=== PATIENT | female | born 1945 | race Caucasian/White ===

== ENCOUNTER 2017-11-29 11:07 | Inpatient (IN) | payer OTHER ==
[~2017-11-29] VITALS: Ht 149.9 cm; Wt 97.4 kg
[~2017-11-29 11:07] MED LIST: ADVIN25/60 INH; ALBU1NEB10 INH; ALBUAER2 INH; AMLO-114 PO; ASCO500T16 PO; ASPI1TAB83 PO; BLOOKIT; CALCTAB5 PO; CETI10TA84 PO; DIPH-416 PO; EZET10TA47 PO; FLAX100024 PO; FLNIN NAE; FURO40TA3 PO; INDSR80 PO; INSU31MI; INSUINJ14 SC; INSUINJ4 SC; LANCMIS; LOSA25TA18 PO; MCRK20 PO; MELO15TA4 PO; MULTTAB58 PO; NTRGSL/4 UT; OMEP20CA9 PO; PRED1SUS3 OPB; TIOTCAP INH; TRAM-10 PO; ZOLP10TA PO; [UNRECOGNIZED DRUG - CODE] OPB; [UNRECOGNIZED DRUG - OTHER]; test
[2017-11-29] MEDS ORDERED: METOCLOPRAMIDE HCL INJ 5 MG/ML 2 ML VIAL IV STA (11:24)
[2017-11-29] MEDS ORDERED: ACETAMINOPHEN 500 MG TAB PO STA (11:24)
[2017-11-29] MEDS ORDERED: ALBUT/IPRATROP 3MG/0.5MG NEB 3 ML VIAL INH ONE (11:30)
[2017-11-29] MEDS ORDERED: SODIUM CHLORIDE 0.9% 500ML 500 ML IV STA (11:33)
--- NOTE | 2017-11-29 11:43 | EMERGENCY ROOM VISIT NOTE ---
History Report prepared by David: Aaron Calzada Under the Supervision of: Dr. Joao Em M.D. First contact with patient: 11:19 Chief Complaint: FLU LIKE SX Stated Complaint: SYNCOPE, HIGH SUGAR, COUGH,NAUSEA,VOM History of Present Illness The patient is a 72 year old female who presents to the Emergency Room with complaints of a sudden syncopal episode occurring around 2315 last night while walking to the kitchen. The patient states that she fell and was on the ground and unconscious for 20-40 minutes, and she states that no one was there to see her. Her downstairs neighbor heard the fall, and the family was called and came over after, and the patient was awake and sitting at a table by the time they got there. She states that she is currently having back pain, right arm pain, and leg pain. The patient is additionally complaining of headache, fevers, chills, cough, congestion, nausea, vomiting, and fatigue. She denies any abdominal pain, pain with urination, and gaining any water weight recently. The patient has a history of asthma, diabetes, and a mitral valve prolapse. She has no history of COPD, and she does not smoke. She is not on any blood thinners. Source of History: patient, family Onset: last night around 2315 Position: other (global) Quality: other (syncopal episode) Timing: other (sudden) Associated Symptoms: + fevers, + chills, + cough, + nausea, + vomiting, No abdominal pain Note: Associated symptoms: Right arm pain, leg pain, and congestion. Review of Systems See HPI for pertinent positives and negatives. A total of ten systems were reviewed and were otherwise negative. Past Medical & Surgical Medical Problems: (1) Asthma (2) Celiac disease (3) Cholelithiasis (4) Dyslipidemia (5) Hyperglycemia (6) Hypertension (7) Influenza A Surgical Problems: (1) Status post cataract extraction (2) Status post cholecystectomy (3) Status post hysterectomy Family History Asthma FATHER Diabetes mellitus MOTHER SISTER Heart disease FATHER Hypertension SISTER Renal call Ca MOTHER Social History Smoking Status: Never Smoker Housing Status: lives alone Occupation Status: employed Current/Historical Medications Scheduled Amlodipine (Norvasc), 10 MG PO DAILY Aspirin (Aspirin 81), 1 TAB PO DAILY Calcium Carbonate-Vitamin D (Calcium + D), 1 TAB PO DAILY Cetirizine (Zyrtec), 10 MG PO DAILY Diphenoxylate/Atropine (Lomotil), 1 TAB PO PRN Ezetimibe (Zetia), 10 MG PO DAILY Fluticasone Prop/Salmeterol (Advair Diskus 250/50 60 Dose), 1 PUFF INH BID Furosemide (Lasix), 40 MG PO DAILY Insulin Aspart (Novolog Flexpen), Unknown Dose TID Insulin Detemir (Levemir Flextouch), 8 UNITS SC DAILY Losartan Potassium (Cozaar), 25 MG PO DAILY Meloxicam (Mobic), 15 MG PO DAILY Nitroglycerin (Nitrostat), 0.4 MG UT PRN Omeprazole (Prilosec), 20 MG PO DAILY Potassium Ext Rel (Klor-Con), 20 MEQ PO DAILY Propranolol Hcl (Propranolol Hcl Er), 160 MG PO DAILY Tiotropium [place] (Spiriva Handihaler), 1 INHA PO DAILY Vitamins C & E (Vitamin C), 500 MG PO DAILY Scheduled PRN Albuterol Sulfate (Proventil Hfa), 1 PUFF INH Q4 PRN for SOB/Wheezing Durable Medical Equipment Blood Glucose Monitoring Suppl (Purfresh Ultra 2), KIT Insulin Pen Needle (Exel Insulin Pen [place]), UNITS Lancets (Lancets), BOX Allergies Coded Allergies: Penicillins (Verified Allergy, Severe, SOB, RASH, 11/29/17) Acetaminophen (Verified Allergy, Unknown, UNKNOWN., 11/29/17) Erythromycin (Verified Allergy, Unknown, UNKNOWN., 11/29/17) Gluten (Verified Allergy, Unknown, CELIAC DISEASE, 11/29/17) Gluten Meal (Verified Allergy, Unknown, CELIAC DISEASE, 11/29/17) Lisinopril (Verified Allergy, Unknown, UNKNOWN., 11/29/17) POLLEN (Verified Allergy, Unknown, ?, 11/29/17) Propoxyphene (Verified Allergy, Unknown, UNKNOWN., 11/29/17) Sulfa Drugs (Verified Allergy, Unknown, UNKNOWN., 11/29/17) Physical Exam Vital Signs Date Time Temp Pulse Resp B/P (MAP) Pulse Ox O2 Delivery O2 Flow Rate FiO2 11/29/17 14:18 36.5 67 18 131/66 97 Room Air 11/29/17 12:19 68 20 90 Room Air 11/29/17 12:09 61 11/29/17 11:48 95 Room Air 11/29/17 11:11 36.9 69 18 128/78 97 Room Air Physical Exam GENERAL: Awake, alert, fatigued-appearing, in no distress HENT: Normocephalic, atraumatic. Oropharynx unremarkable. Dry and cracked mucous membranes. EYES: Normal conjunctiva. Sclera non-icteric. NECK: Supple. No nuchal rigidity. FROM. No JVD. RESPIRATORY:Scattered wheezes. CARDIAC: Regular rate, normal rhythm. Extremities warm and well perfused. Pulses equal. ABDOMEN: Soft, non-distended. No tenderness to palpation. No rebound or guarding. No masses. RECTAL: Deferred. MUSCULOSKELETAL: Mild tenderness in the C,T,L spine with no step offs. 2cm contusion/hematoma to the right mid thoracic paraspinal region and upper thoracic paraspinal region. Chest examination reveals no tenderness. There is no CVA tenderness to palpation. No joint edema. LOWER EXTREMITIES: Calves are equal size bilaterally and non-tender. No edema. No discoloration. NEURO: Normal sensorium. No sensory or motor deficits noted. SKIN: No rash or jaundice noted. Medical Decision & Procedures ER Provider Diagnostic Interpretation: Radiology results as stated below per my review and radiologist interpretation: HEAD WITHOUT CONTRAST (CT) CLINICAL HISTORY: 72 years-old Female with MILLIGAN, fall. Acute headache and syncope status post fall TECHNIQUE: Multiple axial CT images of the head were obtained without contrast. A dose lowering technique was utilized adhering to the principles of ALARA. CT DOSE: 3500.82 mGy.cm COMPARISON: CT cervical spine of same day, CT head 09/14/2013. FINDINGS: No acute intracranial hemorrhage, midline shift, intracranial mass, hydrocephalus, territorial ischemia or abnormal extra-axial collection. Moderate trophic changes of the brain again seen with ill-defined areas of low-attenuation within the subcortical and periventricular white matter suggesting chronic microvascular ischemic changes. More focal area of low-attenuation is seen within the distribution of the right peña radiata and anterior aspect of the right external capsule which is unchanged suggesting remote infarction. Vascular calcifications are seen at the level of the skull base, notably within the distribution of the V4 segment right vertebral artery which appears to have progressed from prior study. The calvarium is intact. The paranasal sinuses, mastoid air cells, and middle ear cavities are clear. Sinuses appear mildly hypoplastic. Complete bony fusion involving the posterior arch C1. Soft tissues are unremarkable. IMPRESSION: 1. No acute intracranial abnormality. 2. Atrophy with chronic microvascular ischemic changes. 3. Progressively worsened atherosclerotic plaquing involves the V4 segment right vertebral artery. The above report was generated using voice recognition software. It may contain grammatical, syntax or spelling errors. Electronically signed by: Corey Gleason M.D. 11/29/2017 2:13 PM Dictated Date/Time: 11/29/2017 2:09 PM CHEST ONE VIEW PORTABLE HISTORY: 72 years-old Female CHEST PAIN acute atypical chest pain with nausea and syncope COMPARISON: Chest radiograph 09/10/2013. TECHNIQUE: Portable AP view of the chest FINDINGS: Cardiomediastinal and hilar silhouettes are within normal limits. Atherosclerosis of the aorta. No pneumothorax, pleural effusion, focal airspace consolidation or overt pulmonary edema. Bones of the chest appear grossly intact. There are degenerative changes of the shoulders and spine. IMPRESSION: No acute process. The above report was generated using voice recognition software. It may contain grammatical, syntax or spelling errors. Electronically signed by: Corey Gleason M.D. 11/29/2017 12:14 PM Dictated Date/Time: 11/29/2017 12:[address] OF THE CERVICAL SPINE WITHOUT CONTRAST CLINICAL HISTORY: Pain following fall. COMPARISON STUDY: No previous studies for comparison. TECHNIQUE: Helical axial images of the cervical spine were obtained without IV contrast. Sagittal and coronal reconstructions were viewed. A dose lowering technique was utilized adhering to the principles of ALARA. FINDINGS: There is straightening of the normal cervical lordosis. Craniocervical junction is intact. There is no acute cervical spine fracture. There is no prevertebral edema. Moderate disc space narrowing with osteophytosis is noted at C5-C6 and C6-C7. IMPRESSION: No acute cervical spine fracture or subluxation. Electronically signed by: [place] John M.D. 11/29/2017 2:12 PM Dictated Date/Time: 11/29/2017 2:10 PM (CHEST) THORAX WITHOUT CT DOSE: HISTORY: Trauma. Pain. pain, hematoma fall TECHNIQUE: Multiaxial CT images of the chest were performed without contrast. A dose lowering technique was utilized adhering to the principles of ALARA. COMPARISON: 07/08/2009 FINDINGS: The lungs are clear. The mediastinal vascular structures are within normal limits. No mediastinal or hilar lymphadenopathy. No pleural effusion or pneumothorax. Limited views of the upper abdomen demonstrate a normal liver and spleen. IMPRESSION: No acute process. The above report was generated using voice recognition software. It may contain grammatical, syntax or spelling errors. Electronically signed by: Nitesh Joel M.D. 11/29/2017 2:14 PM Dictated Date/Time: 11/29/2017 2:[address] OF THE ABDOMEN AND PELVIS WITHOUT CONTRAST CLINICAL HISTORY: pain, hematoma fall COMPARISON STUDY: CT of the abdomen and pelvis September 12, 2013. TECHNIQUE: Axial images of the abdomen and pelvis were obtained without IV contrast. Images were reviewed in the axial, sagittal, and coronal planes. A dose lowering technique was utilized adhering to the principles of ALARA. FINDINGS: Chest CT will be reported separately. No hemoperitoneum or pneumoperitoneum is present. Evaluation of the abdomen and pelvis is suboptimal on this unenhanced exam. However, there is no evidence for traumatic injury to the liver, spleen, adrenal glands, kidneys or pancreas. The gallbladder is surgically absent. Caliber of small and large bowel is normal. There is no free fluid. No acute lumbar spine or pelvic fracture is identified. There is no abdominal or pelvic lymphadenopathy. IMPRESSION: No acute traumatic findings within the abdomen or pelvis on unenhanced exam. Electronically signed by: [place] John M.D. 11/29/2017 2:20 PM Dictated Date/Time: 11/29/2017 2:13 PM Laboratory Results 11/29/17 11:50 Red Blood Count 4.85, Mean Corpuscular Volume 86.2, Mean Corpuscular Hemoglobin 29.1, Mean Corpuscular Hemoglobin Concent 33.7, Mean Platelet Volume 10.8, Neutrophils (%) (Auto) 61.4, Lymphocytes (%) (Auto) 24.4, Monocytes (%) (Auto) 13.8, Eosinophils (%) (Auto) 0.0, Basophils (%) (Auto) 0.2, Neutrophils # (Auto ) 3.71, Lymphocytes # (Auto) 1.47, Monocytes # (Auto) 0.83, Eosinophils # (Auto ) 0.00, Basophils # (Auto) 0.01 Test 11/29/17 11:50 11/29/17 13:39 11/29/17 14:20 White Blood Count 6.03 K/uL (4.8-10.8) Red Blood Count 4.85 M/uL (4.2-5.4) Hemoglobin 14.1 g/dL (12.0-16.0) Hematocrit 41.8 % (37-47) Mean Corpuscular Volume 86.2 fL (80-100) Mean Corpuscular Hemoglobin 29.1 pg (25-34) Mean Corpuscular Hemoglobin Concent 33.7 g/dl (32-36) Platelet Count 249 K/uL (130-400) Mean Platelet Volume 10.8 fL (7.4-10.4) Neutrophils (%) (Auto) 61.4 % Lymphocytes (%) (Auto) 24.4 % Monocytes (%) (Auto) 13.8 % Eosinophils (%) (Auto) 0.0 % Basophils (%) (Auto) 0.2 % Neutrophils # (Auto) 3.71 K/uL (1.4-6.5) Lymphocytes # (Auto) 1.47 K/uL (1.2-3.4) Monocytes # (Auto) 0.83 K/uL (0.11-0.59) Eosinophils # (Auto) 0.00 K/uL (0-0.5) Basophils # (Auto) 0.01 K/uL (0-0.2) RDW Standard Deviation 45.9 fL (36.4-46.3) RDW Coefficient of Variation 14.5 % (11.5-14.5) Immature Granulocyte % (Auto) 0.2 % Immature Granulocyte # (Auto) 0.01 K/uL (0.00-0.02) Total Bilirubin 0.5 mg/dl (0.2-1) Alanine Aminotransferase (ALT/SGPT) 51 U/L (12-78) Alkaline Phosphatase 261 U/L (45-117) Troponin I < 0.015 ng/ml (0-0.045) Pro-B-Type Natriuretic Peptide 311 pg/ml (0-900) Total Protein 8.0 gm/dl (6.4-8.2) Albumin 3.7 gm/dl (3.4-5.0) Lipase 77 U/L (73-393) Influenza Type A Antigen POS for Influ A (NEG) Influenza Type B Antigen Neg for Influ B (NEG) Direct Bilirubin 0.1 mg/dl (0-0.2) Aspartate Amino Transf (AST/SGOT) 34 U/L (15-37) Urine Color YELLOW Urine Appearance CLEAR (CLEAR) Urine pH 5.5 (4.5-7.5) Urine Specific [place] 1.018 (1.000-1.030) Urine Protein NEG (NEG) Urine Glucose (UA) 2+ (NEG) Urine Ketones NEG (NEG) Urine Occult Blood NEG (NEG) Urine Nitrite NEG (NEG) Urine Bilirubin NEG (NEG) Urine Urobilinogen NEG (NEG) Urine Leukocyte Esterase TRACE (NEG) Urine WBC (Auto) 5-10 /hpf (0-5) Urine RBC (Auto) 0-4 /hpf (0-4) Urine Hyaline Casts (Auto) 5-10 /lpf (0-5) Urine Epithelial Cells (Auto) 10-20 /lpf (0-5) Urine Bacteria (Auto) NEG (NEG) Laboratory results reviewed by me Medications Administered Medications (Trade) Dose Ordered Sig/Rupa Route Start Time Stop Time Status Last Admin Dose Admin Albuterol/ Ipratropium (Duoneb) 12 ml ONE ONCE INH 11/29/17 11:30 11/29/17 11:33 DC 11/29/17 12:17 12 ML Prednisone (PredniSONE TAB) 60 mg NOW STAT PO 11/29/17 11:24 11/29/17 11:33 DC 11/29/17 11:58 60 MG Acetaminophen (Tylenol Tab) 1,000 mg NOW STAT PO 11/29/17 11:24 11/29/17 11:33 DC 11/29/17 11:59 1,000 MG Metoclopramide HCl (Reglan Inj) 10 mg NOW STAT IV 11/29/17 11:24 11/29/17 11:33 DC 11/29/17 11:57 10 MG Sodium Chloride 500 ml @ 999 mls/hr Q31M STAT IV 11/29/17 11:33 11/29/17 12:03 DC 11/29/17 11:57 999 MLS/HR Sodium Chloride 1,000 ml @ 250 mls/hr Q4H STAT IV 11/29/17 14:27 11/29/17 16:18 DC 11/29/17 14:41 250 MLS/HR Ceftriaxone Sodium (Rocephin Inj) 1 gm NOW STAT IV 11/29/17 15:00 11/29/17 15:02 DC 11/29/17 15:30 1 GM Oseltamivir Phosphate (Tamiflu Cap) 75 mg NOW STAT PO 11/29/17 15:00 11/29/17 15:02 DC 11/29/17 15:30 75 MG Insulin Aspart (novoLOG ASPART) 8 units NOW STAT SC 11/29/17 15:02 11/29/17 15:08 DC 11/29/17 15:35 8 UNITS ECG Indication: syncope Rate (beats per minute): 71 Rhythm: normal sinus Findings: T-wave inversion (precordial leads), no acute ischemic change, other (normal axis) Comparison ECG Date: 09/12/13 Change: no significant change Change: Patient's EKG interpreted by me ED Course 1119: The patient was evaluated in room A11. A complete history and physical exam was performed. 1455: Upon reexamination, the patient was doing well. I discussed the test results and treatment plan with her. The patient will be evaluated for further management. 1504: I discussed the patient with Merlene Garrido - She will evaluate the patient for further treatment. Medical Decision I reviewed the patient's past medical history, medications, and the nursing notes as described above. The patient's presentation and history were concerning for etiologies such as fracture, dislocation, intra-abdominal, pneumothorax, intrathoracic , intracranial, neurologic, as well as other traumatic pathologies, vasovagal event, infection, hypoglycemia, electrolyte abnormalities, cardiac sources, intracerebral event, toxicologic, neurologic, as well as others were entertained. The patient is a 72 y/o woman with a pmhx of IDDM2, HTN presents to the emergency department with cough, congestion, body aches, f/c and syncopal episodes last night per HPI. On arrival the patient is fatigued appearing but in NAD, AFVSS. Labs notable for hyponatremia to 126 although with glc 490s correcting to 132. BUN/Cr > 20 suggestive of prerenal etiology in the setting of influenza A positive. Elevated BHB however without Agap. UA with possible UTI. Given patient's illness leading to syncope will treat with ceftriaxone for now. CT head, Cspine, Chest, Abd/pel negative for acute traumatic findings. Case d/w Hema Jaimes, who will admit the patient for further management. Medication Reconcilliation Current Medication List: was personally reviewed by me Blood Pressure Screening Patient's blood pressure: Normal blood pressure Consults Time Called: 1500 Consulting Physician: Merlene Garrido Returned Call: 1504 I discussed the patient with Merlene Garrido - She will evaluate the patient for further treatment. Impression Primary Impression: Syncope Additional Impressions: Influenza A Hyponatremia Hyperglycemia UTI (urinary tract infection) Acute kidney injury Dehydration Scribe Attestation The scribe's documentation has been prepared under my direction and personally reviewed by me in its entirety. I confirm that the note above accurately reflects all work, treatment, procedures, and medical decision making performed by me. Departure Information Dispostion Being Evaluated By Hospitalist Referrals Alicia Woodruff M.D. (PCP) Patient Instructions [facility] Problem Qualifiers
[2017-11-29] MEDS ORDERED: OPTIRAY 320 IV PRN (11:45)
--- NOTE | 2017-11-29 12:16 | DIAGNOSTIC IMAGING REPORT ---
CHEST ONE VIEW PORTABLE HISTORY: 72 years-old Female CHEST PAIN acute atypical chest pain with nausea and syncope COMPARISON: Chest radiograph 09/10/2013. TECHNIQUE: Portable AP view of the chest FINDINGS: Cardiomediastinal and hilar silhouettes are within normal limits. Atherosclerosis of the aorta. No pneumothorax, pleural effusion, focal airspace consolidation or overt pulmonary edema. Bones of the chest appear grossly intact. There are degenerative changes of the shoulders and spine. IMPRESSION: No acute process. The above report was generated using voice recognition software. It may contain grammatical, syntax or spelling errors. Electronically signed by: Corey Gleason M.D. 11/29/2017 12:14 PM Dictated Date/Time: 11/29/2017 12:13 PM
[2017-11-29 12:19] VITALS: PULSE 68; O2SAT 90
[2017-11-29 12:19] LABS: BASO % 0.2 %; BASO ABS # 0.01 K/uL (0-0.2); HEMATOCRIT 41.8 % (37-47); HEMOGLOBIN 14.1 g/dL (12.0-16.0); IG# 0.01 K/uL (0.00-0.02); LYMPH % 24.4 %; LYMPH ABS # 1.47 K/uL (1.2-3.4); MEAN CELL VOLUME 86.2 fL (80-100); MEAN CORPUSCULAR HEMOGLOBIN 29.1 pg (25-34); MEAN CORPUSCULAR HGB CONC 33.7 g/dl (32-36); MEAN PLATELET VOLUME 10.8 fL (7.4-10.4); MONO % 13.8 %; MONO ABS # 0.83 K/uL (0.11-0.59); NEUT % 61.4 %; NEUT ABS # 3.71 K/uL (1.4-6.5); PLATELET COUNT 249 K/uL (130-400); RED CELL DISTRIBUTION WIDTH CV 14.5 % (11.5-14.5); RED CELL DISTRIBUTION WIDTH SD 45.9 fL (36.4-46.3); WHITE BLOOD COUNT 6.03 K/uL (4.8-10.8)
[2017-11-29] MEDS ORDERED: INSU3INJ3 SC (12:26)
[2017-11-29] MEDS ORDERED: POTA20TA16 PO (12:26)
[2017-11-29] MEDS ORDERED: PROP160C PO (12:26)
[2017-11-29] MEDS ORDERED: EZET10TA63 PO (12:26)
[2017-11-29] MEDS ORDERED: NVLGI/PEN (12:26)
[2017-11-29 12:34] LABS: INFLUENZA B ANTIGEN Neg for Influ B (NEG)
[2017-11-29 13:07] LABS: GLUCOSE 492 mg/dl (70-99)
[2017-11-29 13:11] LABS: ALBUMIN 3.7 gm/dl (3.4-5.0); ALT/SGPT 51 U/L (12-78); CREATININE 2.36 mg/dl (0.60-1.20)
[2017-11-29 13:12] LABS: ALKALINE PHOSPHATASE 261 U/L (45-117); BLOOD UREA NITROGEN 58 mg/dl (7-18); CALCIUM 8.7 mg/dl (8.5-10.1); CARBON DIOXIDE 25 mmol/L (21-32); LIPASE 77 U/L (73-393); SODIUM 126 mmol/L (136-145)
[2017-11-29 14:02] LABS: POTASSIUM 3.6 mmol/L (3.5-5.1)
--- NOTE | 2017-11-29 14:14 | DIAGNOSTIC IMAGING REPORT ---
CT OF THE CERVICAL SPINE WITHOUT CONTRAST CLINICAL HISTORY: Pain following fall. COMPARISON STUDY: No previous studies for comparison. TECHNIQUE: Helical axial images of the cervical spine were obtained without IV contrast. Sagittal and coronal reconstructions were viewed. A dose lowering technique was utilized adhering to the principles of ALARA. FINDINGS: There is straightening of the normal cervical lordosis. Craniocervical junction is intact. There is no acute cervical spine fracture. There is no prevertebral edema. Moderate disc space narrowing with osteophytosis is noted at C5-C6 and C6-C7. IMPRESSION: No acute cervical spine fracture or subluxation. Electronically signed by: [place] John M.D. 11/29/2017 2:12 PM Dictated Date/Time: 11/29/2017 2:10 PM
--- NOTE | 2017-11-29 14:15 | DIAGNOSTIC IMAGING REPORT ---
HEAD WITHOUT CONTRAST (CT) CLINICAL HISTORY: 72 years-old Female with MILLIGAN, fall. Acute headache and syncope status post fall TECHNIQUE: Multiple axial CT images of the head were obtained without contrast. A dose lowering technique was utilized adhering to the principles of ALARA. CT DOSE: 3500.82 mGy.cm COMPARISON: CT cervical spine of same day, CT head 09/14/2013. FINDINGS: No acute intracranial hemorrhage, midline shift, intracranial mass, hydrocephalus, territorial ischemia or abnormal extra-axial collection. Moderate trophic changes of the brain again seen with ill-defined areas of low-attenuation within the subcortical and periventricular white matter suggesting chronic microvascular ischemic changes. More focal area of low-attenuation is seen within the distribution of the right peña radiata and anterior aspect of the right external capsule which is unchanged suggesting remote infarction. Vascular calcifications are seen at the level of the skull base, notably within the distribution of the V4 segment right vertebral artery which appears to have progressed from prior study. The calvarium is intact. The paranasal sinuses, mastoid air cells, and middle ear cavities are clear. Sinuses appear mildly hypoplastic. Complete bony fusion involving the posterior arch C1. Soft tissues are unremarkable. IMPRESSION: 1. No acute intracranial abnormality. 2. Atrophy with chronic microvascular ischemic changes. 3. Progressively worsened atherosclerotic plaquing involves the V4 segment right vertebral artery. The above report was generated using voice recognition software. It may contain grammatical, syntax or spelling errors. Electronically signed by: Corey Gleason M.D. 11/29/2017 2:13 PM Dictated Date/Time: 11/29/2017 2:09 PM
--- NOTE | 2017-11-29 14:15 | DIAGNOSTIC IMAGING REPORT ---
(CHEST) THORAX WITHOUT CT DOSE: HISTORY: Trauma. Pain. pain, hematoma fall TECHNIQUE: Multiaxial CT images of the chest were performed without contrast. A dose lowering technique was utilized adhering to the principles of ALARA. COMPARISON: 07/08/2009 FINDINGS: The lungs are clear. The mediastinal vascular structures are within normal limits. No mediastinal or hilar lymphadenopathy. No pleural effusion or pneumothorax. Limited views of the upper abdomen demonstrate a normal liver and spleen. IMPRESSION: No acute process. The above report was generated using voice recognition software. It may contain grammatical, syntax or spelling errors. Electronically signed by: Nitesh Joel M.D. 11/29/2017 2:14 PM Dictated Date/Time: 11/29/2017 2:10 PM
--- NOTE | 2017-11-29 14:21 | DIAGNOSTIC IMAGING REPORT ---
CT OF THE ABDOMEN AND PELVIS WITHOUT CONTRAST CLINICAL HISTORY: pain, hematoma fall COMPARISON STUDY: CT of the abdomen and pelvis September 12, 2013. TECHNIQUE: Axial images of the abdomen and pelvis were obtained without IV contrast. Images were reviewed in the axial, sagittal, and coronal planes. A dose lowering technique was utilized adhering to the principles of ALARA. FINDINGS: Chest CT will be reported separately. No hemoperitoneum or pneumoperitoneum is present. Evaluation of the abdomen and pelvis is suboptimal on this unenhanced exam. However, there is no evidence for traumatic injury to the liver, spleen, adrenal glands, kidneys or pancreas. The gallbladder is surgically absent. Caliber of small and large bowel is normal. There is no free fluid. No acute lumbar spine or pelvic fracture is identified. There is no abdominal or pelvic lymphadenopathy. IMPRESSION: No acute traumatic findings within the abdomen or pelvis on unenhanced exam. Electronically signed by: [place] John M.D. 11/29/2017 2:20 PM Dictated Date/Time: 11/29/2017 2:13 PM
[2017-11-29] MEDS ORDERED: SODIUM CHLORIDE 0.9% 1000ML 1,000 ML IV STA (14:27)
[2017-11-29] MEDS ORDERED: OSELTAMIVIR PHOSPHATE 75 MG CAP PO STA (15:00)
[2017-11-29] MEDS ORDERED: CEFTRIAXONE SOD INJ 1 GM ADDVIAL IV STA (15:00)
[2017-11-29] MEDS ORDERED: INSULIN ASPART 100 UNITS/ML 3 ML PEN SC STA (15:02)
[2017-11-29] MEDS ORDERED: NovoLIN-R INSULIN PER UNIT CHARGE IV STA (15:15)
[2017-11-29] MEDS ORDERED: INSULIN IV INFUSION PROTOCOL STA ×2 (15:17→15:38)
[2017-11-29] MEDS ORDERED: HHS GOAL RANGE 250-350 mg/dl ONE (15:30)
[2017-11-29] MEDS ORDERED: SEVERE STRESS LEVEL ONE (15:30)
[2017-11-29] MEDS ORDERED: PHARMACY GLYCEMIC MGMT CONSULT PRN (15:36)
[2017-11-29] MEDS ORDERED: INSULIN HUMAN REGULAR PER UNIT 10 UNITS in SYRINGE 9.9 ML IV STA (15:40)
--- NOTE | 2017-11-29 15:55 | Pharmacy Progress Note ---
Glycemic Control Intl Consult Date of Service Nov 29, 2017. Scope Glycemic Pharmacist consulted by Dr Florez on 11/29/17 for glycemic control and to write orders per [facility] inpatient glycemic control protocol Objective Weight (Kilograms): 96.000 Accuchecks BSG (last 24hrs): Test 11/29/17 11:50 Random Glucose 492 mg/dl (70-99) Laboratory Data (last 24hrs) Test 11/29/17 11:50 11/29/17 13:39 Anion Gap 8.0 mmol/L BUN/Creatinine Ratio 24.6 Blood Urea Nitrogen 58 mg/dl Creatinine 2.36 mg/dl Potassium Level mmol/L 3.6 mmol/L Sodium Level 126 mmol/L White Blood Count 6.03 K/uL Red Blood Count 4.85 M/uL Hemoglobin 14.1 g/dL Hematocrit 41.8 % Mean Corpuscular Volume 86.2 fL Mean Corpuscular Hemoglobin 29.1 pg Mean Corpuscular Hemoglobin Concent 33.7 g/dl Platelet Count 249 K/uL Mean Platelet Volume 10.8 fL Neutrophils (%) (Auto) 61.4 % Lymphocytes (%) (Auto) 24.4 % Monocytes (%) (Auto) 13.8 % Eosinophils (%) (Auto) 0.0 % Basophils (%) (Auto) 0.2 % Neutrophils # (Auto) 3.71 K/uL Lymphocytes # (Auto) 1.47 K/uL Monocytes # (Auto) 0.83 K/uL Eosinophils # (Auto) 0.00 K/uL Basophils # (Auto) 0.01 K/uL Recent Pertinent Medications Outpatient Anti-diabetic Regimen: * Levemir 17 units daily plus Novolog 7 with breakfast, 5 with lunch and dinner * A1c = 7.5 % 08/02/17 Risk Factors for Insulin Resistance: * Steroids: prednisone 60 mg PO x 1 * Infection:flu positive on Tamiflu and Rocephin * IVF: Normal saline Assessment & Plan ASSESSMENT: * Ms Doran is a 72 y/o F with a PMH of asthma and mitral valve prolapse who presents with elevated blood sugar and flu positive. With blood sugars in the 400s, an insulin infusion will be started until patient becomes more stable. Outpatient records show the patient is reasonably well controlled on her home regimen. PLAN FOR INPATIENT GLYCEMIC CONTROL: * Starting IV insulin infusion per severe (moderate/severe) stress protocol * Goal Range 100 - 200 mg/dl * In the critical care setting, continuous IV insulin infusion has been shown to be the best method for achieving glycemic targets. * Please note that the plan above was derived based on current level of insulin resistance and hospital stress. These recommendations are appropriate for inpatient admission only. Plan of care upon discharge will need to be reassessed to avoid potential outpatient hypo/hyperglycemia. Thank you.
[2017-11-29] MEDS ORDERED: [UNRECOGNIZED DRUG - REMARK] PRN (16:00)
[2017-11-29] MEDS ORDERED: NITROGLYCERIN 0.4 MG SL PER TAB CHARGE UT PRN (16:00)
[2017-11-29 16:10] VITALS: BP 125/74; PULSE 69; TEMP 36.8; O2SAT 99; BMI 41.6
[2017-11-29] MEDS ORDERED: ADVIN25/60 INH (16:21)
[2017-11-29] MEDS ORDERED: CALC600T9 PO (16:21)
[2017-11-29] MEDS ORDERED: ALBUAER INH (16:21)
[2017-11-29] MEDS ORDERED: ASPI-435 PO (16:21)
[2017-11-29] MEDS ORDERED: SPRIN PO (16:21)
[2017-11-29] MEDS ORDERED: VITACAP26 PO (16:21)
[2017-11-29] MEDS ORDERED: ALBUTEROL HFA 8 GM INHALER INH PRN (16:30)
[2017-11-29] MEDS ORDERED: SODIUM CHLORIDE 0.9% 1000ML 1,000 ML IV ONE (16:30)
--- NOTE | 2017-11-29 16:54 | History and Physical ---
History & Physical Date & Time of Service: Nov 29, 2017 at 16:23 Chief Complaint: Hyperglycemia, Influenza A Primary Care Physician: Alicia Woodruff M.D. History of Present Illness Source: patient, family (sister at bedside), clinic records, hospital records This is a 72yo F with a PMH of insulin dependent DM II, HTN, HLD, asthma, celiac disease and mitral valve prolapse who presents after a syncopal event last evening. Patient has been feeling ill for the past 4 days, endorsing myalgias, subjective fever, chills, nausea with a few episodes of vomiting and nasal congestion. States that she feels more SOB than usual but has not been wheezing. Last evening, patient had an unwitnessed syncopal event that she does not recall. Her sister reports that she received a call around midnight last evening from a neighbor after she heard a loud sound in the patient's apartment. Her sister found the patient slumped over in a kitchen chair, resting her head on the table. States that the patient was groggy and confused. BG was checked and was 432. Denies hitting her head or LOC. Does not remember any lightheadedness, CP, SOB proceeding the syncopal event. Has had syncopal events in the past 2/2 fluctuation of blood sugar. Patient continued to exhibit signs of confusion and lethargy so family brought her to the ED for further evaluation. Endorses myalgias, fatigue, nausea, nasal congestion and non- productive cough. Denies fever, chills, lightheadedness, near-syncope, palpitations, CP, vomiting, abd pain, dysuria, hematuria, diarrhea, constipation or LE swelling. Was found to have a BG of 492 in the ED. Also has an elevated creatinine of 2.36 (baseline ~0.8). Positive for influenza A. Past Medical/Surgical History Medical Problems: (1) Asthma Status: Chronic (2) Celiac disease Status: Chronic (3) Cholelithiasis Status: Resolved (4) Dyslipidemia Status: Chronic (5) Hypertension Status: Chronic Surgical Problems: (1) Status post cataract extraction Status: Chronic (2) Status post cholecystectomy Status: Resolved (3) Status post hysterectomy Status: Resolved Family History Asthma FATHER Diabetes mellitus MOTHER SISTER Heart disease FATHER Hypertension SISTER Renal call Ca MOTHER Social History Smoking Status: Never Smoker Alcohol Use: none Marital Status: single Housing status: lives alone Occupational Status: employed Immunizations History of Influenza Vaccine: Yes Influenza Vaccine Date: Sep 12, 2013 History of Tetanus Vaccine?: utd History of Pneumococcal: Yes History of Hepatitis B Vaccine: No Multi-Drug Resistant Organisms History of MDRO: No Allergies Coded Allergies: Penicillins (Verified Allergy, Severe, SOB, RASH, 11/29/17) Acetaminophen (Verified Allergy, Unknown, UNKNOWN., 11/29/17) Erythromycin (Verified Allergy, Unknown, UNKNOWN., 11/29/17) Gluten (Verified Allergy, Unknown, CELIAC DISEASE, 11/29/17) Gluten Meal (Verified Allergy, Unknown, CELIAC DISEASE, 11/29/17) Lisinopril (Verified Allergy, Unknown, UNKNOWN., 11/29/17) POLLEN (Verified Allergy, Unknown, ?, 11/29/17) Propoxyphene (Verified Allergy, Unknown, UNKNOWN., 11/29/17) Sulfa Drugs (Verified Allergy, Unknown, UNKNOWN., 11/29/17) Home Medications Scheduled Amlodipine (Norvasc), 10 MG PO DAILY Aspirin (Aspirin 81), 1 TAB PO DAILY Calcium Carbonate-Vitamin D (Calcium + D), 1 TAB PO DAILY Cetirizine (Zyrtec), 10 MG PO DAILY Diphenoxylate/Atropine (Lomotil), 1 TAB PO PRN Ezetimibe (Zetia), 10 MG PO DAILY Fluticasone Prop/Salmeterol (Advair Diskus 250/50 60 Dose), 1 PUFF INH BID Furosemide (Lasix), 40 MG PO DAILY Insulin Aspart (Novolog Flexpen), Unknown Dose TID Insulin Detemir (Levemir Flextouch), 8 UNITS SC DAILY Losartan Potassium (Cozaar), 25 MG PO DAILY Meloxicam (Mobic), 15 MG PO DAILY Nitroglycerin (Nitrostat), 0.4 MG UT PRN Omeprazole (Prilosec), 20 MG PO DAILY Potassium Ext Rel (Klor-Con), 20 MEQ PO DAILY Propranolol Hcl (Propranolol Hcl Er), 160 MG PO DAILY Tiotropium [place] (Spiriva Handihaler), 1 INHA PO DAILY Vitamins C & E (Vitamin C), 500 MG PO DAILY Scheduled PRN Albuterol Sulfate (Proventil Hfa), 1 PUFF INH Q4 PRN for SOB/Wheezing Review of Systems Ten systems reviewed and negative except as noted in the HPI. Physical Exam Vital Signs Date Time Temp Pulse Resp B/P (MAP) Pulse Ox O2 Delivery O2 Flow Rate FiO2 11/29/17 15:36 68 18 131/66 96 Room Air 11/29/17 14:18 36.5 67 18 131/66 97 Room Air 11/29/17 12:19 68 20 90 Room Air 11/29/17 12:09 61 11/29/17 11:48 95 Room Air 11/29/17 11:11 36.9 69 18 128/78 97 Room Air General Appearance: no apparent distress, + obese, + pertinent finding (Lying in bed comfortably. Cooperative, coughing intermittently ) Head: normocephalic, atraumatic Eyes: normal inspection, PERRL, sclerae normal ENT: normal ENT inspection, hearing grossly normal, pharynx normal (dry mucous membranes ) Neck: supple, thyroid normal, trachea midline Respiratory/Chest: chest non-tender, lungs clear, normal breath sounds, no respiratory distress, no accessory muscle use Cardiovascular: regular rate, rhythm, no murmur, normal peripheral pulses Abdomen/GI: non tender, soft, no organomegaly Back: normal inspection, no CVA tenderness Extremities/Musculoskelatal: normal inspection, no calf tenderness, no pedal edema Neurologic/Psych: no motor/sensory deficits, alert, normal mood/affect, oriented x 3 (some situational confusion) Skin: normal color, warm/dry Diagnostics Laboratory Results Results Past 24 Hours Test 11/29/17 11:50 11/29/17 13:39 11/29/17 14:20 11/29/17 15:45 Range/Units White Blood Count 6.03 4.8-10.8 K/uL Red Blood Count 4.85 4.2-5.4 M/uL Hemoglobin 14.1 12.0-16.0 g/dL Hematocrit 41.8 37-47 % Mean Corpuscular Volume 86.2 80-100 fL Mean Corpuscular Hemoglobin 29.1 25-34 pg Mean Corpuscular Hemoglobin Concent 33.7 32-36 g/dl Platelet Count 249 130-400 K/uL Mean Platelet Volume 10.8 7.4-10.4 fL Neutrophils (%) (Auto) 61.4 % Lymphocytes (%) (Auto) 24.4 % Monocytes (%) (Auto) 13.8 % Eosinophils (%) (Auto) 0.0 % Basophils (%) (Auto) 0.2 % Neutrophils # (Auto) 3.71 1.4-6.5 K/uL Lymphocytes # (Auto) 1.47 1.2-3.4 K/uL Monocytes # (Auto) 0.83 0.11-0.59 K/uL Eosinophils # (Auto) 0.00 0-0.5 K/uL Basophils # (Auto) 0.01 0-0.2 K/uL RDW Standard Deviation 45.9 36.4-46.3 fL RDW Coefficient of Variation 14.5 11.5-14.5 % Immature Granulocyte % (Auto) 0.2 % Immature Granulocyte # (Auto) 0.01 0.00-0.02 K/uL Sodium Level 126 136-145 mmol/L Potassium Level 3.6 3.5-5.1 mmol/L Chloride Level 93 98-107 mmol/L Carbon Dioxide Level 25 21-32 mmol/L Anion Gap 8.0 3-11 mmol/L Blood Urea Nitrogen 58 7-18 mg/dl Creatinine 2.36 0.60-1.20 mg/dl Est Creatinine Clear Calc Drug Dose 22.2 ml/min Estimated GFR () 23.2 Estimated GFR (Non- 20.1 BUN/Creatinine Ratio 24.6 10-20 Random Glucose 492 70-99 mg/dl Calcium Level 8.7 8.5-10.1 mg/dl Magnesium Level 2.6 1.8-2.4 mg/dl Total Bilirubin 0.5 0.2-1 mg/dl Direct Bilirubin 0.1 0-0.2 mg/dl Aspartate Amino Transf (AST/SGOT) 34 15-37 U/L Alanine Aminotransferase (ALT/SGPT) 51 12-78 U/L Alkaline Phosphatase 261 45-117 U/L Troponin I < 0.015 0-0.045 ng/ml Pro-B-Type Natriuretic Peptide 311 0-900 pg/ml Total Protein 8.0 6.4-8.2 gm/dl Albumin 3.7 3.4-5.0 gm/dl Lipase 77 73-393 U/L Beta-Hydroxybutyric Acid 14.58 0.2-2.81 mg/dL Influenza Type A Antigen POS for Influ A NEG Influenza Type B Antigen Neg for Influ B NEG Urine Color YELLOW Urine Appearance CLEAR CLEAR Urine pH 5.5 4.5-7.5 Urine Specific [place] 1.018 1.000-1.030 Urine Protein NEG NEG Urine Glucose (UA) 2+ NEG Urine Ketones NEG NEG Urine Occult Blood NEG NEG Urine Nitrite NEG NEG Urine Bilirubin NEG NEG Urine Urobilinogen NEG NEG Urine Leukocyte Esterase TRACE NEG Urine WBC (Auto) 5-10 0-5 /hpf Urine RBC (Auto) 0-4 0-4 /hpf Urine Hyaline Casts (Auto) 5-10 0-5 /lpf Urine Epithelial Cells (Auto) 10-20 0-5 /lpf Urine Bacteria (Auto) NEG NEG Test 11/29/17 16:00 Range/Units Diagnostic Radiology CT head: IMPRESSION: 1. No acute intracranial abnormality. 2. Atrophy with chronic microvascular ischemic changes. 3. Progressively worsened atherosclerotic plaquing involves the V4 segment right vertebral artery. CT chest: IMPRESSION: No acute process. Cervical spine CT: IMPRESSION: No acute cervical spine fracture or subluxation. CT abd/pelvis: without contrast IMPRESSION: No acute traumatic findings within the abdomen or pelvis on unenhanced exam. CXR normal EKG Normal sinus rhythm Minimal voltage criteria for LVH, may be normal variant Nonspecific ST and T wave abnormality No change from prior EKG Impression Assessment and Plan This is a 72yo F with a PMH of insulin dependent DM II, HTN, HLD, asthma, celiac disease and mitral valve prolapse who presents after a syncopal event last evening. Hyperglycemia 2/2 DM II: -Elevated BG due to flu, UTI -BG of 492 on admission, bicarb of 25 -Beta hydroxybutyric acid elevated to14.58; no anion gap -10u IV insulin given -Glycemic consult for further management -Aggressive IVF resuscitation -Monitor BG closely -PRP, phos and mag Q4H Unwitnessed syncopal event: -Likely 2/2 hyperglycemia -Associated with lethargy, fatigue -Denies any h/o cardiac-related syncope. No history of arrhythmias -CT head without acute abnormalities -PT/OT for eval, conditioning Metabolic encephalopathy: improving -2/2 hyperglycemia, dehydration, infection -CT head without acute changes to r/o CVA, bleed -Expect improvement with IVF, insulin Pseudohyponatremia: -Na of 126 but once corrected for hyperglycemia, is 135 -IVF resuscitation -Monitor UTI: -Culture pending -Rocephin initiated in ED -Will continue Influenza A: -Droplet precautions -Supportive care with fluids, anti-emetics -Renally dosed Tamiflu ERIC: -Cr elevated to 2.36 (baseline ~0.8) -Likely pre-renal 2/2 dehydration -Also a renal component. Held lasix, losartan, mobic -IVF resuscitation -Nephro consult HTN: -Normotensive now -Held lasix, losartan in setting of ERIC -Cont propranolol, amlodipine -Add additional agents if indicated HLD: -Hold Zetia for now in setting of poor PO intake, vomiting Asthma: -Some SOB in setting of flu -O2 saturation of 96% on room air -Cont home inhalers Celiac disease: -Gluten free diet when able to eat -Lomotil PRN DVT Ppx: Heparin SQ Code status: FULL PCP: Ranjan Dispo: Admitted to telemetry. Discharge planning ordered. Patient seen in collaboration with Dr. Florez. Please see addendum. ATTENDING NOTE : pt seen and examined, care co ordinated with Karma Brown PA-C 72 yo F hx of DM insulin dependent , brought to ER -as she sustained a fall earlier today , was on the floor for some time before family found her pt reports of having fever , generalized body ache , cough since the weekend , noted her Blood sugar was running at 400 did not seek medical attention this morning as she tried to reach for something on a table in dining room , lost her balance , fell and does not recall event her neighbor downstairs heard the sound , tried to call her with no response contacted her sister , when she arrived to her apartment , pt was sitting on chair , with head on table in the ER pt was found to + ve Influenza A , in acute renal failure , HHS with BSG > 490 , elevated beta hydroxybutanoic 14 P/E: gen ; no sign of distress, awake and alert, able to give the detail of events in fair accuracy HEENT ; dry oral mucosa, sclera nonicteric , PERRLA/EOMI HT: regular lungs : CTA abdomen : soft, non tender Ext ; no edema Neuro : no focal deficit A/P : + INFLUENZA A : possible causing dehydration , poor PO intake , ERIC started on Tamiflu dose adjusted for ERIC droplet precaution HSS /HYPERGLYCEMIA IN TYPE 2 DM : possible due to above since feeling sick -pt noted her BSG were running in 400 on Insulin Levemir /and sliding scale at home started on IV insulin gtt IV fluids as per [facility] protocol monitor PRP /mg /phos q 4 hrs per protocol Pharmacy consulted for glycemic management , appreciate input pt is counselled to seek medical attention in any event of illness or elevated blood sugar as soon as possible to prevent severe complications ERIC : due to [facility] /Acute illness with Influenza , poor PO intake pt's home medications includes Mobic , Lasix and ARB all of them are kept on hold given IVF 1 lit bolus in ER , followed by continued IVF @ 175 ml /hr -per [facility] protocol PRP been followed q 4hrs nephrology consulted FULL CODE please refer to documentation of Karma Brown PA-C for further discussion of other issues Marta Florez MD Level of Care Telemetry Resuscitation Status FULL RESUSCITATION VTE Prophylaxis VTE Risk Assessment Done? Y/N: Yes Risk Level: Moderate Given or contraindicated: Unfractionated heparin SQ Additional Copies To Alicia Woodruff M.D.
[2017-11-29] MEDS ORDERED: PENDING D5 1/2NS+20mEq KCL IVF SCH (17:00)
[2017-11-29] MEDS ORDERED: PENDING NSS+20mEq KCL IVF SCH (17:00)
[2017-11-29] MEDS ORDERED: INSULIN ASPART 100 UNITS/ML 3 ML PEN SC SCH (17:30)
[2017-11-29 17:39] LABS: CALCIUM 8.2 mg/dl (8.5-10.1); CREATININE 1.96 mg/dl (0.60-1.20); PHOSPHORUS 2.9 mg/dl (2.5-4.9)
[2017-11-29] MEDS: INSULIN REGULAR 250 UNITS in SODIUM CHLORIDE 0.9% 250ML 250 ML IV SCH ×5 (18:02→22:05)
[2017-11-29] MEDS: SODIUM CHLORIDE 0.9% 1000ML 1,000 ML IV SCH ×2 (18:03→23:09)
[2017-11-29 20:00] VITALS: BP 125/75; PULSE 74; TEMP 37.2; O2SAT 91
[2017-11-29 20:20] LABS: INR 0.9 (0.9-1.1)
[2017-11-29 20:34] LABS: CREATININE 1.89 mg/dl (0.60-1.20); POTASSIUM 4.1 mmol/L (3.5-5.1)
[2017-11-29 20:35] LABS: PHOSPHORUS 2.5 mg/dl (2.5-4.9)
[2017-11-29] MEDS: FLUTICASONE/SALMETEROL 250/50 (ADVAIR) 14 PUFF/1 INHALER INH SCH (22:00)
[2017-11-29] MEDS: HEPARIN SOD 5000 UNIT/0.5 ML CARP SQ SCH (22:06)
[2017-11-29] MEDS ORDERED: NURSING VERBAL MED ORDER STA (23:10)
[2017-11-29] MEDS: INSULIN ASPART 100 UNITS/ML 3 ML PEN SC SCH ×2 (23:23→23:24)
[2017-11-29] MEDS ORDERED: NURSING VERBAL MED ORDER ONE (23:30)
[2017-11-29 23:40] VITALS: BP 123/74; PULSE 71; TEMP 37.2; O2SAT 92
[2017-11-30] MEDS: D5W AND 1/2NSS + 20MEQ KCL 1,000 ML IV SCH ×2 (00:05→07:41)
[2017-11-30 00:44] LABS: CALCIUM 8.4 mg/dl (8.5-10.1); CREATININE 1.63 mg/dl (0.60-1.20); POTASSIUM 3.4 mmol/L (3.5-5.1)
[2017-11-30] MEDS ORDERED: NURSING VERBAL MED ORDER ONE (01:45)
[2017-11-30] MEDS ORDERED: POTASSIUM CHLORIDE 20 MEQ TABCR PO STA (01:49)
[2017-11-30 03:51] VITALS: BP 127/73; PULSE 67; TEMP 37; O2SAT 92
[2017-11-30 04:11] LABS: HEMATOCRIT 36.3 % (37-47); HEMOGLOBIN 12.1 g/dL (12.0-16.0); MEAN CORPUSCULAR HEMOGLOBIN 28.7 pg (25-34); MEAN CORPUSCULAR HGB CONC 33.3 g/dl (32-36); MEAN PLATELET VOLUME 9.9 fL (7.4-10.4); PLATELET COUNT 192 K/uL (130-400); RED CELL DISTRIBUTION WIDTH CV 14.9 % (11.5-14.5); RED CELL DISTRIBUTION WIDTH SD 46.3 fL (36.4-46.3); WHITE BLOOD COUNT 4.92 K/uL (4.8-10.8)
[2017-11-30 04:35] LABS: CALCIUM 8.4 mg/dl (8.5-10.1); CREATININE 1.43 mg/dl (0.60-1.20); POTASSIUM 3.7 mmol/L (3.5-5.1)
[2017-11-30 04:36] LABS: PHOSPHORUS 2.2 mg/dl (2.5-4.9)
[2017-11-30] MEDS: HEPARIN SOD 5000 UNIT/0.5 ML CARP SQ SCH ×3 (05:48→21:02)
[2017-11-30 06:30] LABS: HEMOGLOBIN A1C 8.5 % (4.5-5.6)
[2017-11-30 07:47] VITALS: BP 115/76; PULSE 69; TEMP 37.2; O2SAT 95
[2017-11-30] MEDS: FLUTICASONE/SALMETEROL 250/50 (ADVAIR) 14 PUFF/1 INHALER INH SCH ×2 (08:10→20:52)
[2017-11-30] MEDS: TIOTROPIUM BROMIDE 5 PUFF/90 MCG INH INH SCH (08:11)
[2017-11-30] MEDS: CETIRIZINE HCL 10 MG TAB PO SCH (08:12)
[2017-11-30] MEDS: ASPIRIN 81 MG ECTAB PO SCH (08:12)
[2017-11-30] MEDS: AMLODIPINE BESYLATE 5 MG TAB PO SCH (08:13)
[2017-11-30] MEDS: PROPRANOLOL HCL 80 MG LA CAP PO SCH (08:13)
[2017-11-30] MEDS: PANTOprazole SOD 40 MG TAB PO SCH (08:14)
[2017-11-30] MEDS ORDERED: OSELTAMIVIR PHOSPHATE SUSP 30 MG/5 ML UDP PO SCH (09:00)
[2017-11-30] MEDS ORDERED: INSULIN DETEMIR FLEXPEN/FLEX TOUCH 100 UNITS/ML 3ML SC SCH (09:00)
[2017-11-30 09:21] LABS: CALCIUM 9.2 mg/dl (8.5-10.1); CREATININE 1.27 mg/dl (0.60-1.20); POTASSIUM 4.4 mmol/L (3.5-5.1)
[2017-11-30] MEDS: NSS + 20MEQ KCL 1000ML 1,000 ML IV SCH ×2 (09:23→22:04)
[2017-11-30 09:28] LABS: PHOSPHORUS 1.4 mg/dl (2.5-4.9)
--- NOTE | 2017-11-30 09:57 | NEPHROLOGY CONSULTATION ---
DATE OF CONSULTATION: 11/30/2017 ATTENDING OF RECORD: Brice Salazar MD. REASON FOR CONSULTATION: ERIC. HISTORY OF PRESENT ILLNESS: This 72-year-old female with history of hypertension and diabetes who started to feel sick this past Monday with fevers, chills, nausea, vomiting, diffuse muscle aches, productive cough, was not improving and came into the hospital. Blood sugars were elevated and patient had worsening creatinine of 2.36. The patient was given IV fluids and started on Tamiflu and is currently on normal saline with 20 of K at 75 mL an hour as well as an insulin drip. The patient started to feel better, eating better. Breathing has improved as well. Creatinine during this admission has gone from 2.36 down to 1.27. PAST MEDICAL HISTORY: Hypertension, diabetes, celiac disease, mitral valve prolapse. PAST SURGICAL HISTORY: Cholecystectomy, hysterectomy, multiple cataract surgeries. FAMILY HISTORY: Significant for mother with renal cell carcinoma. SOCIAL HISTORY: No smoking, no alcohol, no drugs. Lives alone. CURRENT MEDICATIONS: Does take Meloxicam 15 mg daily as an outpatient as well as losartan 25 mg daily, and potassium 20 mEq daily. Currently on ceftriaxone 1 gram IV daily, Norvasc 10 mg a day, Zyrtec 10 mg a day, Protonix 40 mg a day, propranolol 160 mg daily, Tamiflu 30 mg daily, aspirin 81 mg daily, Spiriva 1 inhaler daily, normal saline with 20 of K at 75 mL an hour, insulin 15 units subq in the morning, heparin 5000 units subQ q. 8, Advair inhaler twice a day. REVIEW OF SYSTEMS: Positive fevers, chills, cough, nausea, vomiting, decreased appetite and myalgias. All of which are improving since she has been here. All other review of systems otherwise negative. PHYSICAL EXAMINATION: VITAL SIGNS: Temperature 37.2, pulse 69, respiratory rate 18, blood pressure 115/76, satting 95% on room air. GENERAL: Awake, alert, oriented x3. EYES: No scleral icterus. ENT: Moist mucous membranes. NECK: Supple. PULMONARY: Clear to auscultation. CARDIAC: Regular rate and rhythm. ABDOMEN: Bowel sounds positive, soft, nontender. EXTREMITIES: No clubbing, cyanosis or edema. NEUROLOGICALLY: Nonfocal. DERMATOLOGIC: No rash or ulcers noted. LABORATORY STUDIES: Sodium level is 139, potassium 4.4, chloride is 108, bicarb is 27, BUN is 29, creatinine is 1.27, glucose 138, calcium 9.2, mag is 2.4. White count is 4.9, H&H 12 and 36, platelet count is 192. UA is bland. INR is 0.9. Fluids positive. Chest CT shows no acute process. Abdominal pelvis CT shows no acute chronic findings within the abdomen or pelvis. ASSESSMENT AND PLAN: Acute kidney injury, nonoliguric in the setting of flu as well as underlying diabetes and hypertension who was profoundly volume depleted and given appropriate IV fluid resuscitation. The patient's creatinine continues to improve not yet back to baseline, but should continue to improve, likely tomorrow. If eating and drinking is better, could consider stopping IV fluids tomorrow with the volume appropriately restored. No role for emergent dialysis. The patient appears to be clinically improving with the current regimen. No changes. Greatly appreciate the consultation. SERGEY
--- NOTE | 2017-11-30 10:21 | Pharmacy Progress Note ---
Pharmacy Glycemic Short Note 2 Date of Service Nov 30, 2017. OUTPATIENT ANTIDIABETIC REGIMEN: * Levemir 17 units SQ daily * Novolog SQ TID * 7 units w/ breakfast * 5 units w/ lunch * 5 units w/ dinner * HbA1c: 8.5% (11/30/17) ASSESSMENT: * Ms Nicholson is a 72yo diabetic female admitted yesterday with severe hyperglycemia. * Patient was initiated on an IV insulin infusion and was given fluids. * BSGs have largely resolved this morning, so will transition to SQ insulin at this time. * Patient received one dose of Prednisone 60mg yesterday and was receiving IVF with dextrose overnight. IVF have now been changed to NS. PLAN FOR INPATIENT GLYCEMIC CONTROL: * Basal insulin * Levemir 15 units SQ x1 this am * may d/c insulin gtt 6 hr after administration of Levemir or when instructed to HOLD per insulin infusion adjustment calculator (whichever happens sooner) * Will provide supplemental Levemir dose this afternoon/evening if needed and re-eval daily dose in the am * Bolus insulin * NovoLog per scale ACHS or Q6hrs while NPO * Goal Range: Low 110 mg/dL - High 150 mg/dL * Correction Factor: 30 mg/dL/unit * Nutritional / Prandial insulin per carb ratio of 1 unit per 10 grams CHO consumed PLAN FOR DISCHARGE: * Patient's current A1c (8.5%) indicates reasonable glycemic control as an outpatient, in a 72yo female w/ multiple comorbidities. Would prefer an A1c ~ 7.5%, but patient seems to experience some hypoglycemic/syncopal episodes at home, so would caution against making any aggressive changes to home regimen. * Would recommend f/u with PCP to titrate insulin doses until A1c target is reached.
[2017-11-30 11:33] VITALS: BP 120/71; PULSE 76; TEMP 37.1; O2SAT 95
[2017-11-30] MEDS ORDERED: SODIUM PHOSPHATE INJ 15 MMOL in SODIUM CHLORIDE 0.9% 250ML 250 ML IV ONE (11:45)
[2017-11-30 12:37] LABS: CALCIUM 9.3 mg/dl (8.5-10.1); CREATININE 1.28 mg/dl (0.60-1.20); POTASSIUM 3.8 mmol/L (3.5-5.1)
[2017-11-30] MEDS: INSULIN ASPART 100 UNITS/ML 3 ML PEN SC SCH ×3 (13:14→21:02)
[2017-11-30] MEDS ORDERED: CEFTRIAXONE SOD INJ 1 GM in DEXTROSE 5% ADD-VANTAGE 50ML 50 ML IV SCH (15:30)
[2017-11-30 15:38] VITALS: BP 143/79; PULSE 68; TEMP 36.9; O2SAT 92
[2017-11-30 16:00] VITALS: O2SAT 92
[2017-11-30 16:01] VITALS: BMI 41.5
[2017-11-30] MEDS ORDERED: INSULIN DETEMIR FLEXPEN/FLEX TOUCH 100 UNITS/ML 3ML SC ONE (18:00)
[2017-11-30] MEDS: OSELTAMIVIR PHOSPHATE SUSP 30 MG/5 ML UDP PO SCH (21:08)
[2017-12-01] VITALS (12 sets, daily range): BP systolic 128–175; BP diastolic 77–96; PULSE 67–87; TEMP 36.6–37; O2SAT 93–95
[2017-12-01] MEDS ORDERED: INSULIN ASPART 100 UNITS/ML 3 ML PEN SC ONE (02:00)
[2017-12-01] MEDS: HEPARIN SOD 5000 UNIT/0.5 ML CARP SQ SCH ×3 (05:36→21:51)
[2017-12-01 06:42] LABS: CALCIUM 8.4 mg/dl (8.5-10.1); CREATININE 0.97 mg/dl (0.60-1.20); POTASSIUM 3.7 mmol/L (3.5-5.1)
[2017-12-01] MEDS: TIOTROPIUM BROMIDE 5 PUFF/90 MCG INH INH SCH (08:04)
[2017-12-01] MEDS: FLUTICASONE/SALMETEROL 250/50 (ADVAIR) 14 PUFF/1 INHALER INH SCH ×2 (08:04→21:35)
[2017-12-01] MEDS: PROPRANOLOL HCL 80 MG LA CAP PO SCH (08:05)
[2017-12-01] MEDS: AMLODIPINE BESYLATE 5 MG TAB PO SCH (08:05)
[2017-12-01] MEDS: ASPIRIN 81 MG ECTAB PO SCH (08:05)
--- NOTE | 2017-12-01 08:05 | Progress Note ---
Medicine Progress Note Date & Time of Visit: Dec 01, 2017 at 08:05. Subjective delayed entry date of service as noted above seen resting in bedside chair alert, oriented x 3 states she feels somewhat improved less dyspnea, still has cough denies chest pain, dizziness, palpitations no other symptoms Objective Last 8 Hrs Date Time Temp Pulse Resp B/P (MAP) Pulse Ox O2 Delivery O2 Flow Rate FiO2 12/01/17 07:36 36.6 67 20 145/83 (103) 95 Room Air 12/01/17 04:15 37.0 68 20 130/77 (94) 93 Room Air 12/01/17 04:00 95 Room Air 12/01/17 00:16 36.7 74 20 155/92 (113) 95 Room Air Physical Exam: General- oriented x 3, not in distress, speaks in sentences with no effort Head- atraumatic Eyes- PERRL, EOMI, anicteric ENT- oropharynx clear Neck- supple, no JVD, no adenopathy, no thyromegaly Lungs- clear breath sounds bilaterally Heart- regular rhythm; no murmur, no gallop, normal rate Abdomen- normal bowel sounds, soft, nontender Extremities- no pretibial edema, no calf tenderness; peripheral pulses intact Neuro- alert, oriented x 3; PERRL, EOMI; no facial palsy; no dysarthria; motor 5 /5 bilaterally; sensation 100% no other gross focal deficits Skin- warm & dry Laboratory Results: Last 24 Hours Test 11/30/17 08:16 11/30/17 09:10 11/30/17 10:02 11/30/17 11:05 Sodium Level 139 mmol/L Potassium Level 4.4 mmol/L Chloride Level 108 mmol/L Carbon Dioxide Level 27 mmol/L Anion Gap 5.0 mmol/L Blood Urea Nitrogen 29 mg/dl Creatinine 1.27 mg/dl Est Creatinine Clear Calc Drug Dose 40.5 ml/min Estimated GFR () 49.2 Estimated GFR (Non- 42.4 BUN/Creatinine Ratio 22.8 Random Glucose 138 mg/dl Calcium Level 9.2 mg/dl Phosphorus Level 1.4 mg/dl Magnesium Level 2.4 mg/dl Bedside Glucose 215 mg/dl 205 mg/dl 162 mg/dl Test 11/30/17 12:06 11/30/17 12:10 11/30/17 13:06 11/30/17 14:03 Sodium Level 140 mmol/L Potassium Level 3.8 mmol/L Chloride Level 108 mmol/L Carbon Dioxide Level 26 mmol/L Anion Gap 6.0 mmol/L Blood Urea Nitrogen 26 mg/dl Creatinine 1.28 mg/dl Est Creatinine Clear Calc Drug Dose 40.2 ml/min Estimated GFR () 48.7 Estimated GFR (Non- 42.0 BUN/Creatinine Ratio 20.0 Random Glucose 140 mg/dl Calcium Level 9.3 mg/dl Magnesium Level 2.4 mg/dl Bedside Glucose 128 mg/dl 148 mg/dl 122 mg/dl Test 11/30/17 14:50 11/30/17 14:59 11/30/17 15:49 11/30/17 16:25 Bedside Glucose 78 mg/dl 82 mg/dl 139 mg/dl Phosphorus Level 2.2 mg/dl Test 11/30/17 20:12 12/01/17 01:58 12/01/17 05:34 Bedside Glucose 191 mg/dl 252 mg/dl Sodium Level 141 mmol/L Potassium Level 3.7 mmol/L Chloride Level 109 mmol/L Carbon Dioxide Level 27 mmol/L Anion Gap 6.0 mmol/L Blood Urea Nitrogen 17 mg/dl Creatinine 0.97 mg/dl Est Creatinine Clear Calc Drug Dose 54.5 ml/min Estimated GFR () 68.1 Estimated GFR (Non- 58.8 BUN/Creatinine Ratio 17.7 Random Glucose 245 mg/dl Calcium Level 8.4 mg/dl Phosphorus Level 2.0 mg/dl Magnesium Level 2.1 mg/dl Assessment & Plan This is a 72yo F with a PMH of insulin dependent DM II, HTN, HLD, asthma, celiac disease and mitral valve prolapse who presents after a syncopal event last evening. SYNCOPE SECONDARY TO: DEHYDRATION, ACUTE RENAL FAILURE crea improving given IV fluids Nephro consulted INFLUENZA A INFECTION on Tamiflu HYPERGLYCEMIA off Insulin drip on Lantus and ISS Pharmacy consulted Metabolic encephalopathy, resolved -2/2 hyperglycemia, dehydration, infection -CT head without acute changes to r/o CVA, bleed UTI: -Culture pending -Rocephin initiated in ED - ff up HTN: -Normotensive now -Held lasix, losartan in setting of ERIC -Cont propranolol, amlodipine HLD: -Hold Zetia for now in setting of poor PO intake, vomiting Asthma: -O2 saturation of 96% on room air -Cont home inhalers - stable Celiac disease: -Gluten free diet DVT Ppx: Heparin SQ Code status: FULL PCP: Ranjan Dispo:pending Current Inpatient Medications: Current Inpatient Medications Medications (Trade) Dose Ordered Sig/Rupa Route Start Time Stop Time Status Last Admin Dose Admin Ioversol (Optiray 320) 125 ml UD PRN IV 11/29/17 11:45 12/03/17 11:44 Miscellaneous Information (Consult Glycemic Management Pharmacy) 1 ea UD PRN N/A 11/29/17 15:36 12/29/17 15:35 Ceftriaxone Sodium 1 gm/ Dextrose 50 ml @ 100 mls/hr Q24H IV 11/30/17 15:30 12/05/17 15:29 11/30/17 15:45 100 MLS/HR Miscellaneous Information (Pharmacy Consult) 1 ea UD PRN N/A 11/29/17 16:00 12/29/17 15:59 Amlodipine Besylate (Norvasc Tab) 10 mg DAILY PO 11/30/17 09:00 12/30/17 08:59 11/30/17 08:13 10 MG Cetirizine HCl (zyrTEC TAB) 10 mg DAILY PO 11/30/17 09:00 12/30/17 08:59 11/30/17 08:12 10 MG Nitroglycerin (Nitrostat Tab) 0.4 mg PRN PRN UT 11/29/17 16:00 12/29/17 15:59 Pantoprazole Sodium (Protonix Tab) 40 mg QAM PO 11/30/17 09:00 12/30/17 08:59 11/30/17 08:14 40 MG Propranolol HCl (Inderal LA Cap) 160 mg DAILY PO 11/30/17 09:00 12/30/17 08:59 11/30/17 08:13 160 MG Albuterol (Ventolin Hfa Inhaler) 1 puffs Q4 PRN INH 11/29/17 16:30 12/29/17 16:29 11/30/17 05:43 1 PUFFS Aspirin (Ecotrin Tab) 81 mg DAILY PO 11/30/17 09:00 12/30/17 08:59 11/30/17 08:12 81 MG Salmeterol Xinafoate/ Fluticasone (Advair Diskus 250/50 Inh) 1 puff BID INH 11/29/17 21:00 12/29/17 20:59 11/30/17 20:52 1 PUFF Tiotropium [place] (Spiriva Handihaler Inhaler) 1 puff DAILY INH 11/30/17 09:00 12/30/17 08:59 11/30/17 08:11 1 PUFF Heparin Sodium (Porcine) (Heparin Sq 5000 Unit/0.5ml) 5,000 unit Q8 SQ 11/29/17 22:00 12/29/17 21:59 12/01/17 05:36 5,000 UNIT Insulin Aspart (novoLOG ASPART) SLIDING SCALE ACHS SC 11/30/17 11:00 12/30/17 10:59 11/30/17 21:02 4 UNITS Oseltamivir Phosphate (Tamiflu Susp) 30 mg BID PO 11/30/17 21:00 12/04/17 20:59 11/30/17 21:08 30 MG Insulin Detemir (Levemir Flexpen/ FlexTouch) 20 units QAM SC 12/01/17 09:00 12/31/17 08:59
[2017-12-01] MEDS: CETIRIZINE HCL 10 MG TAB PO SCH (08:06)
[2017-12-01] MEDS: PANTOprazole SOD 40 MG TAB PO SCH (08:06)
[2017-12-01] MEDS: INSULIN ASPART 100 UNITS/ML 3 ML PEN SC SCH ×4 (08:09→21:49)
[2017-12-01] MEDS: OSELTAMIVIR PHOSPHATE SUSP 30 MG/5 ML UDP PO SCH ×2 (08:27→21:35)
[2017-12-01] MEDS ORDERED: INSULIN DETEMIR FLEXPEN/FLEX TOUCH 100 UNITS/ML 3ML SC SCH ×2 (09:00→21:00)
--- NOTE | 2017-12-01 10:10 | Pharmacy Progress Note ---
Pharmacy Glycemic Short Note 2 Date of Service Dec 01, 2017. OUTPATIENT ANTIDIABETIC REGIMEN: * Levemir 17 units SQ daily per [facility] (pt reports taking 8 units) * Novolog SQ TID * 7 units w/ breakfast * 5 units w/ lunch * 5 units w/ dinner * HbA1c: 8.5% (11/30/17) ASSESSMENT: * Ms Nicholson is a 72yo diabetic female admitted 11/29/17 with severe hyperglycemia. * Patient was transferred off IV insulin infusion to SQ basal/bolus regimen on * She received 25 units of SQ insulin + IV infusion at avg rate of ~3 units/hr ( from 00-1400) over the past 24 hours * BSGs post IV infusion: 18, 82, 139, 191, 252, 245 * Evening dose of Levemir was held after BSG of 78 mg/dL @ 1450. Fasting BSG elevated today. * Will increase basal insulin this morning to make up for missed dose and slightly tighten CR. Basal needs remain uncertain - will add Lantus scale at HS. PLAN FOR INPATIENT GLYCEMIC CONTROL: * Basal insulin * Levemir 20 units SQ this am * Levemir 0-10 units SQ HS (0 if < 140, 5 if 140-180, 10 if > 180) * Bolus insulin- tighten * NovoLog per scale ACHS or Q6hrs while NPO * Goal Range: Low 110 mg/dL - High 150 mg/dL * Correction Factor: 30 mg/dL/unit * Nutritional / Prandial insulin per carb ratio of 9 unit per 10 grams CHO consumed PLAN FOR DISCHARGE: * Patient's current A1c (8.5%) indicates reasonable glycemic control as an outpatient, in a 72yo female w/ multiple comorbidities. Would prefer an A1c ~ 7.5%, but patient seems to experience some hypoglycemic/syncopal episodes at home, so would caution against making any aggressive changes to home regimen. * Would recommend f/u with PCP to titrate insulin doses until A1c target is reached.
[2017-12-01] MEDS ORDERED: LOSARTAN POTASSIUM 25 MG TAB PO ONE (16:06)
--- NOTE | 2017-12-01 16:36 | Progress Note ---
Medicine Progress Note Date & Time of Visit: Dec 01, 2017 at 16:36. Subjective patient seen with sister visiting oriented x 3, in good spirits states she continues to feel improved still has cough, no dyspnea, chest pain no nausea, dizziness no abdominal pain, urinary symptoms ambulates in the room with no problems Objective Last 8 Hrs Date Time Temp Pulse Resp B/P (MAP) Pulse Ox O2 Delivery O2 Flow Rate FiO2 12/01/17 15:26 37.0 82 18 175/96 (122) 93 Room Air 12/01/17 12:00 93 Room Air 12/01/17 11:16 36.7 76 16 150/83 (105) 93 Room Air Physical Exam: General- oriented x 3, not in distress, speaks in sentences with no effort Eyes-anicteric ENT- oropharynx clear Neck- supple, no JVD Lungs- clear breath sounds bilaterally, no rales/wheezes Heart- regular rhythm; no murmur, no gallop, normal rate Abdomen- normal bowel sounds, soft, nontender Extremities- no pretibial edema, no calf tenderness Neuro- alert, oriented x 3; no gross focal deficits Skin- warm & dry Laboratory Results: Last 24 Hours Test 11/30/17 20:12 12/01/17 01:58 12/01/17 05:34 12/01/17 06:53 Bedside Glucose 191 mg/dl 252 mg/dl 253 mg/dl Sodium Level 141 mmol/L Potassium Level 3.7 mmol/L Chloride Level 109 mmol/L Carbon Dioxide Level 27 mmol/L Anion Gap 6.0 mmol/L Blood Urea Nitrogen 17 mg/dl Creatinine 0.97 mg/dl Est Creatinine Clear Calc Drug Dose 54.5 ml/min Estimated GFR () 68.1 Estimated GFR (Non- 58.8 BUN/Creatinine Ratio 17.7 Random Glucose 245 mg/dl Calcium Level 8.4 mg/dl Phosphorus Level 2.0 mg/dl Magnesium Level 2.1 mg/dl Test 12/01/17 10:55 Bedside Glucose 115 mg/dl Assessment & Plan This is a 72yo F with a PMH of insulin dependent DM II, HTN, HLD, asthma, celiac disease and mitral valve prolapse who presents after a syncopal event last evening. SYNCOPE SECONDARY TO: DEHYDRATION, ACUTE RENAL FAILURE crea back to normal given IV fluids Nephro consulted INFLUENZA A INFECTION on Tamiflu Day 3 HYPERGLYCEMIA off Insulin drip on Lantus and ISS Pharmacy consulted Metabolic encephalopathy, resolved -2/2 hyperglycemia, dehydration, infection -CT head without acute changes to r/o CVA, bleed UTI: -Culture pending -Rocephin initiated in ED - no urinary symptoms d/c Ceftriaxone HTN: - resume Losartan -Cont propranolol, amlodipine - hold Lasix HLD: -Hold Zetia for now in setting of poor PO intake, vomiting Asthma: -O2 saturation of 96% on room air -Cont home inhalers - stable Celiac disease: -Gluten free diet DVT Ppx: Heparin SQ Code status: FULL PCP: Ranjan Dispo:pending Current Inpatient Medications: Current Inpatient Medications: Current Inpatient Medications Medications (Trade) Dose Ordered Sig/Rupa Route Start Time Stop Time Status Last Admin Dose Admin Ioversol (Optiray 320) 125 ml UD PRN IV 11/29/17 11:45 12/03/17 11:44 Miscellaneous Information (Consult Glycemic Management Pharmacy) 1 ea UD PRN N/A 11/29/17 15:36 12/29/17 15:35 Miscellaneous Information (Pharmacy Consult) 1 ea UD PRN N/A 11/29/17 16:00 12/04/17 20:59 Amlodipine Besylate (Norvasc Tab) 10 mg DAILY PO 11/30/17 09:00 12/30/17 08:59 12/01/17 08:05 10 MG Cetirizine HCl (zyrTEC TAB) 10 mg DAILY PO 11/30/17 09:00 12/30/17 08:59 12/01/17 08:06 10 MG Nitroglycerin (Nitrostat Tab) 0.4 mg PRN PRN UT 11/29/17 16:00 12/29/17 15:59 Pantoprazole Sodium (Protonix Tab) 40 mg QAM PO 11/30/17 09:00 12/30/17 08:59 12/01/17 08:06 40 MG Propranolol HCl (Inderal LA Cap) 160 mg DAILY PO 11/30/17 09:00 12/30/17 08:59 12/01/17 08:05 160 MG Albuterol (Ventolin Hfa Inhaler) 1 puffs Q4 PRN INH 11/29/17 16:30 12/29/17 16:29 11/30/17 05:43 1 PUFFS Aspirin (Ecotrin Tab) 81 mg DAILY PO 11/30/17 09:00 12/30/17 08:59 12/01/17 08:05 81 MG Salmeterol Xinafoate/ Fluticasone (Advair Diskus 250/50 Inh) 1 puff BID INH 11/29/17 21:00 12/29/17 20:59 12/01/17 08:04 1 PUFF Tiotropium [place] (Spiriva Handihaler Inhaler) 1 puff DAILY INH 11/30/17 09:00 12/30/17 08:59 12/01/17 08:04 1 PUFF Heparin Sodium (Porcine) (Heparin Sq 5000 Unit/0.5ml) 5,000 unit Q8 SQ 11/29/17 22:00 12/29/17 21:59 12/01/17 14:01 5,000 UNIT Insulin Aspart (novoLOG ASPART) SLIDING SCALE ACHS SC 11/30/17 11:00 12/30/17 10:59 12/01/17 08:09 13 UNITS Oseltamivir Phosphate (Tamiflu Susp) 30 mg BID PO 11/30/17 21:00 12/04/17 20:59 12/01/17 08:27 30 MG Insulin Detemir (Levemir Flexpen/ FlexTouch) 20 units QAM SC 12/01/17 09:00 12/31/17 08:59 12/01/17 08:08 20 UNITS Insulin Detemir (Levemir Flexpen/ FlexTouch) SEE PROTOCOL TEXT HS SC 12/01/17 21:00 12/01/17 23:59 Potassium/ Phosphorus/Sodium (Phospha 250 Neutral 155-852-130 Mg) 2 tab QID PO 12/01/17 17:00 12/31/17 16:59 Losartan Potassium (coZAAR TAB) 25 mg QAM PO 12/02/17 09:00 01/01/18 08:59
[2017-12-01] MEDS: POT PHOSPHATE MONOBASIC W/ SOD TAB PO SCH ×2 (16:56→21:36)
[2017-12-01] MEDS: GUAIFENESIN 200 MG TAB PO PRN (21:36)
[2017-12-02] VITALS (7 sets, daily range): BP systolic 119–187; BP diastolic 70–98; PULSE 70–80; TEMP 36.5–37.3; O2SAT 90–95
[2017-12-02] MEDS: HEPARIN SOD 5000 UNIT/0.5 ML CARP SQ SCH ×3 (06:15→21:00)
[2017-12-02 07:15] LABS: HEMATOCRIT 35.4 % (37-47); HEMOGLOBIN 11.6 g/dL (12.0-16.0); MEAN CELL VOLUME 87.8 fL (80-100); MEAN CORPUSCULAR HEMOGLOBIN 28.8 pg (25-34); MEAN CORPUSCULAR HGB CONC 32.8 g/dl (32-36); MEAN PLATELET VOLUME 10.6 fL (7.4-10.4); PLATELET COUNT 138 K/uL (130-400); RED CELL DISTRIBUTION WIDTH SD 48.1 fL (36.4-46.3)
[2017-12-02 08:01] LABS: CALCIUM 8.5 mg/dl (8.5-10.1); CREATININE 0.83 mg/dl (0.60-1.20); POTASSIUM 3.8 mmol/L (3.5-5.1)
[2017-12-02 08:02] LABS: PHOSPHORUS 3.1 mg/dl (2.5-4.9)
[2017-12-02] MEDS ORDERED: INSULIN HUMAN REGULAR PER UNIT 9 UNITS in SYRINGE 8.91 ML IV ONE (08:30)
[2017-12-02] MEDS ORDERED: INSULIN DETEMIR FLEXPEN/FLEX TOUCH 100 UNITS/ML 3ML SC SCH ×2 (09:00→21:00)
[2017-12-02] MEDS ORDERED: LOSARTAN POTASSIUM 25 MG TAB PO SCH (09:00)
[2017-12-02] MEDS: TIOTROPIUM BROMIDE 5 PUFF/90 MCG INH INH SCH (09:01)
[2017-12-02] MEDS: FLUTICASONE/SALMETEROL 250/50 (ADVAIR) 14 PUFF/1 INHALER INH SCH ×2 (09:01→20:47)
[2017-12-02] MEDS: PROPRANOLOL HCL 80 MG LA CAP PO SCH (09:02)
[2017-12-02] MEDS: GUAIFENESIN 200 MG TAB PO PRN ×2 (09:02→20:53)
[2017-12-02] MEDS: ASPIRIN 81 MG ECTAB PO SCH (09:02)
[2017-12-02] MEDS: AMLODIPINE BESYLATE 5 MG TAB PO SCH (09:02)
[2017-12-02] MEDS: OSELTAMIVIR PHOSPHATE SUSP 30 MG/5 ML UDP PO SCH ×2 (09:02→20:47)
[2017-12-02] MEDS: POT PHOSPHATE MONOBASIC W/ SOD TAB PO SCH ×4 (09:04→20:47)
[2017-12-02] MEDS: CETIRIZINE HCL 10 MG TAB PO SCH (09:04)
[2017-12-02] MEDS: PANTOprazole SOD 40 MG TAB PO SCH (09:04)
[2017-12-02] MEDS: INSULIN ASPART 100 UNITS/ML 3 ML PEN SC SCH ×4 (09:19→21:00)
--- NOTE | 2017-12-02 14:58 | Pharmacy Progress Note ---
Pharmacy Glycemic Short Note 2 Date of Service Dec 02, 2017. OUTPATIENT ANTIDIABETIC REGIMEN: * Levemir 17 units SQ daily per [facility] (pt reports taking 8 units) * Novolog SQ TID * 7 units w/ breakfast * 5 units w/ lunch * 5 units w/ dinner * HbA1c: 8.5% (11/30/17) ASSESSMENT: * Ms Nicholson is a 72yo diabetic female admitted 11/29/17 with severe hyperglycemia. * Patient was transferred off IV insulin infusion to SQ basal/bolus regimen on * She received 52 units of SQ insulin over the past 24 hours * BSGs: 253, 115, 188, 219, 336 * Surprisingly elevated fasting BSG of 336 mg/dL this am - unknown cause. Basal insulin increased 50% yesterday, therefore I am hesitant to increase further. A one time IV insulin regular bolus was ordered to correct severe hyperglycemia. Will tighten CF/CR and add overnight checks. PLAN FOR INPATIENT GLYCEMIC CONTROL: * IV regular insulin 9 units x 1 this am * Basal insulin * Levemir 25 units SQ this am * Levemir 0-10 units SQ HS (0 if < 140, 5 if 140-180, 10 if > 180) * Bolus insulin- tighten * NovoLog per scale ACHS or Q6hrs while NPO * Goal Range: Low 110 mg/dL - High 150 mg/dL * Correction Factor: 20 mg/dL/unit * Nutritional / Prandial insulin per carb ratio of 7 unit per 10 grams CHO consumed PLAN FOR DISCHARGE: * Patient's current A1c (8.5%) indicates reasonable glycemic control as an outpatient, in a 72yo female w/ multiple comorbidities. Would prefer an A1c ~ 7.5%, but patient seems to experience some hypoglycemic/syncopal episodes at home, so would caution against making any aggressive changes to home regimen. * Would recommend f/u with PCP to titrate insulin doses until A1c target is reached.
--- NOTE | 2017-12-02 19:24 | Progress Note ---
Medicine Progress Note Date & Time of Visit: Dec 02, 2017 at 19:17. Subjective seen sitting up in bed feels improved less cough no abdominal pain, urinary symptoms no headache, dizziness, chest pain, dyspnea no other symptoms Objective Last 8 Hrs Date Time Temp Pulse Resp B/P (MAP) Pulse Ox O2 Delivery O2 Flow Rate FiO2 12/02/17 16:00 95 Room Air 12/02/17 15:13 36.6 74 18 165/96 (119) 95 Room Air Physical Exam: General- oriented x 3, not in distress Eyes-anicteric Neck- no JVD Lungs- clear breath sounds bilaterally, no rales/wheezes Heart- normal rate, regular rhythm; no murmur Abdomen- normal bowel sounds, soft, nontender Extremities- no pretibial edema, no calf tenderness Neuro- alert, oriented x 3; no gross focal deficits Skin- warm & dry Laboratory Results: Last 24 Hours Test 12/01/17 19:56 12/02/17 06:46 12/02/17 07:49 12/02/17 11:11 Bedside Glucose 219 mg/dl 336 mg/dl 225 mg/dl White Blood Count 4.00 K/uL Red Blood Count 4.03 M/uL Hemoglobin 11.6 g/dL Hematocrit 35.4 % Mean Corpuscular Volume 87.8 fL Mean Corpuscular Hemoglobin 28.8 pg Mean Corpuscular Hemoglobin Concent 32.8 g/dl RDW Standard Deviation 48.1 fL RDW Coefficient of Variation 15.0 % Platelet Count 138 K/uL Mean Platelet Volume 10.6 fL Sodium Level 138 mmol/L Potassium Level 3.8 mmol/L Chloride Level 101 mmol/L Carbon Dioxide Level 30 mmol/L Anion Gap 7.0 mmol/L Blood Urea Nitrogen 15 mg/dl Creatinine 0.83 mg/dl Est Creatinine Clear Calc Drug Dose 63.7 ml/min Estimated GFR () 82.2 Estimated GFR (Non- 70.9 BUN/Creatinine Ratio 18.2 Random Glucose 356 mg/dl Calcium Level 8.5 mg/dl Phosphorus Level 3.1 mg/dl Magnesium Level 2.0 mg/dl Beta-Hydroxybutyric Acid 18.86 mg/dL Test 12/02/17 16:18 Bedside Glucose 95 mg/dl Assessment & Plan This is a 72yo F with a PMH of insulin dependent DM II, HTN, HLD, asthma, celiac disease and mitral valve prolapse who presents after a syncopal event last evening. SYNCOPE SECONDARY TO: DEHYDRATION, ACUTE RENAL FAILURE crea back to normal given IV fluids Nephro consulted INFLUENZA A INFECTION on Tamiflu Day 4/ HYPERGLYCEMIA off Insulin drip on Lantus and ISS BSGs elevated Pharmacy consulted, discussed, will tighten ISS Metabolic Encephalopathy, Resolved - secondary to hyperglycemia, dehydration, infection - CT head without acute changes to r/o CVA, bleed UTI - no urinary symptoms d/c Ceftriaxone HTN - BP elevated, asymptomatic - increase Losartan -Cont propranolol, amlodipine - hold Lasix HLD: -Hold Zetia for now in setting of poor PO intake, vomiting Asthma: -O2 saturation of 96% on room air -Cont home inhalers - stable Celiac disease: -Gluten free diet DVT Ppx: Heparin SQ Code status: FULL PCP: Ranjan Dispo:pending Current Inpatient Medications: Current Inpatient Medications Medications (Trade) Dose Ordered Sig/Rupa Route Start Time Stop Time Status Last Admin Dose Admin Ioversol (Optiray 320) 125 ml UD PRN IV 11/29/17 11:45 12/03/17 11:44 Miscellaneous Information (Consult Glycemic Management Pharmacy) 1 ea UD PRN N/A 11/29/17 15:36 12/29/17 15:35 Miscellaneous Information (Pharmacy Consult) 1 ea UD PRN N/A 11/29/17 16:00 12/04/17 20:59 Amlodipine Besylate (Norvasc Tab) 10 mg DAILY PO 11/30/17 09:00 12/30/17 08:59 12/02/17 09:02 10 MG Cetirizine HCl (zyrTEC TAB) 10 mg DAILY PO 11/30/17 09:00 12/30/17 08:59 12/02/17 09:04 10 MG Nitroglycerin (Nitrostat Tab) 0.4 mg PRN PRN UT 11/29/17 16:00 12/29/17 15:59 Pantoprazole Sodium (Protonix Tab) 40 mg QAM PO 11/30/17 09:00 12/30/17 08:59 12/02/17 09:04 40 MG Propranolol HCl (Inderal LA Cap) 160 mg DAILY PO 11/30/17 09:00 12/30/17 08:59 12/02/17 09:02 160 MG Albuterol (Ventolin Hfa Inhaler) 1 puffs Q4 PRN INH 11/29/17 16:30 12/29/17 16:29 11/30/17 05:43 1 PUFFS Aspirin (Ecotrin Tab) 81 mg DAILY PO 11/30/17 09:00 12/30/17 08:59 12/02/17 09:02 81 MG Salmeterol Xinafoate/ Fluticasone (Advair Diskus 250/50 Inh) 1 puff BID INH 11/29/17 21:00 12/29/17 20:59 12/02/17 09:01 1 PUFF Tiotropium [place] (Spiriva Handihaler Inhaler) 1 puff DAILY INH 11/30/17 09:00 12/30/17 08:59 12/02/17 09:01 1 PUFF Heparin Sodium (Porcine) (Heparin Sq 5000 Unit/0.5ml) 5,000 unit Q8 SQ 11/29/17 22:00 12/29/17 21:59 12/02/17 14:08 5,000 UNIT Insulin Aspart (novoLOG ASPART) SLIDING SCALE ACHS SC 11/30/17 11:00 12/30/17 10:59 12/02/17 17:19 5 UNITS Oseltamivir Phosphate (Tamiflu Susp) 30 mg BID PO 11/30/17 21:00 12/04/17 20:59 12/02/17 09:02 30 MG Potassium/ Phosphorus/Sodium (Phospha 250 Neutral 155-852-130 Mg) 2 tab QID PO 12/01/17 17:00 12/31/17 16:59 12/02/17 17:18 2 TAB Losartan Potassium (coZAAR TAB) 25 mg QAM PO 12/02/17 09:00 01/01/18 08:59 12/02/17 09:03 25 MG Guaifenesin (Organidin Nr Tab) 200 mg Q6H PRN PO 12/01/17 16:45 12/31/17 16:44 12/02/17 09:02 200 MG Insulin Aspart (novoLOG ASPART) SLIDING SCALE 0000,0400 SC 12/03/17 00:00 12/03/17 04:01 Insulin Detemir (Levemir Flexpen/ FlexTouch) SEE PROTOCOL TEXT HS SC 12/02/17 21:00 1/27/18 23:00
[2017-12-02] MEDS: CLONIDINE HCL 0.1 MG TAB PO PRN (20:53)
[2017-12-03] MEDS: INSULIN ASPART 100 UNITS/ML 3 ML PEN SC SCH ×6 (04:00→21:00)
[2017-12-03] MEDS: HEPARIN SOD 5000 UNIT/0.5 ML CARP SQ SCH ×3 (06:22→21:36)
[2017-12-03 07:38] LABS: CREATININE 0.78 mg/dl (0.60-1.20); POTASSIUM 3.2 mmol/L (3.5-5.1)
[2017-12-03 07:47] VITALS: BP 150/84; PULSE 71; TEMP 36.9; O2SAT 92
[2017-12-03 08:14] LABS: ALBUMIN 2.7 gm/dl (3.4-5.0)
[2017-12-03] MEDS ORDERED: POTASSIUM CHLORIDE 10 MEQ TABCR PO ONE (08:30)
[2017-12-03] MEDS: ASPIRIN 81 MG ECTAB PO SCH (08:51)
[2017-12-03] MEDS: POT PHOSPHATE MONOBASIC W/ SOD TAB PO SCH ×4 (08:51→21:09)
[2017-12-03] MEDS: PANTOprazole SOD 40 MG TAB PO SCH (08:51)
[2017-12-03] MEDS: CETIRIZINE HCL 10 MG TAB PO SCH (08:51)
[2017-12-03] MEDS: PROPRANOLOL HCL 80 MG LA CAP PO SCH (08:52)
[2017-12-03] MEDS: LOSARTAN POTASSIUM 50 MG TAB PO SCH (08:52)
[2017-12-03] MEDS: FLUTICASONE/SALMETEROL 250/50 (ADVAIR) 14 PUFF/1 INHALER INH SCH ×2 (08:52→21:08)
[2017-12-03] MEDS: TIOTROPIUM BROMIDE 5 PUFF/90 MCG INH INH SCH (08:53)
[2017-12-03] MEDS: AMLODIPINE BESYLATE 5 MG TAB PO SCH (08:55)
[2017-12-03] MEDS: OSELTAMIVIR PHOSPHATE SUSP 30 MG/5 ML UDP PO SCH ×2 (08:59→21:09)
[2017-12-03] MEDS: INSULIN DETEMIR FLEXPEN/FLEX TOUCH 100 UNITS/ML 3ML SC SCH (09:04)
--- NOTE | 2017-12-03 14:13 | Pharmacy Progress Note ---
Pharmacy Glycemic Short Note 2 Date of Service Dec 03, 2017. OUTPATIENT ANTIDIABETIC REGIMEN: * Levemir 17 units SQ daily per [facility] (pt reports taking 8 units) * Novolog SQ TID * 7 units w/ breakfast * 5 units w/ lunch * 5 units w/ dinner * HbA1c: 8.5% (11/30/17) ASSESSMENT: * Ms Nicholson is a 72yo diabetic female admitted 11/29/17 with severe hyperglycemia. * Patient was transferred off IV insulin infusion to SQ basal/bolus regimen on * She received 54 units of SQ insulin over the past 24 hours * BSGs: 336, 225, 95, 116, 143 * Fasting BSG greatly improved (336 -> 168) today. Patient received 25 units of basal insulin yesterday. Basal insulin was increased 50% on 12/01, therefore I was hesitant to increase further yesterday. Will trial 30 units daily at this time. * No changes to bolus insulin today. * Current dose based on estimated needs of about 60 units/day. PLAN FOR INPATIENT GLYCEMIC CONTROL: * Basal insulin * Levemir 30 units SQ QAM * Bolus insulin * NovoLog per scale ACHS or Q6hrs while NPO * Goal Range: Low 110 mg/dL - High 150 mg/dL * Correction Factor: 20 mg/dL/unit * Nutritional / Prandial insulin per carb ratio of 7 unit per 10 grams CHO consumed PLAN FOR DISCHARGE: * Patient's current A1c (8.5%) indicates reasonable glycemic control as an outpatient, in a 72yo female w/ multiple comorbidities. Would prefer an A1c ~ 7.5%, but patient seems to experience some hypoglycemic/syncopal episodes at home, so would caution against making any aggressive changes to home regimen. * Would recommend f/u with PCP to titrate insulin doses until A1c target is reached.
[2017-12-03 15:26] VITALS: BP 173/90; PULSE 78; TEMP 36.5; O2SAT 90
[2017-12-03] MEDS: CLONIDINE HCL 0.1 MG TAB PO PRN (16:16)
[2017-12-03 17:38] VITALS: BP 117/78
[2017-12-03 20:06] VITALS: O2SAT 90
[2017-12-03] MEDS: OSELTAMIVIR PHOSPHATE 75 MG CAP PO SCH (21:09)
[2017-12-04 00:09] VITALS: BP 138/80; PULSE 71; TEMP 36.4; O2SAT 90
[2017-12-04] MEDS: HEPARIN SOD 5000 UNIT/0.5 ML CARP SQ SCH ×3 (06:05→21:29)
[2017-12-04 08:00] VITALS: BP 171/90; PULSE 79; TEMP 36.8; O2SAT 94
[2017-12-04] MEDS: CETIRIZINE HCL 10 MG TAB PO SCH (08:18)
[2017-12-04] MEDS: LOSARTAN POTASSIUM 50 MG TAB PO SCH ×2 (08:18→21:19)
[2017-12-04] MEDS: PROPRANOLOL HCL 80 MG LA CAP PO SCH (08:18)
[2017-12-04] MEDS: POT PHOSPHATE MONOBASIC W/ SOD TAB PO SCH ×4 (08:19→21:19)
[2017-12-04] MEDS: OSELTAMIVIR PHOSPHATE 75 MG CAP PO SCH (08:19)
[2017-12-04] MEDS: ASPIRIN 81 MG ECTAB PO SCH (08:19)
[2017-12-04] MEDS: FLUTICASONE/SALMETEROL 250/50 (ADVAIR) 14 PUFF/1 INHALER INH SCH ×2 (08:19→21:20)
[2017-12-04] MEDS: TIOTROPIUM BROMIDE 5 PUFF/90 MCG INH INH SCH (08:19)
[2017-12-04] MEDS: PANTOprazole SOD 40 MG TAB PO SCH (08:19)
[2017-12-04] MEDS: INSULIN ASPART 100 UNITS/ML 3 ML PEN SC SCH ×4 (08:26→21:29)
[2017-12-04] MEDS: INSULIN DETEMIR FLEXPEN/FLEX TOUCH 100 UNITS/ML 3ML SC SCH (08:27)
[2017-12-04] MEDS: OSELTAMIVIR PHOSPHATE SUSP 30 MG/5 ML UDP PO SCH (08:29)
[2017-12-04 08:41] LABS: CALCIUM 8.2 mg/dl (8.5-10.1); CREATININE 0.8 mg/dl (0.60-1.20); POTASSIUM 3.8 mmol/L (3.5-5.1)
[2017-12-04] MEDS: AMLODIPINE BESYLATE 5 MG TAB PO SCH (09:11)
--- NOTE | 2017-12-04 09:32 | Progress Note ---
Medicine Progress Note Date & Time of Visit: Dec 04, 2017 at 09:29. Subjective delayed entry date of service noted above patient seen resting in bed, sitting up brother in law Abernathy at bedside states she feels improved compared to yesterday less cough, no dyspnea denies dizziness no other symptoms Objective Last 8 Hrs Date Time Temp Pulse Resp B/P (MAP) Pulse Ox O2 Delivery O2 Flow Rate FiO2 12/04/17 08:00 36.8 79 20 171/90 (117) 94 Room Air Physical Exam: General- oriented x 3, not in distress Eyes-anicteric Neck- no JVD Lungs- clear Breath sounds bilaterally Heart- normal rate, regular rhythm; no murmurs Abdomen- normal bowel sounds, soft, nontender Extremities- no pretibial edema, no calf tenderness Neuro- alert, oriented x 3; no gross focal deficits Skin- warm & dry Laboratory Results: Last 24 Hours Test 12/03/17 11:14 12/03/17 16:29 12/03/17 16:48 12/03/17 20:21 Bedside Glucose 217 mg/dl 61 mg/dl 91 mg/dl 88 mg/dl Test 12/04/17 07:35 12/04/17 07:51 Sodium Level 141 mmol/L Potassium Level 3.8 mmol/L Chloride Level 102 mmol/L Carbon Dioxide Level 30 mmol/L Anion Gap 9.0 mmol/L Blood Urea Nitrogen 13 mg/dl Creatinine 0.80 mg/dl Est Creatinine Clear Calc Drug Dose 66.1 ml/min Estimated GFR () 86.0 Estimated GFR (Non- 74.2 BUN/Creatinine Ratio 16.3 Random Glucose 202 mg/dl Calcium Level 8.2 mg/dl Bedside Glucose 178 mg/dl Assessment & Plan This is a 72yo F with a PMH of insulin dependent DM II, HTN, HLD, asthma, celiac disease and mitral valve prolapse who presents after a syncopal event last evening. SYNCOPE SECONDARY TO: DEHYDRATION, ACUTE RENAL FAILURE crea back to normal given IV fluids Nephro consulted INFLUENZA A INFECTION on Tamiflu Day 03/10 HYPERGLYCEMIA off Insulin drip on Lantus and ISS BSGs elevated Pharmacy consulted, discussed, Lantus increased Metabolic Encephalopathy, Resolved - secondary to hyperglycemia, dehydration, infection - CT head without acute changes to r/o CVA, bleed UTI - no urinary symptoms d/c Ceftriaxone HTN - BP elevated, asymptomatic - increased Losartan -Cont propranolol, amlodipine - hold Lasix - improving HLD: -Hold Zetia for now in setting of poor PO intake, vomiting Asthma: -O2 saturation of 96% on room air -Cont home inhalers - stable Celiac disease: -Gluten free diet DVT Ppx: Heparin SQ Code status: FULL PCP: Ranjan Dispo:pending had a meeting with patient and brother in law family concerned re: patient's hoarding, her place is now filled with belongings will consult with Superintendent Refuse Disposal Current Inpatient Medications: Current Inpatient Medications Medications (Trade) Dose Ordered Sig/Rupa Route Start Time Stop Time Status Last Admin Dose Admin Miscellaneous Information (Consult Glycemic Management Pharmacy) 1 ea UD PRN N/A 11/29/17 15:36 12/29/17 15:35 Miscellaneous Information (Pharmacy Consult) 1 ea UD PRN N/A 11/29/17 16:00 12/04/17 20:59 Amlodipine Besylate (Norvasc Tab) 10 mg DAILY PO 11/30/17 09:00 12/30/17 08:59 12/04/17 09:11 10 MG Cetirizine HCl (zyrTEC TAB) 10 mg DAILY PO 11/30/17 09:00 12/30/17 08:59 12/04/17 08:18 10 MG Nitroglycerin (Nitrostat Tab) 0.4 mg PRN PRN UT 11/29/17 16:00 12/29/17 15:59 Pantoprazole Sodium (Protonix Tab) 40 mg QAM PO 11/30/17 09:00 12/30/17 08:59 12/04/17 08:19 40 MG Propranolol HCl (Inderal LA Cap) 160 mg DAILY PO 11/30/17 09:00 12/30/17 08:59 12/04/17 08:18 160 MG Albuterol (Ventolin Hfa Inhaler) 1 puffs Q4 PRN INH 11/29/17 16:30 12/29/17 16:29 11/30/17 05:43 1 PUFFS Aspirin (Ecotrin Tab) 81 mg DAILY PO 11/30/17 09:00 12/30/17 08:59 12/04/17 08:19 81 MG Salmeterol Xinafoate/ Fluticasone (Advair Diskus 250/50 Inh) 1 puff BID INH 11/29/17 21:00 12/29/17 20:59 12/04/17 08:19 1 PUFF Tiotropium [place] (Spiriva Handihaler Inhaler) 1 puff DAILY INH 11/30/17 09:00 12/30/17 08:59 12/04/17 08:19 1 PUFF Heparin Sodium (Porcine) (Heparin Sq 5000 Unit/0.5ml) 5,000 unit Q8 SQ 11/29/17 22:00 12/29/17 21:59 12/04/17 06:05 5,000 UNIT Insulin Aspart (novoLOG ASPART) SLIDING SCALE ACHS SC 11/30/17 11:00 12/30/17 10:59 12/04/17 08:26 8 UNITS Oseltamivir Phosphate (Tamiflu Susp) 30 mg BID PO 11/30/17 21:00 12/04/17 20:59 12/04/17 08:29 30 MG Potassium/ Phosphorus/Sodium (Phospha 250 Neutral 155-852-130 Mg) 2 tab QID PO 12/01/17 17:00 12/31/17 16:59 12/04/17 08:19 2 TAB Guaifenesin (Organidin Nr Tab) 200 mg Q6H PRN PO 12/01/17 16:45 12/31/17 16:44 12/02/17 20:53 200 MG Losartan Potassium (coZAAR TAB) 50 mg QAM PO 12/03/17 09:00 01/01/18 08:59 12/04/17 08:18 50 MG Clonidine HCl (Catapres Tab) 0.1 mg Q6H PRN PO 12/02/17 20:15 01/01/18 20:14 12/03/17 16:16 0.1 MG Insulin Detemir (Levemir Flexpen/ FlexTouch) 30 units QAM SC 12/03/17 09:00 01/02/18 08:59 12/04/17 08:27 30 UNITS Oseltamivir Phosphate (Tamiflu Cap) 75 mg BID PO 12/03/17 21:00 12/04/17 20:59 12/04/17 08:19 75 MG
[2017-12-04 12:00] VITALS: Ht 149.9 cm; Wt 97.4 kg
[2017-12-04 12:29] VITALS: BP 145/87
[2017-12-04 16:03] VITALS: BP_SYST 174; BP_SYST 179; BP_DIAS 86; BP_DIAS 91; PULSE 82; TEMP 36.6; O2SAT 97
[2017-12-04 16:30] VITALS: O2SAT 97
[2017-12-04 17:52] VITALS: BP 161/89; PULSE 84
[2017-12-04] MEDS: CLONIDINE HCL 0.1 MG TAB PO PRN (17:54)
--- NOTE | 2017-12-04 20:47 | Progress Note ---
Medicine Progress Note Date & Time of Visit: Dec 04, 2017 at 20:45. Subjective patient seen sitting up in bed comfortable cough improving no chest pain, dyspnea no other symptoms Objective Last 8 Hrs Date Time Temp Pulse Resp B/P (MAP) Pulse Ox O2 Delivery O2 Flow Rate FiO2 12/04/17 17:52 84 161/89 (113) 12/04/17 16:30 97 Room Air 12/04/17 16:03 36.6 82 22 179/86 (117) 97 Room Air 174/91 (118) Physical Exam: General- oriented x 3, not in distress Eyes-anicteric Neck- no JVD Lungs- clear Breath sounds bilaterally, no rales, no wheezes Heart- normal rate, regular rhythm; no murmurs Abdomen- normal bowel sounds, soft, nontender Extremities- no pretibial edema, no calf tenderness Neuro- alert, oriented x 3; no gross focal deficits Skin- warm & dry Laboratory Results: Last 24 Hours Test 12/04/17 07:35 12/04/17 07:51 12/04/17 11:14 12/04/17 16:36 Sodium Level 141 mmol/L Potassium Level 3.8 mmol/L Chloride Level 102 mmol/L Carbon Dioxide Level 30 mmol/L Anion Gap 9.0 mmol/L Blood Urea Nitrogen 13 mg/dl Creatinine 0.80 mg/dl Est Creatinine Clear Calc Drug Dose 66.1 ml/min Estimated GFR () 86.0 Estimated GFR (Non- 74.2 BUN/Creatinine Ratio 16.3 Random Glucose 202 mg/dl Calcium Level 8.2 mg/dl Bedside Glucose 178 mg/dl 165 mg/dl 109 mg/dl Test 12/04/17 20:12 Bedside Glucose 161 mg/dl Assessment & Plan This is a 72yo F with a PMH of insulin dependent DM II, HTN, HLD, asthma, celiac disease and mitral valve prolapse who presents after a syncopal event last evening. SYNCOPE SECONDARY TO: DEHYDRATION, ACUTE RENAL FAILURE crea back to normal given IV fluids Nephro consulted INFLUENZA A INFECTION on Tamiflu complete 5 days HYPERGLYCEMIA off Insulin drip on Lantus and ISS Pharmacy consulted, discussed, Lantus increased BSGs improving Metabolic Encephalopathy, Resolved - secondary to hyperglycemia, dehydration, infection - CT head without acute changes to r/o CVA, bleed UTI - no urinary symptoms d/c Ceftriaxone HTN - BP elevated, asymptomatic - increased Losartan further -Cont propranolol, amlodipine - hold Lasix - improving HLD: -Hold Zetia for now in setting of poor PO intake, vomiting Asthma: -O2 saturation of 96% on room air -Cont home inhalers - stable Celiac disease: -Gluten free diet DVT Ppx: Heparin SQ Code status: FULL PCP: Ranjan Melendez anticipate d/c home when medically stable Current Inpatient Medications: Current Inpatient Medications Medications (Trade) Dose Ordered Sig/Rupa Route Start Time Stop Time Status Last Admin Dose Admin Miscellaneous Information (Consult Glycemic Management Pharmacy) 1 ea UD PRN N/A 11/29/17 15:36 12/29/17 15:35 Miscellaneous Information (Pharmacy Consult) 1 ea UD PRN N/A 11/29/17 16:00 12/04/17 20:59 Amlodipine Besylate (Norvasc Tab) 10 mg DAILY PO 11/30/17 09:00 12/30/17 08:59 12/04/17 09:11 10 MG Cetirizine HCl (zyrTEC TAB) 10 mg DAILY PO 11/30/17 09:00 12/30/17 08:59 12/04/17 08:18 10 MG Nitroglycerin (Nitrostat Tab) 0.4 mg PRN PRN UT 11/29/17 16:00 12/29/17 15:59 Pantoprazole Sodium (Protonix Tab) 40 mg QAM PO 11/30/17 09:00 12/30/17 08:59 12/04/17 08:19 40 MG Propranolol HCl (Inderal LA Cap) 160 mg DAILY PO 11/30/17 09:00 12/30/17 08:59 12/04/17 08:18 160 MG Albuterol (Ventolin Hfa Inhaler) 1 puffs Q4 PRN INH 11/29/17 16:30 12/29/17 16:29 11/30/17 05:43 1 PUFFS Aspirin (Ecotrin Tab) 81 mg DAILY PO 11/30/17 09:00 12/30/17 08:59 12/04/17 08:19 81 MG Salmeterol Xinafoate/ Fluticasone (Advair Diskus 250/50 Inh) 1 puff BID INH 11/29/17 21:00 12/29/17 20:59 12/04/17 08:19 1 PUFF Tiotropium [place] (Spiriva Handihaler Inhaler) 1 puff DAILY INH 11/30/17 09:00 12/30/17 08:59 12/04/17 08:19 1 PUFF Heparin Sodium (Porcine) (Heparin Sq 5000 Unit/0.5ml) 5,000 unit Q8 SQ 11/29/17 22:00 12/29/17 21:59 12/04/17 06:05 5,000 UNIT Insulin Aspart (novoLOG ASPART) SLIDING SCALE ACHS SC 11/30/17 11:00 12/30/17 10:59 12/04/17 17:57 5 UNITS Potassium/ Phosphorus/Sodium (Phospha 250 Neutral 155-852-130 Mg) 2 tab QID PO 12/01/17 17:00 12/31/17 16:59 12/04/17 16:53 2 TAB Guaifenesin (Organidin Nr Tab) 200 mg Q6H PRN PO 12/01/17 16:45 12/31/17 16:44 12/02/17 20:53 200 MG Clonidine HCl (Catapres Tab) 0.1 mg Q6H PRN PO 12/02/17 20:15 01/01/18 20:14 12/04/17 17:54 0.1 MG Insulin Detemir (Levemir Flexpen/ FlexTouch) 30 units QAM SC 12/03/17 09:00 01/02/18 08:59 12/04/17 08:27 30 UNITS Oseltamivir Phosphate (Tamiflu Cap) 75 mg BID PO 12/03/17 21:00 12/04/17 20:59 12/04/17 08:19 75 MG Insulin Detemir (Levemir Flexpen/ FlexTouch) 5 units HS SC 12/04/17 21:00 12/04/17 21:01 Losartan Potassium (coZAAR TAB) 50 mg BID PO 12/04/17 21:00 01/01/18 08:59
[2017-12-04] MEDS ORDERED: INSULIN DETEMIR FLEXPEN/FLEX TOUCH 100 UNITS/ML 3ML SC SCH (21:00)
[2017-12-05 00:32] VITALS: BP 132/84; PULSE 75; TEMP 36.3; O2SAT 93
[2017-12-05] MEDS: HEPARIN SOD 5000 UNIT/0.5 ML CARP SQ SCH ×2 (06:36→14:40)
[2017-12-05 07:39] LABS: HEMOGLOBIN 11.9 g/dL (12.0-16.0); MEAN CELL VOLUME 87.7 fL (80-100); MEAN CORPUSCULAR HEMOGLOBIN 28.2 pg (25-34); MEAN CORPUSCULAR HGB CONC 32.2 g/dl (32-36); MEAN PLATELET VOLUME 10.5 fL (7.4-10.4); PLATELET COUNT 176 K/uL (130-400); RED CELL DISTRIBUTION WIDTH CV 15.3 % (11.5-14.5); RED CELL DISTRIBUTION WIDTH SD 49.2 fL (36.4-46.3); WHITE BLOOD COUNT 4.33 K/uL (4.8-10.8)
[2017-12-05 07:55] VITALS: BP 146/78; PULSE 80; TEMP 36.4; O2SAT 92
[2017-12-05 08:13] LABS: CALCIUM 8.6 mg/dl (8.5-10.1); CREATININE 0.76 mg/dl (0.60-1.20); POTASSIUM 3.6 mmol/L (3.5-5.1)
[2017-12-05] MEDS: LOSARTAN POTASSIUM 50 MG TAB PO SCH (08:20)
[2017-12-05] MEDS: PANTOprazole SOD 40 MG TAB PO SCH (08:20)
[2017-12-05] MEDS: FLUTICASONE/SALMETEROL 250/50 (ADVAIR) 14 PUFF/1 INHALER INH SCH (08:20)
[2017-12-05] MEDS: ASPIRIN 81 MG ECTAB PO SCH (08:20)
[2017-12-05] MEDS: TIOTROPIUM BROMIDE 5 PUFF/90 MCG INH INH SCH (08:20)
[2017-12-05] MEDS: CETIRIZINE HCL 10 MG TAB PO SCH (08:20)
[2017-12-05] MEDS: AMLODIPINE BESYLATE 5 MG TAB PO SCH (08:21)
[2017-12-05] MEDS: POT PHOSPHATE MONOBASIC W/ SOD TAB PO SCH ×2 (08:21→12:17)
[2017-12-05] MEDS: PROPRANOLOL HCL 80 MG LA CAP PO SCH (08:21)
[2017-12-05] MEDS: INSULIN ASPART 100 UNITS/ML 3 ML PEN SC SCH ×2 (08:25→12:19)
[2017-12-05] MEDS: INSULIN DETEMIR FLEXPEN/FLEX TOUCH 100 UNITS/ML 3ML SC SCH (08:25)
--- NOTE | 2017-12-05 13:28 | Pharmacy Progress Note ---
Glycemic: Assessment & Plan Date of Service Dec 05, 2017. Assessment & Plan The patient is currently receiving ~50 units of insulin per day. BSGs ranging 109 - 178 mg/dl over the past 24hrs. * Basal insulin: Levemir 30 units every 24 hours given in the morning * Correctional Insulin: Novolog Correction per scale ACHS Goal Range: Low 110 mg/dL - High 140 mg/dL Correction Factor: 25 mg/dL/unit * Prandial insulin: Per carb ratio of 1 unit per 8 grams CHO consumed BSGs continue to improve, no changes needed to inpatient regimen at this time. Pharmacy will continue to monitor patient daily and write orders per [facility] inpatient glycemic control protocol. Thanks. * Please note that the plan above was derived based on current level of insulin resistance and hospital stress. These recommendations are appropriate for inpatient admission only. Plan of care upon discharge will need to be reassessed to avoid potential outpatient hypo/hyperglycemia.
[2017-12-05] MEDS ORDERED: DIPHENOXYLATE/ATROPINE 2.5/0.025MG TAB PO PRN (14:15)
[2017-12-05 14:18] VITALS: BP 175/109
[2017-12-05] MEDS: CLONIDINE HCL 0.1 MG TAB PO PRN (14:19)
[2017-12-05] MEDS ORDERED: FUROSEMIDE 40 MG TAB PO ONE (14:30)
--- NOTE | 2017-12-05 15:07 | Progress Note ---
Medicine Progress Note Date & Time of Visit: Dec 05, 2017 at 14:46. Subjective states she feels better today less cough no dyspnea ambulating with no problems BSGs controlled states she is ready and would like to be discharged today Objective Last 8 Hrs Date Time Temp Pulse Resp B/P (MAP) Pulse Ox O2 Delivery O2 Flow Rate FiO2 12/05/17 14:18 175/109 (131) 12/05/17 08:30 Room Air 12/05/17 07:55 36.4 80 18 146/78 (100) 92 Room Air Physical Exam: General- oriented x 3, not in distress Lungs- clear breath sounds bilaterally Heart- normal rate, regular rhythm; no murmurs Abdomen- normal bowel sounds, soft, nontender Extremities- no pretibial edema, no calf tenderness Neuro- alert, oriented x 3; no gross focal deficits Skin- warm & dry Laboratory Results: Last 24 Hours Test 12/04/17 16:36 12/04/17 20:12 12/05/17 07:20 12/05/17 07:21 Bedside Glucose 109 mg/dl 161 mg/dl 120 mg/dl White Blood Count 4.33 K/uL Red Blood Count 4.22 M/uL Hemoglobin 11.9 g/dL Hematocrit 37.0 % Mean Corpuscular Volume 87.7 fL Mean Corpuscular Hemoglobin 28.2 pg Mean Corpuscular Hemoglobin Concent 32.2 g/dl RDW Standard Deviation 49.2 fL RDW Coefficient of Variation 15.3 % Platelet Count 176 K/uL Mean Platelet Volume 10.5 fL Sodium Level 142 mmol/L Potassium Level 3.6 mmol/L Chloride Level 104 mmol/L Carbon Dioxide Level 29 mmol/L Anion Gap 8.0 mmol/L Blood Urea Nitrogen 13 mg/dl Creatinine 0.76 mg/dl Est Creatinine Clear Calc Drug Dose 69.6 ml/min Estimated GFR () 91.5 Estimated GFR (Non- 78.9 BUN/Creatinine Ratio 16.9 Random Glucose 137 mg/dl Calcium Level 8.6 mg/dl Test 12/05/17 11:20 Bedside Glucose 150 mg/dl Assessment & Plan This is a 72yo F with a PMH of insulin dependent DM II, HTN, HLD, asthma, celiac disease and mitral valve prolapse who presents after a syncopal event last evening. SYNCOPE SECONDARY TO: DEHYDRATION, ACUTE RENAL FAILURE crea back to normal given IV fluids Nephro consulted INFLUENZA A INFECTION on Tamiflu complete 5 days HYPERGLYCEMIA off Insulin drip on Lantus and ISS Pharmacy consulted, discussed, Lantus increased A1c 8.5 patient reports hypoglycemia as outpatient mostly around 4pm but also happens in the middle of the night called [facility] Pharmacist in [facility] Janeen, she will call the patient for advice on her Insulin and will arrange close follow up continue ff up with [facility] Pharmacy for Insulin Mgt Metabolic Encephalopathy, Resolved - secondary to hyperglycemia, dehydration, infection - CT head without acute changes to r/o CVA, bleed UTI - no urinary symptoms d/c Ceftriaxone HTN - BP elevated, asymptomatic - increased Losartan to 25mg BID resume Lasix -Cont propranolol, amlodipine - monitor as outpatient HLD: - on Zetia Asthma: -O2 saturation of 96% on room air -Cont home inhalers - stable Celiac disease: -Gluten free diet DVT Ppx: Heparin SQ Code status: FULL PCP: Ranjan Melendez d/c home ff up with Dr. Woodruff on 12/07/17 discussed with [facility] Pharmacist Janeen, she will call the patient re: Insulin adjustments Current Inpatient Medications: Current Inpatient Medications Medications (Trade) Dose Ordered Sig/Rupa Route Start Time Stop Time Status Last Admin Dose Admin Miscellaneous Information (Consult Glycemic Management Pharmacy) 1 ea UD PRN N/A 11/29/17 15:36 12/29/17 15:35 Amlodipine Besylate (Norvasc Tab) 10 mg DAILY PO 11/30/17 09:00 12/30/17 08:59 12/05/17 08:21 10 MG Cetirizine HCl (zyrTEC TAB) 10 mg DAILY PO 11/30/17 09:00 12/30/17 08:59 12/05/17 08:20 10 MG Nitroglycerin (Nitrostat Tab) 0.4 mg PRN PRN UT 11/29/17 16:00 12/29/17 15:59 Pantoprazole Sodium (Protonix Tab) 40 mg QAM PO 11/30/17 09:00 12/30/17 08:59 12/05/17 08:20 40 MG Propranolol HCl (Inderal LA Cap) 160 mg DAILY PO 11/30/17 09:00 12/30/17 08:59 12/05/17 08:21 160 MG Albuterol (Ventolin Hfa Inhaler) 1 puffs Q4 PRN INH 11/29/17 16:30 12/29/17 16:29 11/30/17 05:43 1 PUFFS Aspirin (Ecotrin Tab) 81 mg DAILY PO 11/30/17 09:00 12/30/17 08:59 12/05/17 08:20 81 MG Salmeterol Xinafoate/ Fluticasone (Advair Diskus 250/50 Inh) 1 puff BID INH 11/29/17 21:00 12/29/17 20:59 12/05/17 08:20 1 PUFF Tiotropium [place] (Spiriva Handihaler Inhaler) 1 puff DAILY INH 11/30/17 09:00 12/30/17 08:59 12/05/17 08:20 1 PUFF Heparin Sodium (Porcine) (Heparin Sq 5000 Unit/0.5ml) 5,000 unit Q8 SQ 11/29/17 22:00 12/29/17 21:59 12/05/17 06:36 5,000 UNIT Insulin Aspart (novoLOG ASPART) SLIDING SCALE ACHS SC 11/30/17 11:00 12/30/17 10:59 12/05/17 12:19 5 UNITS Potassium/ Phosphorus/Sodium (Phospha 250 Neutral 155-852-130 Mg) 2 tab QID PO 12/01/17 17:00 12/31/17 16:59 12/05/17 12:17 2 TAB Guaifenesin (Organidin Nr Tab) 200 mg Q6H PRN PO 12/01/17 16:45 12/31/17 16:44 12/02/17 20:53 200 MG Clonidine HCl (Catapres Tab) 0.1 mg Q6H PRN PO 12/02/17 20:15 01/01/18 20:14 12/05/17 14:19 0.1 MG Insulin Detemir (Levemir Flexpen/ FlexTouch) 30 units QAM SC 12/03/17 09:00 01/02/18 08:59 12/05/17 08:25 30 UNITS Losartan Potassium (coZAAR TAB) 50 mg BID PO 12/04/17 21:00 01/01/18 08:59 12/05/17 08:20 50 MG Furosemide (Lasix Tab) 40 mg DAILY PO 12/06/17 09:00 01/05/18 08:59 Diphenoxylate HCl/ Atropine (Lomotil Tab) 1 tab QID PRN PO 12/05/17 14:15 01/04/18 14:14 12/05/17 14:39 1 TAB
[2017-12-05 15:13] VITALS: BP 167/81; PULSE 78; TEMP 36.6; O2SAT 96
[2017-12-05] MEDS ORDERED: LOSA25TA18 PO (15:23)
[2017-12-05] MEDS ORDERED: GUAI1TAB68 PO (15:23)
--- NOTE | 2017-12-05 15:28 | Discharge Instructions ---
Discharge Instructions Date of Service Dec 05, 2017. Admission Reason for Admission: Hyperglycemia, Influenza A Discharge Discharge Diagnosis / Problem: INFLUENZA A, SYNCOPE Discharge Goals Goal(s): Diagnostic testing, Therapeutic intervention Activity Recommendations Activity Limitations: as noted below (NO HEAVY EXERTION UNTIL RE-EVALUATED BY PRIMARY CARE PHYSICIAN) Lifting Limitations: until after follow-up appointment Exercise/Sports Limitations: until after follow-up appointment . Instructions / Follow-Up Instructions / Follow-Up PLEASE REFER TO YOUR NEW MEDICATION LIST AND FOLLOW INSTRUCTIONS CAREFULLY. CALL PRIMARY CARE PHYSICIAN OR RETURN TO ER IMMEDIATELY IF WITH RECURRENCE OF SYMPTOMS, WEAKNESS, DIZZINESS, INCREASING COUGH OR SHORTNESS OF BREATH. FOLLOW UP WITH DR. KEHINDE ROGERS ON Monday12/07/17 AT 11:05 AM. FOLLOW UP WITH [facility] PHARMACIST FOR INSULIN MANAGEMENT SCHEDULED. (THE CLINIC WILL CALL YOU FOR THE APPOINTMENT). Current Hospital Diet Patient's current hospital diet: AHA Diet (Heart Healthy), Diabetes Type 2 Diet , Gluten Free Diet Discharge Diet Recommended Diet: AHA Diet (Heart Healthy), Diabetes Type 2 Diet, Gluten Free Diet Procedures Procedures Performed: CT SCAN OF THE HEAD, CERVICAL SPINE, CHEST, ABDOMEN Pending Studies Studies pending at discharge: no Laboratory Results Hemoglobin A1c Test 11/30/17 04:02 Range/Units Estimated Average Glucose 197 mg/dl Hemoglobin A1c 8.5 H 4.5-5.6 % Medical Emergencies . Who to Call and When: Medical Emergencies: If at any time you feel your situation is an emergency, please call 911 immediately. . Non-Emergent Contact Non-Emergency issues call your: Primary Care Provider Call Non-Emergent contact if: you have a fever, you have any medication questions . . "Provider Documentation" section prepared by Brice Salazar. . VTE Core Measure Inpt VTE Proph given/why not?: Unfractionated heparin SQ
--- NOTE | 2017-12-05 15:37 | Discharge Summary ---
Discharge Summary Date of Service Dec 05, 2017. Discharge Summary Admission Date: Nov 29, 2017 at 15:15 Discharge Date: Dec 05, 2017 Discharge Disposition: Home Principal Diagnosis: SYNCOPE SECONDARY TO: DEHYDRATION, ACUTE RENAL FAILURE, INFLUENZA A INFECTION, HYPERGLYCEMIA Secondary Diagnoses/Problems: PLEASE REFER TO HOSPITAL COURSE BELOW. Procedures: HEAD WITHOUT CONTRAST (CT) CLINICAL HISTORY: 72 years-old Female with MILLIGAN, fall. Acute headache and syncope status post fall TECHNIQUE: Multiple axial CT images of the head were obtained without contrast. A dose lowering technique was utilized adhering to the principles of ALARA. CT DOSE: 3500.82 mGy.cm COMPARISON: CT cervical spine of same day, CT head 09/14/2013. FINDINGS: No acute intracranial hemorrhage, midline shift, intracranial mass, hydrocephalus, territorial ischemia or abnormal extra-axial collection. Moderate trophic changes of the brain again seen with ill-defined areas of low-attenuation within the subcortical and periventricular white matter suggesting chronic microvascular ischemic changes. More focal area of low-attenuation is seen within the distribution of the right peña radiata and anterior aspect of the right external capsule which is unchanged suggesting remote infarction. Vascular calcifications are seen at the level of the skull base, notably within the distribution of the V4 segment right vertebral artery which appears to have progressed from prior study. The calvarium is intact. The paranasal sinuses, mastoid air cells, and middle ear cavities are clear. Sinuses appear mildly hypoplastic. Complete bony fusion involving the posterior arch C1. Soft tissues are unremarkable. IMPRESSION: 1. No acute intracranial abnormality. 2. Atrophy with chronic microvascular ischemic changes. 3. Progressively worsened atherosclerotic plaquing involves the V4 segment right vertebral artery. CT OF THE CERVICAL SPINE WITHOUT CONTRAST IMPRESSION: No acute cervical spine fracture or subluxation. (CHEST) THORAX WITHOUT IMPRESSION: No acute process. CT OF THE ABDOMEN AND PELVIS WITHOUT CONTRAST IMPRESSION: No acute traumatic findings within the abdomen or pelvis on unenhanced exam. Medication Reconciliation New Medications: Guaifenesin (Organ-I Nr) 200 Mg Tab 200 MG PO Q6H PRN for cough for 7 Days, #10 TAB 1 Refill Changed Medications: Losartan Potassium (Cozaar) 25 Mg Tab 25 MG PO BID for 30 Days, #60 TAB 1 Refill (Changed from: DAILY; Refills: ) Continued Medications: Albuterol Sulfate (Proventil Hfa) 108 Mcg/Act Aer 1 PUFF INH Q4 PRN for SOB/Wheezing Amlodipine (Norvasc) 10 Mg Tab 10 MG PO DAILY, TAB Aspirin (Aspirin 81) 81 Mg Tab 1 TAB PO DAILY Calcium Carbonate-Vitamin D (Calcium + D) 1 Tab Tab 1 TAB PO DAILY Cetirizine (Zyrtec) 10 Mg Tab 10 MG PO DAILY, TAB Diphenoxylate/Atropine (Lomotil) Tab 1 TAB PO PRN Ezetimibe (Zetia) 10 Mg Tab 10 MG PO DAILY, TAB Fluticasone Prop/Salmeterol (Advair Diskus 250/50 60 Dose) 1 Ea Aerp 1 PUFF INH BID, INHALER Furosemide (Lasix) 40 Mg Tab 40 MG PO DAILY, TAB Insulin Aspart (Novolog Flexpen) 100 Units/Ml Inj Unknown Dose TID Sliding Scale - Three times daily Insulin Detemir (Levemir Flextouch) 100 Unit/Ml Inj 8 UNITS SC DAILY Meloxicam (Mobic) 15 Mg Tab 15 MG PO DAILY, #30 TAB Please take this on an as needed basis for pain Nitroglycerin (Nitrostat) 0.4 Mg Tab 0.4 MG UT PRN Omeprazole (Prilosec) 20 Mg Cap 20 MG PO DAILY, CAP Potassium Ext Rel (Klor-Con) 20 Meq Tabcr 20 MEQ PO DAILY, TAB Propranolol Hcl (Propranolol Hcl Er) 160 Mg Cap 160 MG PO DAILY Take 1 tab daily for pressure/headache Tiotropium [place] (Spiriva Handihaler) 5 Puff/90 Mcg Aerp 1 INHA PO DAILY Vitamins C & E (Vitamin C) 1 Cap Cap 500 MG PO DAILY Admission Information HPI (per Admitting provider): This is a 72yo F with a PMH of insulin dependent DM II, HTN, HLD, asthma, celiac disease and mitral valve prolapse who presents after a syncopal event last evening. Patient has been feeling ill for the past 4 days, endorsing myalgias, subjective fever, chills, nausea with a few episodes of vomiting and nasal congestion. States that she feels more SOB than usual but has not been wheezing. Last evening, patient had an unwitnessed syncopal event that she does not recall. Her sister reports that she received a call around midnight last evening from a neighbor after she heard a loud sound in the patient's apartment. Her sister found the patient slumped over in a kitchen chair, resting her head on the table. States that the patient was groggy and confused. BG was checked and was 432. Denies hitting her head or LOC. Does not remember any lightheadedness, CP, SOB proceeding the syncopal event. Has had syncopal events in the past 2/2 fluctuation of blood sugar. Patient continued to exhibit signs of confusion and lethargy so family brought her to the ED for further evaluation. Endorses myalgias, fatigue, nausea, nasal congestion and non- productive cough. Denies fever, chills, lightheadedness, near-syncope, palpitations, CP, vomiting, abd pain, dysuria, hematuria, diarrhea, constipation or LE swelling. Was found to have a BG of 492 in the ED. Also has an elevated creatinine of 2.36 (baseline ~0.8). Positive for influenza A. Physical Exam (per Admitting): General Appearance: no apparent distress, + obese, + pertinent finding ( Lying in bed comfortably. Cooperative, coughing intermittently ) Head: normocephalic, atraumatic Eyes: normal inspection, PERRL, sclerae normal ENT: normal ENT inspection, hearing grossly normal, pharynx normal (dry mucous membranes ) Neck: supple, thyroid normal, trachea midline Respiratory/Chest: chest non-tender, lungs clear, normal breath sounds, no respiratory distress, no accessory muscle use Cardiovascular: regular rate, rhythm, no murmur, normal peripheral pulses Abdomen/GI: non tender, soft, no organomegaly Back: normal inspection, no CVA tenderness Extremities/Musculoskelatal: normal inspection, no calf tenderness, no pedal edema Neurologic/Psych: no motor/sensory deficits, alert, normal mood/affect, oriented x 3 (some situational confusion) Skin: normal color, warm/dry Hospital Course This is a 72yo F with a PMH of insulin dependent DM II, HTN, HLD, asthma, celiac disease and mitral valve prolapse who presents after a syncopal event last evening. SYNCOPE SECONDARY TO: DEHYDRATION, ACUTE RENAL FAILURE crea 2.3 on admission given IV nss crea back to normal Nephro consulted INFLUENZA A INFECTION Tamiflu completed for 5 days HYPERGLYCEMIA DM 2 A1c 8.5 BSG 500s on admission had to be placed on Insulin drip transitioned to Lantus and ISS Pharmacy consulted for Insulin Mgt patient reports hypoglycemia as outpatient mostly around 4pm but also happens in the middle of the night called [facility] Pharmacist in [facility] Janeen, she will call the patient for advice on her Insulin and will arrange close follow up continue ff up with [facility] for Insulin Mgt Metabolic Encephalopathy, Resolved - secondary to hyperglycemia, dehydration, infection - CT head without acute changes - resolved UTI - no urinary symptoms d/c Ceftriaxone HTN - BP elevated, asymptomatic - increased Losartan to 25mg BID resume Lasix -Cont propranolol, amlodipine - monitor as outpatient HLD: - on Zetia Asthma: -O2 saturation of 96% on room air -Cont home inhalers - stable Celiac disease: -Gluten free diet Home Environment - sister and brother in law expressed concern regarding patient's hoarding behavior and home environment - had meeting with patient and family members- advised that manager rn case will talk to patient regarding this - manager rn case has discussed possible options for patient- including contacting the Office of Aging for assistance regarding this issue Dispo d/c home ff up with Dr. Woodruff on 12/07/17 discussed with [facility] Pharmacist Janeen, she will call the patient re: Insulin adjustments Total time spent on discharge = 50 minutes This includes examination of the patient, discharge planning, medication reconciliation, and communication with other providers. Discharge Instructions Discharge Instructions Date of Service Dec 05, 2017. Admission Reason for Admission: Hyperglycemia, Influenza A Discharge Discharge Diagnosis / Problem: INFLUENZA A, SYNCOPE Discharge Goals Goal(s): Diagnostic testing, Therapeutic intervention Activity Recommendations Activity Limitations: as noted below (NO HEAVY EXERTION UNTIL RE-EVALUATED BY PRIMARY CARE PHYSICIAN) Lifting Limitations: until after follow-up appointment Exercise/Sports Limitations: until after follow-up appointment . Instructions / Follow-Up Instructions / Follow-Up PLEASE REFER TO YOUR NEW MEDICATION LIST AND FOLLOW INSTRUCTIONS CAREFULLY. CALL PRIMARY CARE PHYSICIAN OR RETURN TO ER IMMEDIATELY IF WITH RECURRENCE OF SYMPTOMS, WEAKNESS, DIZZINESS, INCREASING COUGH OR SHORTNESS OF BREATH. FOLLOW UP WITH DR. KEHINDE WOODRUFF ON Monday12/07/17 AT 11:05 AM. FOLLOW UP WITH [facility] PHARMACIST FOR INSULIN MANAGEMENT SCHEDULED. (THE CLINIC WILL CALL YOU FOR THE APPOINTMENT). Current Hospital Diet Patient's current hospital diet: AHA Diet (Heart Healthy), Diabetes Type 2 Diet , Gluten Free Diet Discharge Diet Recommended Diet: AHA Diet (Heart Healthy), Diabetes Type 2 Diet, Gluten Free Diet Procedures Procedures Performed: CT SCAN OF THE HEAD, CERVICAL SPINE, CHEST, ABDOMEN Pending Studies Studies pending at discharge: no Laboratory Results Hemoglobin A1c Test 11/30/17 04:02 Range/Units Estimated Average Glucose 197 mg/dl Hemoglobin A1c 8.5 H 4.5-5.6 % Medical Emergencies . Who to Call and When: Medical Emergencies: If at any time you feel your situation is an emergency, please call 911 immediately. . Non-Emergent Contact Non-Emergency issues call your: Primary Care Provider Call Non-Emergent contact if: you have a fever, you have any medication questions . . "Provider Documentation" section prepared by Brice Salazar. . VTE Core Measure Inpt VTE Proph given/why not?: Unfractionated heparin SQ
[2017-12-05 16:04] VITALS: BP 167/81; PULSE 78; TEMP 36.6; O2SAT 96
[2017-12-06] MEDS ORDERED: FUROSEMIDE 40 MG TAB PO SCH (09:00)
== END 2017-12-05 16:27 | disposition home or self-care (01) | DRG 682 ==
LOC: C.EDB 11:08 → UNDOADMIN 15:15 → C.2T 15:15 → ENRESERV 15:46 → C.MS2W 12-01 18:07 → C.2T 12-01 18:07
PROVIDERS: ADMIT Hospitalist; ATTEND Internal Medicine
DX: N17.9 Acute kidney failure, unspecified (principal); G93.41 Metabolic encephalopathy; E87.1 Hypo-osmolality and hyponatremia; N39.0 Urinary tract infection, site not specified; J10.1 Influenza due to other identified influenza virus with other respiratory manifestations; E11.65 Type 2 diabetes mellitus with hyperglycemia; E86.0 Dehydration; R55 Syncope and collapse; I11.9 Hypertensive heart disease without heart failure; I34.1 Nonrheumatic mitral (valve) prolapse; J45.909 Unspecified asthma, uncomplicated; K90.0 Celiac disease; E78.5 Hyperlipidemia, unspecified; Z51.81 Encounter for therapeutic drug level monitoring; Z79.899 Other long term (current) drug therapy; Z79.4 Long term (current) use of insulin; Z79.82 Long term (current) use of aspirin; Z91.81 History of falling; Z83.3 Family history of diabetes mellitus; Z82.49 Family history of ischemic heart disease and other diseases of the circulatory system; Z80.51 Family history of malignant neoplasm of kidney; Z82.5 Family history of asthma and other chronic lower respiratory diseases

== ENCOUNTER 2024-12-09 16:30 | Inpatient (IN) ==
[2024-12-09 17:20] LABS: Basophils # (auto) 0.04 K/uL (0.00-0.20); Basophils % (auto) 0.4 %; Eosinophils # (auto) 0.18 K/uL (0.00-0.50); Eosinophils % (auto) 1.9 %; Hematocrit (blood only) 41.2 % (37.0-47.0); Hemoglobin 13.2 g/dl (12.0-16.0); Immature Granulocytes # (auto) 0.03 K/uL (0.01-0.20); Immature Granulocytes % (auto) 0.3 %; Lymphocytes # (auto) 2.53 K/uL (1.20-3.40); Lymphocytes % (auto) 27.3 %; Mean Corpuscular Hemoglobin 29.2 pg (25.0-34.0); Mean Corpuscular Volume 91.2 fL (80.0-100.0); Mean Platelet Volume 11.2 fL (9.4-12.4); Monocytes # (auto) 1.03 K/uL (0.11-0.59); Monocytes % (auto) 11.1 %; Neutrophils # (auto) 5.47 K/uL (1.40-6.50); Platelet Count 258 K/uL (130-400); RDW Coefficient of Variation 14.3 % (11.5-14.5); RDW Standard Deviation 47.7 fL (36.4-46.3); Red Blood Count 4.52 M/uL (4.20-5.40); White Blood Count 9.28 K/ul (4.8-10.8)
--- NOTE | 2024-12-09 17:21 | XRay Report ---
INDICATION: Cough. TECHNIQUE: Frontal radiograph of the chest. COMPARISON: None. FINDINGS: Cardiomegaly. Elevation of right hemidiaphragm. Mild vascular congestion. Subsegmental atelectasis in the lung bases. No infiltrate, pleural effusion or pneumothorax. No acute osseous abnormality evident. IMPRESSION: Mild pulmonary vascular congestion. Electronically signed by Rafy Lee 12-09-2024 5:21 PM
[2024-12-09 17:33] LABS: Partial Thromboplastin Time 27 Seconds (21-31); Prothrombin Time 10.6 Seconds (9.0-12.0)
[2024-12-09 17:40] LABS: Bilirubin,Total 0.8 mg/dl (0.2-1.0); Calcium 9.3 mg/dl (8.6-10.3); Potassium 4.6 mmol/L (3.5-5.1)
[2024-12-09 17:46] LABS: Albumin Globulin Ratio 1.3 (0.9-2); Creatinine Clr Calc Pharmacy 54.8 ml/min; Globulin 3.2 gm/dl (2.5-4.0); Total Protein 7.2 gm/dl (6.0-8.3)
[2024-12-09 17:50] LABS: Troponin I High Sensitivity 5.9 pg/ml (0-14)
[2024-12-09 18:05] LABS: Adenovirus PCR Not Detected (NotDetected); Bordetella parapertussis PCR Not Detected (NotDetected); Bordetella pertussis PCR Not Detected (NotDetected); Chlamydia pneumoniae PCR Not Detected (NotDetected); Coronavirus 229E PCR Not Detected (NotDetected); Coronavirus CoV-2 (COVID19)PCR Not Detected (NotDetected); Coronavirus HKU1 PCR Not Detected (NotDetected); Coronavirus NL63 PCR Not Detected (NotDetected); Coronavirus OC43PCR Not Detected (NotDetected); Human Metapneumovirus PCR Not Detected (NotDetected); Influenza A PCR Not Detected (NotDetected); Influenza B PCR Not Detected (NotDetected); Mycoplasma pneumoniae PCR Not Detected (NotDetected); Parainfluenza Virus 1 PCR Not Detected (NotDetected); Parainfluenza Virus 2 PCR Not Detected (NotDetected); Parainfluenza Virus 3 PCR Not Detected (NotDetected); Parainfluenza Virus 4 PCR Not Detected (NotDetected); Respiratory Syncytial VirusPCR Not Detected (NotDetected); Rhinovirus/Enterovirus PCR Not Detected (NotDetected)
[2024-12-09] MEDS: OPTIRAY 320 100ml IV ONE (20:00)
--- NOTE | 2024-12-09 20:31 | CT Scan Report ---
Exam(s): CT ABDOMEN + PELVIS With Contrast IV Amt: 90ml optiray 320 EXAM: CT Abdomen and Pelvis With Intravenous Contrast CLINICAL HISTORY: Reason for exam: elevated LFT, CP, SOB. TECHNIQUE: Axial computed tomography images of the abdomen and pelvis with intravenous contrast. CTDI is 28.03 mGy and DLP is 1234.92 mGy-cm. Automated exposure control was utilized for the study. A dose lowering technique was utilized adhering to the principles of ALARA. CONTRAST: Patient received 90ml optiray 320 of IV contrast COMPARISON: 11/29/2017 CT abdomen pelvis FINDINGS: Lung bases: Interstitial edema and patchy groundglass opacities at the lung bases. Pleural space: Trace pleural effusions. ABDOMEN: Liver: Unremarkable. Gallbladder and bile ducts: Cholecystectomy. Pancreas: Unremarkable. Spleen: Unremarkable. Adrenals: Unremarkable. Kidneys and ureters: Unremarkable. No obstructing stones. No hydronephrosis. Stomach and bowel: Unremarkable. PELVIS: Appendix: No findings to suggest acute appendicitis. Bladder: Unremarkable. Reproductive: Hysterectomy. ABDOMEN and PELVIS: Intraperitoneal space: Unremarkable. No free air. No significant fluid collection. Bones/joints: No acute fracture. Soft tissues: Unremarkable. Vasculature: Unremarkable. Lymph nodes: Unremarkable. IMPRESSION: 1. No acute abnormality within the abdomen or pelvis. 2. Interstitial edema and patchy groundglass opacities at the lung bases either representing alveolar edema or infection. 3. Trace pleural effusions. Electronically signed by: Ashkan Rasheed MD 12/09/24 20:30 PM
--- NOTE | 2024-12-09 21:12 | Emergency Department Note ---
Impression & Plan Influenza A, Atrial fibrillation with controlled ventricular rate ED Provider Note CHIEF COMPLAINT: Abdominal pain, chest pressure HISTORY OF PRESENT ILLNESS: This patient is a 79-year-old female with past medical history of hypertension, influenza A, diabetes mellitus, celiac disease, dyslipidemia, acute kidney injury presents emergency department with complaints of upper abdominal discomfort and chest pressure. The patient states her symptoms are worse with exertion. She complains of some low-grade fevers but also states that her temperature normally runs low, therefore she believes she has had a fever for her. She has not had any vomiting or diarrhea. History is provided by the patient and her daughter at the bedside. REVIEW OF SYSTEMS: A review of systems was performed with positives and pertinent negatives listed in the history of present illness. 10 systems were reviewed and are otherwise negative. ALLERGIES: see below MEDICATIONS: see below PMH: see below SOCIAL HISTORY: see below DDx: Congestive heart failure, cardiac arrhythmia, influenza, electrolyte abnormality, dehydration, UTI, pancreatitis among others. PHYSICAL EXAM: Vital signs reviewed. General: Generally well-appearing 79-year-old female, in no significant distress. HEENT: No scleral icterus, PERRLA, neck supple. Atraumatic. Cardiovascular: Irregular rate and rhythm, no extra sounds. Pulmonary: Clear to auscultation bilaterally, normal work of breathing. Abdomen: Soft, nontender, nondistended, positive bowel sounds. Musculoskeletal: Atraumatic, no peripheral edema. Neurologic: Patient awake alert and oriented x 3, speech is clear Skin: Warm, dry, no rash EMERGENCY DEPARTMENT COURSE/MDM: This patient was evaluated and appeared to be in no significant distress. IV access was obtained and laboratory work was drawn. Patient was placed on the compliance monitor and noted to be in a rate controlled atrial fibrillation. Chest x-ray was performed and reveals interstitial edema. Patient's EKG reveals a rate controlled atrial fibrillation. Laboratory work reveals [address] consecutive [address]. [address] of the abdomen pelvis was performed and is negative for acute abnormality with the exception of some likely alveolar edema. Patient's case was discussed with Dr. Johnson of the hospitalist service was agreed to evaluate patient for admission and further management. MONITORING: An order for cardiac monitoring was placed and the patient is noted to be in a rate controlled atrial fibrillation at 82 beats per minute. RADIOLOGY: Chest x-ray to my interpretation reveals mild pulmonary vascular congestion. CT of the abdomen and pelvis: IMPRESSION: 1. No acute abnormality within the abdomen or pelvis. 2. Interstitial edema and patchy groundglass opacities at the lung bases either representing alveolar edema or infection. 3. Trace pleural effusions. EKG: To my interpretation reveals an atrial fibrillation at 77 bpm. LVH, QTc of 389. No PVC, no PAC. DISPOSITION: Admission Past Med/Surg History Problem List (Updated 12/14/24 @ 15:50 by Sena Dubose MD) Acute passive congestion of liver Hypertension, uncontrolled Diabetes mellitus type 2, insulin dependent Acute heart failure with preserved ejection fraction Atrial fibrillation with controlled ventricular rate (Acute) Chest pain Dehydration, severe (Acute) Diabetes mellitus, new onset (Acute) Asthma (Chronic) Acute kidney injury (Acute) Dyslipidemia (Chronic) Celiac disease (Chronic) Chest pain (Acute) Hypertension (Chronic) Status post cataract extraction (Chronic) Hyperglycemia Influenza A (Acute) Social History Smoking Status: Never smoker Hx Alcohol Use: No Hx Substance Use: No Preferred Language: Sami Communication Ability: Effective Scrap Picker Required: No Beliefs That Will Affect Care: None Current Living Situation: Alone Feels Safe at Home: Yes Assistive Devices: Cane and CPAP Allergies Allergies Allergy/AdvReac Type Severity Reaction Status Date / Time Penicillins Allergy Severe SOB, RASH Verified 11/29/17 12:28 acetaminophen Allergy Unknown UNKNOWN. Verified 11/29/17 12:28 erythromycin base Allergy Unknown UNKNOWN. Verified 11/29/17 12:28 gluten Allergy Unknown CELIAC Verified 11/29/17 12:28 DISEASE lisinopril Allergy Unknown UNKNOWN. Verified 11/29/17 12:28 pollen extracts Allergy Unknown ? Verified 11/29/17 12:28 propoxyphene Allergy Unknown UNKNOWN. Verified 11/29/17 12:28 Sulfa (Sulfonamide Allergy Unknown UNKNOWN. Verified 11/29/17 12:28 Antibiotics) Home Meds Home Medications Medication Instructions Recorded Confirmed diphenoxylate-atropine 2.5 1 tab PO BID ##0 06/26/09 12/09/24 mg-0.025 mg tablet (Lomotil) amlodipine 10 mg tablet 10 mg PO DAILY #0 tabs 09/10/13 12/09/24 ezetimibe 10 mg tablet 10 mg PO QAM #0 tabs 09/10/13 12/09/24 omeprazole 40 mg capsule,delayed 40 mg PO QAM #0 caps 09/10/13 12/09/24 release aspirin 81 mg tablet,delayed 81 mg PO DAILY ##0 11/29/17 12/09/24 release calcium 600 mg (as 1 tab PO DAILY ##0 11/29/17 12/09/24 carbonate)-vitamin D3 10 mcg (400 unit) tablet (Calcium 600 + D(3)) fluticasone 250 mcg-salmeterol 50 1 inh inhalation Q12H #0 Inhalers 11/29/17 12/09/24 mcg/dose blistr powdr for inhalation (Advair Diskus) insulin aspart U-100 100 unit/mL 1 sliding scale dose SUBCUT 11/29/17 12/09/24 (3 mL) subcutaneous pen (Novolog USEASDIRECTD ##0 FlexPen U-100 Insulin aspart) tiotropium bromide 18 mcg capsule 1 cap inhalation DAILY ##0 11/29/17 12/09/24 with inhalation device (Spiriva with HandiHaler) acetaminophen 500 mg capsule 500 mg PO Q4H PRN Pain 12/09/24 12/09/24 albuterol sulfate 90 mcg/actuation 2 puff inhalation Q4H PRN WHEEZE 12/09/24 12/09/24 aerosol inhaler artificial 1 drp OPB . NEEDED 12/09/24 12/09/24 tears(iggfrtd-vtiuvequ-gyucdqr) 0.1 %-0.3 %-0.2 % eye drops (GenTeal Tears Moderate) ascorbic acid (vitamin C) 500 mg 500 mg PO DAILY 12/09/24 12/09/24 capsule,extended release azelastine 137 mcg (0.1 %) nasal 2 spray intranasal BID 12/09/24 12/09/24 spray fluticasone propionate 50 1 spray intranasal DAILY 12/09/24 12/09/24 mcg/actuation nasal spray,suspension ipratropium bromide 17 2 puff inhalation QID 12/09/24 12/09/24 mcg/actuation HFA aerosol inhaler (Atrovent HFA) scfcldcy-negu-nioe 8 mg-folic 400 1 tab PO DAILY 12/09/24 12/09/24 mcg-K 50 mcg-lutein 300 mcg tablet (Multivitamin Women 50 Plus) nitroglycerin 0.4 mg sublingual 0.4 mg sublingual Q5M PRN Chest 12/09/24 12/09/24 tablet Pain polyvinyl alcohol-povidone (PF) 1 drp OPB . NEEDED 12/09/24 12/09/24 1.4 %-0.6 % eye drops in a dropperette (Refresh Classic (PF)) vit C 250 mg-vit E 90 mg-zinc 40 1 tab PO AMHS 12/09/24 12/09/24 mg-copper 1 rm-ejfeds-zixdta capsule (PreserVision AREDS-2) Previous Rx's Medication Instructions Recorded INSULIN PEN NEEDLE (EXEL INSULIN unit ##120 09/18/13 PEN NEEDLES) apixaban 5 mg tablet (Eliquis) 5 mg PO BID #60 tabs 12/10/24 benzonatate 100 mg capsule 100 mg PO TID 30 days #90 caps 12/13/24 furosemide 20 mg tablet 20 mg PO QAM 30 days #30 tabs 12/13/24 insulin glargine 100 unit/mL (3 10 unit (0.1 mL) subcut DAILY #0 mL 12/13/24 mL) subcutaneous pen (Lantus Solostar U-100 Insulin) loratadine 10 mg tablet 10 mg PO QAM 30 days #30 tabs 12/13/24 losartan 25 mg tablet 50 mg (2 x 25 mg) PO BID 30 days 12/13/24 #120 tabs metoprolol succinate 50 mg 50 mg PO BID 30 days #60 tabs 12/13/24 tablet,extended release 24 hr potassium chloride 20 mEq 10 meq (1/2 x 20 mEq) PO DAILY 30 12/13/24 tablet,extended days #15 tabs release(part/cryst) (Klor-Con M) prednisone 20 mg tablet 40 mg (2 x 20 mg) PO DAILY 3 days 12/13/24 #6 tabs spironolactone 25 mg tablet 12.5 mg (1/2 x 25 mg) PO DAILY 30 12/13/24 days #15 tabs Results & Data (ED) Vital Signs Vital Signs - 24 hr 12/09/24 16:42 12/09/24 16:42 12/09/24 18:36 Temperature 36.8 C Temperature Source Temporal Artery Scan Pulse Rate 79 Pulse Rate [Apical] Pulse Rhythm [Apical] Respiratory Rate 20 Respiratory Effort / Characteristics Short of Breath Non-Labored Respiratory Depth Normal Blood Pressure 167/102 H Blood Pressure [Left Arm] Blood Pressure Mean 123 Blood Pressure Mean [Left Arm] Pulse Oximetry 93 95 Oxygen Delivery Method Room Air Room Air Room Air Oxygen Flow Rate Sepsis Recent Fever Within 48 Hours No Sepsis New/Unexplained Change in Mental Status No Sepsis Action Taken by Nursing No Action Required 12/09/24 18:36 12/09/24 18:36 12/09/24 18:40 Temperature Temperature Source Pulse Rate 82 Pulse Rate [Apical] 79 Pulse Rhythm [Apical] Respiratory Rate 15 Respiratory Effort / Characteristics Non-Labored Spontaneous Respiratory Depth Normal Blood Pressure Blood Pressure [Left Arm] 139/101 H Blood Pressure Mean Blood Pressure Mean [Left Arm] 113 Pulse Oximetry 96 95 Oxygen Delivery Method Room Air Room Air Oxygen Flow Rate Sepsis Recent Fever Within 48 Hours Sepsis New/Unexplained Change in Mental Status Sepsis Action Taken by Nursing 12/09/24 20:00 Temperature Temperature Source Pulse Rate Pulse Rate [Apical] 80 Pulse Rhythm [Apical] Irregular Respiratory Rate 18 Respiratory Effort / Characteristics Respiratory Depth Blood Pressure Blood Pressure [Left Arm] 128/104 H Blood Pressure Mean Blood Pressure Mean [Left Arm] 112 Pulse Oximetry 96 Oxygen Delivery Method Nasal Cannula Oxygen Flow Rate 2 Sepsis Recent Fever Within 48 Hours Sepsis New/Unexplained Change in Mental Status Sepsis Action Taken by Snf Medications Current Medication List: was personally reviewed by me Laboratory Data Attestation: I reviewed the patient's lab results. 12/12/24 04:10 12/13/24 08:29 Lab Results 12/09/24 12/09/24 Range/Units 17:00 19:49 WBC 9.28 (4.8-10.8) K/ul RBC 4.52 (4.20-5.40) M/uL Hgb 13.2 (12.0-16.0) g/dl Hct 41.2 (37.0-47.0) % MCV 91.2 (80.0-100.0) fL MCH 29.2 (25.0-34.0) pg MCHC 32.0 (32.0-36.0) g/dL RDW Std Deviation 47.7 H (36.4-46.3) fL RDW Coeff of Marty 14.3 (11.5-14.5) % Plt Count 258 (130-400) K/uL MPV 11.2 (9.4-12.4) fL Immature Gran % (Auto) 0.3 % Neut % (Auto) 59.0 % Lymph % (Auto) 27.3 % [place] % (Auto) 11.1 % Eos % (Auto) 1.9 % Baso % (Auto) 0.4 % Neut # (Auto) 5.47 (1.40-6.50) K/uL Lymph # (Auto) 2.53 (1.20-3.40) K/uL [place] # (Auto) 1.03 H (0.11-0.59) K/uL Eos # (Auto) 0.18 (0.00-0.50) K/uL Baso # (Auto) 0.04 (0.00-0.20) K/uL Immature Gran # (Auto) 0.03 (0.01-0.20) K/uL PT 10.6 (9.0-12.0) Seconds INR 1.0 (0.9-1.1) APTT 27 (21-31) Seconds PTT Ratio 1.0 Sodium 140 (136-145) mmol/L Potassium 4.6 (3.5-5.1) mmol/L Chloride 102 (98-107) mmol/L Carbon Dioxide 29 (21-32) mmol/L Anion Gap 9 (3-11) BUN 12 (6-23) mg/dl Creatinine 0.80 (0.6-1.2) mg/dl Est Cr Clr Drug Dosing 54.8 ml/min eGFR 75.37 BUN/Creatinine Ratio 15.0 (10-20) Glucose 175 H (70-99(Fasting)) mg/dl Calcium 9.3 (8.6-10.3) mg/dl Total Bilirubin 0.8 (0.2-1.0) mg/dl AST 62 H (13-39) U/L ALT 60 H (7-52) U/L Alkaline Phosphatase 291 H (34-104) U/L Troponin I High Sens 5.9 5.1 (0-14) pg/ml Total Protein 7.2 (6.0-8.3) gm/dl Albumin 4.0 (3.4-5.0) gm/dl Globulin 3.2 (2.5-4.0) gm/dl Albumin/Globulin Ratio 1.3 (0.9-2) Adenovirus (PCR) Not Detected (NotDetected) B. pertussis DNA (PCR) Not Detected (NotDetected) B.parapertussis DNA PCR Not Detected (NotDetected) C. pneumoniae DNA (PCR) Not Detected (NotDetected) Coronavirus OC43 (PCR) Not Detected (NotDetected) Coronavirus HKU1 (PCR) Not Detected (NotDetected) Coronavirus 229E (PCR) Not Detected (NotDetected) SARS-CoV-2 (PCR) Not Detected (NotDetected) Coronavirus NL63 (PCR) Not Detected (NotDetected) Human Metapneumovir PCR Not Detected (NotDetected) Influenza Type A (PCR) Not Detected (NotDetected) Influenza Type B (PCR) Not Detected (NotDetected) M. pneumoniae (PCR) Not Detected (NotDetected) Parainfluenza 1 (PCR) Not Detected (NotDetected) Parainfluenza 2 (PCR) Not Detected (NotDetected) Parainfluenza 3 (PCR) Not Detected (NotDetected) Parainfluenza 4 (PCR) Not Detected (NotDetected) RSV (PCR) Not Detected (NotDetected) Entero/Rhino (PCR) Not Detected (NotDetected) Administered Medications Discontinued Medications Acetaminophen (Acetaminophen 325 Mg Tab) 650 mg PO Q4H PRN PRN Reason: Pain or Fever Stop: 01/08/25 23:02 Last Admin: 12/12/24 20:19 Dose: 650 mg Documented By: [id number] Admin: 12/12/24 17:21 Dose: 650 mg Documented By: Admin: 12/12/24 12:55 Dose: 650 mg Documented By: Admin: 12/11/24 09:30 Dose: 650 mg Documented By: CORA Amlodipine Besylate (Amlodipine Besylate 5 Mg Tab) 10 mg PO DAILY ALISHA Stop: 01/09/25 08:59 Last Admin: 12/13/24 08:35 Dose: 10 mg Documented By: Admin: 12/12/24 08:26 Dose: 10 mg Documented By: Admin: 12/11/24 08:14 Dose: 10 mg Documented By: Admin: 12/10/24 09:05 Dose: 10 mg Documented By: ЕКАТЕРИНА Apixaban (Apixaban 5 Mg Tablet) 5 mg PO BID ALISHA Stop: 01/09/25 09:14 Last Admin: 12/13/24 08:34 Dose: 5 mg Documented By: Admin: 12/12/24 20:19 Dose: 5 mg Documented By: [id number] Admin: 12/12/24 08:26 Dose: 5 mg Documented By: Admin: 12/11/24 21:50 Dose: 5 mg Documented By: Admin: 12/11/24 08:15 Dose: 5 mg Documented By: Admin: 12/10/24 20:55 Dose: 5 mg Documented By: Admin: 12/10/24 09:30 Dose: 5 mg Documented By: ЕКАТЕРИНА Ascorbic Acid (Ascorbic Acid 500 Mg Tab) 500 mg PO DAILY ALISHA Stop: 01/09/25 08:59 Last Admin: 12/13/24 08:35 Dose: 500 mg Documented By: Admin: 12/12/24 08:26 Dose: 500 mg Documented By: Admin: 12/11/24 08:14 Dose: 500 mg Documented By: Admin: 12/10/24 09:04 Dose: 500 mg Documented By: ЕКАТЕРИНА Aspirin (Aspirin 81 Mg Ectab) 81 mg PO DAILY ALISHA Stop: 01/09/25 08:59 Last Admin: 12/13/24 08:35 Dose: 81 mg Documented By: Admin: 12/12/24 08:26 Dose: 81 mg Documented By: Admin: 12/11/24 08:14 Dose: 81 mg Documented By: Admin: 12/10/24 09:05 Dose: 81 mg Documented By: ЕКАТЕРИНА Azelastine HCl (Azelastine Hcl 0.1% Nasal 200 Sprays/27,400 Mcg Btl) 2 sprays NA BID ALISHA Stop: 01/09/25 08:59 Last Admin: 12/13/24 08:34 Dose: 2 sprays Documented By: Admin: 12/12/24 20:18 Dose: 2 sprays Documented By: [id number] Admin: 12/12/24 08:30 Dose: 2 sprays Documented By: Admin: 12/11/24 21:52 Dose: 2 sprays Documented By: Admin: 12/11/24 08:15 Dose: 2 sprays Documented By: Admin: 12/10/24 20:55 Dose: 2 sprays Documented By: Admin: 12/10/24 09:06 Dose: 2 sprays Documented By: ЕКАТЕРИНА Benzonatate (Benzonatate 100 Mg Capsule) 100 mg PO TID [facility] Stop: 01/11/25 16:44 Last Admin: 12/13/24 08:39 Dose: 100 mg Documented By: Admin: 12/12/24 20:19 Dose: 100 mg Documented By: [id number] Admin: 12/12/24 17:21 Dose: 100 mg Documented By: ANGELITO Calcium/Vitamin D (Calcium 600mg + Vit D 400 Iu Tab) 1 tab PO DAILY ALISHA Stop: 01/09/25 08:59 Last Admin: 12/13/24 08:37 Dose: 1 tab Documented By: Admin: 12/12/24 08:27 Dose: 1 tab Documented By: Admin: 12/11/24 08:14 Dose: 1 tab Documented By: Admin: 12/10/24 09:05 Dose: 1 tab Documented By: ЕКАТЕРИНА Carvedilol (Carvedilol 3.125 Mg Tab) 3.125 mg PO BIDM ALISHA Stop: 01/09/25 07:59 Last Admin: 12/10/24 09:01 Dose: 3.125 mg Documented By: ЕКАТЕРИНА Dextrose (Dextrose 50% 50 Ml Syringe) 25 - 50 ml IV UD PRN; Protocol PRN Reason: Hypoglycemia Protocol Stop: 01/08/25 23:02 Last Admin: 12/11/24 16:15 Dose: 50 ml Documented By: CORA Ezetimibe (Ezetimibe 10 Mg Tab) 10 mg PO QAM ALISHA Stop: 01/09/25 08:59 Last Admin: 12/13/24 08:35 Dose: 10 mg Documented By: Admin: 12/12/24 08:26 Dose: 10 mg Documented By: Admin: 12/11/24 08:14 Dose: 10 mg Documented By: Admin: 12/10/24 09:05 Dose: 10 mg Documented By: ЕКАТЕРИНА Fluticasone Propionate (Fluticasone Propionate Na Spr 16 Gm Btl) 1 sprays NA DAILY ALISHA Stop: 01/09/25 08:59 Last Admin: 12/13/24 08:35 Dose: 1 sprays Documented By: Admin: 12/12/24 08:31 Dose: 1 sprays Documented By: Admin: 12/11/24 08:16 Dose: 1 sprays Documented By: Admin: 12/10/24 09:09 Dose: 1 sprays Documented By: ЕКАТЕРИНА Fluticasone/Vilanterol (Fluticasone/Vilanterol 100/25mcg 14 Puffs/Inhaler) 1 puffs INH DAILY ALISHA Stop: 01/09/25 08:59 Last Admin: 12/13/24 08:33 Dose: 1 puffs Documented By: Admin: 12/12/24 08:31 Dose: 1 puffs Documented By: Admin: 12/11/24 08:16 Dose: 1 puffs Documented By: Admin: 12/10/24 09:09 Dose: 1 puffs Documented By: ЕКАТЕРИНА Furosemide (Furosemide 40 Mg/4 Ml Vial) 40 mg IV BID ALISHA Stop: 01/09/25 08:59 Last Admin: 12/10/24 20:55 Dose: 40 mg Documented By: Admin: 12/10/24 09:08 Dose: 40 mg Documented By: ЕКАТЕРИНА Furosemide (Furosemide 40 Mg/4 Ml Vial) 60 mg IV ONE ONE Stop: 12/11/24 09:11 Last Admin: 12/11/24 09:25 Dose: 60 mg Documented By: CORA Furosemide (Furosemide 40 Mg/4 Ml Vial) 60 mg IV ONE ONE Stop: 12/12/24 09:06 Last Admin: 12/12/24 10:02 Dose: 60 mg Documented By: ANGELITO Furosemide (Furosemide 20 Mg Tab) 20 mg PO QAM ALISHA Stop: 01/12/25 08:59 Last Admin: 12/13/24 08:32 Dose: 20 mg Documented By: ALLYSON Heparin Sodium (Porcine) (Heparin Sod (Porcine) 1000 Unit/Ml) 2,000 units IV NOW ONE Stop: 12/10/24 06:31 Last Admin: 12/10/24 06:28 Dose: 2,000 units Documented By: NAVNEET Co-signed By: JOSELINE Heparin Sodium/Dextrose (Heparin 21676 Unit/500 Ml) 25,000 units in 500 mls @ 17 mls/hr IV .Q24H ALISHA; Protocol Stop: 01/08/25 23:02 Last Titration: 12/10/24 09:30 Dose: Infused Documented By: ЕКАТЕРИНА Co-signed By: YOLIE Titration: 12/10/24 07:28 Dose: 850 units/hr, 17 mls/hr Documented By: ЕКАТЕРИНА Co-signed By: NAVNEET Titration: 12/10/24 06:28 Dose: 850 units/hr, 17 mls/hr Documented By: NAVNEET Co-signed By: JOSELINE Admin: 12/09/24 23:49 Dose: 750 units/hr, 15 mls/hr Documented By: NAVNEET Co-signed By: JOSELINE Influenza Virus Vacc Triv Types A&B (Influenza Vacc [id number](65y+)/Pf (Iiv3) 0.5ml Syr) 0.5 ml IM .ONCE ONE Stop: 12/10/24 09:01 Last Admin: 12/10/24 21:03 Dose: 0.5 ml Documented By: NAVNEET Insulin Aspart (Insulin Aspart Per Unit Charge) 0 units SC Q6 ALISHA Stop: 01/09/25 00:00 Last Admin: 12/10/24 06:17 Dose: 3 units Documented By: NAVNEET Co-signed By: JOSELINE Admin: 12/10/24 00:01 Dose: 4 units Documented By: NAVNEET Co-signed By: JOSELINE Insulin Aspart (Insulin Aspart Per Unit Charge) 0 units SC ACHS ALISHA Stop: 01/09/25 11:29 Last Admin: 12/13/24 13:16 Dose: 7 units Documented By: ALLYSON Co-signed By: JOSÉ LUIS Admin: 12/13/24 08:32 Dose: 7 units Documented By: ALLYSON Co-signed By: DUONG Admin: 12/12/24 21:01 Dose: 6 units Documented By: [id number] Co-signed By: EVERTON Admin: 12/12/24 17:21 Dose: 13 units Documented By: ANGELITO Co-signed By: KIT Admin: 12/12/24 12:02 Dose: 17 units Documented By: ANGELITO Co-signed By: KIT Admin: 12/12/24 08:24 Dose: 15 units Documented By: ANGELITO Co-signed By: ЕКАТЕРИНА Admin: 12/11/24 21:48 Dose: 10 units Documented By: KEV Co-signed By: ARSH Admin: 12/11/24 16:39 Dose: Not Given Documented By: Admin: 12/11/24 12:35 Dose: 10 units Documented By: CORA Co-signed By: JAIME Admin: 12/11/24 08:11 Dose: 15 units Documented By: CORA Co-signed By: JEAN Admin: 12/10/24 21:00 Dose: 8 units Documented By: NAVNEET Co-signed By: BARBARA Admin: 12/10/24 17:09 Dose: 16 units Documented By: ЕКАТЕРИНА Co-signed By: BLAKE Admin: 12/10/24 12:20 Dose: 6 units Documented By: ЕКАТЕРИНА Co-signed By: BLAKE Insulin Aspart (Insulin Aspart Per Unit Charge) 8 units SC NOW [facility] Stop: 12/11/24 13:05 Last Admin: 12/11/24 13:22 Dose: 8 units Documented By: CORA Co-signed By: KIT Insulin Aspart (Insulin Aspart Per Unit Charge) 0 units SC TODAY@0000,0400 [facility] Stop: 12/12/24 04:01 Last Admin: 12/12/24 03:36 Dose: 4 units Documented By: KEV Co-signed By: JAQUI Admin: 12/12/24 00:07 Dose: 9 units Documented By: KEV Co-signed By: MARIO Insulin Aspart (Insulin Aspart Per Unit Charge) 0 units SC TODAY@0200 ONE Stop: 12/13/24 02:01 Last Admin: 12/13/24 01:32 Dose: 6 units Documented By: [id number] Co-signed By: EVERTON Insulin Glargine (Lantus Per Unit Charge) 10 units SQ DAILY [facility] Stop: 01/09/25 08:59 Last Admin: 12/11/24 08:12 Dose: 10 units Documented By: CORA Co-signed By: JEAN Admin: 12/10/24 09:16 Dose: 10 units Documented By: ЕКАТЕРИНА Co-signed By: YOLIE Insulin Glargine (Lantus Per Unit Charge) 10 units SQ BID [facility] Stop: 01/09/25 08:59 Last Admin: 12/11/24 21:49 Dose: 10 units Documented By: KEV Co-signed By: ARSH Insulin Glargine (Lantus Per Unit Charge) 18 units SC TODAY@0900 ONE Stop: 12/12/24 09:01 Last Admin: 12/12/24 08:24 Dose: 18 units Documented By: ANGELITO Co-signed By: ЕКАТЕРИНА Insulin Glargine (Lantus Per Unit Charge) 0 units SC HS ONE; Protocol Stop: 12/12/24 21:01 Last Admin: 12/12/24 21:01 Dose: 5 units Documented By: [id number] Co-signed By: EVERTON Insulin Glargine (Lantus Per Unit Charge) 20 units SC DAILY [facility] Stop: 01/12/25 08:59 Last Admin: 12/13/24 08:32 Dose: 20 units Documented By: ALLYSON Co-signed By: DUONG Ioversol (Optiray 320 100ml) 90 ml IV ONCE ONE Stop: 12/09/24 20:01 Last Admin: 12/09/24 20:00 Dose: 90 ml Documented By: NENA Levalbuterol HCl (Levalbuterol Hcl 0.63 Mg/3 Ml Neb) 0.63 mg NEB NOW STA; Protocol Stop: 12/11/24 15:21 Last Admin: 12/11/24 15:42 Dose: 0.63 mg Documented By: DENVER Loratadine (Loratadine 10 Mg Tab) 10 mg PO QAM [facility] Stop: 01/09/25 08:59 Last Admin: 12/13/24 08:35 Dose: 10 mg Documented By: Admin: 12/12/24 08:26 Dose: 10 mg Documented By: Admin: 12/11/24 08:13 Dose: 10 mg Documented By: Admin: 12/10/24 09:04 Dose: 10 mg Documented By: ЕКАТЕРИНА Losartan Potassium (Losartan Potassium 25 Mg Tab) 25 mg PO BID [facility] Stop: 01/09/25 08:59 Last Admin: 12/11/24 08:14 Dose: 25 mg Documented By: Admin: 12/10/24 20:55 Dose: 25 mg Documented By: Admin: 12/10/24 09:05 Dose: 25 mg Documented By: ЕКАТЕРИНА Losartan Potassium (Losartan Potassium 50 Mg Tab) 50 mg PO BID [facility] Stop: 01/10/25 20:59 Last Admin: 12/13/24 08:37 Dose: 50 mg Documented By: Admin: 12/12/24 20:19 Dose: 50 mg Documented By: [id number] Admin: 12/12/24 08:29 Dose: 50 mg Documented By: Admin: 12/11/24 21:52 Dose: 50 mg Documented By: KEV Methylprednisolone (Methylprednisolone 125 Mg/2 Ml Vial) 40 mg IV NOW STA Stop: 12/11/24 12:56 Last Admin: 12/11/24 13:21 Dose: 40 mg Documented By: CORA Metoprolol Succinate (Metoprolol Succ 25mg Ext Rel Tab) 25 mg PO BID ALISHA Stop: 01/09/25 20:59 Last Admin: 12/12/24 08:27 Dose: 25 mg Documented By: Admin: 12/11/24 21:50 Dose: 25 mg Documented By: Admin: 12/11/24 09:25 Dose: 25 mg Documented By: Admin: 12/10/24 20:55 Dose: 25 mg Documented By: NAVNEET Metoprolol Succinate (Metoprolol Succ 50mg Ext Rel Tab) 50 mg PO BID ALISHA Stop: 01/11/25 20:59 Last Admin: 12/13/24 08:37 Dose: 50 mg Documented By: Admin: 12/12/24 20:19 Dose: 50 mg Documented By: [id number] Metoprolol Succinate (Metoprolol Succ 25mg Ext Rel Tab) 25 mg PO NOW ONE Stop: 12/12/24 11:05 Last Admin: 12/12/24 12:01 Dose: 25 mg Documented By: ANGELITO Multivitamins/Minerals (Cerovite Adv Formula Tab) 1 tab PO DAILY ALISHA Stop: 01/09/25 08:59 Last Admin: 12/13/24 08:34 Dose: 1 tab Documented By: Admin: 12/12/24 08:26 Dose: 1 tab Documented By: Admin: 12/11/24 08:14 Dose: 1 tab Documented By: Admin: 12/10/24 09:05 Dose: 1 tab Documented By: ЕКАТЕРИНА Pantoprazole Sodium (Pantoprazole 40 Mg Tab) 40 mg PO QAM ALISHA Stop: 01/09/25 08:59 Last Admin: 12/13/24 08:35 Dose: 40 mg Documented By: Admin: 12/12/24 08:27 Dose: 40 mg Documented By: Admin: 12/11/24 08:14 Dose: 40 mg Documented By: Admin: 12/10/24 09:04 Dose: 40 mg Documented By: [email or web address] Potassium Chloride (Potassium Chloride Crtab 20 Meq Tabcr) 20 meq PO DAILY ALISHA Stop: 01/09/25 08:59 Last Admin: 12/13/24 08:39 Dose: 20 meq Documented By: Admin: 12/12/24 08:25 Dose: 20 meq Documented By: Admin: 12/11/24 08:18 Dose: 20 meq Documented By: Admin: 12/10/24 09:16 Dose: 20 meq Documented By: ЕКАТЕРИНА Potassium Chloride (Potassium Chloride Crtab 20 Meq Tabcr) 40 meq PO NOW STA Stop: 12/12/24 09:06 Last Admin: 12/12/24 10:02 Dose: 40 meq Documented By: ANGELITO Prednisone (Prednisone 20 Mg Tab) 40 mg PO DAILY ALISHA Stop: 01/11/25 08:59 Last Admin: 12/13/24 08:37 Dose: 40 mg Documented By: Admin: 12/12/24 08:29 Dose: 40 mg Documented By: ANGELITO Propranolol HCl (Propranolol Hcl La 80 Mg Capcr) 160 mg PO DAILY ALISHA Stop: 01/09/25 08:59 Last Admin: 12/10/24 09:26 Dose: Not Given Documented By: [email or web address] Spironolactone (Spironolactone 12.5 Mg Tab) 12.5 mg PO DAILY ALISHA Stop: 01/09/25 10:44 Last Admin: 12/13/24 08:38 Dose: 12.5 mg Documented By: Admin: 12/12/24 08:29 Dose: 12.5 mg Documented By: Admin: 12/11/24 08:17 Dose: 12.5 mg Documented By: Admin: 12/10/24 11:40 Dose: 12.5 mg Documented By: ЕКАТЕРИНА Umeclidinium Wilsey (Umeclidinium Wilsey 62.5mcg/Blister 7 Puffs/Inhaler) 1 puffs INH DAILY ALISHA Stop: 01/09/25 08:59 Last Admin: 12/13/24 08:33 Dose: 1 puffs Documented By: Admin: 12/12/24 08:31 Dose: 1 puffs Documented By: Admin: 12/11/24 08:16 Dose: 1 puffs Documented By: Admin: 12/10/24 09:08 Dose: 1 puffs Documented By: ЕКАТЕРИНА Imaging Data Radiologist's Impression: Chest X-Ray 12/09/24 16:46 INDICATION: Cough. TECHNIQUE: Frontal radiograph of the chest. COMPARISON: None. FINDINGS: Cardiomegaly. Elevation of right hemidiaphragm. Mild vascular congestion. Subsegmental atelectasis in the lung bases. No infiltrate, pleural effusion or pneumothorax. No acute osseous abnormality evident. IMPRESSION: Mild pulmonary vascular congestion. Electronically signed by Rafy Lee 12-09-2024 5:21 PM Abdomen/Pelvis CT 12/09/24 19:41 Exam(s): CT ABDOMEN + PELVIS With Contrast IV Amt: 90ml optiray 320 EXAM: CT Abdomen and Pelvis With Intravenous Contrast CLINICAL HISTORY: Reason for exam: elevated LFT, CP, SOB. TECHNIQUE: Axial computed tomography images of the abdomen and pelvis with intravenous contrast. CTDI is 28.03 mGy and DLP is 1234.92 mGy-cm. Automated exposure control was utilized for the study. A dose lowering technique was utilized adhering to the principles of ALARA. CONTRAST: Patient received 90ml optiray 320 of IV contrast COMPARISON: 11/29/2017 CT abdomen pelvis FINDINGS: Lung bases: Interstitial edema and patchy groundglass opacities at the lung bases. Pleural space: Trace pleural effusions. ABDOMEN: Liver: Unremarkable. Gallbladder and bile ducts: Cholecystectomy. Pancreas: Unremarkable. Spleen: Unremarkable. Adrenals: Unremarkable. Kidneys and ureters: Unremarkable. No obstructing stones. No hydronephrosis. Stomach and bowel: Unremarkable. PELVIS: Appendix: No findings to suggest acute appendicitis. Bladder: Unremarkable. Reproductive: Hysterectomy. ABDOMEN and PELVIS: Intraperitoneal space: Unremarkable. No free air. No significant fluid collection. Bones/joints: No acute fracture. Soft tissues: Unremarkable. Vasculature: Unremarkable. Lymph nodes: Unremarkable. IMPRESSION: 1. No acute abnormality within the abdomen or pelvis. 2. Interstitial edema and patchy groundglass opacities at the lung bases either representing alveolar edema or infection. 3. Trace pleural effusions. Electronically signed by: Ashkan Rasheed MD 12/09/24 20:30 PM Discharge Plan Visit Data Chief Complaint: Cardiac Assessment Stated Complaint: CHEST PAIN, BACK PAIN, COUGH, SOB ED Provider: Sena Dubose Discharge Problem: Influenza A, Atrial fibrillation with controlled ventricular rate Patient Disposition: Admitted As Inpatient Discharge Instructions Interventions: ED Discharge Assessment Last Done: 12/09/24 22:55
--- NOTE | 2024-12-09 22:22 | History & Physical Report ---
Date of Service December 09, 2024 Assessment & Plan (1) Chest pain: Plan: 79-year-old female with past medical history significant for type 2 diabetes, hyperlipidemia, asthma, allergic rhinitis, mitral valve prolapse, hypertension, celiac disease, GERD, obesity, osteoporosis, pain in right shoulder, essential tremor, migraine, unspecified open-angle glaucoma who lives alone comes because of chest pain and shortness of breath. Patient states she has asthma and since last 2 days feeling short of breath and was not improving. And today she felt like elephant sitting on her chest. Last couple of days she has to sleep on the chair. She gets on and off leg swelling and she thinks her legs are not that swollen today. Walking short distance making her short of breath. Has some headaches. Vision is not great. Hard of hearing. Has on and off runny nose. Appetite is okay. No difficulty swallowing. Denies any chest pain. No nausea. No abdominal pain. Normal bowel and bladder movements. Chest pain and shortness of breath 2 sets of troponin negative Will follow serial enzymes and echo Close monitoring daily New onset A-fib Rates under control Starting on IV heparin low-dose Follow serial enzymes and echo Telemetry Cardiac consult in a.m. for further recommendation Shortness of breath Has asthma No obvious wheezing Continue home inhalers Nebs as needed Will check BNP Continue home Lasix Will follow echo Type 2 diabetes Cut back on Lantus to 5 units daily as patient is n.p.o. Sliding scale Will monitor Hypertension On amlodipine, losartan, propranolol and Lasix Will monitor Hyperlipidemia On Zetia Essential tremor On propranolol GERD On omeprazole Celiac disease Gluten-free diet DVT prophylaxis Lovenox Disposition Telemetry Full code. History of Present Illness Chief Complaint: Shortness of breath and chest pain Primary Care Provider: Alicia Woodruff MD 79-year-old female with past medical history significant for type 2 diabetes, hyperlipidemia, asthma, allergic rhinitis, mitral valve prolapse, hypertension, celiac disease, GERD, obesity, osteoporosis, pain in right shoulder, essential tremor, migraine, unspecified open-angle glaucoma who lives alone comes because of chest pain and shortness of breath. Patient states she has asthma and since last 2 days feeling short of breath and was not improving. And today she felt like elephant sitting on her chest. Last couple of days she has to sleep on the chair. She gets on and off leg swelling and she thinks her legs are not that swollen today. Walking short distance making her short of breath. Has some headaches. Vision is not great. Hard of hearing. Has on and off runny nose. Appetite is okay. No difficulty swallowing. Denies any chest pain. No nausea. No abdominal pain. Normal bowel and bladder movements. Past medical history. As mentioned above Past surgical history. Left breast biopsy. Bilateral complex cataract surgery. Colonoscopy with biopsy. EGD. EGD with biopsy. EGD with endoscopic ultrasound. ERCP with stent placement. ERCP with stent removal. Laparoscopic cholecystectomy. Tonsillectomy. Sigmoidoscopy with biopsy. Total abdominal hysterectomy with removal of tubes. Video capsule endoscopy. Social history. No smoking. No alcohol use. No drug use. Family history. Father had asthma. AMD. Heart disorder. Mother had renal cell cancer. Hypertension. Sister had hypertension. Sister had asthma. Allergies Allergy/AdvReac Type Severity Reaction Status Date / Time Penicillins Allergy Severe SOB, RASH Verified 11/29/17 12:28 acetaminophen Allergy Unknown UNKNOWN. Verified 11/29/17 12:28 erythromycin base Allergy Unknown UNKNOWN. Verified 11/29/17 12:28 gluten Allergy Unknown CELIAC Verified 11/29/17 12:28 DISEASE lisinopril Allergy Unknown UNKNOWN. Verified 11/29/17 12:28 pollen extracts Allergy Unknown ? Verified 11/29/17 12:28 propoxyphene Allergy Unknown UNKNOWN. Verified 11/29/17 12:28 Sulfa (Sulfonamide Allergy Unknown UNKNOWN. Verified 11/29/17 12:28 Antibiotics) Home Medications Medication Instructions Recorded Confirmed Type diphenoxylate-atropine 2.5 1 tab PO BID ##0 06/26/09 12/09/24 History mg-0.025 mg tablet (Lomotil) amlodipine 10 mg tablet 10 mg PO DAILY #0 tabs 09/10/13 12/09/24 History ezetimibe 10 mg tablet 10 mg PO QAM #0 tabs 09/10/13 12/09/24 History furosemide 40 mg tablet 40 mg PO DAILY #0 tabs 09/10/13 12/09/24 History omeprazole 40 mg capsule,delayed 40 mg PO QAM #0 caps 09/10/13 12/09/24 History release INSULIN PEN NEEDLE (EXEL INSULIN unit ##120 09/18/13 Rx PEN NEEDLES) aspirin 81 mg tablet,delayed 81 mg PO DAILY ##0 11/29/17 12/09/24 History release calcium 600 mg (as 1 tab PO DAILY ##0 11/29/17 12/09/24 History carbonate)-vitamin D3 10 mcg (400 unit) tablet (Calcium 600 + D(3)) fluticasone 250 mcg-salmeterol 50 1 inh inhalation Q12H #0 Inhalers 11/29/17 12/09/24 History mcg/dose blistr powdr for inhalation (Advair Diskus) insulin aspart U-100 100 unit/mL 1 sliding scale dose SUBCUT 11/29/17 12/09/24 History (3 mL) subcutaneous pen (Novolog USEASDIRECTD ##0 FlexPen U-100 Insulin aspart) potassium chloride 20 mEq 20 meq PO DAILY #0 tabs 11/29/17 12/09/24 History tablet,extended release(part/cryst) (Klor-Con M) propranolol 160 mg capsule,24 160 mg PO DAILY ##0 11/29/17 12/09/24 History hr,extended release tiotropium bromide 18 mcg capsule 1 cap inhalation DAILY ##0 11/29/17 12/09/24 History with inhalation device (Spiriva with HandiHaler) acetaminophen 500 mg capsule 500 mg PO Q4H PRN Pain 12/09/24 12/09/24 History albuterol sulfate 90 mcg/actuation 2 puff inhalation Q4H PRN WHEEZE 12/09/24 12/09/24 History aerosol inhaler artificial 1 drp OPB . NEEDED 12/09/24 12/09/24 History tears(hcxzuee-uljsoaem-ukmazkv) 0.1 %-0.3 %-0.2 % eye drops (GenTeal Tears Moderate) ascorbic acid (vitamin C) 500 mg 500 mg PO DAILY 12/09/24 12/09/24 History capsule,extended release azelastine 137 mcg (0.1 %) nasal 2 spray intranasal BID 12/09/24 12/09/24 History spray fluticasone propionate 50 1 spray intranasal DAILY 12/09/24 12/09/24 History mcg/actuation nasal spray,suspension insulin glargine 100 unit/mL (3 10 unit subcut DAILY 12/09/24 12/09/24 History mL) subcutaneous pen (Lantus Solostar U-100 Insulin) ipratropium bromide 17 2 puff inhalation QID 12/09/24 12/09/24 History mcg/actuation HFA aerosol inhaler (Atrovent HFA) loratadine 10 mg tablet 10 mg PO QAM 12/09/24 12/09/24 History losartan 25 mg tablet 25 mg PO BID 12/09/24 12/09/24 History xyzuvgbj-oirm-qnrt 8 mg-folic 400 1 tab PO DAILY 12/09/24 12/09/24 History mcg-K 50 mcg-lutein 300 mcg tablet (Multivitamin Women 50 Plus) nitroglycerin 0.4 mg sublingual 0.4 mg sublingual Q5M PRN Chest 12/09/24 12/09/24 History tablet Pain polyvinyl alcohol-povidone (PF) 1 drp OPB . NEEDED 12/09/24 12/09/24 History 1.4 %-0.6 % eye drops in a dropperette (Refresh Classic (PF)) vit C 250 mg-vit E 90 mg-zinc 40 1 tab PO AMHS 12/09/24 12/09/24 History mg-copper 1 yd-ognrlk-qcrmbt capsule (PreserVision AREDS-2) apixaban 5 mg tablet (Eliquis) 5 mg PO BID #60 tabs 12/10/24 Rx Past Med/Surg History Problem List Chest pain Dehydration, severe (Acute) Diabetes mellitus, new onset (Acute) Asthma (Chronic) Acute kidney injury (Acute) Dyslipidemia (Chronic) Celiac disease (Chronic) Chest pain (Acute) Hypertension (Chronic) Status post cataract extraction (Chronic) Hyperglycemia Influenza A Social History Smoking Status: Never smoker Hx Alcohol Use: No Hx Substance Use: No Preferred Language: Hungarian Communication Ability: Effective Urology Teacher Required: No Beliefs That Will Affect Care: None Current Living Situation: Alone Feels Safe at Home: Yes Safety Concerns: Feels Safe At This Time Assistive Devices: Cane, Denture - Upper, Glasses and Hearing Aid - Bilateral Review of Systems Review of Systems: All systems reviewed & are unremarkable except as noted in HPI & below Physical Exam Physical Exam: General- Not in distress Head- atraumatic Eyes- PERRL. ENT- oropharynx clear Neck- supple, no JVD. Lungs- clear to auscultation no wheezing or crackles Heart- irregular rhythm; no murmur, no gallop. Abdomen- normal bowel sounds, soft, nontender, no distension Extremities- lower extremity edema present, no erythema seen Neuro- alert, oriented PERRL, no facial palsy; no dysarthria; moves extremities Results & Data Results & Data Vital Signs (Past 12 Hours) Vital Signs Temp Pulse Pulse Resp BP BP Pulse Ox 12/09/24 20:00 80 18 128/104 H 96 12/09/24 18:40 82 12/09/24 18:36 95 12/09/24 18:36 79 15 139/101 H 96 12/09/24 18:36 95 12/09/24 16:42 36.8 C 79 20 167/102 H 93 12/09/24 16:42 O2 Del Method O2 Flow Rate 12/09/24 20:00 Nasal Cannula 2 12/09/24 18:40 12/09/24 18:36 Room Air 12/09/24 18:36 Room Air 12/09/24 18:36 Room Air 12/09/24 16:42 Room Air 12/09/24 16:42 Room Air Diagnostic Findings Laboratory Results WBC 9.28 K/ul (4.8-10.8) 12/09/24 17:00 RBC 4.52 M/uL (4.20-5.40) 12/09/24 17:00 Hgb 13.2 g/dl (12.0-16.0) 12/09/24 17:00 Hct 41.2 % (37.0-47.0) 12/09/24 17:00 MCV 91.2 fL (80.0-100.0) 12/09/24 17:00 MCH 29.2 pg (25.0-34.0) 12/09/24 17:00 MCHC 32.0 g/dL (32.0-36.0) 12/09/24 17:00 RDW Std Deviation 47.7 fL (36.4-46.3) H 12/09/24 17:00 RDW Coeff of Marty 14.3 % (11.5-14.5) 12/09/24 17:00 Plt Count 258 K/uL (130-400) 12/09/24 17:00 MPV 11.2 fL (9.4-12.4) 12/09/24 17:00 Immature Gran % (Auto) 0.3 % 12/09/24 17:00 Neut % (Auto) 59.0 % 12/09/24 17:00 Lymph % (Auto) 27.3 % 12/09/24 17:00 [place] % (Auto) 11.1 % 12/09/24 17:00 Eos % (Auto) 1.9 % 12/09/24 17:00 Baso % (Auto) 0.4 % 12/09/24 17:00 Neut # (Auto) 5.47 K/uL (1.40-6.50) 12/09/24 17:00 Lymph # (Auto) 2.53 K/uL (1.20-3.40) 12/09/24 17:00 [place] # (Auto) 1.03 K/uL (0.11-0.59) H 12/09/24 17:00 Eos # (Auto) 0.18 K/uL (0.00-0.50) 12/09/24 17:00 Baso # (Auto) 0.04 K/uL (0.00-0.20) 12/09/24 17:00 Immature Gran # (Auto) 0.03 K/uL (0.01-0.20) 12/09/24 17:00 PT 10.6 Seconds (9.0-12.0) 12/09/24 17:00 INR 1.0 (0.9-1.1) 12/09/24 17:00 APTT 27 Seconds (21-31) 12/09/24 17:00 PTT Ratio 1.0 12/09/24 17:00 Sodium 140 mmol/L (136-145) 12/09/24 17:00 Potassium 4.6 mmol/L (3.5-5.1) 12/09/24 17:00 Chloride 102 mmol/L (98-107) 12/09/24 17:00 Carbon Dioxide 29 mmol/L (21-32) 12/09/24 17:00 Anion Gap 9 (3-11) 12/09/24 17:00 BUN 12 mg/dl (6-23) 12/09/24 17:00 Creatinine 0.80 mg/dl (0.6-1.2) 12/09/24 17:00 Est Cr Clr Drug Dosing 54.8 ml/min 12/09/24 17:00 eGFR 75.37 12/09/24 17:00 BUN/Creatinine Ratio 15.0 (10-20) 12/09/24 17:00 Glucose 175 mg/dl (70-99(Fasting)) H 12/09/24 17:00 Calcium 9.3 mg/dl (8.6-10.3) 12/09/24 17:00 Total Bilirubin 0.8 mg/dl (0.2-1.0) 12/09/24 17:00 AST 62 U/L (13-39) H 12/09/24 17:00 ALT 60 U/L (7-52) H 12/09/24 17:00 Alkaline Phosphatase 291 U/L (34-104) H 12/09/24 17:00 Troponin I High Sens 5.1 pg/ml (0-14) 12/09/24 19:49 Total Protein 7.2 gm/dl (6.0-8.3) 12/09/24 17:00 Albumin 4.0 gm/dl (3.4-5.0) 12/09/24 17:00 Globulin 3.2 gm/dl (2.5-4.0) 12/09/24 17:00 Albumin/Globulin Ratio 1.3 (0.9-2) 12/09/24 17:00 Adenovirus (PCR) Not Detected (NotDetected) 12/09/24 17:00 B. pertussis DNA (PCR) Not Detected (NotDetected) 12/09/24 17:00 B.parapertussis DNA PCR Not Detected (NotDetected) 12/09/24 17:00 C. pneumoniae DNA (PCR) Not Detected (NotDetected) 12/09/24 17:00 Coronavirus OC43 (PCR) Not Detected (NotDetected) 12/09/24 17:00 Coronavirus HKU1 (PCR) Not Detected (NotDetected) 12/09/24 17:00 Coronavirus 229E (PCR) Not Detected (NotDetected) 12/09/24 17:00 SARS-CoV-2 (PCR) Not Detected (NotDetected) 12/09/24 17:00 Coronavirus NL63 (PCR) Not Detected (NotDetected) 12/09/24 17:00 Human Metapneumovir PCR Not Detected (NotDetected) 12/09/24 17:00 Influenza Type A (PCR) Not Detected (NotDetected) 12/09/24 17:00 Influenza Type B (PCR) Not Detected (NotDetected) 12/09/24 17:00 M. pneumoniae (PCR) Not Detected (NotDetected) 12/09/24 17:00 Parainfluenza 1 (PCR) Not Detected (NotDetected) 12/09/24 17:00 Parainfluenza 2 (PCR) Not Detected (NotDetected) 12/09/24 17:00 Parainfluenza 3 (PCR) Not Detected (NotDetected) 12/09/24 17:00 Parainfluenza 4 (PCR) Not Detected (NotDetected) 12/09/24 17:00 RSV (PCR) Not Detected (NotDetected) 12/09/24 17:00 Entero/Rhino (PCR) Not Detected (NotDetected) 12/09/24 17:00 Impressions Chest X-Ray 12/09/24 16:46 INDICATION: Cough. TECHNIQUE: Frontal radiograph of the chest. COMPARISON: None. FINDINGS: Cardiomegaly. Elevation of right hemidiaphragm. Mild vascular congestion. Subsegmental atelectasis in the lung bases. No infiltrate, pleural effusion or pneumothorax. No acute osseous abnormality evident. IMPRESSION: Mild pulmonary vascular congestion. Electronically signed by Rafy Lee 12-09-2024 5:21 PM Abdomen/Pelvis CT 12/09/24 19:41 Exam(s): CT ABDOMEN + PELVIS With Contrast IV Amt: 90ml optiray 320 EXAM: CT Abdomen and Pelvis With Intravenous Contrast CLINICAL HISTORY: Reason for exam: elevated LFT, CP, SOB. TECHNIQUE: Axial computed tomography images of the abdomen and pelvis with intravenous contrast. CTDI is 28.03 mGy and DLP is 1234.92 mGy-cm. Automated exposure control was utilized for the study. A dose lowering technique was utilized adhering to the principles of ALARA. CONTRAST: Patient received 90ml optiray 320 of IV contrast COMPARISON: 11/29/2017 CT abdomen pelvis FINDINGS: Lung bases: Interstitial edema and patchy groundglass opacities at the lung bases. Pleural space: Trace pleural effusions. ABDOMEN: Liver: Unremarkable. Gallbladder and bile ducts: Cholecystectomy. Pancreas: Unremarkable. Spleen: Unremarkable. Adrenals: Unremarkable. Kidneys and ureters: Unremarkable. No obstructing stones. No hydronephrosis. Stomach and bowel: Unremarkable. PELVIS: Appendix: No findings to suggest acute appendicitis. Bladder: Unremarkable. Reproductive: Hysterectomy. ABDOMEN and PELVIS: Intraperitoneal space: Unremarkable. No free air. No significant fluid collection. Bones/joints: No acute fracture. Soft tissues: Unremarkable. Vasculature: Unremarkable. Lymph nodes: Unremarkable. IMPRESSION: 1. No acute abnormality within the abdomen or pelvis. 2. Interstitial edema and patchy groundglass opacities at the lung bases either representing alveolar edema or infection. 3. Trace pleural effusions. Electronically signed by: Ashkan Rasheed MD 12/09/24 20:30 PM ECG Additional Comments: ECG. Atrial fibrillation at rate of 77. ST and T abnormality inferior lateral leads. QTc 389 Code Status & VTE Plan VTE Prophylaxis Plan VTE Prophylaxis will be ordered: Yes
[2024-12-09] MEDS ORDERED: Heparin IV Adult Wt-Based Low-Dose *NO* INITIAL Bolus Protocol IV STA (23:03)
[2024-12-09] MEDS ORDERED: NITROGLYCERIN SL 0.4 MG/TAB TAB SL PRN (23:03)
[2024-12-09] MEDS ORDERED: GLUCOSE 10 TAB/TUBE PO PRN (23:03)
[2024-12-09] MEDS ORDERED: LEVALBUTEROL HCL 0.63 MG/3 ML NEB NEB PRN (23:03)
[2024-12-09] MEDS ORDERED: POLYETHYLENE (MIRALAX) 17 GM PACK PO PRN (23:03)
[2024-12-09] MEDS ORDERED: CARBOHYDRATES FOR HYPOGLYCEMIA PO PRN (23:03)
[2024-12-09] MEDS ORDERED: GLUCOSE 40% GEL 15 GM TUBE PO PRN (23:03)
[2024-12-09] MEDS ORDERED: GLUCAGON FOR INJ 1 MG VIAL SQ PRN (23:03)
[2024-12-09] MEDS ORDERED: ALBUTEROL HFA 8 GM INHALER INH PRN (23:03)
[2024-12-09] MEDS ORDERED: ARTIFICIAL TEARS OP PRN (23:28)
[2024-12-09] MEDS: HEPARIN 25000 UNIT/500 ML 25,000 UNITS/500 ML BAG IV SCH (23:49)
[2024-12-10] MEDS: INSULIN ASPART PER UNIT CHARGE SC SCH ×2 (00:01→12:20)
--- OUTSIDE RECORDS SUMMARY | 2024-12-10 00:48 | External Medical Summary | Summary of Care ---
Author Name Unknown Organization [facility] Address [address] [place] [address] Phone [phone] Care Team Providers Care Operations Controller Name Role Phone Alicia Woodruff MD Primary Care Provider + Reason for Visit * Reason Comments eRx-Medication Refill Encounter Details Date Type Department Care Team (Late st Contact Info) Description 11/18/2024 Refill General Internal Medicine [facility] [address] [facility] [place] [address] Alicia Woodruff MD [address] [place] [address] Allergies Active Allergy Reactions Criticality Noted Date Comments Nicola Inhibitors 07/22/2009 cough Azithromycin 07/22/2009 Clarithromycin 07/22/2009 Propoxyphene N-Acetaminophen Nausea/vomiting 07/22/2009 Erythromycin Other (Please comment) 10/12/2010 colitis Nitrofurantoin Monohydrate Macrocrystals 08/05/2010 rash Penicillins 02/23/2004 RASH, SOB Statins 10/16/2018 High liver functions, myalgias Sulfa Antibiotics 02/23/2004 RASH, SOB documented as of this encounter (statuses as of 11/19/2024) Medications ASPIRIN EC 81 MG PO TBECIndications: HTN, goal below 140/90 Take one pill daily 30 3 10/19/20 09 Active VITAMIN C 500 MG PO CAPS one pill each day Active NEBULIZER COMPRESSOR MISCIndications: Asthma, moderate persistent Use as directed 1 Each 1 09/19/20 12 Active ONETOUCH ULTRASOFT LANCETS MISCIndications: DM type 2 nursing care encounter (HCC) one touch delica lancets/testin g four times daily/250.00 1 Box 5 09/24/20 13 Active CALCIUM-VITAMIN D 600-400 MG-UNIT PO TABS 1 tablet daily Active albuterol sulfate (PROVENTIL) (2.5 MG/3ML) 0.083% nebulizer solutionIndicati ons:Viral URI with cough Inhale 1 Vial via nebulizer every 4 hours as needed for Wheezing. 1 Box Dosing Unit 0 02/02/20 16 Active Zoster Vac Recomb Adjuvanted 50 MCG/0.5ML Intramuscular Suspension Reconstituted (Shingrix)Indica tions:Need for vaccination for zoster Inject 0.5 mL into a large muscle now and repeat dose in 60 to 180 days 1 Each 1 09/08/20 20 Active Additional Information Patient not taking.Reported on 11/05/2024 Multivitamin Women 50+ Oral Tablet Take by mouth . Active Acetaminophen 500 MG Oral CapsuleIndicatio ns:pain Take 1 Capsule by mouth every 4 hours as needed. Active PreserVision AREDS 2 Oral Capsule Take 1 Capsule by mouth in the morning and 1 Capsule in the evening. Active GenTeal Tears 0.1-0.2-0.3 % Ophthalmic Solution Instill into eye as needed. Active Ezetimibe 10 MG Oral Tablet (Zetia)Indicatio ns:Hyperlipidemi a with target LDL less than 100 TAKE 1 TABLET BY MOUTH IN THE MORNING. FOR CHOLESTEROL. 90 Tablet 2 03/20/20 24 Active Loratadine 10 MG Oral Tablet (Claritin) Take 1 Tablet by mouth in the morning. 90 Tablet 3 05/31/20 24 Active OneTouch Ultra In Vitro Strip (Glucose Blood) TEST BLOOD SUGAR 6 TIMES DAILY. 600 Strip 3 05/31/20 24 Active NovoLOG FlexPen 100 UNIT/ML Subcutaneous Solution Pen-injector (insulin aspart) INJECT 5 UNITS WITH BREAKFAST , 3 UNITS LUNCH, 3 UNITS WITH DINNER , PLUS CF 1:80 over 150. MAX 20 UNITS A DAY 15 mL 4 06/07/20 24 Active Fluticasone-Salm eterol 250-50 MCG/ACT Inhalation Aerosol Powder Breath Activated (Advair Diskus)Indicatio ns:Asthma, moderate persistent INHALE 1 PUFF EVERY 12 HOURS. RINSE MOUTH AFTER EACH USE. 180 Each 1 06/26/20 24 Active Omeprazole 40 MG Oral Capsule Delayed Release (PriLOSEC) TAKE 1 CAPSULE BY MOUTH EVERY DAY IN THE MORNING 90 Capsule 1 07/01/20 24 Active Fluticasone Propionate 50 MCG/ACT Nasal Suspension (Flonase)Indicat ions:Acute sinusitis USE 1 SPRAY IN EACH NOSTRIL ONCE A DAY 48 mL 3 07/04/20 24 Active Azelastine HCl 0.1 % Nasal Solution (Astelin) Administer 2 Sprays into nostril in the morning and 2 Sprays before bedtime. 90 mL 3 07/09/20 24 Active Klor-Con M20 20 MEQ Oral Tablet Extended Release (Potassium Chloride ER)Indications:H TN, goal below 140/90 TAKE 1 TABLET BY MOUTH EVERY DAY 90 Tablet 1 07/11/20 24 Active Propranolol HCl ER 160 MG Oral Capsule Extended Release 24 HourIndications: Migraine TAKE 1 CAPSULE DAILY -INDERAL- FOR BLOOD PRESSURE/ HEADACHE. 90 Capsule 1 08/29/20 24 Active amLODIPine Besylate 10 MG Oral Tablet (Norvasc)Indicat ions:HTN, goal below 140/90 TAKE 1 TABLET BY MOUTH EVERY DAY -BLOOD PRESSURE 90 Tablet 1 08/29/20 24 Active Diphenoxylate-At ropine 2.5-0.025 MG Oral Tablet (Lomotil)Indicat ions:Celiac disease TAKE ONE TABLET BY MOUTH EVERY MORNING AND AT BEDTIME 60 Tablet 1 10/02/20 24 Active BD Pen Needle Mini U/F 31G X 5 MM (Insulin Pen Needle) USE FOUR TIMES A DAY 400 Each 3 09/30/20 24 Active Insulin Glargine Solostar 100 UNIT/ML Subcutaneous Solution Pen-injector (Lantus SoloStar)Indicat ions:Type 2 diabetes mellitus with hemoglobin A1c goal of less than 7.0% ([facility]) INJECT 8 UNITS UNDER SKIN ONCE DAILY. 15 mL 1 10/15/20 24 Active Dexcom G7 Sensor Use as directed every 10 days. Supplied by Home Care Delivered Active Losartan Potassium 25 MG Oral Tablet (Cozaar)Indicati ons:HTN, goal below 140/90 TAKE ONE TABLET BY MOUTH TWICE A DAY FOR BLOOD PRESSURE 180 Tablet 10/22/20 24 Active Furosemide 40 MG Oral Tablet (Lasix)Indicatio ns:HTN, goal below 140/90 TAKE ONE TABLET BY MOUTH EVERY DAY FOR FLUID 90 Tablet 10/22/20 24 Active Albuterol Sulfate HFA 108 (90 Base) MCG/ACT Inhalation Aerosol SolutionIndicati ons:Wheezing INHALE 2 PUFFS BY MOUTH EVERY 4 HOURS NEEDED FOR WHEEZING 54 g 10/22/20 24 Active Nitroglycerin 0.4 MG Sublingual Tablet Sublingual (Nitrostat)Indic ations:HTN, goal to be determined Place 1 Tablet under the tongue every 5 minutes as needed for Pain, Chest. 25 Tablet 1 11/05/20 24 Active Atrovent HFA 17 MCG/ACT Inhalation Aerosol Solution (ipratropium) INHALE 2 PUFFS BY MOUTH IN THE MORNING AT AT NOON IN THE EVENING AND BEFORE BEDTIME 38.7 g 3 11/19/19 25 Active Atrovent HFA 17 MCG/ACT Inhalation Aerosol Solution (ipratropium) INHALE 2 PUFFS BY MOUTH IN THE MORNING AT AT NOON IN THE EVENING AND BEFORE BEDTIME 38.7 g 1 07/02/20 24 2024 Discontinued Hospital, Clinic, or Other Facility Administered Medication Ordered Dose Route Frequency Start Date End Date Status ROPivacaine (Naropin) inj 1.5 mgIndications:Exudative age-related macular degeneration of right eye with active choroidal neovascularization (HCC) 1.5 mg IJ PRN 04/16/2024 04/16/2025 Active Faricimab-svoa (Vabysmo) prefilled syringe inj 6 mgIndications:Exudative age-related macular degeneration of right eye with active choroidal neovascularization (HCC) 6 mg IZ PRN 10/16/2024 10/16/2025 Active documented as of this encounter (statuses as of 11/19/2024) Active Problems Problem Noted Date Diagnosed Date Class 2 severe obesity due t o excess calories with serious comorbidity and body mass index (BMI) of 37.0 to 37.9 in adult 11/05/2024 Type 2 diabetes mellitus 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, with long-term current use of insulin 12/12/2023 Pain in joint of right shoulder 12/12/2023 Migraine without aura and wi thout status migrainosus, not intractable 08/18/2020 Thyroid nodule 08/18/2020 Functional voice disorder 08/18/2020 Gastroesophageal reflux disease without esophagi tis 08/18/2020 Age-related osteoporosis wit hout current pathological fracture 08/18/2020 Unspecified open-angle glaucoma, stage unspecifi ed 08/18/2020 Essential tremor 11/10/2015 Type 2 diabetes mellitus wit h hemoglobin A1c goal of less than 7.0% 09/27/2013 Overview (03/01/2016): ICD-10 update of inactive term Asthma, moderate persistent 10/12/2010 Celiac disease 09/02/2009 Mitral valve prolapse 02/14/2005 Allergic rhinitis 02/14/2005 Hyperlipidemia with target LDL less than 100 Overview (03/07/2016): ICD-10 update of inactive term HTN, goal below 140/90 documented as of this encounter (statuses as of 11/19/2024) Resolved Problems Problem Noted Date Diagnosed Date Resolved Date Morbid obesity with BMI of 40.0-44.9, adult 10/10/2019 08/01/2024 Overview (08/01/2024): historical Body mass index (BMI) of 40. 0 to 44.9 in adult 08/07/2017 10/17/2019 Overview: Per Obesity protocol #1 Nocturnal hypoxemia 11/14/2012 02/06/20 13 Overview (11/14/2012): 11/14/12 -- will consider oxygen therapy during sleep DME: C UVEITIS 10/08/2009 02/09/2017 ADVANCE DIRECTIVE INFORMATION 01/30/2006 02/09/2017 Overview (01/30/2006): No, Advance Directive brochure given to patient. Contact dermatitis and other eczema due to other specified agent 05/16/2005 02/09/2017 Other adverse food reactions , not elsewhere classified 05/16/2005 02/09/2017 Overview (05/16/2005): Oral allergy syndome - shrimp Asthma with severity to be determined 02/14/2005 10/12/2010 Overview (02/15/2016): ICD-10 update of inactive term HTN, goal to be determined 02/14/2005 0 11/19/2013 Migraine 02/14/2005 08/01/2024 Overview (08/01/2024): Duplicated on pl Other specified disease of pancreas 02/09/2017 Overview (07/22/2009): gall stone Chronic renal insufficiency 10/08/2012 Acute renal insufficiency Obstructive sleep apnea 12/2012 Overview (11/14/2012): 11/04/09 PSG -- AHI 13.3, desat 54%, <90% 125 mins Convulsions 02/05/2013 Overview (07/22/2009): remote Hx of Dyslipidemia, goal to be determined 02/05/2013 ACEI/ARB contraindicated 04/2017 Osteoporosis 08/01/2024 Overview (08/01/2024): Duplicated on pl HTN, goal below 140/80 12/06 documented as of this encounter (statuses as of 11/19/2024) Immunizations Name Administration Dates Next Due COVID-19 mRNA, LNP-s, No Pre serve, 2-Dose Series (Moderna) 01/04/2021,11/30/2020 COVID-19, mRNA, LNP-s, PF, B ooster, 100mcg/0.5mg (Moderna) 03/21/2022 Pneumococcal Conjugate Vacc, 13 Valent (Prevnar) 07/02/2015 Pneumococcal Polysaccharide PPV23 (Pneumovax) 09/24/2013,10/19/2009 Seasonal Influenza Vac., MDV , IM, 0.5 mL (Fluzone) 08/22/2014,09/12/2013,12/05/2012,10/18,08/24/2010,08/03/2009 Seasonal Influenza, PF, 6 M & above, IM , (FluLaval or Fluzone) 08/24/2020,08/07/2018 Seasonal Influenza, Quadriva lent Hd (Fluzone Hd) 09/22/2023,08/20/2021 Seasonal Influenza, Quadriva lent, No Preserve, IM 10/27/2015 Seasonal Influenza, Trivalen t, Adjuvanted, 65+ YRS, PF, (Fluad) 10/10/2019 TD, Preservative Free 09/08/2020 TDAP, Age 7 and older, IM (Adacel) 10/19/2009 Varicella Zoster Vaccine (Adult) 03/27/2012 documented as of this encounter Social History Tobacco Use Types Packs/Day Years Used Date Smoking Tobacco: Never Smokeless Tobacco: Never Comments:no passive smoke ex posures Alcohol Use Standard Drinks/Week Comments No 0 (1 standard drink = 0.6 oz pur e alcohol) PHQ-2 Answer Date Recorded PHQ-2 Score 0 06/25/2019 Hunger Vital Sign Answer Date Recorded Worried About Running Out of Food in the Last Ye ar Never true 06/25/2019 Ran Out of Food in the Last Year Never true 06/25/2019 Comments No Sex and Gender Information Value Date Recorded Sex Assigned at Female 06/25/2019 2:15 PM EDT Legal Sex Female 4:51 AM EST Gender Identity Female 06/25/2019 2:15 PM EDT Sexual Orientation Straight 06/25/2019 2: 15 PM EDT 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 Not on file Not on file documented as of this encounter Miscellaneous Notes * Telephone Encounter - Abhay Lopez [facility] - 11/19/2024 9:56 AM EST Signed Prescriptions: Disp Refills Atrovent HFA 17 MCG/ACT Inhalation Aerosol*38.7 g 3 Sig: INHALE2 PUFFS BY MOUTH IN THE MORNING AT AT NOON IN THE EVENING AND BEFORE BEDTIMEAuthorizing Provider: ALICIA WOODRUFF User: ABHAY LOPEZ documented in this encounter Plan of Treatment Upcoming Encounters Date Type Department Care Team (Late st Contact Info) Description 11/28/2024 2:00 PM EST Office Visit Pharmacy, [facility] [address] [phone] Noelle Res[facility] [address] [facility] [place] [address] 12/03/2024 1:45 PM EST [facility] [address] [place] [address] Roscoe Jiménez DO [address] [place] [address] 12/12/2024 8:30 AM EST Imaging Radiology [facility] [address] [facility] [place] [phone] 12/12/2024 9:30 AM EST Cardiac Studies Cardiac Studies, [facility] [address] [facility] [place] [address] 01/06/2025 1:00 PM EST Office Visit Allergy/Immunology [facility] [address] [place] [address] Mariana Webb PA-C [address] [place] [address] 05/13/2025 3:00 PM EDT Office Visit General Internal Medicine [facility] [place] [address] [place] [address] Alicia Woodruff MD [address] [place] [address] Health Maintenance Due Date Last Done Comments Zoster Vaccines (2 of 3) 05/22/2012 03/27/2012 Depression Screening 09/08/2021 09/08/2020 Adult Wellness Visit 06/13/2024 06/13/2023 Diabetic Foot Exam 06/13/2024 06/13/2023, 1 11/08/2019, 06/25/2019, Additional history exists COVID-19 Vaccine ( season) 2024 03/21/2022, 01/04/2021, 11/30/2020 Influenza Vaccine (FLU shot) (#1) 2024 09/22/2023, 08/20/2021, 08/24/2020, Additional history exists *BISPHONATE OR OTHER ACCEPTABLE MEDICATION NEEDED FOR OSTEOPOROSIS (REFER TO SMARTSET #1146) 11/07/2024 *NEPHROLOGY REFERRAL DUE TO RESISTANT HTN 11/07/2024 HbA1c 04/22/2025 10/22/2024, 02/0 04/2024, 07/03/2023, Additional history exists Diabetic Eye Exam 10/16/2025 10/16/2024, , 03/24/2023, Additional history exists Albumin/Creatinine Ratio 10/22/202510/22/ 024, 07/03/2023, 09/08/2020, Additional history exists GFR 10/22/2025 10/22/2024, 02/0 04/2024, 10/23/2023, Additional history exists DTap/Tdap Vaccines (3 - Td or Tdap) 09/08/2030 09/08/2020, 10/19/2009 Pneumococcal Vaccine: 50+ Years Completed 07/02/2015, 09/24/2013, 10/19/2009 HPV (Gardasil) Vaccine Aged Out No lo nger eligible based on patient's age to complete this topic Hepatitis B Vaccine Aged Out No longe r eligible based on patient's age to complete this topic MENINGOCOCCAL (MENACTRA/MENVEO) Aged Out No longer eligible based on patient's age to complete this topic documented as of this encounter Medical Devices Not on filedocumented as of this encounter Care Teams Operations Controller Relationship Specialty Start Date End Date Alicia Woodruff MD [address] [place] [address] PCP - General 09/21/09 documented as of this encounter
--- OUTSIDE RECORDS SUMMARY | 2024-12-10 00:48 | External Medical Summary | Summary of Care ---
Author Name Unknown Organization [facility] Address [address] [facility] [address] Phone [phone] Care Team Providers Care Trademark Paralegal Name Role Phone Alicia Woodruff MD Primary Care Provider + Reason for Visit * Reason Comments eRx-Medication Refill Encounter Details Date Type Department Care Team (Late st Contact Info) Description 12/04/2024 Refill Gastroenterology, [facility] [address] [place] [address] Kirti Mota MD [address] [place] [address] Celiac disease Allergies Active Allergy Reactions Criticality Noted Date Comments Nicola Inhibitors 07/22/2009 cough Azithromycin 07/22/2009 Clarithromycin 07/22/2009 Propoxyphene N-Acetaminophen Nausea/vomiting 07/22/2009 Erythromycin Other (Please comment) 10/12/2010 colitis Nitrofurantoin Monohydrate Macrocrystals 08/05/2010 rash Penicillins 02/23/2004 RASH, SOB Statins 10/16/2018 High liver functions, myalgias Sulfa Antibiotics 02/23/2004 RASH, SOB documented as of this encounter (statuses as of 12/05/2024) Medications ASPIRIN EC 81 MG PO TBECIndications: HTN, goal below 140/90 Take one pill daily 30 3 10/19/20 09 Active VITAMIN C 500 MG PO CAPS one pill each day Active NEBULIZER COMPRESSOR MISCIndications: Asthma, moderate persistent Use as directed 1 Each 1 09/19/20 12 Active ONETOUCH ULTRASOFT LANCETS MISCIndications: DM type 2 nursing care encounter (HCC) one touch delica lancets/testi ng four times daily/250.00 1 Box 5 09/24/20 [...] days 1 Each 1 09/08/20 20 Active Multivitamin Women 50+ Oral Tablet Take by [...] PRESSURE 90 Tablet 1 08/29/20 24 Active BD Pen Needle Mini U/F 31G X 5 MM (Insulin Pen Needle) USE FOUR TIMES A DAY 400 Each 3 09/30/20 24 Active Insulin Glargine Solostar 100 UNIT/ML Subcutaneous Solution Pen-injector (Lantus SoloStar)Indicat ions:Type 2 diabetes mellitus with hemoglobin A1c goal of less than 7.0% ([facility]) INJECT 8 UNITS UNDER SKIN ONCE DAILY. [...] BEDTIME 38.7 g 3 11/19/19 25 Active Diphenoxylate-At ropine 2.5-0.025 MG Oral Tablet (Lomotil)Indicat ions:Celiac disease TAKE ONE TABLET BY MOUTH EVERY MORNING AND AT BEDTIME 60 Tablet 1 12/05/19 25 Active Diphenoxylate-At ropine 2.5-0.025 MG Oral Tablet (Lomotil)Indicat ions:Celiac disease TAKE ONE TABLET BY MOUTH EVERY MORNING AND AT BEDTIME 60 Tablet 1 10/02/20 24 025 Discontinued Hospital, Clinic, or Other Facility Administered [...] as of this encounter (statuses as of 12/05/2024) Active Problems Problem Noted Date Diagnosed Date [...] as of this encounter (statuses as of 12/05/2024) Resolved Problems Problem Noted Date Diagnosed Date [...] as of this encounter (statuses as of 12/05/2024) Immunizations Name Administration Dates Next Due COVID-19 [...] encounter Miscellaneous Notes * Telephone Encounter - Yamila Ba CRNP - 12/05/2024 11:58 AM EST Signed Prescriptions: Disp Refills Diphenoxylate-Atropine 2.5-0.025 MG Oral T*60 Tab*1 Sig: TAKE ONE TABLET BY MOUTH EVERY MORNING AND AT BEDTIME Authorizing Provider: YAMILA BA * Telephone Encounter - TurAddi samuel RPh - 12/05/2024 10:00 AM ESTPending Prescriptions: Disp Refills Diphenoxylate-Atropine 2.5-0.025 MG Oral T*60 Tab*1 Sig: TAKE ONE TABLET BY MOUTH EVERY MORNING AND AT BEDTIME * Telephone Encounter - Addi Pretty RPh - 12/05/2024 9:52 AM EST I have reviewed the patients controlled substance dispensing history in the Prescription Drug Monitoring Program in compliance with the [facility] regulations before prescribing a controlled substance. PDMP checked on 12/05/2024. Pending Prescriptions: Disp Refills Diphenoxylate-Atropine 2.5-0.025 MG Oral *60 Tab*1 Sig: TAKE ONE TABLET BY MOUTH EVERY MORNING AND AT BEDTIME Last Visit: 10/22/2024 (in office), 01/31/2022 (telemedicine) Next Visit: Visit date not found Date medication was last filled: 10/02 Date medication is due for refill: 10/31 [facility]: [id number] [facility] Is this request for a controlled substance? Yes and Urine Drug Screen Not completed Toxicology results: No results found. However, due to the size of the patient record, not all encounters were searched.Please check Results Review for a complete set of results. Please approve if appropriate. Thanks, Corey Pretty, PharmD Clinical Pharmacist [facility] ([facility]) [phone] 12/05/2024 9:53 AM * Telephone Encounter - Demetria Nix - 12/04/2024 5:24 AM ESTPending Prescriptions: Disp Refills Diphenoxylate-Atropine 2.5-0.025 MG Oral T*60 Tab*1 Sig: TAKE ONE TABLET BY MOUTH EVERY MORNING AND AT BEDTIME * Telephone Encounter - Demetria Nix - 12/04/2024 5:22 AM EST Did you pend patient's preferred pharmacy and medication before forwarding?yes Pharmacy: [id number] [facility] Pending Prescriptions: Disp Refills Diphenoxylate-Atropine 2.5-0.025 MG Oral *60 Tab*1 Sig: TAKE ONE TABLET BY MOUTH EVERY MORNING AND AT BEDTIME Last Visit: 10/22/2024 (in office), 01/31/2022 (telemedicine) Next Visit: Visit date not found If no future appointments scheduled, and last appointment is greater than a year ago, please schedule patient for a follow-up appointment Last date the medication was ordered: 10/02/2024 Is this request for a controlled substance?Yes and urine drug screen was not completed Urine Drug Screen:No results found. However, due to the size of the patient record, not all encounters were searched. Please check Results Review for a complete set of results. Patient Phone Numbers Labs: Lab Results Component Value Date/Time CREAT 0.9 10/22/2024 02:15 PM CREAT 0.8 08/24/2020 10:40 AM POTASSIUM 4.1 10/22/2024 02:15 PM POTASSIUM 4.4 08/24/2020 10:40 AM TSH 3.77 12/19/2018 02:18 PM LDL 72 10/22/2024 02:15 PM LDL 92 07/03/2023 09:03 AM LDL 77 08/24/2020 10:40 AM LDL UNINTERPRETABLE RESULT 06/21/2019 09:50 AM ALT 49 (H) 10/22/2024 02:15 PM ALT 37 (H) 09/08/2020 01:19 PM HGBA1C 7.6 (H) 10/22/2024 02:15 PM HGBA1C 7.4 (H) 09/08/2020 01:19 PM documented in this encounter Plan of Treatment Upcoming Encounters Date Type Department Care Team (Late st Contact Info) Description 12/12/2024 8:30 AM EST [facility] [address] [facility] [place] [phone] 12/12/2024 9:30 AM EST [facility] [address] [facility] [place] [address] 12/24/2024 2:00 PM EST [facility] [address] [facility] [phone] [address] [place] [phone] [facility] [address] 01/06/2025 1:00 PM EST Office Visit Allergy/Immunology [facility] [place] [address] [place] [address] Mariana Webb PA-C [address] [place] [address] 05/13/2025 3:00 PM EDT Office Visit General Internal Medicine [facility] [place] [address] [place] [address] Alicia Woodruff MD [address] [place] [address] Health Maintenance Due Date Last Done Comments [...] , 03/24/2023, Additional history exists Albumin/Creatinine Ratio 10/22/2025 024, 07/03/2023, 09/08/2020, Additional history exists GFR [...] Not on filedocumented as of this encounter Visit Diagnoses Diagnosis Celiac disease documented in this encounter Care Teams Trademark Paralegal Relationship Specialty Start Date End Date Alicia Woodruff MD [address] [place] [address] PCP - General 09/21/09 documented as of this encounter
--- OUTSIDE RECORDS SUMMARY | 2024-12-10 00:48 | External Medical Summary | Summary of Care ---
Author Name Unknown Organization [facility] Address [address] [place] [address] Phone [phone] Care Team Providers Care Information Security Officer Name Role Phone Alicia Woodruff MD Primary Care Provider + Encounter Details Date Type Department Care Team (Late st Contact Info) Description 11/26/2024 Population Health External Data Unspecified Department Allergies Active Allergy Reactions Criticality Noted Date Comments Nicola Inhibitors 07/22/2009 cough Azithromycin 07/22/2009 Clarithromycin 07/22/2009 Propoxyphene N-Acetaminophen Nausea/vomiting 07/22/2009 Erythromycin Other (Please comment) 10/12/2010 colitis Nitrofurantoin Monohydrate Macrocrystals 08/05/2010 rash Penicillins 02/23/2004 RASH, SOB Statins 10/16/2018 High liver functions, myalgias Sulfa Antibiotics 02/23/2004 RASH, SOB documented as of this encounter (statuses as of 11/26/2024) Medications ASPIRIN EC 81 MG PO TBECIndications:H TN, goal below 140/90 Take one pill daily 30 3 9 Active VITAMIN C 500 MG PO CAPS one pill each day Active NEBULIZER COMPRESSOR MISCIndications:A sthma, moderate persistent Use as directed 1 Each 1 2 Active ONETOUCH ULTRASOFT LANCETS MISCIndications: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 1 Box Dosing Unit 0 6 Active Zoster Vac Recomb Adjuvanted 50 MCG/0.5ML Intramuscular Suspension Reconstituted (Shingrix)Indicat ions:Need for vaccination for zoster Inject 0.5 mL into a large muscle now and repeat dose in 60 to 180 days 1 Each 1 0 Active Additional Information Patient not taking.Reported on 11/05/2024 Multivitamin Women 50+ Oral Tablet Take by mouth . Acti ve Acetaminophen 500 MG Oral CapsuleIndication s:pain Take 1 Capsule by mouth every 4 hours as needed. Active PreserVision AREDS 2 Oral Capsule Take 1 Capsule by mouth in the morning and 1 Capsule in the evening. Active GenTeal Tears 0.1-0.2-0.3 % Ophthalmic Solution Instill into eye as needed. Active Ezetimibe 10 MG Oral Tablet (Zetia)Indication s:Hyperlipidemia with target LDL less than 100 TAKE 1 TABLET BY MOUTH IN THE MORNING. FOR CHOLESTEROL. 90 Tablet 2 4 Active Loratadine 10 MG Oral Tablet (Claritin) Take 1 Tablet by mouth in the morning. 90 Tablet 3 4 Active OneTouch Ultra In Vitro Strip (Glucose Blood) TEST BLOOD SUGAR 6 TIMES DAILY. 600 Strip 3 4 Active NovoLOG FlexPen 100 UNIT/ML Subcutaneous Solution Pen-injector (insulin aspart) INJECT 5 UNITS WITH BREAKFAST , 3 UNITS LUNCH, 3 UNITS WITH DINNER , PLUS CF 1:80 over 150. MAX 20 UNITS A DAY 15 mL 4 4 Active Fluticasone-Salme terol 250-50 MCG/ACT Inhalation Aerosol Powder Breath Activated (Advair Diskus)Indication s:Asthma, moderate persistent INHALE 1 PUFF EVERY 12 HOURS. RINSE MOUTH AFTER EACH USE. 180 Each 1 4 Active Omeprazole 40 MG Oral Capsule Delayed Release (PriLOSEC) TAKE 1 CAPSULE BY MOUTH EVERY DAY IN THE MORNING 90 Capsule 1 4 Active Fluticasone Propionate 50 MCG/ACT Nasal Suspension (Flonase)Indicati ons:Acute sinusitis USE 1 SPRAY IN EACH NOSTRIL ONCE A DAY 48 mL 3 4 Active Azelastine HCl 0.1 % Nasal Solution (Astelin) Administer 2 Sprays into nostril in the morning and 2 Sprays before bedtime. 90 mL 3 4 Active Klor-Con M20 20 MEQ Oral Tablet Extended Release (Potassium Chloride ER)Indications:HT N, goal below 140/90 TAKE 1 TABLET BY MOUTH EVERY DAY 90 Tablet 1 4 Active Propranolol HCl ER 160 MG Oral Capsule Extended Release 24 HourIndications:M igraine TAKE 1 CAPSULE DAILY -INDERAL- FOR BLOOD PRESSURE/ HEADACHE. 90 Capsule 1 4 Active amLODIPine Besylate 10 MG Oral Tablet (Norvasc)Indicati ons:HTN, goal below 140/90 TAKE 1 TABLET BY MOUTH EVERY DAY -BLOOD PRESSURE 90 Tablet 1 4 Active Diphenoxylate-Atr opine 2.5-0.025 MG Oral Tablet (Lomotil)Indicati ons:Celiac disease TAKE ONE TABLET BY MOUTH EVERY MORNING AND AT BEDTIME 60 Tablet 1 4 Active BD Pen Needle Mini U/F 31G X 5 MM (Insulin Pen Needle) USE FOUR TIMES A DAY 400 Each 3 4 Active Insulin Glargine Solostar 100 UNIT/ML Subcutaneous Solution Pen-injector (Lantus SoloStar)Indicati ons:Type 2 diabetes mellitus with hemoglobin A1c goal of less than 7.0% ([facility]) INJECT 8 UNITS UNDER SKIN ONCE DAILY. 15 mL 1 4 Active Dexcom G7 Sensor Use as directed every 10 days. Supplied by Home Care Delivered Active Losartan Potassium 25 MG Oral Tablet (Cozaar)Indicatio ns:HTN, goal below 140/90 TAKE ONE TABLET BY MOUTH TWICE A DAY FOR BLOOD PRESSURE 180 Tablet 4 Active Furosemide 40 MG Oral Tablet (Lasix)Indication s:HTN, goal below 140/90 TAKE ONE TABLET BY MOUTH EVERY DAY FOR FLUID 90 Tablet 4 Active Albuterol Sulfate HFA 108 (90 Base) MCG/ACT Inhalation Aerosol SolutionIndicatio ns:Wheezing INHALE 2 PUFFS BY MOUTH EVERY 4 HOURS NEEDED FOR WHEEZING 54 g 4 Active Nitroglycerin 0.4 MG Sublingual Tablet Sublingual (Nitrostat)Indica tions:HTN, goal to be determined Place 1 Tablet under the tongue every 5 minutes as needed for Pain, Chest. 25 Tablet 1 4 Active Atrovent HFA 17 MCG/ACT Inhalation Aerosol Solution (ipratropium) INHALE 2 PUFFS BY MOUTH IN THE MORNING AT AT NOON IN THE EVENING AND BEFORE BEDTIME 38.7 g 3 5 Active Hospital, Clinic, or Other Facility Administered Medication [...] as of this encounter (statuses as of 11/26/2024) Active Problems Problem Noted Date Diagnosed Date [...] as of this encounter (statuses as of 11/26/2024) Resolved Problems Problem Noted Date Diagnosed Date Resolved Date Morbid obesity with BMI of 40.0-44.9, adult 10/10/2019 08/01/2024 Overview (08/01/2024): historical Body mass index (BMI) of 40. 0 to 44.9 in adult 08/07/2017 10/17/2019 Overview: Per Obesity protocol #1 Nocturnal hypoxemia 11/14/2012 02/06/20 13 Overview (11/14/2012): 11/14/12 -- will consider oxygen therapy during sleep DME: [facility] 10/08/2009 02/09/2017 ADVANCE DIRECTIVE INFORMATION 01/30/2006 [...] as of this encounter (statuses as of 11/26/2024) Immunizations Name Administration Dates Next Due COVID-19 [...] on file documented as of this encounter Plan of Treatment Upcoming Encounters Date Type Department Care Team (Late st Contact Info) Description 12/03/2024 1:45 PM EST Office Visit Ophthalmology, [facility] 132 [facility] [place] [address] Roscoe Jiménez DO [address] [place] [address] 12/12/2024 8:30 AM EST Imaging Radiology [facility] 132 [facility] [place] [phone] 12/12/2024 9:30 AM EST Cardiac Studies Cardiac Studies, [facility] 132 [facility] [place] [address] 12/24/2024 2:00 PM EST Office Visit Pharmacy, [facility] [address] [phone] [facility] 9 [facility] [place] [address] 01/06/2025 1:00 PM EST Office Visit Allergy/Immunology [facility] [place] [address] [place] [address] Mariana Webb PA-C 200 [facility] [place], [place] [address] 05/13/2025 3:00 PM EDT Office Visit General Internal Medicine [facility] [place] 200 [facility] [place] [address] Alicia Woodruff MD 200 [facility] [place] [address] Health Maintenance Due Date Last Done Comments [...] filedocumented as of this encounter Care Teams Information Security Officer Relationship Specialty Start Date End Date Alicia Woodruff MD 200 [facility] [place] [address] PCP - General 09/21/09 documented as of this encounter
--- OUTSIDE RECORDS SUMMARY | 2024-12-10 00:49 | External Medical Summary | Summary of Care ---
Author Name Unknown Organization [facility] Address [address] [facility] [address] Phone [phone] Care Team Providers Care Primary Care Coordinator Name Role Phone Alicia Woodruff MD Primary Care Provider + Encounter Details Date Type Department Care Team (Late st Contact Info) Description 11/04/2024 Orders Only Gastroenterology, [facility] [address] [place] [address] Yamila Mills CRNP [address] [place] [address] Elevated LFTs* Allergies Active Allergy Reactions Criticality Noted Date Comments Nicola Inhibitors 07/22/2009 cough Azithromycin 07/22/2009 Clarithromycin 07/22/2009 Propoxyphene N-Acetaminophen Nausea/vomiting 07/22/2009 Erythromycin Other (Please comment) 10/12/2010 colitis Nitrofurantoin Monohydrate Macrocrystals 08/05/2010 rash Penicillins 02/23/2004 RASH, SOB Statins 10/16/2018 High liver functions, myalgias Sulfa Antibiotics 02/23/2004 RASH, SOB documented as of this encounter (statuses as of 11/04/2024) Medications ASPIRIN EC 81 MG PO TBECIndications:H TN, goal below 140/90 Take one pill daily 30 3 200 9 Active VITAMIN C 500 MG PO CAPS one pill each day Active NEBULIZER COMPRESSOR MISCIndications:A sthma, moderate persistent Use as directed 1 Each 1 2 Active ONETOUCH ULTRASOFT LANCETS MISCIndications:D M type 2 nursing care encounter (HCC) one touch delica lancets/testin g four times daily/250.00 1 Box 5 3 Active CALCIUM-VITAMIN D 600-400 MG-UNIT PO TABS 1 tablet daily Activ e albuterol sulfate (PROVENTIL) (2.5 MG/3ML) 0.083% nebulizer solutionIndicatio ns:Viral URI with cough Inhale 1 Vial via nebulizer every 4 hours as needed for Wheezing. 1 Box Dosing Unit 0 6 Active nitroglycerin (NITROSTAT) 0.4 MG SUBLIndications:H TN, goal to be determined 1 TABLET UNDER TONGUE NEEDED CHEST PAIN --MAY REPEAT 3 TIMES - IF NO RELIEF CALL 911 25 Tab 1 8 Active Zoster Vac Recomb Adjuvanted 50 MCG/0.5ML Intramuscular Suspension Reconstituted (Shingrix)Indicat ions:Need for vaccination for zoster Inject 0.5 mL into a large muscle now and repeat dose in 60 to 180 days 1 Each 1 0 Active Multivitamin Women 50+ Oral Tablet Take by mouth . Active Acetaminophen 500 MG Oral CapsuleIndication s:pain Take [...] THE MORNING 90 Capsule 1 4 Active Atrovent HFA 17 MCG/ACT Inhalation Aerosol Solution (ipratropium) INHALE 2 PUFFS BY MOUTH IN THE MORNING AT AT NOON IN THE EVENING AND BEFORE BEDTIME 38.7 g 1 4 Active Fluticasone Propionate 50 MCG/ACT [...] hemoglobin A1c goal of less than 7.0% (HCC) INJECT 8 UNITS UNDER SKIN ONCE DAILY. [...] NEEDED FOR WHEEZING 54 g 4 Active Hospital, Clinic, or Other Facility Administered [...] as of this encounter (statuses as of 11/04/2024) Active Problems Problem Noted Date Diagnosed Date Type 2 diabetes mellitus wit h both [...] as of this encounter (statuses as of 11/04/2024) Resolved Problems Problem Noted Date Diagnosed Date [...] as of this encounter (statuses as of 11/04/2024) Immunizations Name Administration Dates Next Due COVID-19 [...] Care Team (Late st Contact Info) Description 11/05/2024 1:00 PM EST Office Visit General Internal Medicine [facility] [address] [place] [address] Alicia Woodruff MD [address] [place] [address] 11/28/2024 2:00 PM EST Office Visit [facility] [phone] [place], [facility] [address] [place], [place] [address] [address] 12/03/2024 1:45 PM EST Office Visit Ophthalmology, [facility] 132 [facility] [place] [address] Roscoe Jiméenz DO 132 [facility] [place] [address] 01/06/2025 1:00 PM EST Office Visit Allergy/Immunology [facility] [address] [place] [address] Mariana Webb PA-C [address] [place] [address] Scheduled Orders Name Type Priority Associated Diagnoses Orde r Schedule MITOCHONDRIAL ANTIBODY Lab Routine Elevated LFTs Expected: 11/04/2024, Expires: 11/04/2025 US ABDOMEN LIMITED Medical Imaging Routine Elevated LFTs Ordered: 11/04/2024 Health Maintenance Due Date Last Done Comments Zoster Vaccines (2 of 3) 05/22/2012 03/27/2012 Depression Screening 09/08/2021 09/08/2020 Adult Wellness Visit 06/13/2024 06/13/2023 Diabetic Foot Exam 06/13/2024 06/13/2023, 1 11/08/2019, 06/25/2019, Additional history exists COVID-19 Vaccine ( season) 2024 03/21/2022, 01/04/2021, 11/30/2020 Influenza Vaccine (FLU shot) (#1) 2024 09/22/2023, 08/20/2021, 08/24/2020, Additional history exists HbA1c 04/22/2025 10/22/2024, 02/0 04/2024, 07/03/2023, Additional history exists Diabetic Eye Exam 10/16/2025 10/16/2024, , 03/24/2023, Additional history exists Albumin/Creatinine Ratio 10/22/202510/22/2 024, 07/03/2023, 09/08/2020, Additional history exists GFR [...] as of this encounter Visit Diagnoses Diagnosis Elevated LFTs- Primary Other abnormal blood chemistry documented in this encounter Care Teams Primary Care Coordinator Relationship Specialty Start Date End Date Alicia Woodruff MD 200 [place] [address] PCP - General 09/21/09 documented as of this encounter
--- OUTSIDE RECORDS SUMMARY | 2024-12-10 00:49 | External Medical Summary | Summary of Care ---
Author Name Unknown Organization [facility] Address [address] [place] [address] Phone [phone] Care Team Providers Care Ssn/Ssbn Assistant Navigator Name Role Phone Alicia Woodruff MD Primary Care Provider + Reason for Visit * Reason Comments Outpatient Testing Encounter Details Date Type Department Care Team (Late st Contact Info) Description 11/05/2024 2:10 PM EST Laboratory [facility] [place] [address] [place] [phone] [place] [address] [place] [address] Elevated LFTs Allergies Active Allergy Reactions Criticality Noted Date Comments Nicola Inhibitors 07/22/2009 cough Azithromycin 07/22/2009 Clarithromycin 07/22/2009 Propoxyphene N-Acetaminophen Nausea/vomiting 07/22/2009 Erythromycin Other (Please comment) 10/12/2010 colitis Nitrofurantoin Monohydrate Macrocrystals 08/05/2010 rash Penicillins 02/23/2004 RASH, SOB Statins 10/16/2018 High liver functions, myalgias Sulfa Antibiotics 02/23/2004 RASH, SOB documented as of this encounter (statuses as of 11/05/2024) Medications ASPIRIN EC 81 MG PO TBECIndications:H [...] A1c goal of less than 7.0% ([facility]) INJECT 8 UNITS UNDER SKIN ONCE [...] Pain, Chest. 25 Tablet 1 4 Active Hospital, Clinic, or Other Facility [...] as of this encounter (statuses as of 11/05/2024) Active Problems Problem Noted Date Diagnosed Date [...] as of this encounter (statuses as of 11/05/2024) Resolved Problems Problem Noted Date Diagnosed Date [...] as of this encounter (statuses as of 11/05/2024) Immunizations Name Administration Dates Next Due COVID-19 [...] 11/28/2024 2:00 PM EST Office [address], [address] [phone] Noelle [facility] [address] [place], [place] [address] [address] 12/03/2024 1:45 PM EST Office Visit Ophthalmology, [facility] 132 [facility] [place] [address] Roscoe Jiménez DO 132 [facility] [place] [address] 12/03/2024 3:00 PM EST Cardiac Studies Cardiac Studies, [facility] 132 [facility] [place] [address] 01/06/2025 1:00 PM EST Office Visit Allergy/Immunology [facility] 200 [facility] [place] [address] Mariana Webb PA-C 200 [facility] [place] [address] 05/13/2025 3:00 PM EDT Office Visit General Internal Medicine [facility] 200 [facility] [place] [address] Alicia Woodruff MD 200 [facility] [place] [address] Pending Results Name Type Priority Associated Diagnoses Date /Time MITOCHONDRIAL ANTIBODY Lab Routine Elevated LFTs 11/05/2024 2:06 PM EST Health Maintenance Due Date Last Done Comments [...] of this encounter Visit Diagnoses Diagnosis Elevated LFTs Other abnormal blood chemistry documented in this encounter Care Teams Ssn/Ssbn Assistant Navigator Relationship Specialty Start Date End Date Alicia Woodruff MD [address] [place] [address] PCP - General 09/21/09 documented as of this encounter
--- OUTSIDE RECORDS SUMMARY | 2024-12-10 00:49 | External Medical Summary | Summary of Care ---
Author Name Unknown Organization [facility] Address [address] [facility] [address] Phone [phone] Care Team Providers Care Supervisor Pipeline Maintenance Name Role Phone Alicia Woodruff MD Primary Care Provider + Reason for Visit * Reason Onset Date Comments Appointment 11/05/2024 US Encounter Details Date Type Department Care Team (Late st Contact Info) Description 11/05/2024 Telephone Gastroenterology, [facility] [address] [place] [address] Yamila Mills CRNP [address] [place] [address] Appointment ([place]) Allergies Active Allergy Reactions Criticality Noted Date Comments Nicola Inhibitors 07/22/2009 cough Azithromycin 07/22/2009 Clarithromycin 07/22/2009 Propoxyphene N-Acetaminophen Nausea/vomiting 07/22/2009 Erythromycin Other (Please comment) 10/12/2010 colitis Nitrofurantoin Monohydrate Macrocrystals 08/05/2010 rash Penicillins 02/23/2004 RASH, SOB Statins 10/16/2018 High liver functions, myalgias Sulfa Antibiotics 02/23/2004 RASH, SOB documented as of this encounter (statuses as of 11/11/2024) Medications ASPIRIN EC 81 MG PO TBECIndications:H [...] hemoglobin A1c goal of less than 7.0% ([facility]) INJECT 8 UNITS UNDER SKIN ONCE DAILY. [...] as of this encounter (statuses as of 11/11/2024) Active Problems Problem Noted Date Diagnosed Date [...] as of this encounter (statuses as of 11/11/2024) Resolved Problems Problem Noted Date Diagnosed Date [...] as of this encounter (statuses as of 11/11/2024) Immunizations Name Administration Dates Next Due COVID-19 [...] encounter Miscellaneous Notes * Telephone Encounter - Miryam Arnett OSA - 11/11/2024 9:00 AM EST Scheduled SELINA Blum 11/11/2024 9:00 AM * Telephone Encounter - Elisa Segal OSA - 11/05/2024 1:38 PM EST ----- Message from Yamila Mills sent at 11/04/2024 11:58 AM EST ----- Pt informed of results. For elevated LFTs, will obtain US abd and AMA GI schedulers - pls assist with US appt ADITI Laughlin Called pt to setup US. Lmm for patient to call office back. documented in this encounter Plan of Treatment Upcoming Encounters Date Type Department Care Team (Late st Contact Info) Description 11/28/2024 2:00 PM EST Office Visit [facility], [place] [facility] [address] [facility] [place] [phone] Noelle [facility] [address] [facility] [place] [address] 12/03/2024 1:45 PM EST [facility] 132 [facility] [place] [address] Roscoe Jiménez DO 132 [facility] [place] [address] 12/12/2024 8:30 AM EST Imaging Radiology [facility] 132 [facility] [place] [address] 12/12/2024 9:30 AM EST Cardiac Studies Cardiac Studies, [facility] 132 [facility] [place] [address] 01/06/2025 1:00 PM EST Office Visit Allergy/Immunology [facility] [place] [address] [place] [address] [place] [address] Mariana Webb PA-C [address] [place] [address] 05/13/2025 3:00 PM EDT Office Visit General Internal Medicine [facility] [place] [address] [place] [address] [address] [address] Alicia Woodruff MD [address] [place] [address] Health Maintenance Due Date Last Done Comments [...] 09/08/2020, Additional history exists GFR 10/22/2025 10/22/2024, 020 04/2024, 10/23/2023, Additional history exists DTap/Tdap Vaccines [...] filedocumented as of this encounter Care Teams Supervisor Pipeline Maintenance Relationship Specialty Start Date End Date Alicia Woodruff MD [address] [place] [address] PCP - General 09/21/09 documented as of this encounter
--- OUTSIDE RECORDS SUMMARY | 2024-12-10 00:49 | External Medical Summary | Summary of Care ---
Author Name Unknown Organization [facility] Address [address] [place] [address] Phone [phone] Care Team Providers Care Liquor Bridge Operator Name Role Phone Alicia Woodruff MD Primary Care Provider + Reason for Referral * Precert (Diagnostic Medical) (Within 10 days (routine)) - Authorized Specialty Diagnoses / Procedures Referred By Contac t Referred To Contact Cardiac Studies Diagnoses HTN, goal to be determined Procedures ECHO, COMPLETE (2D), TRANS-THORACIC Alicia Woodruff MD [address] [place], [place] [address] Phone: tel: fax: Referral ID Status Reason Start Date Expiration Date V isits Requested Visits Authorized [id number] Authorized Precert 11/05/2024 999 999 Reason for Visit * Reason Comments Return Visit 3 mo return, pt woul d like to discuss sx of sneezing/cough/post nasal drip- started approx 10days ago. Pt also stated she will occasionally have a fluttering/racing feeling in her heart, will occur intermittently started approx 2 months ago, Encounter Details Date Type Department Care Team (Latest Contact Info) Description 11/05/2024 1:00 PM EST Office Visit General Internal Medicine [facility] [address] [place] [address] [place] [address] Alicia Woodruff MD [address] [facility] [place] [address] Type 2 diabetes mellitus with hemoglobin A1c goal of less than 7.0% ([facility])*; HYPERTENSION, ESSENTIAL NOS (G); Class 2 severe obesity due to excess calories with serious comorbidity and body mass index (BMI) of 37.0 to 37.9 in adult ([facility]); Hyperlipidemia with target LDL less than 100; Type 2 diabetes mellitus with both eyes affected by mild nonproliferative retinopathy without macular edema, with long-term current use of insulin ([facility]); Moderate persistent asthma without complication; Gastroesophageal reflux disease without esophagitis; Age-related osteoporosis without current pathological fracture; Mitral valve prolapse; Thyroid nodule; Elevated LFTs; SOB (shortness of breath) Allergies Active Allergy Reactions Criticality Noted Date [...] 1 09/19/20 12 Active ONETOUCH ULTRASOFT LANCETS MISCIndications:D M type 2 nursing care encounter ([facility]) one touch delica lancets/testing four times daily/250.00 1 Box 5 09/24/20 [...] DAY 15 mL 4 06/07/20 24 Active Fluticasone-Salme terol 250-50 MCG/ACT Inhalation Aerosol Powder Breath Activated (Advair Diskus)Indication s:Asthma, moderate persistent INHALE 1 PUFF EVERY 12 HOURS. RINSE MOUTH AFTER EACH USE. 180 Each 1 06/26/20 24 Active Omeprazole 40 MG Oral Capsule Delayed Release (PriLOSEC) TAKE 1 CAPSULE BY MOUTH EVERY DAY IN THE MORNING 90 Capsule 1 07/01/20 24 Active Atrovent HFA 17 MCG/ACT Inhalation Aerosol Solution (ipratropium) INHALE 2 PUFFS BY MOUTH IN THE MORNING AT AT NOON IN THE EVENING AND BEFORE BEDTIME 38.7 g 1 07/02/20 24 Active Fluticasone Propionate 50 MCG/ACT Nasal [...] PRESSURE 90 Tablet 1 08/29/20 24 Active Diphenoxylate-Atr opine 2.5-0.025 MG Oral Tablet [...] hemoglobin A1c goal of less than 7.0% ([facility]) INJECT 8 UNITS UNDER SKIN ONCE DAILY. 15 mL 1 10/15/20 24 Active Dexcom G7 Sensor Use as directed every 10 days. Supplied by Home Care Delivered Active Losartan Potassium 25 MG Oral Tablet (Cozaar)Indicatio ns:HTN, goal below 140/90 TAKE ONE TABLET BY MOUTH TWICE A DAY FOR BLOOD PRESSURE 180 Tablet 10/22/20 24 Active Furosemide 40 MG Oral Tablet (Lasix)Indication [...] Chest. 25 Tablet 1 11/05/20 24 Active nitroglycerin (NITROSTAT) 0.4 MG SUBLIndications:H TN, goal to be determined 1 TABLET UNDER TONGUE NEEDED CHEST PAIN --MAY REPEAT 3 TIMES - IF NO RELIEF CALL 911 25 Tab 1 08/02/20 18 024 Discontin ued(Refil l) Hospital, Clinic, or Other Facility Administered Medication [...] will consider oxygen therapy during sleep DME: [facility] UVEITIS 10/08/2009 02/09/2017 ADVANCE DIRECTIVE INFORMATION 01/30/2006 [...] on file documented as of this encounter Last Filed Vital Signs Vital Sign Reading Time Taken Comments Blood Pressure 148/72 11/05/2024 1:02 PM EST Pulse 62 11/05/2024 1:02 PM EST Temperature 37.1 C (98.8 F) 11/05/2024 1:02 PM ES T Respiratory Rate - - Oxygen Saturation 98% 11/05/2024 1:02 PM EST Inhaled Oxygen Concentration - - Weight 83 kg (183 lb) 11/05/2024 1:02 PM EST Height - - Body Mass Index 36.96 07/09/2024 10:03 AM EDT documented in this encounter Progress Notes * Alicia Woodruff MD - 11/05/2024 1:16 PM EST HPI: Halima Nicholson is a 79 year old female who presents with: Chief Complaint Patient presents with Return Visit 3 mo return, pt would like to discuss sx of sneezing/cough/post nasal drip- started approx 10days ago. Pt also stated she will occasionally have a fluttering/racing feeling in her heart, will occur intermittently started approx 2 months ago, Patient is here for the recheck. Chart reviewed with the patient including current meds, last labs and HM. No acute event since we saw patient last time including no recent fall or injuries. Hemoglobin AIC Results: Lab Results Component Value Date/Time HEMOGLOBIN A1C - [facility] 7.6 (H) 10/22/2024 02:15 PM HEMOGLOBIN A1C - [facility] 7.4 (H) 12/12/2023 12:25 PM HEMOGLOBIN A1C - [facility] 7.6 (H) 07/03/2023 09:03 AM HEMOGLOBIN A1C - [facility] 7.4 (H) 09/08/2020 01:19 PM HEMOGLOBIN A1C - [facility] 8.0 (H) 06/21/2019 09:50 AM HEMOGLOBIN A1C - [facility] 7.9 (H) 11/30/2018 01:36 PM Recent labs reviewed and has high LFT and slight worsening Hba1c. Follows with gi and is scheduled for US Abd. Denies any chestpain/sob/swealling in the legs. Denies any cough/wheezing/chestpain. Occasional palpitation and mild sob with excertion. No urinary s/s. Patient Active Problem List Diagnosis Mitral valve prolapse Allergic rhinitis Asthma, moderate persistent Type 2 diabetes mellitus with hemoglobin A1c goal of less than 7.0% ([facility]) Hyperlipidemia with target LDL less than 100 HTN, goal below 140/90 Celiac disease Essential tremor Migraine without aura and without status migrainosus, not intractable Thyroid nodule Functional voice disorder Gastroesophageal reflux disease without esophagitis Age-related osteoporosis without current pathological fracture Unspecified open-angle glaucoma, stage unspecified Type 2 diabetes mellitus with both eyes affected by mild nonproliferative retinopathy without macular edema, with long-term current use of insulin ([facility]) Pain in joint of right shoulder Class 2 severe obesity due to excess calories with serious comorbidity and body mass index (BMI) of37.0 to 37.9 in adult ([facility]) Current Outpatient Medications Medication Sig Dispense Refill ASPIRIN EC 81 MG PO TBEC Take one pill daily 30 3 VITAMIN C 500 MG PO CAPS one pill each day NEBULIZER COMPRESSOR MIS Use as directed 1 Each 1 ONETOUCH ULTRASOFT LANCETS [facility] one touch delica lancets/testing four times daily/250.00 1 Box 5 CALCIUM-VITAMIN D 600-400 MG-UNIT PO TABS 1 tablet daily albuterol sulfate (PROVENTIL) (2.5 MG/3ML) 0.083% nebulizer solution Inhale 1 Vial via nebulizer every 4 hours as needed for Wheezing. 1 Box Dosing Unit 0 Multivitamin Women 50+ Oral Tablet Take by mouth . Acetaminophen 500 MG Oral Capsule Take 1 Capsule by mouth every 4 hours as needed. PreserVision AREDS 2 Oral Capsule Take 1 Capsule by mouth in the morning and 1 Capsule in the evening. GenTeal Tears 0.1-0.2-0.3 % Ophthalmic Solution Instill into eye as needed. Ezetimibe 10 MG Oral Tablet (Zetia) TAKE 1 TABLET BY MOUTH IN THE MORNING. FOR CHOLESTEROL. 90 Tablet 2 Loratadine 10 MG Oral Tablet (Claritin) Take 1 Tablet by mouth in the morning. 90 Tablet 3 OneTouch Ultra In Vitro Strip (Glucose Blood) TEST BLOOD SUGAR 6 TIMES DAILY. 600 Strip 3 NovoLOG FlexPen 100 UNIT/ML Subcutaneous Solution Pen-injector (insulin aspart) INJECT 5 UNITS WITHBREAKFAST , 3 UNITS LUNCH, 3 UNITS WITH DINNER , PLUS CF 1:80 over 150. MAX 20 UNITS A DAY 15 mL 4 Fluticasone-Salmeterol 250-50 MCG/ACT Inhalation Aerosol Powder Breath Activated (Advair Diskus) INHALE 1 PUFF EVERY 12 HOURS. RINSE MOUTH AFTER EACH USE. 180 Each 1 Omeprazole 40 MG Oral Capsule Delayed Release (PriLOSEC) TAKE 1 CAPSULE BY MOUTH EVERY DAY IN THE MORNING 90 Capsule 1 Atrovent HFA 17 MCG/ACT Inhalation Aerosol Solution (ipratropium) INHALE 2 PUFFS BY MOUTH IN THE MORNING AT AT NOON IN THE EVENING AND BEFORE BEDTIME 38.7 g 1 Fluticasone Propionate 50 MCG/ACT Nasal Suspension (Flonase) USE 1 SPRAY IN EACH NOSTRIL ONCE A DAY48 mL 3 Azelastine HCl 0.1 % Nasal Solution (Astelin) Administer 2 Sprays into nostril in the morning and 2Sprays before bedtime. 90 mL 3 Klor-Con M20 20 MEQ Oral Tablet Extended Release (Potassium Chloride ER) TAKE 1 TABLET BY MOUTH EVERY DAY 90 Tablet 1 Propranolol HCl ER 160 MG Oral Capsule Extended Release 24 Hour TAKE 1 CAPSULE DAILY -INDERAL- FOR BLOOD PRESSURE/ HEADACHE. 90 Capsule 1 amLODIPine Besylate 10 MG Oral Tablet (Norvasc) TAKE 1 TABLET BY MOUTH EVERY DAY -BLOOD PRESSURE 90Tablet 1 Diphenoxylate-Atropine 2.5-0.025 MG Oral Tablet (Lomotil) TAKE ONE TABLET BY MOUTH EVERY MORNING AND AT BEDTIME 60 Tablet 1 BD Pen Needle Mini U/F 31G X 5 MM (Insulin Pen Needle) USE FOUR TIMES A DAY 400 Each 3 Insulin Glargine Solostar 100 UNIT/ML Subcutaneous Solution Pen-injector (Lantus SoloStar) INJECT 8UNITS UNDER SKIN ONCE DAILY. 15 mL 1 Dexcom G7 Sensor Use as directed every 10 days. Supplied by Home Care Delivered Losartan Potassium 25 MG Oral Tablet (Cozaar) TAKE ONE TABLET BY MOUTH TWICE A DAY FOR BLOOD PRESSURE 180 Tablet 0 Furosemide 40 MG Oral Tablet (Lasix) TAKE ONE TABLET BY MOUTH EVERY DAY FOR FLUID 90 Tablet 0 Albuterol Sulfate HFA 108 (90 Base) MCG/ACT Inhalation Aerosol Solution INHALE 2 PUFFS BY MOUTH EVERY 4 HOURS NEEDED FOR WHEEZING 54 g 0 Nitroglycerin 0.4 MG Sublingual Tablet Sublingual (Nitrostat) Place 1 Tablet under the tongue every5 minutes as needed for Pain, Chest. 25 Tablet 1 Zoster Vac Recomb Adjuvanted 50 MCG/0.5ML Intramuscular Suspension Reconstituted (Shingrix) Inject 0.5 mL into a large muscle now and repeat dose in 60 to 180 days (Patient not taking: Reported on 11/05/2024) 1 Each 1 Current Facility-Administered Medications Medication Dose Route Frequency Provider Last Rate Last Admin ROPivacaine (Naropin) inj 1.5 mg 1.5 mg Injection PRN 1.5 mg at 10/16/24 1425 Faricimab-svoa (Vabysmo) prefilled syringe inj 6 mg 6 mg Intravitreal PRN 6 mg at 10/16/24 1425 The patient's medication list was reviewed and updated as needed. Review of patient's allergies indicates: Allergen Reactions Nicola Inhibitors cough Azithromycin Clarithromycin Darvocet [Propoxyphene N-Acetaminophen] Nausea/vomiting Erythromycin Other (Please comment) colitis Macrobid [Nitrofurantoin Monohydrate Macrocrystals] rash Penicillins RASH, SOB Statins High liver functions, myalgias Sulfa Antibiotics RASH, SOB Past Medical History: Diagnosis Date ACEI/ARB contraindicated Asthma, moderate persistent 10/12/2010 Celiac disease 09/02/2009 Chronic rhinitis Convulsions (HCC) remote Hx of Dermatitis Diabetes (HCC) HTN, goal below 140/90 Hyperlipidemia LDL goal < 100 INFORMATION increased eye pressure bilaterally Migraine Mitral valve prolapse Osteoporosis Other specified disease of pancreas gall stone Sleep apnea UVEITIS 10/08/2009 Social History Socioeconomic History Marital status: Single Number of children: 0 Occupational History 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: [employer] 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: [employer] Tobacco Use Smoking status: Never Smokeless tobacco: Never Tobacco comments: no passive smoke exposures Vaping Use Vaping status: Never Used Substance and Sexual Activity Alcohol use: No Drug use: No Other Topics Concern Blood Transfusions No Special Diet Yes Comment: low Na and low fat/ lactose free milk Seat Belt Yes Social History Narrative [employer] [place] INFORMATION ENIVIRONMENTAL HISTORY: House: Apartment - floor level 2nd Type of Heating System: Electric Air Conditioning: Yes Kitchen Basement: None Home have cockroaches: No Irritants in the home: None Patient's bedroom: FLOOR: second TYPE OF JOELLEN: Carpeting Beds: AMOUNT : 1 TYPE OF BEDS: Mattress and Box spring Pillows: AMOUNT: 2 TYPE OF PILLOWS: Synthetic (hypoallergenic, polyester) Bedroom contains: Minimal items Pets: none Lives on a farm: 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 Entered By: Anthony Corley MD 10/12/2010 Social Needs Food Insecurity: No Food Insecurity (06/25/2019) Hunger Vital Sign Worried About Running Out of Food in the Last Year: Never true Ran Out of Food in the Last Year: Never true Family History Problem Relation Name Age of Onset Hypertension Mother Cancer Mother renal cell cancer Eye Problems Mother Glaucoma Asthma Father Heart Disorder Father Eye Problems Father AMD/Blind Asthma Sister Hypertension Sister Asthma Grandmother (Maternal) Eye Problems Aunt (Unspecified) Retinal Detachment Eye Problems Uncle (Unspecified) AMD Breast Cancer Aunt (Maternal) All system negative except as per hpi. OBJECTIVE: BP 148/72 | Pulse 62 | Temp 98.8 F (37.1 C) (Tympanic) | Wt 183 lb (83 kg) | SpO2 98% | BMI 36.96 kg/m | BSA 1.86 m PHYSICAL EXAM: HEENT: PERRLA, EOMI, anicteric sclera, b/l tympanic membrane is pearly white, no erythema, no pharyngeal erythema, no lymphadenopathy, neck supple CVS: RRR, no murmurs, rubs or gallops, s1 s 2normal. RESP: clear to auscultation, no wheezing or crackles ABD: soft, NT/ND EXT: no edema, cyanosis, peripheral pulses palpable bilaterally No large joint swelling, no redness, range of motion normal. Skin normal. Gait normal. Mood stable No focal weakness ASSESSMENT AND PLAN: Type 2 diabetes mellitus with hemoglobin A1c goal of less than 7.0% ([facility]) (Primary) HYPERTENSION, ESSENTIAL NOS (G) - Nitroglycerin 0.4 MG Sublingual Tablet Sublingual (Nitrostat); Place 1 Tablet under the tongue every 5 minutes as needed for Pain, Chest. Class 2 severe obesity due to excess calories with serious comorbidity and body mass index (BMI) of37.0 to 37.9 in adult ([facility]) Hyperlipidemia with target LDL less than 100 Type 2 diabetes mellitus with both eyes affected by mild nonproliferative retinopathy without macular edema, with long-term current use of insulin ([facility]) Moderate persistent asthma without complication Gastroesophageal reflux disease without esophagitis Age-related osteoporosis without current pathological fracture Mitral valve prolapse Thyroid nodule Alicia Woodruff MD documented in this encounter Nursing Notes * Pasha Avendano CMA - 11/05/2024 1:00 PM EST The patient has been properly identified by confirmation of name and date of . Chief Complaint Patient presents with Return Visit 3 mo return, pt would like to discuss sx of sneezing/cough/post nasal drip- started approx 10days ago. Pt also stated she will occasionally have a fluttering/racing feeling in her heart, will occur intermittently started approx 2 months ago, documented in this encounter Plan of Treatment Upcoming Encounters Date Type Department Care Team (Late st Contact Info) Description 11/28/2024 2:00 PM EST Office Visit [facility], [place] [address] [facility] [phone] [facility] [address] [facility] [place] [address] 12/03/2024 1:45 PM EST Office Visit Ophthalmology, [facility] [address] [facility] [place] [address] [place]coe Jim[address]nez, [address] [facility] [place] [address] 12/03/2024 3:00 PM EST Cardiac Studies Cardiac Studies, [facility] [address] [place] [address] 01/06/2025 1:00 PM EST Office Visit Allergy/Immunology [facility] [address] [facility] [place] [address] Mariana Webb PA-C [address] [facility] [place] [address] 05/13/2025 3:00 PM EDT Office Visit General Internal Medicine [facility] [address] [facility] [place] [address] Alicia Woodruff MD 200 [place] [address] Scheduled Orders Name Type Priority Associated Diagnoses Orde r Schedule ECHO, COMPLETE (2D), TRANS-THORACIC Echocardiology Routine HYPERTENSION, ESSENTIAL NOS (G) Expected: 11/05/2024, Expires: 12/06/2026 EKG EKG Routine HYPERTENSION, ESSENTIAL NOS (G) Expected: 11/05/2024 (Approximate), Expires: 12/06/2025 Health Maintenance Due Date Last Done Comments [...] as of this encounter Visit Diagnoses Diagnosis Type 2 diabetes mellitus with hemoglobin A1c goal of less than 7.0% (HCC)- Primary HYPERTENSION, ESSENTIAL NOS (G) Unspecified essential hypertension Class 2 severe obesity due to excess calories with serious comorbidity and body mass index (BMI) of 37.0 to 37.9 in adult (HCC) Hyperlipidemia with target LDL less than 100 Other and unspecified hyperlipidemia Type 2 diabetes mellitus with both eyes affected by mild nonproliferative retinopathy without macular edema, with long-term current use of insulin (HCC) Moderate persistent asthma without complication Unspecified asthma Gastroesophageal reflux disease without esophagitis Esophageal reflux Age-related osteoporosis without current pathological fracture Senile osteoporosis Mitral valve prolapse Mitral valve disorders Thyroid nodule Nontoxic uninodular goiter Elevated LFTs Other abnormal blood chemistry SOB (shortness of breath) Shortness of breath documented in this encounter Care Teams Liquor Bridge Operator Relationship Specialty Start Date End Date Alicia Woodruff MD [address] [facility] [place], [place] [address] PCP - General 09/21/09 documented as of this encounter"
--- OUTSIDE RECORDS SUMMARY | 2024-12-10 00:49 | External Medical Summary ---
Author Name Unknown Address Unknown Organization [id number]:[facility]ORY [facility] [place] - [address] [place] [address] Laboratory Report Ordering Provider Test Date Status JESENIA BARRETO 11/05/2024 14:06:00 Final Observation Date Value Abnormality Reference (Units ) Status Mitochondria M2 Ab [Presence] in Serum 11/05/2024 14:06:00 Negative Negative Final Mitochondria M2 Ab [Units/volume] in Serum by Immunoassay 11/05/2024 14:06:00 1.4 <4 (U/mL) Final Performing Location [facility] [place] - [address] [place] [address]
--- OUTSIDE RECORDS SUMMARY | 2024-12-10 00:49 | External Medical Summary | Summary of Care ---
Author Name Unknown Organization [facility] Address [address] [facility] [address] Phone [phone] Care Team Providers Care Program Director Scouting Name Role Phone Alicia Woodruff MD Primary Care Provider + Reason for Visit * Reason Onset Date Comments Appointment 11/05/2024 US Encounter Details Date Type Department Care Team (Late st Contact Info) Description 11/05/2024 Telephone Gastroenterology, [facility] [address] [place] [address] [place] CRNP [address] [place] [address] Appointment ([place]) Allergies Active Allergy Reactions Criticality [...] hemoglobin A1c goal of less than 7.0% ([facility]) INJECT 8 UNITS UNDER SKIN ONCE DAILY. [...] encounter Miscellaneous Notes * Telephone Encounter - Elisa Segal OSA [...] Description 11/28/2024 2:00 PM EST [address] [place] [phone] [facility] [address] [facility] [place] [address] 12/03/2024 1:45 PM EST Office Visit Ophthalmology, [facility] [address] [place] [address] Roscoe Jiménez DO [address] [place] [address] 01/06/2025 1:00 PM EST Office Visit [facility] [address] [facility] [place], [place] [address] Mariana Webb PA-C [address] [facility] [place] [address] Health Maintenance Due Date Last Done Comments [...] 09/08/2020, Additional history exists GFR 10/22/2025 10/22/2024, 04/2024, 10/23/2023, Additional history exists DTap/Tdap Vaccines [...] filedocumented as of this encounter Care Teams Program Director Scouting Relationship Specialty Start Date End Date Alicia Woodruff MD 200 [facility] [place] [place] [address] PCP - General 09/21/09 documented as of this encounter
--- OUTSIDE RECORDS SUMMARY | 2024-12-10 00:50 | External Medical Summary ---
Author Name Unknown Address Unknown Organization : Laboratory Report Ordering Provider Test Date Status JESENIA BARRETO 10/22/2024 14:15:15 Final Observation Date Value Abnormality Reference (Units ) Status Zinc, level 10/22/2024 14:15:15 120 60-130 ( mcg/dL) Final This test was developed and its analytical performance
characteristics have been determined by [employer]
[place]. It has
not been cleared or approved by the U.S. Food and Drug
Administration. This assay has been validated pursuant
to the CLIA regulations and is used for clinical
purposes.

Test Performed at:
[facility] [place]
[address] [facility] [place] [address]
Mono Naik M.D., Ph.D.,Director of Laboratories Performing Location
--- OUTSIDE RECORDS SUMMARY | 2024-12-10 00:50 | External Medical Summary ---
Author Name Unknown Address Unknown Organization K01:[facility]ATORY [facility] - [address] [place] [address] Laboratory Report Ordering Provider Test Date Status JESENIA BARRETO 10/22/2024 14:15:15 Final Observation Date Value Abnormality Reference (Units ) Status Vitamin B12 10/22/2024 14:15:15 226 [id number] (pg/mL) Final Performing Location LAB[facility]ATORY [facility] - [address] [place] [address]
--- OUTSIDE RECORDS SUMMARY | 2024-12-10 00:50 | External Medical Summary ---
Author Name Unknown Address Unknown Organization : Laboratory Report Ordering Provider Test Date Status JESENIA BARRETO 10/22/2024 14:15:15 Final Observation Date Value Abnormality Reference (Units ) Status Pyridoxal phosphate [Mass/volume] in Serum or Plasma 10/22/2024 14:15:15 31.4 Above high normal 2.1-21.7 (ng/mL) Final Vitamin supplementation with in 24 hours prior to
blood draw may affect the accuracy of the results.
This test was developed and its analytical performance
characteristics have been determined by [employer]
[place], [place]. It has
not been cleared or approved by the U.S. Food and Drug
Administration. This assay has been validated pursuant
to the CLIA regulations and is used for clinical
purposes.

Test Performed at:
[facility] [place]
[address] [facility]
[place] [address]
Mono Naik M.D., Ph.D.,Director of Laboratories Performing Location
--- OUTSIDE RECORDS SUMMARY | 2024-12-10 00:50 | External Medical Summary | Summary of Care ---
Author Name Unknown Organization [facility] Address [address] [facility] [address] Phone [phone] Care Team Providers Care Traffic Lieutenant Name Role Phone Alicia Woodruff MD Primary Care Provider + Reason for Visit * Reason Comments Outpatient Testing Encounter Details Date Type Department Care Team (Late st Contact Info) Description 10/22/2024 2:20 PM EST Laboratory Laboratory, [facility] [address] [place] [address] [facility] [address] [place] [address] [employer] Other*[id number]; Type 2 diabetes mellitus with hemoglobin A1c goal of less than 7.0% ([facility]); Hyperlipidemia with target LDL less than 100; HTN, goal below 140/90; Celiac disease Allergies Active Allergy Reactions Criticality Noted Date Comments Nicola Inhibitors 07/22/2009 cough Azithromycin 07/22/2009 Clarithromycin 07/22/2009 Propoxyphene N-Acetaminophen Nausea/vomiting 07/22/2009 Erythromycin Other (Please comment) 10/12/2010 colitis Nitrofurantoin Monohydrate Macrocrystals 08/05/2010 rash Penicillins 02/23/2004 RASH, SOB Statins 10/16/2018 High liver functions, myalgias Sulfa Antibiotics 02/23/2004 RASH, SOB documented as of this encounter (statuses as of 10/22/2024) Medications ASPIRIN EC 81 MG PO TBECIndications:H [...] as of this encounter (statuses as of 10/22/2024) Active Problems Problem Noted Date Diagnosed Date [...] as of this encounter (statuses as of 10/22/2024) Resolved Problems Problem Noted Date Diagnosed Date Resolved Date Morbid obesity with BMI of 40.0-44.9, adult 10/10/2019 08/01/2024 Overview (08/01/2024): historical Body mass index (BMI) of 40. 0 to 44.9 in adult 08/07/2017 10/17/2019 Overview: Per Obesity protocol #1 Nocturnal hypoxemia 11/14/2012 02/06/20 13 Overview (11/14/2012): 11/14/12 -- will consider oxygen therapy during sleep DME: [facility]EITIS 10/08/2009 02/09/2017 ADVANCE DIRECTIVE INFORMATION 01/30/2006 [...] as of this encounter (statuses as of 10/22/2024) Immunizations Name Administration Dates Next Due COVID-19 [...] PM EST Office Visit General Internal Medicine [facility] [address] [place] [address] Alicia Woodruff MD [address] [place], [place] [address] 11/28/2024 2:00 PM EST [facility] [place] [facility] [address] [facility] [place] [phone] [facility] [address] [facility] [place] [address] 12/03/2024 1:45 PM EST Office Visit Ophthalmology, [facility] [address] [facility] [place] [address] Roscoe Jiménez, DO [address] [place] [address] 01/06/2025 1:00 PM EST Office Visit Allergy/Immunology [facility] [address] [place] [address] Mariana Webb PA-C [address] [place] [address] Pending Results Name Type Priority Associated Diagnoses Date /Time MYCODE SUBSEQUENT ADULT Lab Routine [employer] Other*[id number] 10/22/2024 2:15 PM EST HEMOGLOBIN A1C Lab Routine Type 2 diabetes mellitus with hemoglobin A1c goal of less than 7.0% ([facility]) 10/22/2024 2:15 PM EST ALBUMIN / CREATININE RATIO, URINE Lab Routine Type 2 diabetes mellitus with hemoglobin A1c goal of less than 7.0% ([facility]) 10/22/2024 2:15 PM EST LDL CHOLESTEROL (DIRECT MEASURE) Lab Routine Hyperlipidemia with target LDL less than 100 10/22/2024 2:15 PM EST COMPREHENSIVE METABOLIC PANEL Lab Routine HTN, goal below 140/90 10/22/2024 2:15 PM EST 25-HYDROXY VITAMIN D Lab Routine Celiac disease 10/22/2024 2:15 PM EST CAROTENE Lab Routine Celiac disease 10/22/2024 2:15 PM EST CBC WITH WBC DIFFERENTIAL Lab Routine Celiac disease 10/22/2024 2:15 PM EST COPPER, SERUM OR PLASMA Lab Routine Celiac disease 10/22/2024 2:15 PM EST FERRITIN Lab Routine Celiac disease 10/22/2024 2:15 PM EST FOLIC ACID Lab Routine Celiac disease 10/22/2024 2:15 PM EST IRON SCREEN, INCLUDING TIBC Lab Routine Celiac disease 10/22/2024 2:15 PM EST MAGNESIUM Lab Routine Celiac disease 10/22/2024 2:15 PM EST PT INR Lab Routine Celiac disease 10/22/2024 2:15 PM EST TISSUE TRANSGLUTAMINASE IGA ANTIBODY Lab Routine Celiac disease 10/22/2024 2:15 PM EST VITAMIN A (RETINOL) Lab Routine Celiac disease 10/22/2024 2:15 PM EST VITAMIN B1 (THIAMINE), BLOOD, LC/MS/MS Lab Routine Celiac disease 10/22/2024 2:15 PM EST VITAMIN B12 Lab Routine Celiac disease 10/22/2024 2:15 PM EST VITAMIN B6, PLASMA Lab Routine Celiac disease 10/22/2024 2:15 PM EST VITAMIN E (TOCOPHEROL) Lab Routine Celiac disease 10/22/2024 2:15 PM EST ZINC Lab Routine Celiac disease 10/22/2024 2:15 PM EST MYCODE SST1 Lab Routine [employer] Other*[id number] 10/22/2024 2:15 PM EST MYCODE SST2 Lab Routine [employer] Other*[id number] 10/22/2024 2:15 PM EST CBC Lab Routine Celiac disease 10/22/2024 2:15 PM EST DIFFERENTIAL, AUTOMATED Lab Routine Celiac disease 10/22/2024 2:15 PM EST Health Maintenance Due Date Last Done Comments Zoster Vaccines (2 of 3) 05/22/2012 03/27/2012 Depression Screening 09/08/2021 09/08/2020 HbA1c 06/11/2024 12/12/2023, 06/07, 06/24/2022, Additional history exists Adult Wellness Visit 06/13/2024 06/13/2023 Diabetic Foot Exam 06/13/2024 06/13/2023, 1 11/08/2019, 06/25/2019, Additional history exists Albumin/Creatinine Ratio 07/03/2024 023, 09/08/2020, 11/30/2018, Additional history exists COVID-19 Vaccine ( season) 2024 03/21/2022, 01/04/2021, 11/30/2020 Influenza Vaccine (FLU shot) (#1) 2024 09/22/2023, 08/20/2021, 08/24/2020, Additional history exists GFR 12/12/2024 12/12/2023, 10/06, 03/16/2023, Additional history exists Diabetic Eye Exam 10/16/2025 10/16/2024, , 03/24/2023, Additional history exists DTap/Tdap Vaccines (3 - Td or Tdap) 09/08/2030 09/08/2020, 10/19/2009 Pneumococcal Vaccine: 65+ Years Completed 07/02/2015, 09/24/2013, 10/19/2009 HPV (Gardasil) [...] as of this encounter Visit Diagnoses Diagnosis [employer] Other*[id number] Type 2 diabetes mellitus with hemoglobin A1c goal of less than 7.0% (HCC) Hyperlipidemia with target LDL less than 100 Other and unspecified hyperlipidemia HTN, goal below 140/90 Unspecified essential hypertension Celiac disease documented in this encounter Care Teams Traffic Lieutenant Relationship Specialty Start Date End Date Alicia Woodruff MD [address] [facility] [place] [address] PCP - General 09/21/09 documented as of this encounter
--- OUTSIDE RECORDS SUMMARY | 2024-12-10 00:50 | External Medical Summary | Summary of Care ---
Author Name Unknown Organization [facility] Address [address] [place] [address] Phone [phone] Care Team Providers Care First Sampler Name Role Phone Alicia Woodruff MD Primary Care Provider + Reason for Visit * Reason Comments eRx-Medication Refill Encounter Details Date Type Department Care Team (Late st Contact Info) Description 10/21/2024 Refill General Internal Medicine [facility] [address] [facility] [place] [address] Alicia Woodruff MD [address] [place] [address] Hyperlipidemia with target LDL less than 100*; HTN, goal below 140/90; Wheezing Allergies Active Allergy Reactions Criticality Noted Date Comments Nicola Inhibitors 07/22/2009 cough Azithromycin 07/22/2009 Clarithromycin 07/22/2009 Propoxyphene N-Acetaminophen Nausea/vomiting 07/22/2009 Erythromycin Other (Please comment) 10/12/2010 colitis Nitrofurantoin Monohydrate Macrocrystals 08/05/2010 rash Penicillins 02/23/2004 RASH, SOB Statins 10/16/2018 High liver functions, myalgias Sulfa Antibiotics 02/23/2004 RASH, SOB documented as of this encounter (statuses as of 10/22/2024) Medications ASPIRIN EC 81 MG PO TBECIndications: [...] Box Dosing Unit 0 02/02/20 16 Active nitroglycerin (NITROSTAT) 0.4 MG SUBLIndications: HTN, goal to be determined 1 TABLET UNDER TONGUE NEEDED CHEST PAIN --MAY REPEAT 3 TIMES - IF NO RELIEF CALL 911 25 Tab 1 08/02/20 18 Active Zoster Vac Recomb Adjuvanted 50 MCG/0.5ML [...] goal of less than 7.0% ([facility]) INJECT 8 UNITS UNDER SKIN [...] FOR WHEEZING 54 g 10/22/20 24 Active Losartan Potassium 25 MG Oral Tablet (Cozaar)Indicati ons:HTN, goal below 140/90 TAKE ONE TABLET BY MOUTH TWICE a DAY FOR BLOOD PRESSURE- GENERIC COZAAR 180 Tablet 3 12/12/19 24 024 Discontinued Albuterol Sulfate HFA 108 (90 Base) MCG/ACT Inhalation Aerosol SolutionIndicati ons:Wheezing INHALE 2 PUFFS BY MOUTH EVERY 4 HOURS NEEDED FOR WHEEZE 54 g 1 06/08/20 24 024 Discontinued Furosemide 40 MG Oral Tablet (Lasix)Indicatio ns:HTN, goal below 140/90 TAKE ONE TABLET BY MOUTH EVERY DAY FOR FLUID 90 Tablet 1 07/02/20 24 024 Discontinued Hospital, Clinic, or Other Facility Administered [...] will consider oxygen therapy during sleep DME: [facility] 10/08/2009 02/09/2017 ADVANCE DIRECTIVE INFORMATION [...] encounter Miscellaneous Notes * Telephone Encounter - Jose Francisco ePres RPh - 10/22/2024 12:34 PM ESTSigned Prescriptions: Disp Refills Losartan Potassium 25 MG Oral Tablet (Coza*180 Ta*0 Sig: TAKE ONE TABLET BY MOUTH TWICE A DAY FOR BLOOD PRESSUREAuthorizing Provider: ALICIA WOODRUFF User: JOSE FRANCISCO PERES Furosemide 40 MG Oral Tablet (Lasix) 90 Tab*0 Sig: TAKE ONE TABLET BY MOUTH EVERYDAY FOR FLUIDAuthorizing Provider: ALICIA WOODRUFF User: JOSE FRANCISCO PERES Albuterol Sulfate HFA 108 (90 Base) MCG/AC*54 g 0 Sig: INHALE 2 PUFFS BY MOUTH EVERY 4 HOURS NEEDED FOR WHEEZINGAuthorizing Provider: ALICIA WOODRUFF User: JOSE FRANCISCO PERES * Telephone Encounter - Jose Francisco Peres RPh - 10/22/2024 12:33 PM EST RX authorized. Zero refills given. Patient will be due for labs. ThanksJose Francisco PharmD Clinical Pharmacist [facility] ([facility]) [phone] 10/22/2024, 12:33 PM documented in this encounter Plan of Treatment Upcoming Encounters Date Type Department Care Team (Late st Contact Info) Description 10/22/2024 2:00 PM EST Office Visit Gastroenterology, [facility] [address] [facility] [place] [address] [place] CRNP [address] [facility] [place] [address] 11/05/2024 1:00 PM EST [facility] [address] [place] [address] Alicia Woodruff MD [address] [place] [address] 11/28/2024 2:00 PM EST Office Visit Pharmacy, [facility] [address] [place] [phone] [facility] [address] [facility] [place] [address] 12/03/2024 1:45 PM EST Office Visit Ophthalmology, [facility] [address] [place] [address] Roscoe Jiménez DO [address] [place] [address] 01/06/2025 1:00 PM EST Office Visit Allergy/Immunology [facility] [address] [facility] [place], [place] [address] Mariana Webb PA-C [address] [facility] [place] [address] Scheduled Orders Name Type Priority Associated Diagnoses Orde r Schedule LDL CHOLESTEROL (DIRECT MEASURE) Lab Routine Hyperlipidemia with target LDL less than 100 Expected: 10/29/2024 (Approximate), Expires: 10/22/2025 COMPREHENSIVE METABOLIC PANEL Lab Routine HTN, goal below 140/90 Expected: 10/29/2024 (Approximate), Expires: 10/22/2025 Health Maintenance Due Date Last Done Comments [...] as of this encounter Visit Diagnoses Diagnosis Hyperlipidemia with target LDL less than 100- Primary Other and unspecified hyperlipidemia HTN, goal below 140/90 Unspecified essential hypertension Wheezing documented in this encounter Care Teams First Sampler Relationship Specialty Start Date End Date Alicia Woodruff MD [address] [place] [address] PCP - General 09/21/09 documented as of this encounter
--- OUTSIDE RECORDS SUMMARY | 2024-12-10 00:50 | External Medical Summary ---
Author Name Unknown Address Unknown Organization [id number]:LABORATORY [facility] - [address] [place] [address] Laboratory Report Ordering Provider Test Date Status JESENIA BARRETO 10/22/2024 14:15:15 Final Deficient: <20 ng/mL
Ins ufficient: 20-29 ng/mL
Recommended/Optimum:30-50 ng/mL

Vitamin D intoxication is rare. If suspicious of Vitamin D toxicity, evaluation of serum Calcium and PTH is recommended. Observation Date Value Abnormality Reference (Units ) Status 25-OH Vitamin D total 10/22/2024 14:15:15 40 >19 (ng/mL) Final Performing Location LABORATORY C - [address] [place] [address]
--- OUTSIDE RECORDS SUMMARY | 2024-12-10 00:50 | External Medical Summary ---
Author Name Unknown Address Unknown Organization [id number]:LABORATORY [place] [address] - [address] [place] [address] Laboratory Report Ordering Provider Test Date Status JOSE FRANCISCO,DURA 10/22/2024 14:15:15 Final Observation Date Value Abnormality Reference (Units ) Status BUN 10/22/2024 14:15:15 15 6-20 (mg/dL) Final Creatinine 10/22/2024 14:15:15 0.9 0.5-1.0 (mg/dL) Final Glomerular filtration rate/1.73 sq M.predicted [Volume Rate/Area] in Serum, Plasma or Blood by Creatinine-based formula (CKD-EPI) 10/22/2024 14:15:15 66 >=60 (mL/min) Final eGFR is calculated based on the CKD-EPI 2020 equation. Sodium 10/22/2024 14:15:15 143 135-146 (m mol/L) Final Potassium 10/22/2024 14:15:15 4.1 3.5-5.1 (m mol/L) Final Cl 10/22/2024 14:15:15 101 98-107 (mm ol/L) Final CO2 10/22/2024 14:15:15 31 22-32 (mmo l/L) Final Anion gap 10/22/2024 14:15:15 11 7-15 (mmol /L) Final Glucose 10/22/2024 14:15:15 141 Above high normal 70 -120 (mg/dL) Final Albumin 10/22/2024 14:15:15 4.1 3.8-5.0 (g /dL) Final AST (Aspartate aminotransferase) 10/22/2024 14:15:15 79 Above high normal 10-35 (U/L) Final Alk Phos 10/22/2024 14:15:15 283 Above high normal 35 -130 (U/L) Final Bilirubin, Total 10/22/2024 14:15:15 0.3 <=1 .2 (mg/dL) Final Calcium 10/22/2024 14:15:15 9.2 8.4-10.2 ( mg/dL) Final Protein 10/22/2024 14:15:15 6.6 6.0-8.3 (g /dL) Final ALT (Alanine aminotransferase) 10/22/2024 14:15:15 49 Above high normal 10-35 (U/L) Final Performing Location [facility] - [address] [place] [address]
--- OUTSIDE RECORDS SUMMARY | 2024-12-10 00:50 | External Medical Summary ---
Author Name Unknown Address Unknown Organization [id number]:LABORATORY [facility] [address] - [address] [place] [address] Laboratory Report Ordering Provider Test Date Status JESENIA BARRETO 10/22/2024 14:15:15 Final Observation Date Value Abnormality Reference (Units ) Status WBC, Total 10/22/2024 14:15:15 7.66 4.00-10.8 0 (K/uL) Final RBC 10/22/2024 14:15:15 4.52 3.85-5.15 (M/uL) Final Hemoglobin 10/22/2024 14:15:15 13.7 12.0-15.3 (g/dL) Final HCT 10/22/2024 14:15:15 42.7 36.0-45.2 (%) Final MCV 10/22/2024 14:15:15 94.5 81.5-97.5 (fL) Final MCH 10/22/2024 14:15:15 30.3 27.0-34.0 (pg) Final MCHC 10/22/2024 14:15:15 32.1 32.0-36.0 (g/dL) Final RDW 10/22/2024 14:15:15 14.4 11.5-15.5 (%) Final Platelets 10/22/2024 14:15:15 242 140-400 (K /uL) Final MPV 10/22/2024 14:15:15 10.8 6.6-11.1 ( fL) Final Performing Location LABORATORY [facility] [address] 0 - [address] [place] [address]
--- OUTSIDE RECORDS SUMMARY | 2024-12-10 00:50 | External Medical Summary ---
Author Name Unknown Address Unknown Organization : Laboratory Report Ordering Provider Test Date Status JESENIA BARRETO 10/22/2024 14:15:15 Final Observation Date Value Abnormality Reference (Units ) Status Thiamine [Moles/volume] in Blood 10/22/2024 14:15:15 173 78-185 (nmol/L) Final Vitamin supplementation with in 24 hours prior to
blood draw may affect the accuracy of the results.
This test was developed and its analytical performance
characteristics have been determined by [employer]
[place], [place]. It has
not been cleared or approved by the U.S. Food and Drug
Administration. This assay has been validated pursuant
to the CLIA regulations and is used for clinical
purposes.

Test Performed at:
[facility]
[address] [facility]
[place] [address]
Mono Naik M.D., Ph.D.,Director of Laboratories Performing Location
--- OUTSIDE RECORDS SUMMARY | 2024-12-10 00:50 | External Medical Summary ---
Author Name Unknown Address Unknown Organization K01:[facility] [address] [facility] [address] Laboratory Report Ordering Provider Test Date Status JESENIA BARRETO 10/22/2024 14:15:15 Final Observation Date Value Abnormality Reference (Units ) Status Tissue transglutaminase IgA Ab [Presence] in Serum by Immunoassay 10/22/2024 14:15:15 Negative Negative Final Tissue transglutaminase IgA Ab [Units/volume] in Serum by Immunoassay 10/22/2024 14:15:15 0.4 <7 (U/mL) Final Performing Location [facility] [address] [facility] [address]
--- OUTSIDE RECORDS SUMMARY | 2024-12-10 00:50 | External Medical Summary ---
Author Name Unknown Address Unknown Organization K01:[facility] [place] [address] [place] [address] Laboratory Report Ordering Provider Test Date Status JOSE FRANCISCO,DURA 10/22/2024 14:15:15 Final Normal: <30 mg/g creatinine< br/>High: 30-300 mg/g creatinine
Very High: >300 mg/g creatinine
Nephrotic: >2200 mg/g creatinine Observation Date Value Abnormality Reference (Units ) Status Albumin, Urine 10/22/2024 14:15:15 5.00 (mg/dL) Final Creatinine, Urine 10/22/2024 14:15:15 124 (mg/dL) Final Albumin/Creatinine [Mass Ratio] in Urine 10/22/2024 14:15:15 40 Above high normal <30 (mg/g Creat) Final Performing Location [facility] [place] [address] [place] [address]
--- OUTSIDE RECORDS SUMMARY | 2024-12-10 00:50 | External Medical Summary ---
Author Name Unknown Address Unknown Organization K01:[facility] [place] [address] [facility] [address] [facility] [address] [facility] [address] Laboratory Report Ordering Provider Test Date Status JESENIA BARRETO 10/22/2024 14:15:15 Final Observation Date Value Abnormality Reference (Units ) Status Ferritin 10/22/2024 14:15:15 64 13-150 (ng /mL) Final Postmenopausal women have hi gher ferritin levels than pre-menopausal women. The above reference interval is based on pre-menopausal women. Performing Location LABORATORY [facility] - [address] [facility] [address]
--- OUTSIDE RECORDS SUMMARY | 2024-12-10 00:50 | External Medical Summary ---
Author Name Unknown Address Unknown Organization K0G:LABORATORY [place] [address] - [address] [place] [address] Laboratory Report Ordering Provider Test Date Status JESENIA BARRETO 10/22/2024 14:15:15 Final Observation Date Value Abnormality Reference (Units ) Status SYNC LEUKOCYTES IN BLOOD BY AUTOMATED COUNT 10/22/2024 14:15:15 7.66 4.00-10.80 (K/uL) Final Segs 10/22/2024 14:15:15 61.8 40.0-75.0 (%) Final Lymphs % 10/22/2024 14:15:15 28.7 18.0-42.0 (%) Final Monos 10/22/2024 14:15:15 6.3 1.0-11.0 (%) Final Eosinophils 10/22/2024 14:15:15 2.9 0.0-6.0 (%) Final Basos 10/22/2024 14:15:15 0.3 0.0-2.0 (%) Final Absolute Segs 10/22/2024 14:15:15 4.74 1.80-7.70 (K/uL) Final Lymphs, absolute 10/22/2024 14:15:15 2.20 1.00-4.80 (K/ul) Final Monos, Abs 10/22/2024 14:15:15 0.48 0.00-1.10 (K/uL) Final Eos, Abs 10/22/2024 14:15:15 0.22 0.00-0.70 (K/uL) Final Basos, Abs 10/22/2024 14:15:15 0.02 0.00-0.20 (K/uL) Final Performing Location [facility] - [address] [place] [address]
--- OUTSIDE RECORDS SUMMARY | 2024-12-10 00:50 | External Medical Summary ---
Author Name Unknown Address Unknown Organization K01:[facility]ATORY [facility] [place] - [address] [facility] [address] Laboratory Report Ordering Provider Test Date Status JOSE FRANCISCO,DURA 10/22/2024 14:15:15 Final Observation Date Value Abnormality Reference (Units ) Status HbA1C 10/22/2024 14:15:15 7.6 Above high normal 4. 0-5.6 (%) Final The use of HbA1c to monitor glycemic status is based on normal hemoglobin and HbA composition. This test should not be used in patients with abnormal hemoglobin that affects the half life of the red blood cell or the in vivo glycation rates. Glucose, estimated average 10/22/2024 14:15:15 171 Above high normal <126 (mg/dL) Jamir garcia Performing Location LABORATORY [facility] [place] - [address] [facility] [address]
--- OUTSIDE RECORDS SUMMARY | 2024-12-10 00:50 | External Medical Summary ---
Author Name Unknown Address Unknown Organization K01:LABORATORY [facility] [place] - [address] [place] [address] Laboratory Report Ordering Provider Test Date Status JOSE FRANCISCO,DURA 10/22/2024 14:15:15 Final Observation Date Value Abnormality Reference (Units ) Status LDL, (direct) 10/22/2024 14:15:15 72 <=129 (mg/dL) Final LDL Cholesterol Reference Ra nges (mg/dL):
<70 Target level for high risk ASCVD patient
<100 Optimal for general population
100-129 Near optimal for general population
130-159 Borderline high
160-189 High
>=190 Very high Performing Location LAB[facility]ORY [facility] - [address] [place] [address]
--- OUTSIDE RECORDS SUMMARY | 2024-12-10 00:50 | External Medical Summary | Summary of Care ---
Author Name Unknown Organization [facility] Address [address] [place] [address] Phone [phone] Care Team Providers Care Postal Support Employee Name Role Phone Alicia Woodruff MD Primary Care Provider + Reason for Visit * Reason Comments GERD Pt reports that she has been symptom free Encounter Details Date Type Department Care Team (Late st Contact Info) Description 10/22/2024 2:00 PM EST Office Visit Gastroenterology, [facility] [address] [place] [address] Yamila Mills CRNP [address] [place] [phone] Celiac disease*; Gastroesophageal reflux disease without esophagitis; Chronic diarrhea Allergies Active Allergy Reactions Criticality Noted Date [...] Sign Reading Time Taken Comments Blood Pressure 176/72 10/22/2024 1:51 PM EST Pulse 67 10/22/2024 1:51 PM EST Temperature 36.5 C (97.7 F) 10/22/2024 1:51 PM ES T Respiratory Rate - - Oxygen Saturation - - Inhaled Oxygen Concentration - - Weight 84.1 kg (185 lb 4.8 oz) 10/22/2024 1:51 P M EST Height - - Body Mass Index 37.43 07/09/2024 10:03 AM EDT documented in this encounter Progress Notes * Yamila Mills CRNP - 10/22/2024 1:50 PM EST DATE OF SERVICE: 10/22/2024 REFERRING PHYSICIAN: Alicia Woodruff MD CC: F/U HPI: Halima Nicholson is a 79 year old female w hx of gallstone pancreatitis, GERD, seronegative sprue currently here for follow up. She has been gluten free except on occasions where there maybe cross contamination without her knowledge. She reports that her loose stools are much improved. Able to get down to Lomotil 2 tablets daily. For the most part stools are firm on sometimes may get constip ated. No rectal bleeding, nausea or vomiting. She is also doing quite well from GERD standpoint. Denies any increased acid reflux or heartburn symptoms although mild dysphagia persists. She is currently taking omeprazole 40 mg daily. Has had EGD with dilation, done in 2019 but reports she does not this procedure at this time. Past Medical History: Diagnosis Date ACEI/ARB contraindicated Asthma, moderate persistent 10/12/2010 Celiac disease 09/02/2009 Chronic rhinitis Convulsions (HCC) remote Hx of Dermatitis Diabetes (HCC) HTN, goal below 140/90 Hyperlipidemia LDL goal < 100 INFORMATION increased eye pressure bilaterally Migraine Mitral valve prolapse Osteoporosis Other specified disease of pancreas gall stone Sleep apnea UVEITIS 10/08/2009 Family History Problem Relation Name Age of Onset Hypertension Mother Cancer Mother renal cell cancer Eye Problems Mother Glaucoma Asthma Father Heart Disorder Father Eye Problems Father AMD/Blind Asthma Sister Hypertension Sister Asthma Grandmother (Maternal) Eye Problems Aunt (Unspecified) Retinal Detachment Eye Problems Uncle (Unspecified) AMD Breast Cancer Aunt (Maternal) Past Surgical History: Procedure Laterality Date BREAST BIOPSY Left 2002 benign CATARACT SURGERY,COMPLEX Bilateral 2009 Dr. Bunch COLONOSCOPY THRU STOMA, W/BIOPSY 06/29/2009 COLONOSCOPY, DIAGNOSTIC (RECTUM) 08/02/2011 await BX COLONOSCOPY, DIAGNOSTIC (RECTUM) 07/31/2012 COLONOSCOPY FLEXIBLE PROXIMAL DIAGNOSTIC performed by Kirti Mota MD at ENDOSCOPY [facility]: normal COLONOSCOPY, DIAGNOSTIC (RECTUM) 07/16/2018 mild inflammation on bx, diverticulosis/COLONOSCOPY FLEXIBLE PROXIMAL DIAGNOSTIC performed by Kirti Mota MD at ENDOSCOPY [facility] EGD, FLEXIBLE, DIAGNOSTIC 07/31/2012 UPPER GI ENDOSCOPY DIAGNOSTIC performed by Kirti Mota MD at ENDOSCOPY [facility]: normal EGD, FLEXIBLE, DIAGNOSTIC 07/16/2018 normal bx, hiatal hernia/ESOPHAGOGASTRODUODENOSCOPY (EGD), FLEXIBLE, TRANSORAL, DIAGNOSTIC performed by Kirti Mota MD at ENDOSCOPY [facility] EGD, FLEXIBLE, DIAGNOSTIC 02/25/2019 tortuous esophagus/mild antral gastritis/mild villous flattening duodenal bulb/biopsies normal/ESOPHAGOGASTRODUODENOSCOPY (EGD), FLEXIBLE, TRANSORAL, DIAGNOSTIC performed by Tulio Freeman ENDOSCOPY [facility] EGD, FLEXIBLE, W/BIOPSY 06/29/2009 EGD, FLEXIBLE, W/BIOPSY 08/02/2011 await BX EGD, FLEXIBLE, W/BIOPSY 09/26/2011 mild schatzki ring, gastric mucosal abnormality characterized by erythema single duodenal polyp bxslook great --celieac disease is improved EGD, W/ENDOSCOPIC US 11/18/2010 4x3 cystic lesion FLUORO ERCP 07/06/2009 with stent placement FLUORO ERCP 07/09/2009 with stent removal INJECTION OF EYE DRUG Right 04/06/2023 # 1 Avastin OD, Dr. Jiménez INJECTION OF EYE DRUG Right 05/22/2023 # 2 Avastin OD, Dr. Jiménez INJECTION OF EYE DRUG Right 07/05/2023 # 3 Avastin OD, Dr. Jiménez INJECTION OF EYE DRUG Right 08/07/2023 # 4 Avastin OD, Dr. Jiménez INJECTION OF EYE DRUG Right 09/15/2023 #1 Eylea OD; Dr jiménez INJECTION OF EYE DRUG Right 10/17/2023 #5 Avastin OD; Dr Jiménez INJECTION OF EYE DRUG Right 11/27/2023 # 2 Eylea OD, Dr. Jiménez INJECTION OF EYE DRUG Right 01/03/2024 #3 Eylea OD; DR Jiménez INJECTION OF EYE DRUG Right 02/19/2024 # 4 Eylea OD, Dr. Jiménez INJECTION OF EYE DRUG Right 04/16/2024 # 1 Vabysmo OD, Dr. Jiménez INJECTION OF EYE DRUG Right 05/29/2024 # [address] Jiménez INJECTION OF EYE DRUG Right 07/23/2024 #[address] Jiménez INJECTION OF EYE DRUG Right 09/18/2024 # 4 Vabysmo OD, Dr. Jiménez INJECTION OF EYE DRUG Right 10/16/2024 # 5 Vabysmo OD, Dr. Jiménez MISCELLANEOUS ORDER ([facility] ONLY) 07/09/2009 Laparoscopic cholecystectomy, cholangiogram.True cut liver biopsy right lobe Dr. Quach [facility] 07/09/09 OPHTHALMOLOGY CONSULT IP 09/2009 Iritis Uveitis OTHER (INFORMATION) ACT [address] Jiménez (04-06-23) OTHER (INFORMATION) Right AVASTIN OD CONSENT SIGNED Dr. Jiménez/Kavita (exp 04-06-24) OTHER (INFORMATION) CONSENT EYLEA OU EXP 09/15/24; DR JIMÉNEZ/KAVITA OTHER (INFORMATION) Bilateral VABYSMO OU CONSENT DR. GOMES EXP. 04/16/25 REMOVAL OF TONSILS, UNDER AGE 12 Tonsillectomy,<12 Y/O REMOVE CATARACT, INSERT LENS PROSTH 09/2010 bilateral done 2 weeks apart REMOVE GALLBLADDER 07/10/2009 lap SIGMOIDOSCOPY/BIOPSY 02/24/2010 TOTAL ABD HYSTERECTOMY W/WO REMOVAL OF TUBE(S) 1981 endometriosis US ENDOSCOPIC 10/07/09 done egd normal/ eus normal VIDEO CAPSULE ENDOSCOPY 12/15/2009 no evidence of inflammation, swelling, or damage to small intestine Social History Tobacco Use Smoking status: Never Smokeless tobacco: Never Tobacco comments: no passive smoke exposures Vaping Use Vaping status: Never Used Substance Use Topics Alcohol use: No Drug use: No Review of patient's allergies indicates: Allergen Reactions Nicola Inhibitors cough Azithromycin Clarithromycin Darvocet [Propoxyphene N-Acetaminophen] Nausea/vomiting Erythromycin Other (Please comment) colitis Macrobid [Nitrofurantoin Monohydrate Macrocrystals] rash Penicillins RASH, SOB Statins High liver functions, myalgias Sulfa Antibiotics RASH, SOB Current Outpatient Medications Medication Sig Dispense Refill ASPIRIN EC 81 MG PO TBEC Take one pill daily 30 3 VITAMIN C 500 MG PO CAPS one pill each day NEBULIZER COMPRESSOR MISC Use as directed 1 Each 1 ONETOUCH ULTRASOFT LANCETS MISC one touch delica lancets/testing four times daily/250.00 1 Box 5 CALCIUM-VITAMIN D 600-400 MG-UNIT PO TABS 1 tablet daily albuterol sulfate (PROVENTIL) (2.5 MG/3ML) 0.083% nebulizer solution Inhale 1 Vial via nebulizer every 4 hours as needed for Wheezing. 1 Box Dosing Unit 0 nitroglycerin (NITROSTAT) 0.4 MG SUBL 1 TABLET UNDER TONGUE NEEDED CHEST PAIN --MAY REPEAT 3 TIMES - IF NO RELIEF CALL 911 25 Tab 1 Zoster Vac Recomb Adjuvanted 50 MCG/0.5ML Intramuscular Suspension Reconstituted (Shingrix) Inject 0.5 mL into a large muscle now and repeat dose in 60 to 180 days 1 Each 1 Multivitamin Women 50+ Oral Tablet Take by [...] MORNING AND AT BEDTIME 60 Tablet 1 Insulin Glargine Solostar 100 UNIT/ML Subcutaneous Solution [...] HOURS NEEDED FOR WHEEZING 54 g 0 BD Pen Needle Mini U/F 31G X 5 MM (Insulin Pen Needle) USE FOUR TIMES A DAY 400 Each 3 Current Facility-Administered Medications Medication Dose Route Frequency Provider Last Rate Last Admin ROPivacaine (Naropin) inj 1.5 mg 1.5 mg Injection PRN 1.5 mg at 10/16/24 1425 Faricimab-svoa (Vabysmo) prefilled syringe inj 6 mg 6 mg Intravitreal PRN 6 mg at 10/16/24 1425 REVIEW OF SYSTEMS: See HPI above; All other findings negative. EXAM: Filed Vitals: 10/22/24 1351 BP: 176/72 Pulse: 67 Temp: 36.5 C (97.7 F) Weight: 84.1 kg (185 lb 4.8 oz) GENERAL: Well developed and well nourished in no acute distress. SKIN: No rashes, ulcers, jaundice or spider angiomata. HEENT: Normocephalic, sclera clear. NECK: Supple, trachea midline, no JVD. LUNGS: Clear to auscultation bilaterally, no respiratory distress or accessory muscles used. HEART: Regular rate & rhythm, no murmurs and no gallops. ABDOMEN: Normal bowel sounds, soft and nontender. EXTREMITIES: No palmar erythema, no ankle edema, no skin discoloration, no clubbing, no cyanosis. NEURO: No lateralizing findings. Sensory/Motor grossly normal. ASSESSMENT AND PLAN: Halima Nicholson is a 79 year old female w history of biliary pancreatitis, GERD, seronegative sprue. Currently clinically doing quite well. We discussed medication adjustments such as reducing her Lomotil in omeprazole doses however she would like to stay on this medication at the same dose for now since her symptoms are quite well managed. We did discuss possible adverse effects, risks versus benefits of long-term medication uses. - Stay on gluten free diet - Omeprazole 40mg daily - GERD diet and lifestyle modifications - Lomotil 1 tab bid prn diarrhea - Labs: 25-hydroxy vitamin d Carotene Cbc with wbc differential Copper, serum or plasma Ferritin Folic acid Iron screen, including tibc Magnesium Pt inr Vitamin a (retinol) Vitamin b1 (thiamine), blood, lc/ms/ms Vitamin b12 Vitamin b6, plasma Vitamin e (tocopherol) Zinc Bilirubin, direct I spent a total of 30 minutes on the date of service in review of patient's record, and previously obtained information in person and appropriate medical visit, discussion and education of plan, withpatient and/or caregiver, placing orders for tests/referral/procedures as medically necessary and documentation of pertinent clinical information in patient's medical records for their visit today. RETURN TO CLINIC: 1 year or sooner [facility] Gastroenterology, [facility] LSV[facility] R: 10/22/2024 documented in this encounter Nursing Notes * Lashaun Guthrie LPN - 10/22/2024 1:51 PM EST Chief Complaint Patient presents with GERD Pt reports that she has been symptom free documented in this encounter Plan of Treatment Upcoming Encounters Date Type Department Care Team (Late st Contact Info) Description 11/05/2024 1:00 PM EST Office Visit General Internal Medicine State [facility] [address] [place] [address] Alicia Woodruff MD [address] [facility] [place] [address] 11/28/2024 2:00 PM EST [facility] [place] [phone] Noelle [facility] [address] [facility] [place] [address] 12/03/2024 1:45 PM EST Office Visit Ophthalmology, [facility] [address] [place] [address] Roscoe Jiménez, [address] [place] [address] 01/06/2025 1:00 PM EST Office Visit Allergy/Immunology [facility] [place] [place] [address] [facility] [place] [address] Mariana Webb PA-C [address] [facility] [place] [address] Pending Results Name Type Priority Associated Diagnoses Date /Time 25-HYDROXY VITAMIN D Lab Routine Celiac disease [...] Routine Celiac disease 10/22/2024 2:15 PM EST BILIRUBIN, DIRECT Lab Routine Celiac disease 10/22/2024 2:15 PM EST Scheduled Orders Name Type Priority Associated Diagnoses Orde r Schedule 25-HYDROXY VITAMIN D Lab Routine Celiac disease Expected: 10/22/2024, Expires: 10/22/2025 CAROTENE Lab Routine Celiac disease Expected: 10/22/2024, Expires: 10/22/2025 CBC WITH WBC DIFFERENTIAL Lab Routine Celiac disease Expected: 10/22/2024, Expires: 10/22/2025 COPPER, SERUM OR PLASMA Lab Routine Celiac disease Expected: 10/22/2024, Expires: 10/22/2025 FERRITIN Lab Routine Celiac disease Expected: 10/22/2024, Expires: 10/22/2025 FOLIC ACID Lab Routine Celiac disease Expected: 10/22/2024, Expires: 10/22/2025 IRON SCREEN, INCLUDING TIBC Lab Routine Celiac disease Expected: 10/22/2024, Expires: 10/22/2025 MAGNESIUM Lab Routine Celiac disease Expected: 10/22/2024, Expires: 10/22/2025 PT INR Lab Routine Celiac disease Expected: 10/22/2024, Expires: 10/22/2025 VITAMIN A (RETINOL) Lab Routine Celiac disease Expected: 10/22/2024, Expires: 10/22/2025 VITAMIN B1 (THIAMINE), BLOOD, LC/MS/MS Lab Routine Celiac disease Expected: 10/22/2024, Expires: 10/22/2025 VITAMIN B12 Lab Routine Celiac disease Expected: 10/22/2024, Expires: 10/22/2025 VITAMIN B6, PLASMA Lab Routine Celiac disease Expected: 10/22/2024, Expires: 10/22/2025 VITAMIN E (TOCOPHEROL) Lab Routine Celiac disease Expected: 10/22/2024, Expires: 10/22/2025 ZINC Lab Routine Celiac disease Expected: 10/22/2024, Expires: 10/22/2025 Health Maintenance Due Date Last Done Comments Zoster Vaccines (2 of 3) 05/22/2012 03/27/2012 Depression Screening 09/08/2021 09/08/2020 HbA1c 06/11/2024 12/12/2023, 06/07, 06/24/2022, Additional history exists Adult Wellness Visit 06/13/2024 06/13/2023 Diabetic Foot Exam 06/13/2024 06/13/2023, 1 11/08/2019, 06/25/2019, Additional history exists Albumin/Creatinine Ratio 07/03/20242 023, 09/08/2020, 11/30/2018, Additional history exists COVID-19 [...] of this encounter Visit Diagnoses Diagnosis Celiac disease- Primary Gastroesophageal reflux disease without esophagitis Esophageal reflux Chronic diarrhea Diarrhea documented in this encounter Care Teams Postal Support Employee Relationship Specialty Start Date End Date Alicia Woodruff MD [address] [place] [address] PCP - General 09/21/09 documented as of this encounter
--- OUTSIDE RECORDS SUMMARY | 2024-12-10 00:50 | External Medical Summary ---
Author Name Unknown Address Unknown Organization K01:LAB[facility]ATORY [facility] [place] - [address] [place] [address] Laboratory Report Ordering Provider Test Date Status SHEILA DAVILA 10/22/2024 14:15:15 Final Observation Date Value Abnormality Reference (Units ) Status MYCODE SPECIMEN-SST 10/22/2024 14:15:15 Freezing of extracted DNA, whole blood and/or serum. Final Performing Location LABORATORY C - [address] [place] [address]
--- OUTSIDE RECORDS SUMMARY | 2024-12-10 00:50 | External Medical Summary ---
Author Name Unknown Address Unknown Organization : Laboratory Report Ordering Provider Test Date Status JESENIA BARRETO 10/22/2024 14:15:15 Final Observation Date Value Abnormality Reference (Units ) Status Vitamin E, level 10/22/2024 14:15:15 18.3 5.7 -19.9 (mg/L) Final Levels of alpha-tocopherol < 5 mg/L are consistent
with Vitamin E deficiency in adults. Beta+gamma tocopherol [Mass/ volume] in Serum or Plasma 10/22/2024 14:15:15 <1.0 <=4.3 Final Vitamin supplementation with in 24 hours prior to
blood draw may affect the accuracy of the results.
This test was developed and its analytical performance
characteristics have been determined by [employer]
[facility] [place]. It has
not been cleared or approved by the U.S. Food and Drug
Administration. This assay has been validated pursuant
to the CLIA regulations and is used for clinical
purposes.

Test Performed at:
[facility]
[address]
[place], [place] [address]
Mono Naik M.D., Ph.D.,Director of Laboratories Performing Location
--- OUTSIDE RECORDS SUMMARY | 2024-12-10 00:50 | External Medical Summary ---
Author Name Unknown Address Unknown Organization : Laboratory Report Ordering Provider Test Date Status JESENIA BARRETO 10/22/2024 14:15:15 Final Observation Date Value Abnormality Reference (Units ) Status Copper 10/22/2024 14:15:15 86 70-175 (mc g/dL) Final This test was developed and its analytical performance
characteristics have been determined by [employer] [place], [place]. It has
not been cleared or approved by the U.S. Food and Drug
Administration. This assay has been validated pursuant
to the CLIA regulations and is used for clinical
purposes.

Test Performed at:
[facility]
[address] [facility]
[place] [address]
Mono Naik M.D., Ph.D.,Director of Laboratories Performing Location
--- OUTSIDE RECORDS SUMMARY | 2024-12-10 00:50 | External Medical Summary ---
Author Name Unknown Address Unknown Organization K01:LABORATORY [facility] [place] - [address] [place] [address] Laboratory Report Ordering Provider Test Date Status JESENIA BARRETO 10/22/2024 14:15:15 Final Observation Date Value Abnormality Reference (Units ) Status Iron 10/22/2024 14:15:15 85 33-151 (ug /dL) Final Iron-binding capacity 10/22/2024 14:15:15 366 250-425 (ug/dL) Final Transferrin Sat % 10/22/2024 14:15:15 23 15 -55 (%) Final Performing Location LABORATORY [facility] [place] - [address] [place] [address]
--- OUTSIDE RECORDS SUMMARY | 2024-12-10 00:50 | External Medical Summary ---
Author Name Unknown Address Unknown Organization : Laboratory Report Ordering Provider Test Date Status JESENIA BARRETO 10/22/2024 14:15:15 Final Observation Date Value Abnormality Reference (Units ) Status Vitamin A, level 10/22/2024 14:15:15 58 38- 98 (mcg/dL) Final Vitamin supplementation with in 24 hours prior to
blood draw may affect the accuracy of the results.
This test was developed and its analytical performance
characteristics have been determined by [employer]
[facility] [employer] [place], [place]. It has
not been cleared or approved by the U.S. Food and Drug
Administration. This assay has been validated pursuant
to the CLIA regulations and is used for clinical
purposes.

Test Performed at:
[facility]
[address]
[place] [address]
Mono Naik M.D., Ph.D.,Director of Laboratories Performing Location
--- OUTSIDE RECORDS SUMMARY | 2024-12-10 00:50 | External Medical Summary ---
Author Name Unknown Address Unknown Organization : Laboratory Report Ordering Provider Test Date Status JESENIA BARRETO 10/22/2024 14:15:15 Final Observation Date Value Abnormality Reference (Units ) Status Carotene 10/22/2024 14:15:15 15 6-77 (mcg/ dL) Final Vitamin supplementation with in 24 hours prior to
blood draw may affect the accuracy of the results.
This test was developed and its analytical performance
characteristics have been determined by [employer]
[facility] [place], [place]. It has
not been cleared or approved by the U.S. Food and Drug
Administration. This assay has been validated pursuant
to the CLIA regulations and is used for clinical
purposes.

Test Performed at:
[facility]
[address] [facility] [facility]
[place] [address]
Mono Naik M.D., Ph.D.,Director of Laboratories Performing Location
--- OUTSIDE RECORDS SUMMARY | 2024-12-10 00:50 | External Medical Summary ---
Author Name Unknown Address Unknown Organization K01:LABORATORY [facility] [place] - [address] [place] [address] Laboratory Report Ordering Provider Test Date Status SHEILA DAVILA 10/22/2024 14:15:15 Final Observation Date Value Abnormality Reference (Units ) Status MYCODE SPECIMEN-SST 10/22/2024 14:15:15 Freezing of extracted DNA, whole blood and/or serum. Final Performing Location LABORATORY C - [address] [facility] [address]
--- OUTSIDE RECORDS SUMMARY | 2024-12-10 00:50 | External Medical Summary ---
Author Name Unknown Address Unknown Organization K01:LABORATORY [facility] [place] [place] - [address] [place] [address] Laboratory Report Ordering Provider Test Date Status JESENIA BARRETO 10/22/2024 14:15:15 Final Observation Date Value Abnormality Reference (Units ) Status Folic Acid 10/22/2024 14:15:15 >20.0 >4.5 (ng/ mL) Final Performing Location LAB[facility]ATORY [facility] - [address] [facility] [address]
--- OUTSIDE RECORDS SUMMARY | 2024-12-10 00:50 | External Medical Summary | Summary of Care ---
Author Name Unknown Organization [facility] Address [address] [place] [address] Phone [phone] Care Team Providers Care Deli Cutter Slicer Name Role Phone Alicia Woodruff MD Primary Care Provider + Reason for Visit * Reason Onset Date Comments Information 10/28/2024 Encounter Details Date Type Department Care Team ([facility] st Contact Info) Description 10/28/2024 Telephone Centralized Clinical Pharmacy Services, Liudmila Walters [address] [place] [address] [place] [address] [facility] [address] [place], [place] [phone] Information Allergies Active Allergy Reactions Criticality Noted Date Comments Nicola Inhibitors 07/22/2009 cough Azithromycin 07/22/2009 Clarithromycin 07/22/2009 Propoxyphene N-Acetaminophen Nausea/vomiting 07/22/2009 Erythromycin Other (Please comment) 10/12/2010 colitis Nitrofurantoin Monohydrate Macrocrystals 08/05/2010 rash Penicillins 02/23/2004 RASH, SOB Statins 10/16/2018 High liver functions, myalgias Sulfa Antibiotics 02/23/2004 RASH, SOB documented as of this encounter (statuses as of 10/29/2024) Medications ASPIRIN EC 81 MG PO TBECIndications:H TN, goal below 140/90 Take one pill daily 30 3 12/14/200 9 Active VITAMIN C 500 MG PO [...] as of this encounter (statuses as of 10/29/2024) Active Problems Problem Noted Date Diagnosed Date [...] as of this encounter (statuses as of 10/29/2024) Resolved Problems Problem Noted Date Diagnosed Date [...] as of this encounter (statuses as of 10/29/2024) Immunizations Name Administration Dates Next Due COVID-19 [...] encounter Miscellaneous Notes * Telephone Encounter - Noreen Snyder RPh - 10/29/2024 12:58 PM EST Faxed most recent MTM and PCP note to [facility] with successful confirmation of fax. Noreen Snyder, Cyndy, BCACP Clinical Pharmacist Medication Therapy Disease Management 10/29/2024, 12:58 PM * Telephone Encounter - Dahlia Love RPh - 10/28/2024 1:19 PM EST Message sent via [employer] to follow up on what additional information is needed in regards to CGM order. Dahlia Love RPh, PharmD Clinical Pharmacist - Card Services Specialist Medication Therapy Disease Management [facility] 10/28/2024, 1:20 PM Ph.[phone] * Telephone Encounter - Debra Montgomery CPhT - 10/28/2024 12:42 PM EST Caller's name: Halima Preferred call back number(OFFICE NUMBER FOR ): [phone] Reason for call: Patient stating that [facility] needs more information from the PCP or DM RPh in order to get refills on her diabetic testing supplies. Thank you, Debra Montgomery CPhT [facility] ([facility]) 10/28/2024,12:42 PM documented in this encounter Plan of Treatment Upcoming Encounters Date Type Department Care Team (Late st Contact Info) Description 11/05/2024 1:00 PM EST Office Visit General Internal Medicine State [facility] Garay [address] [place] [address] Alicia Woodruff MD [address] [place] [address] [address] 11/28/2024 2:00 PM EST [facility] [address] [place] [phone] [address] [address] 12/03/2024 1:45 PM EST Office Visit Ophthalmology, [facility] [address] [facility] [place] [address] Roscoe Jiménez DO [address] [facility] [place] [address] 01/06/2025 1:00 PM EST Office Visit Allergy/Immunology [place] [address] [place] [address] [address] Mariana Webb PA-C [address] [place] [address] Health Maintenance Due Date Last Done Comments [...] filedocumented as of this encounter Care Teams Deli Cutter Slicer Relationship Specialty Start Date End Date Alicia Woodruff MD [address] [place] [address] PCP - General 09/21/09 documented as of this encounter
--- OUTSIDE RECORDS SUMMARY | 2024-12-10 00:51 | External Medical Summary | Summary of Care ---
Author Name Unknown Organization [facility] Address [address] [place] [address] Phone [phone] Care Team Providers Care Data Processing Mechanic Name Role Phone Alicia Woodruff MD Primary Care Provider + Encounter Details Date Type Department Care Team (Latest Contact Info) Description 10/16/2024 Medication Management [facility] [address] [place] [address] [facility] [address] [place] [address] Referred for management of medication therapy* Allergies Active Allergy Reactions Criticality Noted Date Comments Nicola Inhibitors 07/22/2009 cough Azithromycin 07/22/2009 Clarithromycin 07/22/2009 Propoxyphene N-Acetaminophen Nausea/vomiting 07/22/2009 Erythromycin Other (Please comment) 10/12/2010 colitis Nitrofurantoin Monohydrate Macrocrystals 08/05/2010 rash Penicillins 02/23/2004 RASH, SOB Statins 10/16/2018 High liver functions, myalgias Sulfa Antibiotics 02/23/2004 RASH, SOB documented as of this encounter (statuses as of 10/16/2024) Medications ASPIRIN EC 81 MG PO TBECIndications:H [...] Solution Instill into eye as needed. Active Losartan Potassium 25 MG Oral Tablet (Cozaar)Indicatio ns:HTN, goal below 140/90 TAKE ONE TABLET BY MOUTH TWICE a DAY FOR BLOOD PRESSURE- GENERIC COZAAR 180 Tablet 3 4 Active Ezetimibe 10 MG Oral Tablet (Zetia)Indication [...] A DAY 15 mL 4 4 Active Albuterol Sulfate HFA 108 (90 Base) MCG/ACT Inhalation Aerosol SolutionIndicatio ns:Wheezing INHALE 2 PUFFS BY MOUTH EVERY 4 HOURS NEEDED FOR WHEEZE 54 g 1 4 Active Fluticasone-Salme terol 250-50 MCG/ACT Inhalation [...] BEFORE BEDTIME 38.7 g 1 4 Active Furosemide 40 MG Oral Tablet (Lasix)Indication s:HTN, goal below 140/90 TAKE ONE TABLET BY MOUTH EVERY DAY FOR FLUID 90 Tablet 1 4 Active Fluticasone Propionate 50 MCG/ACT [...] days. 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 eye with active choroidal neovascularization (HCC) 1.5 mg IJ PRN 04/16/2024 04/16/2025 Active Faricimab-svoa (Vabysmo) prefilled syringe inj 6 mgIndications:Exudative age-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 Objective: Review of patient's allergies indicates: Allergen Reactions Nicola Inhibitors cough Azithromycin Clarithromycin Darvocet [Propoxyphene N-Acetaminophen] Nausea/vomiting Erythromycin Other (Please comment) colitis Macrobid [Nitrofurantoin Monohydrate Macrocrystals] rash Penicillins RASH, SOB Statins High liver functions, myalgias Sulfa Antibiotics RASH, SOB Current Outpatient Medications - WARNING: List may be incomplete due to filtering Medication Sig Dispense Refill Dexcom G7 Sensor Use as directed every 10 days. Supplied by Home Care Delivered Insulin Glargine Solostar 100 UNIT/ML Subcutaneous Solution Pen-injector (Lantus SoloStar) INJECT 8UNITS UNDER SKIN ONCE DAILY. 15 mL 1 Diphenoxylate-Atropine 2.5-0.025 MG Oral Tablet (Lomotil) TAKE ONE TABLET BY MOUTH EVERY MORNING AND AT BEDTIME 60 Tablet 1 BD Pen Needle Mini U/F 31G X 5 MM (Insulin Pen Needle) USE FOUR TIMES A DAY 400 Each 3 amLODIPine Besylate 10 MG Oral Tablet (Norvasc) TAKE 1 TABLET BY MOUTH EVERY DAY -BLOOD PRESSURE 90Tablet 1 Propranolol HCl ER 160 MG Oral Capsule Extended Release 24 Hour TAKE 1 CAPSULE DAILY -INDERAL- FOR BLOOD PRESSURE/ HEADACHE. 90 Capsule 1 Klor-Con M20 20 MEQ Oral Tablet Extended Release (Potassium Chloride ER) TAKE 1 TABLET BY MOUTH EVERY DAY 90 Tablet 1 Azelastine HCl 0.1 % Nasal Solution (Astelin) Administer 2 Sprays into nostril in the morning and 2Sprays before bedtime. 90 mL 3 Fluticasone Propionate 50 MCG/ACT Nasal Suspension (Flonase) USE 1 SPRAY IN EACH NOSTRIL ONCE A DAY48 mL 3 Atrovent HFA 17 MCG/ACT Inhalation Aerosol Solution (ipratropium) INHALE 2 PUFFS BY MOUTH IN THE MORNING AT AT NOON IN THE EVENING AND BEFORE BEDTIME 38.7 g 1 Furosemide 40 MG Oral Tablet (Lasix) TAKE ONE TABLET BY MOUTH EVERY DAY FOR FLUID 90 Tablet 1 Omeprazole 40 MG Oral Capsule Delayed Release (PriLOSEC) TAKE 1 CAPSULE BY MOUTH EVERY DAY IN THE MORNING 90 Capsule 1 Fluticasone-Salmeterol 250-50 MCG/ACT Inhalation Aerosol Powder Breath Activated (Advair Diskus) INHALE 1 PUFF EVERY 12 HOURS. RINSE MOUTH AFTER EACH USE. 180 Each 1 Albuterol Sulfate HFA 108 (90 Base) MCG/ACT Inhalation Aerosol Solution INHALE 2 PUFFS BY MOUTH EVERY 4 HOURS NEEDED FOR WHEEZE 54 g 1 NovoLOG FlexPen 100 UNIT/ML Subcutaneous Solution Pen-injector (insulin aspart) INJECT 5 UNITS WITHBREAKFAST , 3 UNITS LUNCH, 3 UNITS WITH DINNER , PLUS CF 1:80 over 150. MAX 20 UNITS A DAY 15 mL 4 Loratadine 10 MG Oral Tablet (Claritin) Take 1 Tablet by mouth in the morning. 90 Tablet 3 Ezetimibe 10 MG Oral Tablet (Zetia) TAKE 1 TABLET BY MOUTH IN THE MORNING. FOR CHOLESTEROL. 90 Tablet 2 Losartan Potassium 25 MG Oral Tablet (Cozaar) TAKE ONE TABLET BY MOUTH TWICE a DAY FOR BLOOD PRESSURE- GENERIC COZAAR 180 Tablet 3 GenTeal Tears 0.1-0.2-0.3 % Ophthalmic Solution Instill into eye as needed. PreserVision AREDS 2 Oral Capsule Take 1 Capsule by mouth in the morning and 1 Capsule in the evening. Multivitamin Women 50+ Oral Tablet Take by mouth . nitroglycerin (NITROSTAT) 0.4 MG SUBL 1 TABLET UNDER TONGUE NEEDED CHEST PAIN --MAY REPEAT 3 TIMES - IF NO RELIEF CALL 911 25 Tab 1 albuterol sulfate (PROVENTIL) (2.5 MG/3ML) 0.083% nebulizer solution Inhale 1 Vial via nebulizer every 4 hours as needed for Wheezing. 1 Box Dosing Unit 0 CALCIUM-VITAMIN D 600-400 MG-UNIT PO TABS 1 tablet daily VITAMIN C 500 MG PO CAPS one pill each day ASPIRIN EC 81 MG PO TBEC Take one pill daily 30 3 OneTouch Ultra In Vitro Strip (Glucose Blood) TEST BLOOD SUGAR 6 TIMES DAILY. 600 Strip 3 Acetaminophen 500 MG Oral Capsule Take 1 Capsule by mouth every 4 hours as needed. Zoster Vac Recomb Adjuvanted 50 MCG/0.5ML Intramuscular Suspension Reconstituted (Shingrix) Inject 0.5 mL into a large muscle now and repeat dose in 60 to 180 days 1 Each 1 ONETOUCH ULTRASOFT LANCETS MISC one touch delica lancets/testing four times daily/250.00 1 Box 5 NEBULIZER COMPRESSOR MISC Use as directed 1 Each 1 Immunization History Administered Date(s) Administered COVID-19 mRNA, LNP-s, No Preserve, 2-Dose Series (Moderna) 11/30/2020, 01/04/2021 COVID-19, mRNA, LNP-s, PF, Booster, 100mcg/0.5mg (Moderna) 03/21/2022 Pneumococcal Conjugate Vacc, 13 Valent (Prevnar) 07/02/2015 Pneumococcal Polysaccharide PPV23 (Pneumovax) 10/19/2009, 09/24/2013 Seasonal Influenza Vac., MDV, IM, 0.5 mL (Fluzone) 08/03/2009, 08/24/2010, 10/18/2011, 12/05/2012, 09/12/2013, 08/22/2014 Seasonal Influenza, PF, 6 M & above, IM , (FluLaval or Fluzone) 08/07/2018, 08/24/2020 Seasonal Influenza, Quadrivalent Hd (Fluzone Hd) 08/20/2021, 09/22/2023 Seasonal Influenza, Quadrivalent, No Preserve, IM 10/27/2015 Seasonal Influenza, Trivalent, Adjuvanted, 65+ YRS, PF, (Fluad) 10/10/2019 TD, Preservative Free 09/08/2020 TDAP, Age 7 and older, IM (Adacel) 10/19/2009 Varicella Zoster Vaccine (Adult) 03/27/2012 TMR Interventions Incomplete Encounter MTPs No medication therapy recommendations to display Complete Encounter MTPs No medication therapy recommendations to display Assessment & Plan Indication, effectiveness, safety and convenience of her medications were reviewed today. The patient's medical conditions were assessed, evaluated, and deemed meeting goals of drug therapy, with thefollowing exceptions. Additional Notes: Encouraged patient to consider [facility]. Summary Time Spent: 16-30 min Supervising pharmacist who provided the service: Omkar Bermudez Information Who was the recipient of the CMR service: beneficiary Language Template for the Patient Takeaway: Faroese I attest that I have reviewed and updated the patient's conditions, allergies, and medications to the best of my ability. Noreen Snyder RPh 10/16/2024, 7:24 AM documented in this encounter Miscellaneous Notes * MTM Personal Medication List - Noreen Snyder RPh - 10/16/2024 7:15 AM EST Medication How I take it Why I use it Prescriber albuterol sulfate (PROVENTIL) (2.5 MG/3ML) 0.083% nebulizer solution Inhale 1 Vial via nebulizer every 4 hours as needed for Wheezing. breathing Alicia Woodruff MD Albuterol Sulfate HFA 108 (90 Base) MCG/ACT Inhalation Aerosol Solution Inhale 2 puffs by mouth every 4 hours as needed for wheeze breathing Alicia Woodruff MD amLODIPine Besylate 10 MG Oral Tablet (Norvasc) Take 1 tablet by mouth every day Blood pressure Alicia Woodruff MD ASPIRIN EC 81 MG PO TBEC Take 1 tablet by mouth every day Blood pressure Alicia Woodruff MD Atrovent HFA 17 MCG/ACT Inhalation Aerosol Solution (ipratropium) Inhale 2 puffs by mouth in the morning, at noon, and in the evening before bedtime breathing Alicia Woodruff MD Azelastine HCl 0.1 % Nasal Solution (Astelin) Administer 2 Sprays into nostril in the morning and 2Sprays before bedtime. allergies Logan David Kaur MD BD Pen Needle Mini U/F 31G X 5 MM (Insulin Pen Needle) Use with insulin pens 4 times daily diabetesAlicia Woodruff MD CALCIUM-VITAMIN D 600-400 MG-UNIT PO TABS Take 1 tablet by mouth daily supplement Self Dexcom G7 Sensor Use as directed every 10 days. Supplied by Home Care Delivered diabetes Alicia Woodruff MD Diphenoxylate-Atropine 2.5-0.025 MG Oral Tablet (Lomotil) Take one tablet by mouth every morning and at bedtime Celiac disease Kirti Mota MD Ezetimibe 10 MG Oral Tablet (Zetia) Take 1 tablet by mouth in the morning cholesterol Alicia Woodruff MD Fluticasone Propionate 50 MCG/ACT Nasal Suspension (Flonase) Use 1 spray in each nostril once a dayallergies Alicia Woodruff MD Fluticasone-Salmeterol 250-50 MCG/ACT Inhalation Aerosol Powder Breath Activated (Advair Diskus) Inhale 1 puff twice a day. Rinse mouth after using breathing Alicia Woodruff MD Furosemide 40 MG Oral Tablet (Lasix) Take one tablet by mouth daily fluid Alicia Woodruff MD GenTeal Tears 0.1-0.2-0.3 % Ophthalmic Solution Instill 1-2 drops into eye as needed. eyes Self Insulin Glargine Solostar 100 UNIT/ML Subcutaneous Solution Pen-injector (Lantus SoloStar) Inject 8units under the skin daily diabetes Alicia Woodruff MD Klor-Con M20 20 MEQ Oral Tablet Extended Release (Potassium Chloride ER) Take one tablet by mouth daily Supplement due to being on furosemide Alicia Woodruff MD Loratadine 10 MG Oral Tablet (Claritin) Take 1 Tablet by mouth in the morning. allergies Alicia Woodruff MD Losartan Potassium 25 MG Oral Tablet (Cozaar) Take 1 tablet by mouth twice a day Blood pressure Alicia Woodruff MD Multivitamin Women 50+ Oral Tablet Take 1 tablet by mouth daily supplement Self nitroglycerin (NITROSTAT) 0.[address] 1 tablet under the tongue as needed for chest pain -- may repeat 3 times-- if no relief, call 911 Chest pain Alicia Woodruff MD NovoLOG FlexPen 100 UNIT/ML Subcutaneous Solution Pen-injector (insulin aspart) Inject 5 units withbreakfast, 3 units with lunch, and 3 units with dinner plus correction factor 1:75 over 140- followthe chart provided by [facility] pharmacist on 10/15/24. diabetes Alicia Woodruff MD Omeprazole 40 MG Oral Capsule Delayed Release (PriLOSEC) Take 1 capsule by mouth in the morning heartburn Kirti Mota MD PreserVision AREDS 2 Oral Capsule Take 1 Capsule by mouth in the morning and 1 Capsule in the evening. supplement self Propranolol HCl ER 160 MG Oral Capsule Extended Release 24 Hour Take 1 capsule by mouth daily Migraine and blood pressure Alicia Woodruff MD VITAMIN C 500 MG PO CAPS Take 1 pill by mouth daily supplement self * [facility] To-Do-List - Noreen Snyder RPh - 10/16/2024 7:11 AM EST Images from the original note were not included. What we talked about: What I should do: The importance of taking your medication as prescribed Your medicine works best when taken as prescribed. It can be hard to remember to take daily medications. Consider making it a part of your daily routine. Pair taking your medication with something you do every day, like brushing your teeth or eating a meal. Consider setting daily alarms to help remind yourself when it is time to take your medicine. Using a pill box can also help you organize your medicines. Pill boxes allow you to fill each day slot with your daily medicine and help you track when your next dose is due. What we talked about: What I should do: [facility] You can get a 100 day supply of your prescription medications delivered to your home. You also can be signed up for automatic refills. Typically, patients who switch to mail order save money on theirmonthly prescriptions. You will have access to a pharmacist to answer any questions about your medications (Monday- Monday, 6:30 am to 7 pm). Call [phone] to enroll in mail order services today. What we talked about: What I should do: Nitroglycerin on medication list This medication is an as needed medication, but you want to make sure that if you need it, it is in date. The best habit to get into is to request a refill on it every year. What we talked about: What I should do: If you have any issues with filling your insulin at the pharmacy, or if you have issues with getting dexcom G7 sensors. Please send me a [employer] message if you run into issues with getting your insulin from the pharmacy on time. If you have a dexcom sensor that falls off or doesn't last the full length of time, call Dexcom support at . documented in this encounter Plan of Treatment Upcoming Encounters Date Type Department Care Team (Late st Contact Info) Description 10/16/2024 1:15 PM EST Office Visit Ophthalmology, [facility] [address] [address] [address], [address] [facility] [place] [address] 11/05/2024 1:00 PM EST Office Visit General Internal Medicine [facility] [place] [address] [place] [address] Alicia Woodruff MD [address] [place] [address] 11/28/2024 2:00 PM EST Office Visit Pharmacy, [facility] [address] [phone] [facility] [address] [facility] [place] [address] 01/06/2025 1:00 PM EST Office Visit Allergy/Immunology [facility] [address] [facility] [place] [address] Mariana Webb PA-C [address] [facility] [place] [address] 02/11/2025 1:30 PM EDT Office Visit Gastroenterology, [facility] [address] [place] [address] [place] CRNP [address] [place] [address] Health Maintenance Due Date Last Done Comments Zoster Vaccines (2 of 3) 05/22/2012 03/27/2012 Depression Screening 09/08/2021 09/08/2020 Diabetic Eye Exam 03/24/2024 03/24/2023, , 06/25/2019, Additional history exists HbA1c 06/11/2024 12/12/2023, 06/07, 06/24/2022, Additional history exists Adult Wellness Visit 06/13/2024 06/13/2023 Diabetic Foot Exam 06/13/2024 06/13/2023, 1 11/08/2019, 06/25/2019, Additional history exists Albumin/Creatinine Ratio 07/03/2024 023, 09/08/2020, 11/30/2018, Additional history exists COVID-19 Vaccine ( season) 2024 03/21/2022, 01/04/2021, 11/30/2020 Influenza Vaccine (FLU shot) (#1) 2024 09/22/2023, 08/20/2021, 08/24/2020, Additional history exists GFR 12/12/2024 12/12/2023, 10/06, 03/16/2023, Additional history exists DTap/Tdap Vaccines (3 - [...] as of this encounter Visit Diagnoses Diagnosis Referred for management of medication therapy- Primary Encounter for long-term (current) use of other medications documented in this encounter Care Teams Data Processing Mechanic Relationship Specialty Start Date End Date Alicia Woodruff MD [address] [facility] [place] [address] PCP - General 09/21/09 documented as of this encounter
--- OUTSIDE RECORDS SUMMARY | 2024-12-10 00:51 | External Medical Summary | Summary of Care ---
Author Name Unknown Organization [facility] Address [address] [place] [address] Phone [phone] Care Team Providers Care Corrections Cadet Name Role Phone Alicia Woodruff MD Primary Care Provider + Reason for Visit * Reason Comments Dosage Adjustment In Person (Anticoag Cl inic) Diabetes Follow-Up Encounter Details Date Type Department Care Team (Late st Contact Info) Description 10/15/2024 1:00 PM EST Office Visit Pharmacy, [place] [facility] [address] [place] [address] [facility] [address] [place] [address] Type 2 diabetes mellitus with hemoglobin A1c goal of less than 7.0% ([facility])* Allergies Active Allergy Reactions Criticality Noted Date Comments Nicola Inhibitors 07/22/2009 cough Azithromycin 07/22/2009 Clarithromycin 07/22/2009 Propoxyphene N-Acetaminophen Nausea/vomiting 07/22/2009 Erythromycin Other (Please comment) 10/12/2010 colitis Nitrofurantoin Monohydrate Macrocrystals 08/05/2010 rash Penicillins 02/23/2004 RASH, SOB Statins 10/16/2018 High liver functions, myalgias Sulfa Antibiotics 02/23/2004 RASH, SOB documented as of this encounter (statuses as of 10/15/2024) Medications ASPIRIN EC 81 MG PO TBECIndications:H TN, goal below 140/90 Take one pill daily 30 3 10/19/20 09 Active Additional Information Patient taking differently:Oral,Indications: blood thinner / heart health, Reported on 09/18/2024 VITAMIN C 500 MG PO CAPS one [...] Box Dosing Unit 0 02/02/20 16 Active Additional Information Patient taking differently:2.5 mg Nebulizer Q4H PRN, Wheezing,Indications: shortness of breath, Reported on 03/07/2023 nitroglycerin (NITROSTAT) 0.4 MG SUBLIndications:H TN, goal [...] GENERIC COZAAR 180 Tablet 3 12/12/19 24 Active Ezetimibe 10 MG Oral Tablet (Zetia)Indication s:Hyperlipidemia with target LDL less than 100 TAKE 1 TABLET BY MOUTH IN THE MORNING. FOR CHOLESTEROL. 90 Tablet 2 03/20/20 24 Active Loratadine 10 MG Oral Tablet (Claritin) Take 1 Tablet by mouth in the morning. 90 Tablet 3 05/31/20 24 Active RewardableTouch Ultra In Vitro Strip (Glucose Blood) TEST BLOOD SUGAR 6 TIMES DAILY. 600 Strip 3 05/31/20 24 Active NovoLOG FlexPen 100 UNIT/ML Subcutaneous Solution Pen-injector (insulin aspart) INJECT 5 UNITS WITH BREAKFAST , 3 UNITS LUNCH, 3 UNITS WITH DINNER , PLUS CF 1:80 over 150. MAX 20 UNITS A DAY 15 mL 4 06/07/20 24 Active Additional Information Patient taking differently: Novolog 6-3-3 + CF 1:75 over 140 [see chart at bottom of MTM note 10/15/24] MAX 24 UNITS A DAY, Reported on 10/15/2024 Albuterol Sulfate HFA 108 (90 Base) MCG/ACT Inhalation Aerosol SolutionIndicatio ns:Wheezing INHALE 2 PUFFS BY MOUTH EVERY 4 HOURS NEEDED FOR WHEEZE 54 g 1 06/08/20 24 Active Fluticasone-Salme terol 250-50 MCG/ACT Inhalation [...] THE EVENING AND BEFORE BEDTIME 38.7 g 07/02/20 24 Active Furosemide 40 MG Oral Tablet (Lasix)Indication s:HTN, goal below 140/90 TAKE ONE TABLET BY MOUTH EVERY DAY FOR FLUID 90 Tablet 1 07/02/20 24 Active Fluticasone Propionate 50 [...] hemoglobin A1c goal of less than 7.0% ([facility]) INJECT 8 UNITS UNDER SKIN ONCE DAILY. 15 mL 1 10/15/20 24 Active MAXALT 5 MG PO TABSIndications:M igraine One pill by mouth at onset of headache, may repeat every 2 hours up to 2 times. Up to 3 pills in 24 hours 20 Tab 3 12/16/19 15 024 Discontin ued(Adver se reaction) Tiotropium [place] Monohydrate 18 MCG Inhalation Capsule (Spiriva) INHALE CONTENTS OF 1 CAPSULE DAILY IN THE MORNING 90 Capsule 1 12/12/19 24 024 Discontin ued(End of Procedure ) Benzonatate 100 MG Oral Capsule (Tessalon Perles) TAKE 1 CAPSULE BY MOUTH 3 TIMES A DAY NEEDED COUGH 30 Capsule 1 12/28/19 24 024 Discontin ued(End of Procedure ) Insulin Glargine Solostar 100 UNIT/ML Subcutaneous Solution Pen-injector (Lantus SoloStar)Indicati ons:Type 2 diabetes mellitus with hemoglobin A1c goal of less than 7.0% (HCC) INJECT 10 UNITS UNDER SKIN ONCE DAILY.REPLACES LEVEMIR *EACH PEN GOOD FOR 28 DAYS AFTER FIRST USE 15 mL 1 09/24/20 24 024 Discontin ued(Refil l) Hospital, Clinic, or [...] as of this encounter (statuses as of 10/15/2024) Active Problems Problem Noted Date Diagnosed Date [...] as of this encounter (statuses as of 10/15/2024) Resolved Problems Problem Noted Date Diagnosed Date Resolved Date Morbid obesity with BMI of 40.0-44.9, adult 10/10/2019 08/01/2024 Overview (08/01/2024): historical Body mass index (BMI) of 40. 0 to 44.9 in adult 08/07/2017 10/17/2019 Overview: Per Obesity protocol #1 Nocturnal hypoxemia 11/14/2012 02/06/20 13 Overview (11/14/2012): 11/14/12 -- will consider oxygen therapy during sleep DME: [facility] 10/08/2009 02/09/2017 ADVANCE DIRECTIVE INFORMATION 01/30/2006 [...] 10/08/2012 Acute renal insufficiency Obstructive sleep apnea /12/2012 Overview (11/14/2012): 11/04/09 PSG -- AHI 13.3, desat 54%, <90% 125 mins Convulsions 02/05/2013 Overview (07/22/2009): remote Hx of Dyslipidemia, goal to be determined 02/05/2013 ACEI/ARB contraindicated 04/2017 Osteoporosis 08/01/2024 Overview (08/01/2024): Duplicated on pl HTN, goal below 140/80 12/06 documented as of this encounter (statuses as of 10/15/2024) Immunizations Name Administration Dates Next Due COVID-19 [...] this encounter Progress Notes * Noreen Snyder, [facility] - 10/15/2024 12:53 PM EST Images from the original note were not included. Medication Therapy Disease Management Clinic - Diabetes Management Progress Note Halima Nicholson, identified by name and date of , is a 79 year old female being seen for diabetes management/education. Patient presents for return diabetic visit. Presents with Pat DIABETES: Current diabetic medications: Lantus 10 units once daily in PM Novolog 5-3-3 + CF 1:80 over 150 [see chart at bottom of note 04/22/24] Medication Injection Site: Abdomen Lifestyle: Diet: unchanged Glucose Review/SMBG: Readings obtained from patient device Hypoglycemia: Does your blood sugar go below 70 mg/dL? Yes, see above Hyperglycemia symptoms present: polydipsia Recent Labs Units 12/12/23 1225 07/03/23 0903 HEMOGLOBIN A1C - [facility] % 7.4* 7.6* Recent Labs Units 12/12/23 1225 10/23/23 0933 03/16/23 1446 ESTIMATED GLOMERULAR FILTRATION RATE - [facility] mL/min 68 66 71 CREATININE - [facility] mg/dL 0.9 0.9 0.9 HYPERTENSION: Patient on ACEi/ARB: yes BP Readings from Last 3 Encounters: 07/09/24 120/82 12/12/23 160/80 06/13/23 130/70 Blood pressure at goal: yes HYPERLIPIDEMIA: Recent Labs Units 12/12/23 1225 07/03/23 0903 LDL CHOLESTEROL (CALCULATED) - [facility] mg/dL -- 92 LDL CHOLESTEROL (DIRECT MEASURE) - [facility] mg/dL 85 -- Does patient have clinical ASCVD? No, is patient LDL less than 70mg/dL? No: unable to tolerate statins, taking zetia HEALTH MAINTENANCE REVIEW: Health Maintenance Due Topic Date Due Zoster Vaccines (2 of 3) 05/22/2012 Depression Screening 09/08/2021 Diabetic Eye Exam 03/24/2024 HbA1c 06/11/2024 Diabetic Foot Exam 06/13/2024 Adult Wellness Visit 06/13/2024 Albumin/Creatinine Ratio 07/03/2024 Influenza Vaccine (FLU shot) (1) 07/07/2024 COVID-19 Vaccine ( - season) 2024 ASSESSMENT & PLAN: ICD-10-CM 1. Type 2 diabetes mellitus with hemoglobin A1c goal of less than 7.0% ([facility]) E11.9 Considerations: - fluctuating blood sugars + hypoglycemic unawareness - prefers local pharmacy vs mail order - starting to lose eyesight - severe diarrhea with metformin ER even at low dose - dexcom g7 supplied by [facility] BG Readings - Blood sugars uncontrolled. Patient's BG are variable. Having prominent low blood sugars in the AM and a steep decline in BG overnight. Large fluctuations in sugars. Patient will eat a bedtime snack that is fruit or candy to prevent low blood sugars. Medications - Reviewed current regimen, patient is adherent to regimen. Agreeable to make changes to chart. States that she does not feel like the insulin dose is covering meal appropriately- I am only increasing breakfast base dose as that is the most prominent BG trend on dexcom download aside from low blood sugars, which we are decreasing the lantus dose to try to prevent the lows. Lunch and supper base doses remain the same. No food column increased slightly and CF changed from 1:80 now to 1:75. Patient would prefer her target BG be 140 instead of 150. Patient is agreeable to SMBG with Dexcom g7 daily. Patient aware to contact clinic if any hypoglycemia before next visit. MEDICATION CHANGES: yes, see below; preferred pharmacy: [facility], patient will think about [facility] as an option Diabetic Medications: DEC Lantus 8 units once daily in PM ADJ Novolog 6-3-3 + CF 1:75 over 140 [see chart at bottom of note 10/15/24] HEALTH MAINTENANCE INTERVENTIONS: Labs: sent to lab for A1c and UACR Immunizations: due for flu shot Foot Exam: due Eye Exam: due Annual Wellness Visit: due FOLLOW UP: Return to clinic in 6 weeks 11/28/2024 I spent a total of 40-54 minutes (exact time 54 mins) on the date of service in preparation, delivery, and documentation of the care provided to Halima Nicholson excluding any time spent in the performance of separately billed services. Noreen Snyder [facility] Clinical Pharmacist - Lease Attendant Medication Therapy Management Clinic 10/15/2024, 12:53 PM 10/15/24 Fast Acting Insulin: Novolog To find insulin dose: 1) Find the ROW in which pre-meal blood sugar is in (on LEFT of chart) 2) Find COLUMN which represents which meal you are eating 3) Go across row from step 1 and go down column from step 2 4) Where the row and column cross - that is the dose of fast acting insulin Blood Sugar levels AM Meal Lunch PM Meal No Food 70 to 139 6 3 3 0 140 to 214 6 3 3 2 215 to 289 7 4 4 3 290 to 364 8 5 5 4 365 to 439 9 6 6 5 440 and higher 10 7 7 6 Parameters fixed 6 3 3 2 eric 75 over 140 documented in this encounter Plan of Treatment Upcoming Encounters Date Type Department Care Team (Late st Contact Info) Description 10/16/2024 1:15 PM EST Office Visit Ophthalmology, [facility] [address] [place] [address] Roscoe Jiménez DO [address] [place] [address] 11/05/2024 1:00 PM EST Office Visit General Internal Medicine [facility] [place] [address] [place] [address] Alicia Woodruff MD [address] [place] [address] 11/28/2024 2:00 PM EST Office Visit Pharmacy, [place] [facility] [address] [facility] [phone] [facility] [address] [place] [address] 01/06/2025 1:00 PM EST Office Visit Allergy/Immunology [facility] [address] [facility] [place] [address] Mariana Webb PA-C [address] [facility] [place] [address] 02/11/2025 1:30 PM EDT Office Visit Gastroenterology, [facility] [address] [place] [address] Yamila Mills CRNP [address] [facility] [place] [address] Health Maintenance Due Date Last Done Comments [...] goal of less than 7.0% (HCC)- Primary documented in this encounter Care Teams Corrections Cadet Relationship Specialty Start Date End Date Alicia Woodruff MD [address] [place] [address] PCP - General 09/21/09 documented as of this encounter
--- OUTSIDE RECORDS SUMMARY | 2024-12-10 00:51 | External Medical Summary | Summary of Care ---
Author Name Unknown Organization [facility] Address [address] [place] [address] Phone [phone] Care Team Providers Care Job Forwarder Name Role Phone Alicia Woodruff MD Primary Care Provider + Reason for Visit * Reason Comments Medication Discussion Encounter Details Date Type Department Care Team (Late st Contact Info) Description 10/15/2024 11:30 AM [facility] Pharm[facility] Pharmacy, [facility] [address] [place] [address] [place], [facility] [address] [place] [address] Encounter for medication review* Allergies Active Allergy Reactions Criticality Noted Date [...] 02/02/20 16 Active nitroglycerin (NITROSTAT) 0.4 MG SUBLIndications:H TN, [...] DAY 15 mL 4 06/07/20 24 Active Albuterol Sulfate HFA 108 (90 [...] BEDTIME 38.7 g 1 07/02/20 24 Active Furosemide 40 MG Oral [...] SKIN ONCE DAILY. 15 mL 1 10/15/20 Active Dexcom G7 Sensor Use as directed every 10 days. Supplied by [facility] Active Tiotropium [place] Monohydrate 18 MCG Inhalation Capsule (Spiriva) INHALE CONTENTS OF 1 CAPSULE DAILY IN THE MORNING 90 Capsule 1 12/12/19 24 024 Discontin ued(End of Procedure ) Benzonatate 100 MG Oral Capsule (Tessalon Perles) TAKE 1 CAPSULE BY MOUTH 3 TIMES A DAY NEEDED COUGH 30 Capsule 1 12/28/19 24 024 Discontin ued(End of Procedure ) Hospital, Clinic, or Other Facility Administered Medication [...] will consider oxygen therapy during sleep DME: [facility] 10/08/2009 02/09/2017 ADVANCE DIRECTIVE INFORMATION [...] of this encounter Progress Notes * Noreen Snyder RPh - 10/15/2024 2:13 PM EST CMR completed today in Medication Management encounter (10/15/24). Noreen Snyder, RaffiD, BCACP Clinical Pharmacist Medication Therapy Disease Management 10/15/2024, 2:14 PM documented in this encounter Plan of Treatment Upcoming Encounters Date Type Department Care Team (Late st Contact Info) Description 10/16/2024 1:15 PM EST Office Visit Ophthalmology, [facility] [address] [place] [address] Roscoe Jiménez DO [address] [place] [address] 11/05/2024 1:00 PM EST Office Visit General Internal Medicine [facility] [address] [facility] [place] [address] Alicia Woodruff MD [address] [facility] [place] [address] 11/28/2024 2:00 PM EST [facility] [phone] [place], [address] [place] [address] 01/06/2025 1:00 PM EST Office Visit Allergy/Immunology [facility] [address] [facility] [place] [address] Mariana Webb PA-C [address] [facility] [place] [address] 02/11/2025 1:30 PM EDT Office Visit Gastroenterology, [facility] [address] [place] [address] Yamila Mills CRNP [address] [place] [address] Health Maintenance Due Date Last Done Comments [...] as of this encounter Visit Diagnoses Diagnosis Encounter for medication review- Primary Encounter for long-term (current) use of other medications documented in this encounter Care Teams Job Forwarder Relationship Specialty Start Date End Date Alicia Woodruff MD [address] [place] [address] PCP - General 09/21/09 documented as of this encounter
--- OUTSIDE RECORDS SUMMARY | 2024-12-10 00:51 | External Medical Summary ---
Author Name Unknown Address Unknown Organization [id number] [address] [place] [address] Laboratory Report Ordering Provider Test Date Status MARY LOUJESENIA 10/22/2024 14:15:15 Final Warfarin Therapy
INR: 2 .0-3.0 conventional anticoagulation
INR: 2.5- 3.5 high intensity anticoagulation Observation Date Value Abnormality Reference (Units ) Status PT 10/22/2024 14:15:15 12.3 11.6-15.2 (seconds) Final INR 10/22/2024 14:15:15 0.9 0.8-1.2 Final Performing Location [facility] [address] [place] [address]
--- OUTSIDE RECORDS SUMMARY | 2024-12-10 00:51 | External Medical Summary | Summary of Care ---
Author Name Unknown Organization [facility] Address [address] [facility] [place] [address] Phone [phone] Care Team Providers Care Senior Corporate Recruiter Name Role Phone Alicia Woodruff MD Primary Care Provider + Reason for Visit * Reason Comments Follow Up * Precert (Within 10 days (routine)) - Authorized Specialty Diagnoses / Procedures Referred By Brian garcia Referred To Contact Ophthalmology Diagnoses Exudative age-related macular degeneration, right eye, with active choroidal neovascularization (HCC) Procedures MD INJECTION, FARICIMAB-SVOA, 0.1 MG MD INTRAVITREAL NJX PHARMACOLOGIC AGT SPX Roscoe Jiménez DO [address] [facility] [place] [address] Phone: tel: fax: Ophthalmology, [facility] [address] [address] Phone: tel: fax: Referral ID Status Reason Start Date Expiration Date V isits Requested Visits Authorized [id number] Authorized Precert 02/20/2024 11/05/[id number] Encounter Details Date Type Department Care Team (Late st Contact Info) Description 10/16/2024 1:15 PM EST Office Visit Ophthalmology, [facility] [address] [place] [address] Roscoe Jiménez DO [address] [place] [address] Exudative age-related macular degeneration of right eye with active choroidal neovascularization ([facility])*; Intermediate stage nonexudative age-related macular degeneration of left eye; NPDR (nonproliferative diabetic retinopathy) ([facility]); Encounter for diabetes type 2 eye exam ([facility]) Allergies Active Allergy Reactions Criticality Noted Date [...] MISCIndications:D M type 2 nursing care encounter ([facility]) one touch delica lancets/testin g four times [...] 3 TIMES - IF NO RELIEF CALL [phone] Tab 1 8 Active Zoster Vac [...] hemoglobin A1c goal of less than 7.0% ([facility]) INJECT 8 UNITS UNDER SKIN [...] neovascularization (HCC) 1.5 mg IJ PRN 04/16/2024 5 Active Faricimab-svoa (Vabysmo) prefilled syringe inj 6 mgIndications:Exudative age-related macular degeneration of right eye with active choroidal neovascularization (HCC) 6 mg IZ PRN 10/16/2024 5 Active Faricimab-svoa (Vabysmo) intravitreal inj 6 mgIndications:Exudative age-related macular degeneration of right eye with active choroidal neovascularization (HCC) 6 mg IZ PRN 04/16/2024 4 Discontinued Faricimab-svoa (Vabysmo) prefilled syringe inj 6 mgIndications:Exudative age-related macular degeneration of right eye with active choroidal neovascularization (HCC) 6 mg IZ PRN 09/18/2024 4 Discontinued documented as of this encounter (statuses as [...] will consider oxygen therapy during sleep DME: [facility]EIT[facility] 10/08/2009 02/09/2017 ADVANCE DIRECTIVE INFORMATION [...] as of this encounter Progress Notes * Roscoe Jiménez, DO - 10/16/2024 1:15 PM EST [facility] [place] Nursing Notes: Henny Fields RN 10/16/24 1327 Signed Halima Nicholson is a 79 year old year old female who presents for AMD. Last Office Visit: 09/18/2024 (in office), Visit date not found (telemedicine) Patient currently states "right eye steady pain and vision worse-blurry and this past Monday was babtized and when sat back up lost vision for about 5 minutes and this is not first time" Are you diabetic? Yes. Do you check your blood sugars daily? YES. Fasting BS this mornin mg/dl. Last Hemoglobin A1C: Lab Results Component Value Date/Time HGBA1C 7.4 (H) 12/12/2023 12:25 PM HGBA1C 7.6 (H) 07/03/2023 09:03 AM HGBA1C 7.9 (H) 06/24/2022 01:24 PM HGBA1C 7.4 (H) 09/08/2020 01:19 PM HGBA1C 8.0 (H) 06/21/2019 09:50 AM HGBA1C 7.9 (H) 11/30/2018 01:[address]? no OCT image(s) of both eyes acquired and filed/scanned into chart. Base Eye Exam Visual Acuity (Snellen - Linear) Right Left Dist cc 20/800 -1 20/200 -2 Dist ph cc NI NI Correction: Glasses Tonometry (Tonopen, 1:25 PM) Right Left Pressure 21 21 Pupils Pupils APD Right PERRL None Left PERRL None Visual Ramirez (Counting fingers) Right Left Full Full Extraocular Movement Right Left Full, Ortho Full, Ortho Neuro/Psych Oriented x3: Yes Mood/Affect: Normal Dilation Both eyes: 0.5% Proparacaine @ 1:25 PM Dilation #2 Both eyes: 1.0% Mydriacyl, 2.5% Phenylephrine @ 1:25 PM Dilation #3 Both eyes: 1.0% Mydriacyl, 2.5% Phenylephrine @ 1:26 PM Dilation Comments Patient cautioned that effects of dilation may last 2-7 hours dependant upon individual reaction. It was discussed that driving while dilated is not recommended. EXTERNAL: The ocular adnexae are unremarkable. SLE: Lids/Lashes: wnl OU Conjunctiva/Sclera: quiet OU Cornea: clear OU Anterior Chamber: deep and quiet OU Iris: normal OU; no NVI OU Lens: PCIOL OU Dilated fundus exam OD: vitreous: clear optic nerve: 0.43, no edema/pallor/NVD macula: PED, drusen; large SRheme vessels: wnl periphery: trace customer service driver, no RT/RD Dilated fundus exam OS: vitreous: clear optic nerve: 0.55, no edema/pallor/NVD macula: drusen, trace customer service driver vessels: wnl periphery: trace customer service driver, no RT/RD OCT Interpretation: OD: large recurrent PED w/ srfluid/heme--improved, prior worse, prior improved 54um prior worse 20um prior worse 19um prior improved, prior improved, prior STABLE, prior no sig change, prior STABLE, prior improved 95um OS: drusen, no irf/srf--stable A/P: 1. Age-Related Macular Degeneration OD: wet -Avastin 10/17/24.......08/07/23, 07/05/23, 05/22/23, 04/06/23 -worse at 6 weeks (had to go back to Avastin due to no Good Days) -Eylea 01/03/24, 11/27/23, 09/15/2023 -mild improved -still w/ fluid at 8 weeks -Vabysmo 09/18/24, 07/23/24, 05/29/24, 04/16/2024 --sig improvement -4 weeks -09/18/2024: new srheme at 8 weeks OS: dry -monitor -recommend AREDS2 MVI as directed and Amsler grid qday -An examination for this condition was completed which is unrelated to the procedure that was performed today. 2. h/o Amaurosis Fugax OU -2 episodes of amaurosis fugax 10/28; affected both eyes; lasted 5-7 seconds; no other symptoms no recurrence -ESR, CRP, CBC--wnl -carotid duplex--<50% stenosis -note sent to PCP -no recurrences 3. Mild NPDR OU -recommend HgbA1C <7, BP and lipid control. -monitor 4. 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 Pseudophakia OU -stable does not drive F/u 4-6 weeks, OCT OU; WF OU Roscoe Jiménez DO CC: Dudley Arambula, OD CC: PCP: Alicia Woodruff MD TIMEOUT PROCEDURE: correct patient identity-YES correct procedure and consent-YES verified side and site-YES correct patient position-YES all necessary equipment/prior studies present-YES reviewed special requirements of this patient-YES PROCEDURE: Intravitreal injection of Vabysmo (faricimab) 6mg OD INFORMED CONSENT: Risks, benefits and alternatives have been discussed with the patient. Risks include, but are not limited to: retinal tears, detachments, hemorrhage, glaucoma, infection, cataracts, need for more procedures and the potential risk of arterial thromboembolic events following use of intravitreal VEGF inhibitors defined as nonfatal stroke, nonfatal myocardial infarction or vascular . Patient is aware of these risks and consents to the procedure. DESCRIPTION OF PROCEDURE: The procedure site was confirmed. Topical proparacaine was applied to the surface of the eye after which subconjunctival anesthetic was administered. The area was prepped in the standard aseptic manner with 5% Betadine solution. An eyelid speculum was placed and 6mg (0.05 ml) of Vabysmo was injected 3.75 mm posterior to the limbus into the midvitreous cavity with a 30 gauge short needle. The eye speculum was removed, Betadine was flushed from the eye and optic nerve perfusion was insured. The patient tolerated the procedure without difficulty and was given followup instructions and instructedto use ophthalmic ointment 3x/day as needed. Roscoe Jiménez DO, performed the procedure in its entirety. documented in this encounter Nursing Notes * Henny Fields RN - 10/16/2024 1:45 PM EST Halima Nicholson to receive fifth Vabysmo 6mg Injection of the Right eye. Correct eye confirmed with patient and marked by DO Britney Quinonez 6mg lot # [id number] Exp. Date: 08/2025 * Henny Fields RN - 10/16/2024 1:17 PM EST Halima Nicholson is a 79 year old year old female who presents for AMD. Last Office Visit: 09/18/2024 (in office), Visit date not found (telemedicine) Patient currently states "right eye steady pain and vision worse-blurry and this past Monday was babtized and when sat back up lost vision for about 5 minutes and this is not first time" Are you diabetic? Yes. Do you check your blood sugars daily? YES. Fasting BS this mornin mg/dl. Last Hemoglobin A1C: Lab Results Component Value Date/Time HGBA1C 7.4 (H) 12/12/2023 12:25 PM HGBA1C 7.6 (H) 07/03/2023 09:03 AM HGBA1C 7.9 (H) 06/24/2022 01:24 PM HGBA1C 7.4 (H) 09/08/2020 01:19 PM HGBA1C 8.0 (H) 06/21/2019 09:50 AM HGBA1C 7.9 (H) 11/30/2018 01:[address] no OCT image(s) of both eyes acquired and filed/scanned into chart. documented in this encounter Miscellaneous Notes * Addendum Note - Giovanni Solis TECH - 10/16/2024 2:25 PM ESTAddended by: GIOVANNI SOLIS on: 10/16/2024 02:25 PM Modules accepted: Orders documented in this encounter Plan of Treatment Upcoming Encounters Date Type Department Care Team (Late st Contact Info) Description 11/05/2024 1:00 PM EST Office Visit General Internal Medicine [facility] [address] [place] [address] Alicia Woodruff MD [address] [facility] [place], [place] [address] 11/28/2024 2:00 PM EST Office Visit Pharmacy, [facility] [address] [phone] [place] [address] [address] 12/03/2024 1:45 PM EST Office Visit Ophthalmology, [facility] [address] [facility] [place] [address] Roscoe Jiménez DO [address] [facility] [place] [address] 01/06/2025 1:00 PM EST Office Visit Allergy/Immunology [facility] [address] [place] [address] Mariana Webb PA-C [address] [facility] [place] [address] 02/11/2025 1:30 PM EDT Office Visit Gastroenterology, [facility] [address] [facility] [place] [address] Yamila Mills CRNP [address] [facility] [place] [address] Scheduled Orders Name Type Priority Associated Diagnoses Orde r Schedule RETINA SCAN DIAGNOSTIC IMAGE, POSTERIOR Procedures Routine Exudative age-related macular degeneration of right eye with active choroidal neovascularization (HCC) Intermediate stage nonexudative age-related macular degeneration of left eye Ordered: 10/16/2024 Health Maintenance Due Date Last Done Comments [...] as of this encounter Visit Diagnoses Diagnosis Exudative age-related macular degeneration of right eye with active choroidal neovascularization (HCC)- Primary Intermediate stage nonexudative age-related macular degeneration of left eye NPDR (nonproliferative diabetic retinopathy) (HCC) Type II or unspecified type diabetes mellitus with ophthalmic manifestations, not stated as uncontrolled Encounter for diabetes type 2 eye exam (HCC) Type II or unspecified type diabetes mellitus without mention of complication, not stated as uncontrolled documented in this encounter Administered Medications Active Administered Medications - up to 3 most recent administrations Medication Order MAR Action Action Date Dose Rate Site Faricimab-svoa (Vabysmo) prefilled syringe inj 6 mg 6 mg, Intravitreal, PRN Other, Starting on Mon10/16/24 at 1402, Until Ysabel 10/16/25 at 1401, For 365 days, Each syringe should only be used for the treatment of a single eye. Only use the provided injection filter needle for the administration. Syringe must be stored under refrigeration and away from light. Syringe must reach room temperature prior to administration. May be kept at room temperature for up to 24 hours.Indications:Exudative age-related macular degeneration of right eye with active choroidal neovascularization (HCC) Given 10/16/2024 2:25 PM EST 6 mg Eye Right ROPivacaine (Naropin) inj 1.5 mg 1.5 mg, Injection, PRN Other, Starting on Tu04/16/24 at 1432, Until Mon04/16/25 at 1431, For 365 daysIndications:Exudative age-related macular degeneration of right eye with active choroidal neovascularization (HCC) Given 10/16/2024 2:25 PM EST 1.5 mg Eye Right Given 09/18/2024 12:34 PM EST 1.5 mg E ye Right Given 07/23/2024 2:20 PM EDT 1.5 mg Ey e Right documented in this encounter Care Teams Senior Corporate Recruiter Relationship Specialty Start Date End Date Alicia Woodruff MD [address] [facility] [place] [address] PCP - General 09/21/09 documented as of this encounter
--- OUTSIDE RECORDS SUMMARY | 2024-12-10 00:51 | External Medical Summary ---
Author Name Unknown Address Unknown Organization [id number]:[facility] [address] [place] [address] Laboratory Report Ordering Provider Test Date Status JESENIA BARRETO 10/22/2024 14:15:15 Final Observation Date Value Abnormality Reference (Units ) Status Magnesium 10/22/2024 14:15:15 2.5 1.5-2.6 (m g/dL) Final Performing Location [facility] - [address] [place] [address]
--- OUTSIDE RECORDS SUMMARY | 2024-12-10 00:51 | External Medical Summary | Summary of Care ---
Author Name Unknown Organization [facility] Address [address] [facility] [place] [address] Phone [phone] Care Team Providers Care Interlibrary Loan Specialist Name Role Phone Alicia Woodruff MD Primary Care Provider + Reason for Visit * Reason Comments Follow Up * Precert (Within 10 days (routine)) - Authorized Specialty Diagnoses / Procedures Referred By Brian garcia Referred To Contact Ophthalmology Diagnoses Exudative age-related macular degeneration, right eye, with active choroidal neovascularization (HCC) Procedures AL INJECTION, FARICIMAB-SVOA, 0.1 MG AL INTRAVITREAL NJX PHARMACOLOGIC AGT SPX Roscoe Jiménez DO [address] [facility] [place] [address] Phone: tel: fax: Ophthalmology, [facility] [address] [facility] [address] Phone: tel: fax: Referral ID Status Reason Start Date Expiration Date V isits Requested Visits Authorized [id number] Authorized Precert 02/20/2024 11/05/[phone] Encounter Details Date Type Department Care Team (Late st Contact Info) Description 10/16/2024 1:15 PM EST Office Visit Ophthalmology, [facility] [address] [facility] [place] [address] Roscoe Jiménez DO [address] [place] [address] Exudative age-related macular degeneration of right eye with active choroidal neovascularization ([facility])*; Intermediate stage nonexudative age-related macular degeneration of left eye; NPDR (nonproliferative diabetic retinopathy) ([facility]); Encounter for diabetes type 2 eye exam ([facility]) Allergies Active Allergy Reactions Criticality Noted Date [...] MISCIndications:D M type 2 nursing care encounter ([facility]) one touch delica lancets/testin g four times [...] 3 TIMES - IF NO RELIEF CALL 211 25 Tab 1 8 Active Zoster Vac [...] hemoglobin A1c goal of less than 7.0% ([facility]) INJECT 8 UNITS UNDER SKIN ONCE DAILY. [...] 6 mg IZ PRN 09/18/2024 09/18/2025 Active Faricimab-svoa (Vabysmo) prefilled syringe inj 6 [...] will consider oxygen therapy during sleep DME: [facility]EIT[facility] 10/08/2009 02/09/2017 ADVANCE DIRECTIVE INFORMATION [...] Jiménez, DO - 10/16/2024 1:15 PM EST [facility] [place] Nursing Notes: Henny [...] drusen; large SRheme vessels: wnl periphery: trace retail analyst, no RT/RD Dilated fundus exam OS: vitreous: clear optic nerve: 0.55, no edema/pallor/NVD macula: drusen, trace retail analyst vessels: wnl periphery: trace retail analyst, no RT/RD OCT Interpretation: OD: large recurrent [...] by DO Britney Quinonez 6mg lot # [id number] Exp. Date: 08/2025 * Henny Fields RN [...] filed/scanned into chart. documented in this encounter Plan of Treatment Upcoming Encounters Date Type Department Care Team (Late st Contact Info) Description 11/05/2024 1:00 PM EST Office Visit General Internal Medicine [place] [address] [place] [address] Alicia Woodruff MD [address] [place] [address] [address] 11/28/2024 2:00 PM EST Office Visit Pharmacy, [address] [place] [phone] [facility] [address] [facility] [place] [address] 01/06/2025 1:00 PM EST Office [facility] [address] [facility] [place] [address] Mariana Webb PA-C [address] [place] [address] 02/11/2025 1:30 PM EDT Office Visit Gastroenterology, [facility] [address] [place] [address] Yamila Mills CRNP 132 [facility] [place] [address] Scheduled Orders Name Type Priority Associated Diagnoses [...] stated as uncontrolled documented in this encounter Care Teams Interlibrary Loan Specialist Relationship Specialty Start Date End Date Alicia Woodruff MD [address] [place] [address] PCP - General 09/21/09 documented as of this encounter
--- OUTSIDE RECORDS SUMMARY | 2024-12-10 00:51 | External Medical Summary ---
Author Name Unknown Address Unknown [id number] [address] [place] [address] Laboratory Report Ordering Provider Test Date Status JESENIA BARRETO 10/22/2024 14:15:15 Final Observation Date Value Abnormality Reference (Units ) Status Bilirubin, Direct 10/22/2024 14:15:15 0.2 0. 0-0.3 (mg/dL) Final Performing Location [facility] [place] [address] - [address] [place] [address]
--- OUTSIDE RECORDS SUMMARY | 2024-12-10 00:51 | External Medical Summary | Summary of Care ---
Author Name Unknown Organization [facility] Address [address] [place] [address] Phone [phone] Care Team Providers Care Bun Panner Name Role Phone Alicia Woodruff MD Primary Care Provider + Reason for Visit * Reason Comments Follow Up * Precert (Within 10 days (routine)) - Authorized Specialty Diagnoses / Procedures Referred By Brian garcia Referred To Contact Ophthalmology Diagnoses Exudative age-related macular degeneration, right eye, with active choroidal neovascularization (HCC) Procedures SD INJECTION, FARICIMAB-SVOA, 0.1 MG SD INTRAVITREAL NJX PHARMACOLOGIC AGT SPX Roscoe Jiménez DO [address] [facility] [place] [address] Phone: tel: fax: Ophthalmology, [facility] [address] Phone: tel: fax: Referral ID Status Reason Start Date Expiration Date V isits Requested Visits Authorized [id number] Authorized Precert 02/20/2024 11/05/[phone] Encounter Details Date Type Department Care Team (Late st Contact Info) Description 10/16/2024 1:15 PM EST Office Visit Ophthalmology, [facility] [address] [facility] [place] [address] Roscoe Jiménez DO [address] [place] [address] Exudative age-related macular degeneration of right eye with active choroidal neovascularization ([facility])*; Intermediate stage nonexudative age-related macular degeneration of left eye; NPDR (nonproliferative diabetic retinopathy) ([facility]); Encounter for diabetes type 2 eye exam ([facility]) Allergies Active Allergy Reactions Criticality Noted Date [...] MISCIndications:D M type 2 nursing care encounter ([facility]) one touch delica lancets/testin g four times [...] 3 TIMES - IF NO RELIEF CALL [phone] Tab 1 8 Active Zoster Vac [...] hemoglobin A1c goal of less than 7.0% ([facility]) INJECT 8 UNITS UNDER SKIN ONCE DAILY. [...] will consider oxygen therapy during sleep DME: [facility]EIT[facility] 10/08/2009 02/09/2017 ADVANCE DIRECTIVE INFORMATION [...] - 10/16/2024 1:15 PM EST [facility] [place] Nursing Notes: Henyn Fields RN 10/16/24 1327 Signed Halima Nicholson [...] drusen; large SRheme vessels: wnl periphery: trace electronic prepress system operator, no RT/RD Dilated fundus exam OS: vitreous: clear optic nerve: 0.55, no edema/pallor/NVD macula: drusen, trace electronic prepress system operator vessels: wnl periphery: trace electronic prepress system operator, no RT/RD OCT Interpretation: OD: large recurrent [...] by DO Britney Quinonez 6mg lot # [id number] Exp. Date: 08/2025 * Henny Fields RN [...] State [place] Gar[place] [address] [place] [address] [place] [address] Alicia Woodruff MD [address] [place] [address] [address] [address] 11/28/2024 2:00 PM EST Office Visit Pharmacy, [address] [place] [phone] [address] [facility] [address] [place] [address] 12/03/2024 1:45 PM EST Office Visit Ophthalmology, [facility] 132 [facility] [place] [address] Roscoe Jiménez DO 132 [facility] [place] [address] 01/06/2025 1:00 PM EST Office Visit Allergy/Immunology [facility] [address] Mariana Webb PA-C [facility] [address] 02/11/2025 1:30 PM EDT Office Visit Gastroenterology, [facility] 132 [facility] [place] [address] Yamila Mills CRNP 132 [facility] [place] [address] Scheduled Orders Name Type Priority Associated Diagnoses [...] 11/08/2019, 06/25/2019, Additional history exists Albumin/Creatinine Ratio 07/03/202407/03/2 023, 09/08/2020, 11/30/2018, Additional history exists COVID-19 [...] uncontrolled documented in this encounter Care Teams Bun Panner Relationship Specialty Start Date End Date Alicia Woodruff MD [address] [place] [address] PCP - General 09/21/09 documented as of this encounter
--- OUTSIDE RECORDS SUMMARY | 2024-12-10 00:51 | External Medical Summary | Summary of Care ---
Author Name Unknown Organization [facility] Address [address] [place] [address] Phone [phone] Care Team Providers Care Interior Decorator Name Role Phone Alicia Woodruff MD Primary Care Provider + Reason for Visit * Reason Comments Follow Up * Precert (Within 10 days (routine)) - Authorized Specialty Diagnoses / Procedures Referred By Brian garcia Referred To Contact Ophthalmology Diagnoses Exudative age-related macular degeneration, right eye, with active choroidal neovascularization (HCC) Procedures DC INJECTION, FARICIMAB-SVOA, 0.1 MG DC INTRAVITREAL NJX PHARMACOLOGIC AGT SPX Roscoe Jiménez DO [address] [facility] [place] [address] Phone: tel: fax: Ophthal[facility], [facility] [address] Phone: tel: fax: Referral ID Status Reason Start Date Expiration Date V isits Requested Visits Authorized [id number] Authorized Precert 02/20/2024 11/05/2099 [id number] Encounter Details Date Type Department Care Team (Late st Contact Info) Description 10/16/2024 1:15 PM EST Office Visit Ophthalmology, [facility] [address] Roscoe Jiménez DO [address] [place] [address] Exudative age-related macular degeneration of right eye with active choroidal neovascularization ([facility])*; Intermediate stage nonexudative age-related macular degeneration of left eye; NPDR (nonproliferative diabetic retinopathy) ([facility]); Encounter for diabetes type 2 eye exam ([facility]) Allergies Active Allergy Reactions Criticality Noted Date [...] MISCIndications:D M type 2 nursing care encounter ([facility]) one touch delica lancets/testin g four times [...] 3 TIMES - IF NO RELIEF CALL [phone] Tab 1 8 Active Zoster Vac [...] A1c goal of less than 7.0% ([facility]) INJECT 8 UNITS UNDER SKIN ONCE DAILY. [...] will consider oxygen therapy during sleep DME: [facility] 10/08/2009 02/09/2017 ADVANCE DIRECTIVE INFORMATION [...] - 10/16/2024 1:15 PM EST [facility] [place] Nursing Notes: Henny [...] drusen; large SRheme vessels: wnl periphery: trace prover, no RT/RD Dilated fundus exam OS: vitreous: clear optic nerve: 0.55, no edema/pallor/NVD macula: drusen, trace prover vessels: wnl periphery: trace prover, no RT/RD OCT Interpretation: OD: large recurrent [...] by DO Britney Quinonez 6mg lot # [id number] Exp. Date: 08/2025 * Henny Fields RN [...] State Beata Garay [address] [place] [address] Alicia Woodruff MD [address] [place] [address] [place] [address] 11/28/2024 2:00 PM EST Office Visit Pharmacy, [address] [place] [phone] [facility] [address] [facility] [place] [address] 12/03/2024 1:45 PM EST Office Visit Ophthalmology, [facility] [address] [facility] [place] [address] Roscoe Jiménez DO [address] [facility] [place] [address] 01/06/2025 1:00 PM EST Office Visit Allergy/Immunology [facility] [address] [facility] [place] [address] Mariana Webb PA-C [address] [facility] [place] [address] 02/11/2025 1:30 PM EDT Office Visit Gastroenterology, [facility] 132 [facility] [place] [address] Yamila Mills CRNP 132 [facility] [place] [address] Scheduled Orders Name Type Priority Associated Diagnoses [...] uncontrolled documented in this encounter Care Teams Interior Decorator Relationship Specialty Start Date End Date Alicia Woodruff MD [address] [place] [address] PCP - General 09/21/09 documented as of this encounter
--- OUTSIDE RECORDS SUMMARY | 2024-12-10 00:51 | External Medical Summary | Summary of Care ---
Author Name Unknown Organization [facility] Address [address] [place] [address] Phone [phone] Care Team Providers Care Glove Wrapper Name Role Phone Alicia Woodruff MD Primary Care Provider + Encounter Details Date Type Department Care Team (Latest Contact Info) Description 10/16/2024 Medication Management [facility] [address] [place] [address] Maribel Urr[place], [facility] [address] [place] [address] Referred for medication therapy management* Allergies Active Allergy Reactions Criticality Noted Date [...] hemoglobin A1c goal of less than 7.0% ([facility]) INJECT 8 UNITS UNDER SKIN [...] as of this encounter Progress Notes * Jahaira Boo, research manager - 10/16/2024 8:16 AM EST Halima Nicholson is a 79 year old female. TMR Interventions Incomplete Encounter MTPs No medication therapy recommendations to display Complete Encounter MTPs Referred for medication therapy management 1 Rationale: More cost-effective medication available - Cost - Adherence Recommendation: Change Medication Status: No Longer Relevant Identified Date: 10/16/2024 Completed Date: 10/16/2024 Note: TMR for multiple inhalers 2 Rationale: Patient Education - Needs Medication Assessment - Adherence Recommendation: Provide Education Status: Patient Agreed Identified Date: 10/16/2024 Completed Date: 10/16/2024 Note: TMR for maintenance inhaler technique Assessment & Plan Indication, effectiveness, safety and convenience of her medications were reviewed today. The patient's medical conditions were assessed, evaluated, and deemed meeting goals of drug therapy, with thefollowing exceptions. Jahaira Boo, research manager 10/16/2024, 8:16 AM documented in this encounter Plan of Treatment Upcoming Encounters Date Type Department Care Team (Late st Contact Info) Description 10/16/2024 1:15 PM EST Office Visit Ophthalmology, [facility] [address] [place] [address] Roscoe Jiménez DO [address] [place] [address] 11/05/2024 1:00 PM EST Office Visit General Internal Medicine [facility] 200 [facility] [place] [address] Alicia Woodruff MD [address] [facility] [place] [address] 11/28/2024 2:00 PM EST [facility] [address] [place] [phone] [place], [address] [address] 01/06/2025 1:00 PM EST Office Visit Allergy/Immunology [facility] [address] [place] [address] Mariana Webb PA-C 200 [facility] [place] [address] 02/11/2025 1:30 PM EDT Office Visit Gastroenterology, [facility] [address] [place] [address] Yamila Mills CRNP [address] [place] [address] Health Maintenance Due Date Last Done Comments [...] this encounter Visit Diagnoses Diagnosis Referred for medication therapy management- Primary Encounter for long-term (current) use of other medications documented in this encounter Care Teams Glove Wrapper Relationship Specialty Start Date End Date Alicia Woodruff MD [address] [place] [address] PCP - General 09/21/09 documented as of this encounter
--- OUTSIDE RECORDS SUMMARY | 2024-12-10 00:52 | External Medical Summary | Summary of Care ---
Author Name Unknown Organization [facility] Address [address] [place] [facility] [place] [address] Phone [phone] Care Team Providers Care Smt Machine Operator Name Role Phone Alicia Woodruff MD Primary Care Provider + Reason for Visit * Reason Comments eRx-Medication Refill Encounter Details Date Type Department Care Team (Late st Contact Info) Description 09/30/2024 Refill Gastroenterology, [facility] 132 [facility] [place] [address] Kirti Albert MD [address] [facility] [place] [address] Celiac disease Allergies Active Allergy Reactions Criticality Noted Date Comments Nicola Inhibitors 07/22/2009 cough Azithromycin 07/22/2009 Clarithromycin 07/22/2009 Propoxyphene N-Acetaminophen Nausea/vomiting 07/22/2009 Erythromycin Other (Please comment) 10/12/2010 colitis Nitrofurantoin Monohydrate Macrocrystals 08/05/2010 rash Penicillins 02/23/2004 RASH, SOB Statins 10/16/2018 High liver functions, myalgias Sulfa Antibiotics 02/23/2004 RASH, SOB documented as of this encounter (statuses as of 10/02/2024) Medications ASPIRIN EC 81 MG PO TBECIndications: [...] MG-UNIT PO TABS 1 tablet daily Active MAXALT 5 MG PO TABSIndications: Migraine One pill by mouth at onset of headache, may repeat every 2 hours up to 2 times. Up to 3 pills in 24 hours 20 Tab 3 12/16/19 15 Active albuterol sulfate (PROVENTIL) (2.5 MG/3ML) 0.083% nebulizer solutionIndicati ons:Viral URI with cough Inhale 1 Vial via nebulizer every 4 hours as needed for Wheezing. 1 Box Dosing Unit 0 02/02/20 16 Active Additional Information Patient taking differently:2.5 mg Nebulizer Q4H PRN, Wheezing,Indications: shortness of breath, Reported on 03/07/2023 nitroglycerin (NITROSTAT) 0.4 MG SUBLIndications: HTN, goal [...] Solution Instill into eye as needed. Active Tiotropium Strum Monohydrate 18 MCG Inhalation Capsule (Spiriva) INHALE CONTENTS OF 1 CAPSULE DAILY IN THE MORNING 90 Capsule 1 12/12/19 24 Active Losartan Potassium 25 MG Oral Tablet (Cozaar)Indicati ons:HTN, goal below 140/90 TAKE ONE TABLET BY MOUTH TWICE a DAY FOR BLOOD PRESSURE- GENERIC COZAAR 180 Tablet 3 12/12/19 24 Active Benzonatate 100 MG Oral Capsule (Tessalon Perles) TAKE 1 CAPSULE BY MOUTH 3 TIMES A DAY NEEDED COUGH 30 Capsule 1 12/28/19 24 Active Ezetimibe 10 MG Oral Tablet (Zetia)Indicatio [...] BLOOD SUGAR 6 TIMES DAILY. 600 Strip 05/31/20 24 Active NovoLOG FlexPen 100 UNIT/ML [...] WHEEZE 54 g 1 06/08/20 24 Active Fluticasone-Salm eterol 250-50 MCG/ACT Inhalation [...] PRESSURE 90 Tablet 1 08/29/20 24 Active Insulin Glargine Solostar 100 UNIT/ML Subcutaneous Solution Pen-injector (Lantus SoloStar)Indicat ions:Type 2 diabetes mellitus with hemoglobin A1c goal of less than 7.0% ([facility]) INJECT 10 UNITS UNDER SKIN ONCE DAILY.REPLACES LEVEMIR *EACH PEN GOOD FOR 28 DAYS AFTER FIRST USE 15 mL 1 09/24/20 24 Active Diphenoxylate-At ropine 2.5-0.025 MG Oral Tablet (Lomotil)Indicat ions:Celiac disease TAKE ONE TABLET BY MOUTH EVERY MORNING AND AT BEDTIME 60 Tablet 1 10/02/20 24 Active Diphenoxylate-At ropine 2.5-0.025 MG Oral Tablet (Lomotil)Indicat ions:Celiac disease TAKE ONE TABLET BY MOUTH EVERY MORNING AND AT BEDTIME 60 Tablet 1 07/25/20 24 2023 Discontinued Hospital, Clinic, or Other Facility Administered [...] as of this encounter (statuses as of 10/02/2024) Active Problems Problem Noted Date Diagnosed Date [...] as of this encounter (statuses as of 10/02/2024) Resolved Problems Problem Noted Date Diagnosed Date [...] as of this encounter (statuses as of 10/02/2024) Immunizations Name Administration Dates Next Due COVID-19 [...] encounter Miscellaneous Notes * Telephone Encounter - Kirti Albert MD - 10/02/2024 1:55 PM EST Signed Prescriptions: Disp Refills Diphenoxylate-Atropine 2.5-0.025 MG Oral T*60 Tab*1 Sig: TAKE ONE TABLET BY MOUTH EVERY MORNING AND AT BEDTIMEAuthorizing Provider: KIRTI ALBERT * Telephone Encounter - Kirti Albert MD - 10/02/2024 1:54 PM EST Signed Prescriptions: Disp Refills Diphenoxylate-Atropine 2.5-0.025 MG Oral T*60 Tab*1 Sig: TAKE ONE TABLET BY MOUTH EVERY MORNING AND AT BEDTIME Authorizing Provider: KIRTI ALBERT * Telephone Encounter - Tammie Croft RN - 10/02/2024 12:44 PM ESTPending Prescriptions: Disp Refills Diphenoxylate-Atropine 2.5-0.025 MG Oral T*60 Tab*1 Sig: TAKE ONE TABLET BY MOUTH EVERY MORNING AND AT BEDTIME * Telephone Encounter - Tammie Crotf RN - 10/02/2024 12:41 PM EST Pt has appt with Yamila in February. She says she had to cancel last appt b/c her sister . Did you pend patient's preferred pharmacy and medication before forwarding?yes Pharmacy: [id number] [id number] [facility] Pending Prescriptions: Disp Refills Diphenoxylate-Atropine 2.5-0.025 MG Oral *60 Tab*1 Sig: TAKE ONE TABLET BY MOUTH EVERY MORNING AND AT BEDTIME Last Visit: 03/07/2023 (in office), 01/31/2022 (telemedicine) Next Visit: 02/11/2025 If no future appointments scheduled, and last appointment is greater than a year ago, please schedule patient for a follow-up appointment Patient Phone Numbers Labs: Lab Results Component Value Date/Time CREAT 0.9 12/12/2023 12:25 PM CREAT 0.8 08/24/2020 10:40 AM POTASSIUM 3.9 12/12/2023 12:25 PM POTASSIUM 4.4 08/24/2020 10:40 AM TSH 3.77 12/19/2018 02:18 PM LDL 85 12/12/2023 12:25 PM LDL 92 07/03/2023 09:03 AM LDL 77 08/24/2020 10:40 AM LDL UNINTERPRETABLE RESULT 06/21/2019 09:50 AM ALT 26 12/12/2023 12:25 PM ALT 37 (H) 09/08/2020 01:19 PM HGBA1C 7.4 (H) 12/12/2023 12:25 PM HGBA1C 7.4 (H) 09/08/2020 01:19 PM * Telephone Encounter - Interface, [facility] - 10/02/2024 11:10 AM EST Pending Prescriptions: Disp Refills Diphenoxylate-Atropine 2.5-0.025 MG Oral T*60 Tab*1 Sig: TAKE ONE TABLET BY MOUTH EVERY MORNING AND AT BEDTIME * Telephone Encounter - Tenisha Dumas food service associate - 10/02/2024 10:53 AM EST Patient calling to check on status of Diphenoxylate-Atropine. She states that she only has a few pills left. Caller can be reached at [phone]. Thank you, Maurisio Dumas Security Management Specialist [facility] 10/02/2024,10:53 AM * Telephone Encounter - Addi Pretty [facility] - 10/01/2024 9:18 AM ESTPending Prescriptions: Disp Refills Diphenoxylate-Atropine 2.5-0.025 MG Oral T*60 Tab*1 Sig: TAKE ONE TABLET BY MOUTH EVERY MORNING AND AT BEDTIME * Telephone Encounter - Addi Pretty [facility] - 10/01/2024 9:18 AM EST I have reviewed the patients controlled substance dispensing history in the Prescription Drug Monitoring Program in compliance with the [place] regulations before prescribing a controlled substance. PDMP checked on 10/01/2024. Pending Prescriptions: Disp Refills Diphenoxylate-Atropine 2.5-0.025 MG Oral *60 Tab*1 Sig: TAKE ONE TABLET BY MOUTH EVERY MORNING AND AT BEDTIME Last Visit: 03/07/2023 (in office), 01/31/2022 (telemedicine) Next Visit: 02/11/2025 Date medication was last filled: 08/28 Date medication is due for refill: 09/27 [facility]: [id number] [id number] [facility] Is this request for a controlled substance? Yes and Urine Drug Screen Not completed Toxicology results: No results found. However, due to the size of the patient record, not all encounters were searched.Please check Results Review for a complete set of results. Please approve if appropriate. Thanks, Corey Pretty, PharmD Clinical Pharmacist [facility] ([facility]) [phone] 10/01/2024 9:18 AM * Telephone Encounter - Willow Pillai CPhT - 09/30/2024 11:34 AM ESTPending Prescriptions: Disp Refills Diphenoxylate-Atropine 2.5-0.025 MG Oral T*60 Tab*1 Sig: TAKE ONE TABLET BY MOUTH EVERY MORNING AND AT BEDTIME * Telephone Encounter - Willow Pillai CPhT - 09/30/2024 11:28 AM EST Patient is up to date for office visits. Patient is over due for appt, but has upcoming visit scheduled on 02/11/2025. Pending Prescriptions: Disp Refills Diphenoxylate-Atropine 2.5-0.025 MG Oral *60 Tab*1 Sig: TAKE ONE TABLET BY MOUTH EVERY MORNING AND AT BEDTIME Last Visit: 03/07/2023 (in office), 01/31/2022 (telemedicine) Next Visit: 02/11/2025 If no future appointments scheduled, and last appointment is greater than a year ago, please schedule patient for a follow-up appointment Last date the medication was ordered: 07/25/2024 Pharmacy: [id number] [address] [facility] Is this request for a controlled substance?Yes, and Urine Drug Screen was NOT completed Urine Drug Screen:No results found. However, due to the size of the patient record, not all encounters were searched. Please check Results Review for a complete set of results. Patient Phone Numbers Labs: Lab Results Component Value Date/Time CREAT 0.9 12/12/2023 12:25 PM CREAT 0.8 08/24/2020 10:40 AM POTASSIUM 3.9 12/12/2023 12:25 PM POTASSIUM 4.4 08/24/2020 10:40 AM TSH 3.77 12/19/2018 02:18 PM LDL 85 12/12/2023 12:25 PM LDL 92 07/03/2023 09:03 AM LDL 77 08/24/2020 10:40 AM LDL UNINTERPRETABLE RESULT 06/21/2019 09:50 AM ALT 26 12/12/2023 12:25 PM ALT 37 (H) 09/08/2020 01:19 PM HGBA1C 7.4 (H) 12/12/2023 12:25 PM HGBA1C 7.4 (H) 09/08/2020 01:19 PM documented in this encounter Plan of Treatment Upcoming Encounters Date Type Department Care Team (Late st Contact Info) Description 10/15/2024 1:00 PM EST Office Visit Pharmacy, Noelle [address] [place] [phone] Noelle [facility] [address] [place] [address] [place] [address] 10/16/2024 1:15 PM EST Office Visit Ophthalmology, [facility] [address] [place] [address] Roscoe Jiménez, DO [address] [place] [address] 11/05/2024 1:00 PM EST Office Visit General Internal Medicine [facility] [address] [place] [address] Alicia Woodruff MD [address] [place] [address] 01/06/2025 1:00 PM EST Office Visit Allergy/Immunology [facility] [address] [place] [address] Mariana Webb PA-C 200 [facility] [place] [address] 02/11/2025 1:30 PM EDT Office Visit Gastroenterology, [facility] [address] [place] [address] Yamila Mills CRNP [address] [place] [address] Health Maintenance Due Date Last Done Comments [...] disease documented in this encounter Care Teams Smt Machine Operator Relationship Specialty Start Date End Date Alicia Woodruff MD [address] [facility] [place] [address] PCP - General 09/21/09 documented as of this encounter
--- OUTSIDE RECORDS SUMMARY | 2024-12-10 00:52 | External Medical Summary | Summary of Care ---
Author Name Unknown Organization [facility] Address [address] [place] [address] Phone [phone] Care Team Providers Care Pvc Monitor Name Role Phone Alicia Woodruff MD Primary Care Provider + Reason for Visit * Reason Onset Date Comments Fax 09/17/2024 Encounter Details Date Type Department Care Team (Late st Contact Info) Description 09/17/2024 Telephone General Internal Medicine [facility] 200 [facility] [place] [address] Alicia Woodruff MD 200 [place] [address] Fax Allergies Active Allergy Reactions Criticality Noted Date Comments Nicola Inhibitors 07/22/2009 cough Azithromycin 07/22/2009 Clarithromycin 07/22/2009 Propoxyphene N-Acetaminophen Nausea/vomiting 07/22/2009 Erythromycin Other (Please comment) 10/12/2010 colitis Nitrofurantoin Monohydrate Macrocrystals 08/05/2010 rash Penicillins 02/23/2004 RASH, SOB Statins 10/16/2018 High liver functions, myalgias Sulfa Antibiotics 02/23/2004 RASH, SOB documented as of this encounter (statuses as of 10/11/2024) Medications ASPIRIN EC 81 MG PO TBECIndications: HTN, goal below 140/90 Take one pill daily 30 3 009 Active Additional Information Patient taking differently:Oral,Indications: blood thinner / heart health, Reported on 09/18/2024 VITAMIN C 500 MG PO CAPS one pill each day Active NEBULIZER COMPRESSOR MISCIndications: Asthma, moderate persistent Use as directed 1 Each 1 012 Active ONETOUCH ULTRASOFT LANCETS MISCIndications: DM type 2 nursing care encounter (HCC) one touch delica lancets/testin g four times daily/250.00 1 Box 5 013 Active CALCIUM-VITAMIN D 600-400 MG-UNIT PO TABS 1 tablet daily Active MAXALT 5 MG PO TABSIndications: Migraine One pill by mouth at onset of headache, may repeat every 2 hours up to 2 times. Up to 3 pills in 24 hours 20 Tab 3 015 Active albuterol sulfate (PROVENTIL) (2.5 MG/3ML) 0.083% nebulizer solutionIndicati ons:Viral URI with cough Inhale 1 Vial via nebulizer every 4 hours as needed for Wheezing. 1 Box Dosing Unit 0 016 Active Additional Information Patient taking differently:2.5 mg Nebulizer Q4H PRN, Wheezing,Indications: shortness of breath, Reported on 03/07/2023 nitroglycerin (NITROSTAT) 0.4 MG SUBLIndications: HTN, goal to be determined 1 TABLET UNDER TONGUE NEEDED CHEST PAIN --MAY REPEAT 3 TIMES - IF NO RELIEF CALL 911 25 Tab 1 018 Active Zoster Vac Recomb Adjuvanted 50 MCG/0.5ML Intramuscular Suspension Reconstituted (Shingrix)Indica tions:Need for vaccination for zoster Inject 0.5 mL into a large muscle now and repeat dose in 60 to 180 days 1 Each 1 020 Active Multivitamin Women 50+ Oral Tablet Take by mouth . Active Acetaminophen 500 MG Oral CapsuleIndicatio ns:pain Take 1 Capsule by mouth every 4 hours as needed. Active PreserVision AREDS 2 Oral Capsule Take 1 Capsule by mouth in the morning and 1 Capsule in the evening. Active GenTeal Tears 0.1-0.2-0.3 % Ophthalmic Solution Instill into eye as needed. Active Tiotropium [place] Monohydrate 18 MCG Inhalation Capsule (Spiriva) INHALE CONTENTS OF 1 CAPSULE DAILY IN THE MORNING 90 Capsule 1 Active Losartan Potassium 25 MG Oral Tablet (Cozaar)Indicati ons:HTN, goal below 140/90 TAKE ONE TABLET BY MOUTH TWICE a DAY FOR BLOOD PRESSURE- GENERIC COZAAR 180 Tablet 3 Active Benzonatate 100 MG Oral Capsule (Tessalon Perles) TAKE 1 CAPSULE BY MOUTH 3 TIMES A DAY NEEDED COUGH 30 Capsule 1 Active Ezetimibe 10 MG Oral Tablet (Zetia)Indicatio ns:Hyperlipidemi a with target LDL less than 100 TAKE 1 TABLET BY MOUTH IN THE MORNING. FOR CHOLESTEROL. 90 Tablet 2 Active Loratadine 10 MG Oral Tablet (Claritin) Take 1 Tablet by mouth in the morning. 90 Tablet 3 Active OneTouch Ultra In Vitro Strip (Glucose Blood) TEST BLOOD SUGAR 6 TIMES DAILY. 600 Strip Active NovoLOG FlexPen 100 UNIT/ML Subcutaneous Solution Pen-injector (insulin aspart) INJECT 5 UNITS WITH BREAKFAST , 3 UNITS LUNCH, 3 UNITS WITH DINNER , PLUS CF 1:80 over 150. MAX 20 UNITS A DAY 15 mL 4 Active Albuterol Sulfate HFA 108 (90 Base) MCG/ACT Inhalation Aerosol SolutionIndicati ons:Wheezing INHALE 2 PUFFS BY MOUTH EVERY 4 HOURS NEEDED FOR WHEEZE 54 g 1 Active Fluticasone-Salm eterol 250-50 MCG/ACT Inhalation Aerosol Powder Breath Activated (Advair Diskus)Indicatio ns:Asthma, moderate persistent INHALE 1 PUFF EVERY 12 HOURS. RINSE MOUTH AFTER EACH USE. 180 Each 1 Active Omeprazole 40 MG Oral Capsule Delayed Release (PriLOSEC) TAKE 1 CAPSULE BY MOUTH EVERY DAY IN THE MORNING 90 Capsule Active Atrovent HFA 17 MCG/ACT Inhalation Aerosol Solution (ipratropium) INHALE 2 PUFFS BY MOUTH IN THE MORNING AT AT NOON IN THE EVENING AND BEFORE BEDTIME 38.7 g Active Furosemide 40 MG Oral Tablet (Lasix)Indicatio ns:HTN, goal below 140/90 TAKE ONE TABLET BY MOUTH EVERY DAY FOR FLUID 90 Tablet 1 024 Active Fluticasone Propionate 50 MCG/ACT Nasal Suspension (Flonase)Indicat ions:Acute sinusitis USE 1 SPRAY IN EACH NOSTRIL ONCE A DAY 48 mL 3 024 Active Azelastine HCl 0.1 % Nasal Solution (Astelin) Administer 2 Sprays into nostril in the morning and 2 Sprays before bedtime. 90 mL 3 024 Active Klor-Con M20 20 MEQ Oral Tablet Extended Release (Potassium Chloride ER)Indications:H TN, goal below 140/90 TAKE 1 TABLET BY MOUTH EVERY DAY 90 Tablet 1 024 Active Propranolol HCl ER 160 MG Oral Capsule Extended Release 24 HourIndications: Migraine TAKE 1 CAPSULE DAILY -INDERAL- FOR BLOOD PRESSURE/ HEADACHE. 90 Capsule 1 024 Active amLODIPine Besylate 10 MG Oral Tablet (Norvasc)Indicat ions:HTN, goal below 140/90 TAKE 1 TABLET BY MOUTH EVERY DAY -BLOOD PRESSURE 90 Tablet 1 024 Active CETIRIZINE HCL 10 MG PO TABS 1 tablet daily 2023 Discontinued(M edication List Clean Up) Refresh 1.4-0.6 % Ophthalmic Solution (polyvinyl alcohol-povidone PF) Instill 1 Drop into both eyes as needed. 2023 Discontinued(M edication List Clean Up) Losartan Potassium 25 MG Oral Tablet (Cozaar)Indicati ons:HTN, goal below 140/90 TAKE ONE TABLET BY MOUTH EVERY DAY FOR BLOOD PRESSURE- GENERIC COZAAR 90 Tablet 1 024 2023 Discontinued(M edication List Clean Up) Litetouch Pen [place] 31G X 5 MM (Insulin Pen Needle) USE FOUR TIMES A DAY. 400 Each 1 024 2023 Discontinued Cetirizine HCl 10 MG Oral Tablet Chewable Take 1 Tablet by mouth in the morning. 90 Tablet 3 024 2023 Discontinued(M edication List Clean Up) Insulin Glargine Solostar 100 UNIT/ML Subcutaneous Solution Pen-injector (Lantus SoloStar)Indicat ions:Type 2 diabetes mellitus with hemoglobin A1c goal of less than 7.0% ([facility]) Inject 10 units under the skin once daily- replaces levemir 15 mL 1 024 2023 Discontinued Fexofenadine HCl 180 MG Oral Tablet (Linda) TAKE 1 TABLET BY MOUTH EVERY DAY IN THE MORNING 90 Tablet 3 024 2023 Discontinued(M edication List Clean Up) Diphenoxylate-At ropine 2.5-0.025 MG Oral Tablet (Lomotil)Indicat ions:Celiac disease TAKE ONE TABLET BY MOUTH EVERY MORNING AND AT BEDTIME 60 Tablet 1 024 2023 Discontinued Hospital, Clinic, or Other Facility [...] 1.5 mg IJ PRN 04/16/2024 04/16/2025 Active documented as of this encounter (statuses as of 10/11/2024) Active Problems Problem Noted Date Diagnosed Date [...] as of this encounter (statuses as of 10/11/2024) Resolved Problems Problem Noted Date Diagnosed Date Resolved Date Morbid obesity with BMI of 40.0-44.9, adult 10/10/2019 08/01/2024 Overview (08/01/2024): historical Body mass index (BMI) of 40. 0 to 44.9 in adult 08/07/2017 10/17/2019 Overview: Per Obesity protocol #1 Nocturnal hypoxemia 11/14/2012 02/06/20 13 Overview (11/14/2012): 11/14/12 -- will consider oxygen therapy during sleep DME: [facility] 10/08/2009 02/09/2017 ADVANCE DIRECTIVE [...] 10/08/2012 Acute renal insufficiency Obstructive sleep apnea 04/12/2012 Overview (11/14/2012): 11/04/09 PSG -- AHI 13.3, desat 54%, <90% 125 mins Convulsions 02/05/2013 Overview (07/22/2009): remote Hx of Dyslipidemia, goal to be determined 02/05/2013 ACEI/ARB contraindicated 04/2017 Osteoporosis 08/01/2024 Overview (08/01/2024): Duplicated on pl HTN, goal below 140/80 12/06 documented as of this encounter (statuses as of 10/11/2024) Immunizations Name Administration Dates Next Due COVID-19 [...] encounter Miscellaneous Notes * Telephone Encounter - Willow Barger LPN - 10/11/2024 2:35 PM EST Records faxed * Telephone Encounter - Nilsa Pathak OSA - 10/10/2024 9:44 AM EST Caller requesting the following information to be faxed: Name/Company of caller: [facility] Information requested to be faxed: [facility] records last office visit Fax number: [phone] Attention to Name/Company: [facility] Any additional information?: never received form * Telephone Encounter - Carola Styles OSA - 10/04/2024 7:56 AM EST This is not a [facility] patient. * Telephone Encounter - Candice Patel OSA - 10/02/2024 4:40 PM EST Fauzia calling for an update on the request for medical records for the DME supplies. Please call Fauzia at [phone]. * Telephone Encounter - Jose Rueda OSA - 09/17/2024 12:40 PM EST Record Request received from [facility]. Request forwarded to [facility] ([phone]) via [employer]. documented in this encounter Plan of Treatment Upcoming Encounters Date Type Department Care Team (Late st Contact Info) Description 10/15/2024 1:00 PM EST Office Visit Pharmacy, [facility] [address] [place] [phone] [facility] [address] [facility] [address] 10/16/2024 1:15 PM EST Office Visit Ophthalmology, [facility] [address] [facility] [place] [address] Roscoe Jiménez, [address] [facility] [place] [address] 11/05/2024 1:00 PM EST Office Visit General Internal Medicine [facility] [address] [place] [address] Alicia Woodruff MD 200 [facility] [place] [address] 01/06/2025 1:00 PM EST Office Visit Allergy/Immunology [facility] [address] [place] [address] Mariana Webb PA-C 200 [facility] [place] [address] 02/11/2025 1:30 PM EDT Office Visit Gastroenterology, [facility] [address] [facility] [place] [address] [place] CRNP [address] [place] [address] Health Maintenance Due Date Last Done Comments [...] filedocumented as of this encounter Care Teams Pvc Monitor Relationship Specialty Start Date End Date Alicia Woodruff MD 200 [facility] [place] [address] PCP - General 09/21/09 documented as of this encounter
--- OUTSIDE RECORDS SUMMARY | 2024-12-10 00:52 | External Medical Summary | Summary of Care ---
Author Name Unknown Organization [facility] Address [address] [place] [address] Phone [phone] Care Team Providers Care Roller Structural Mill Name Role Phone Alicia Woodruff MD Primary Care Provider + Reason for Visit * Reason Onset Date Comments Medical Records Request 09/17/2024 Encounter Details Date Type Department Care Team (Late st Contact Info) Description 09/17/2024 Telephone General Internal Medicine [facility] 200 [facility] [place] [address] Alicia Woodruff MD [address] [place] [address] Medical Records Request Allergies Active Allergy Reactions Criticality Noted Date [...] Instill into eye as needed. Active Tiotropium [place] Monohydrate 18 MCG Inhalation Capsule (Spiriva) INHALE CONTENTS OF 1 CAPSULE DAILY IN THE MORNING 90 Capsule 1 024 Active Losartan Potassium 25 MG Oral Tablet (Cozaar)Indicati ons:HTN, goal below 140/90 TAKE ONE TABLET BY MOUTH TWICE a DAY FOR BLOOD PRESSURE- GENERIC COZAAR 180 Tablet 3 Active Benzonatate 100 MG Oral Capsule (Tessalon Perles) TAKE 1 CAPSULE BY MOUTH 3 TIMES A DAY NEEDED COUGH 30 Capsule 1 024 Active Ezetimibe 10 MG Oral Tablet (Zetia)Indicatio ns:Hyperlipidemi a with target LDL less than 100 TAKE 1 TABLET BY MOUTH IN THE MORNING. FOR CHOLESTEROL. 90 Tablet 2 024 Active Loratadine 10 MG Oral Tablet (Claritin) Take 1 Tablet by mouth in the morning. 90 Tablet 3 Active OneTouch Ultra In Vitro Strip (Glucose Blood) TEST BLOOD SUGAR 6 TIMES DAILY. 600 Strip 3 Active NovoLOG FlexPen 100 UNIT/ML Subcutaneous Solution Pen-injector (insulin aspart) INJECT 5 UNITS WITH BREAKFAST , 3 UNITS LUNCH, 3 UNITS WITH DINNER , PLUS CF 1:80 over 150. MAX 20 UNITS A DAY 15 mL 4 024 Active Albuterol Sulfate HFA 108 (90 Base) MCG/ACT Inhalation Aerosol SolutionIndicati ons:Wheezing INHALE 2 PUFFS BY MOUTH EVERY 4 HOURS NEEDED FOR WHEEZE 54 g 1 024 Active Fluticasone-Salm eterol 250-50 MCG/ACT Inhalation Aerosol Powder Breath Activated (Advair Diskus)Indicatio ns:Asthma, moderate persistent INHALE 1 PUFF EVERY 12 HOURS. RINSE MOUTH AFTER EACH USE. 180 Each 1 024 Active Omeprazole 40 MG Oral Capsule Delayed Release (PriLOSEC) TAKE 1 CAPSULE BY MOUTH EVERY DAY IN THE MORNING 90 Capsule 1 024 Active Atrovent HFA 17 MCG/ACT Inhalation Aerosol Solution (ipratropium) INHALE 2 PUFFS BY MOUTH IN THE MORNING AT AT NOON IN THE EVENING AND BEFORE BEDTIME 38.7 g 1 024 Active Furosemide 40 MG Oral Tablet (Lasix)Indicatio [...] Discontinued(M edication List Clean Up) Litetouch Pen [place] 31G X 5 MM (Insulin Pen Needle) [...] hemoglobin A1c goal of less than 7.0% ([facility]) Inject 10 units under the skin once [...] will consider oxygen therapy during sleep DME: [facility] 10/08/2009 02/09/2017 ADVANCE DIRECTIVE INFORMATION [...] encounter Miscellaneous Notes * Telephone Encounter - Candice Patel OSA - 10/02/2024 4:40 PM EST Fauzia calling for an update on the request for medical records for the DME supplies. Please call Fauzia at [phone]. * Telephone Encounter - Jose Rueda OSA - 09/17/2024 12:40 PM EST Record Request received from [facility]. Request forwarded to [facility] ([phone]) via [facility]. documented in this encounter Plan of Treatment Upcoming Encounters Date Type Department Care Team (Late st Contact Info) Description 10/15/2024 1:00 PM EST Office Visit Pharmacy, [facility] [address] [facility] [place] [phone] Noelle [facility] [address] [facility] [place] [address] 10/16/2024 1:15 PM EST Office Visit [facility] [address] [facility] [place] [address] Roscoe Jiménez, DO [address] [place] [address] 11/05/2024 1:00 PM EST Office Visit General Internal Medicine [facility] [address] [place] [address] Alicia Woodruff MD [address] [place] [address] 01/06/2025 1:00 PM EST Office Visit Allergy/Immunology [facility] [address] [facility] [place] [address] Mariana Webb PA-C [address] [facility] [place] [address] 02/11/2025 1:30 PM EDT Office Visit Gastroenterology, [facility] [address] [place] [address] [place] CRNP [address] [place] [address] Health Maintenance Due Date Last Done Comments [...] filedocumented as of this encounter Care Teams [employer] Mill Relationship Specialty Start Date End Date Alicia Woodruff MD [address] [place] [address] PCP - General 09/21/09 documented as of this encounter
--- OUTSIDE RECORDS SUMMARY | 2024-12-10 00:52 | External Medical Summary | Summary of Care ---
Author Name Unknown Organization [facility] Address [address] [place] [address] Phone [phone] Care Team Providers Care Stripper Apprentice Name Role Phone Kehinde Woodruff MD Primary Care Provider + Reason for Visit * Reason Comments eRx-Medication Refill Encounter Details Date Type Department Care Team (Late st Contact Info) Description 09/30/2024 Refill General Internal Medicine [facility] 200 [facility] [place] [address] Kehinde Woodruff MD 200 [place] [address] Allergies Active Allergy Reactions Criticality Noted Date Comments Nicola Inhibitors 07/22/2009 cough Azithromycin 07/22/2009 Clarithromycin 07/22/2009 Propoxyphene N-Acetaminophen Nausea/vomiting 07/22/2009 Erythromycin Other (Please comment) 10/12/2010 colitis Nitrofurantoin Monohydrate Macrocrystals 08/05/2010 rash Penicillins 02/23/2004 RASH, SOB Statins 10/16/2018 High liver functions, myalgias Sulfa Antibiotics 02/23/2004 RASH, SOB documented as of this encounter (statuses as of 09/30/2024) Medications ASPIRIN EC 81 MG PO TBECIndications: [...] Instill into eye as needed. Active Tiotropium [place] Monohydrate 18 MCG Inhalation Capsule (Spiriva) INHALE [...] DAY 90 Tablet 1 07/11/20 24 Active Diphenoxylate-At ropine 2.5-0.025 MG Oral Tablet (Lomotil)Indicat ions:Celiac disease TAKE ONE TABLET BY MOUTH EVERY MORNING AND AT BEDTIME 60 Tablet 1 07/25/20 24 Active Propranolol HCl ER 160 MG [...] goal of less than 7.0% ([facility]) INJECT 10 UNITS UNDER SKIN ONCE DAILY.REPLACES LEVEMIR *EACH PEN GOOD FOR 28 DAYS AFTER FIRST USE 15 mL 1 09/24/20 24 Active BD Pen Needle Mini U/F 31G X 5 MM (Insulin Pen Needle) USE FOUR TIMES A DAY 400 Each 3 09/30/20 24 Active Litetouch Pen [place] 31G X 5 MM (Insulin Pen Needle) USE FOUR TIMES A DAY. 400 Each 1 03/27/20 24 2023 Discontinued Hospital, Clinic, or Other [...] as of this encounter (statuses as of 09/30/2024) Active Problems Problem Noted Date Diagnosed Date [...] as of this encounter (statuses as of 09/30/2024) Resolved Problems Problem Noted Date Diagnosed Date [...] as of this encounter (statuses as of 09/30/2024) Immunizations Name Administration Dates Next Due COVID-19 [...] encounter Miscellaneous Notes * Telephone Encounter - Sundar Hamilton [facility] - 09/30/2024 5:30 PM EST Signed Prescriptions: Disp Refills BD Pen Needle Mini U/F 31G X 5 MM (Insulin*400 Ea*3 Sig: USE FOUR TIMES A DAYAuthorizing Provider: KEHINDE WOODRUFF User: SUNDAR HAMILTON-------- documented in this encounter Plan of Treatment Upcoming Encounters Date Type Department Care Team (Late st Contact Info) Description 10/15/2024 1:00 PM EST [facility] [address] [facility] [place] [address] [facility] [address] [place] [address] 10/16/2024 1:15 PM EST Office Visit Ophthalmology, [facility] [address] [facility] [place] [address] Roscoe Jiménez, 132 [facility] [place] [address] 11/05/2024 1:00 PM EST Office Visit General Internal Medicine [facility] [address] [place] [address] Kehinde Woodruff MD [address] [facility] [place] [address] 01/06/2025 1:00 PM EST Office Visit Allergy/Immunology [facility] [address] [place] [address] Mariana Webb PA-C [address] [place] [address] 02/11/2025 1:30 PM EDT Office Visit Gastroenterology, [facility] [address] [place] [address] [place] CRNP [address] [place] [address] Health Maintenance Due Date Last Done Comments [...] filedocumented as of this encounter Care Teams Stripper Apprentice Relationship Specialty Start Date End Date Kehinde Woodruff MD [address] [place] [address] PCP - General 09/21/09 documented as of this encounter
--- OUTSIDE RECORDS SUMMARY | 2024-12-10 00:52 | External Medical Summary | Summary of Care ---
Author Name Unknown Organization [facility] Address [address] [place] [address] Phone [phone] Care Team Providers Care Transaction Manager Name Role Phone Alicia Woodruff MD Primary Care Provider + Reason for Visit * Reason Onset Date Comments Medical Records Request 09/17/2024 Encounter Details Date Type Department Care Team (Late st Contact Info) Description 09/17/2024 Telephone General Internal Medicine [facility] [address] [facility] [place] [address] Alicia Woodruff MD 200 [facility] [place] [address] Medical Records Request Allergies Active Allergy Reactions [...] Instill into eye as needed. Active Tiotropium [place] Monohydrate 18 MCG Inhalation Capsule (Spiriva) INHALE [...] Discontinued(M edication List Clean Up) Litetouch Pen [place] 31G X 5 MM (Insulin Pen [...] goal of less than 7.0% ([facility]) Inject 10 units under the skin once [...] will consider oxygen therapy during sleep DME: [facility] 10/08/2009 02/09/2017 ADVANCE DIRECTIVE [...] the DME supplies. Please call Fauzia at [phone]. * Telephone Encounter - Joes Rueda OSA - 09/17/2024 12:40 PM EST Record Request received from [facility]. Request forwarded to [facility] ([phone]) via [facility]. documented in this encounter Plan of Treatment Upcoming Encounters Date Type Department Care Team (Late st Contact Info) Description 10/15/2024 1:00 PM EST Office Visit Pharmacy, [facility]elle Saunders [address] [facility] [place] [phone] Noelle [facility] [address] [facility] [place] [address] 10/16/2024 1:15 PM EST Office Visit Ophthalmology, [facility] [address] [facility] [place] [address] Roscoe Jiménez, DO [address] [place] [address] 11/05/2024 1:00 PM EST Office Visit General Internal Medicine [facility] [address] [place] [address] Alicia Woodruff MD [address] [place] [address] 01/06/2025 1:00 PM EST Office Visit Allergy/Immunology [facility] [address] [facility] [place] [address] Mariana Webb PA-C [address] [facility] [place] [address] 02/11/2025 1:30 PM EDT Office Visit Gastroenterology, [facility] [address] [place] [address] [place] CRNP [address] [place] [address] Health Maintenance Due Date Last Done Comments [...] filedocumented as of this encounter Care Teams Transaction Manager Relationship Specialty Start Date End Date Alicia Woodruff MD [address] [facility] [place] [address] PCP - General 09/21/09 documented as of this encounter
--- OUTSIDE RECORDS SUMMARY | 2024-12-10 00:52 | External Medical Summary | Summary of Care ---
Author Name Unknown Organization [facility] Address [address] [place] [address] Phone [phone] Care Team Providers Care Treasury Consultant Name Role Phone Alicia Woodruff MD Primary Care Provider + Reason for Visit * Reason Onset Date Comments Fax 09/17/2024 Encounter Details Date Type Department Care Team (Late st Contact Info) Description 09/17/2024 Telephone General Internal Medicine [facility] [address] [facility] [place] [address] Alicia Woodruff MD [address] [place] [address] Fax Allergies Active Allergy Reactions Criticality Noted Date Comments Nicola Inhibitors 07/22/2009 cough Azithromycin 07/22/2009 Clarithromycin 07/22/2009 Propoxyphene N-Acetaminophen Nausea/vomiting 07/22/2009 Erythromycin Other (Please comment) 10/12/2010 colitis Nitrofurantoin Monohydrate Macrocrystals 08/05/2010 rash Penicillins 02/23/2004 RASH, SOB Statins 10/16/2018 High liver functions, myalgias Sulfa Antibiotics 02/23/2004 RASH, SOB documented as of this encounter (statuses as of 10/10/2024) Medications ASPIRIN EC 81 MG PO TBECIndications: [...] Instill into eye as needed. Active Tiotropium [place] Monohydrate 18 MCG Inhalation Capsule (Spiriva) INHALE [...] Discontinued(M edication List Clean Up) Litetouch Pen [place] 31G X 5 MM (Insulin Pen Needle) [...] goal of less than 7.0% ([facility]) Inject 10 units under the skin [...] as of this encounter (statuses as of 10/10/2024) Active Problems Problem Noted Date Diagnosed Date [...] as of this encounter (statuses as of 10/10/2024) Resolved Problems Problem Noted Date Diagnosed Date Resolved Date Morbid obesity with BMI of 40.0-44.9, adult 10/10/2019 08/01/2024 Overview (08/01/2024): historical Body mass index (BMI) of 40. 0 to 44.9 in adult 08/07/2017 10/17/2019 Overview: Per Obesity protocol #1 Nocturnal hypoxemia 11/14/2012 02/06/20 13 Overview (11/14/2012): 11/14/12 -- will consider oxygen therapy during sleep DME: [facility] 10/08/2009 02/09/2017 ADVANCE DIRECTIVE [...] as of this encounter (statuses as of 10/10/2024) Immunizations Name Administration Dates Next Due COVID-19 [...] encounter Miscellaneous Notes * Telephone Encounter - Nilsa Pathak OSA - 10/10/2024 9:44 AM EST Caller requesting the following information to be faxed: Name/Company of caller: [facility] Information requested to be faxed: med records last office visit Fax number: [phone] Attention to Name/Company: [facility] Any additional information?: never received form * Telephone Encounter - Carola Styles OSA - 10/04/2024 7:56 AM EST This is not a [facility] patient. * Telephone Encounter - Candice Patel OSA - 10/02/2024 4:40 PM EST [facility]auzia calling for an update on the request for medical records for the DME supplies. Please call Fauzia at [phone]. * Telephone Encounter - Jose Rueda OSA - 09/17/2024 12:40 PM EST Record Request received from [facility]. Request forwarded to [facility] ([phone]) via [facility]. documented in this encounter Plan of Treatment Upcoming Encounters Date Type Department Care Team (Late st Contact Info) Description 10/15/2024 1:00 PM EST [facility] [place] [facility] [address] [place] [phone] [facility] [address] [facility] [place] [address] 10/16/2024 1:15 PM EST Office Visit Ophthalmology, [facility] [address] [facility] [place] [address] Roscoe Jiménez DO 132 [facility] [place] [address] 11/05/2024 1:00 PM EST Office Visit General Internal Medicine [facility] [address] [facility] [place] [address] Alicia Woodruff MD [address] [facility] [place] [address] 01/06/2025 1:00 PM EST Office Visit Allergy/Immunology [facility] [place] [address] [facility] [place] [address] Mariana Webb PA-C [address] [facility] [place] [address] 02/11/2025 1:30 PM EDT Office Visit Gastroenterology, [facility] [address] [place] [address] [place] CRNP [address] [place] [address] Health Maintenance Due Date Last Done Comments [...] filedocumented as of this encounter Care Teams Treasury Consultant Relationship Specialty Start Date End Date Alicia Woodruff MD [address] [place] [address] PCP - General 09/21/09 documented as of this encounter
--- OUTSIDE RECORDS SUMMARY | 2024-12-10 00:52 | External Medical Summary | Summary of Care ---
Author Name Unknown Organization [facility] Address [address] [facility] [address] Phone [phone] Care Team Providers Care Planner Chief Name Role Phone Alicia Woodruff MD Primary Care Provider + Reason for Visit * Reason Onset Date Comments Appointment 09/18/2024 Encounter Details Date Type Department Care Team (Late st Contact Info) Description 09/18/2024 Telephone Ophthalmology, [facility] [address] [place] [address] Roscoe Jiménez DO [address] [place] [address] Appointment Allergies Active Allergy Reactions Criticality Noted Date Comments Nicola Inhibitors 07/22/2009 cough Azithromycin 07/22/2009 Clarithromycin 07/22/2009 Propoxyphene N-Acetaminophen Nausea/vomiting 07/22/2009 Erythromycin Other (Please comment) 10/12/2010 colitis Nitrofurantoin Monohydrate Macrocrystals 08/05/2010 rash Penicillins 02/23/2004 RASH, SOB Statins 10/16/2018 High liver functions, myalgias Sulfa Antibiotics 02/23/2004 RASH, SOB documented as of this encounter (statuses as of 09/24/2024) Medications ASPIRIN EC 81 MG PO TBECIndications: [...] Instill into eye as needed. Active Tiotropium [place] Monohydrate 18 MCG Inhalation Capsule (Spiriva) INHALE [...] CHOLESTEROL. 90 Tablet 2 03/20/20 24 Active Litetouch Pen [place] 31G X 5 MM (Insulin Pen Needle) USE FOUR TIMES A DAY. 400 Each 03/27/20 24 Active Loratadine 10 MG Oral Tablet (Claritin) Take 1 Tablet by mouth in the morning. 90 Tablet 3 05/31/20 24 Active TrueNorthLogicTouch Ultra In Vitro Strip (Glucose Blood) TEST [...] 4 HOURS NEEDED FOR WHEEZE 54 g 06/08/20 24 Active Fluticasone-Salm eterol 250-50 MCG/ACT Inhalation Aerosol Powder Breath Activated (Advair Diskus)Indicatio ns:Asthma, moderate persistent INHALE 1 PUFF EVERY 12 HOURS. RINSE MOUTH AFTER EACH USE. 180 Each 06/26/20 24 Active Omeprazole 40 MG Oral Capsule Delayed Release (PriLOSEC) TAKE 1 CAPSULE BY MOUTH EVERY DAY IN THE MORNING 90 Capsule 07/01/20 24 Active Atrovent HFA 17 MCG/ACT [...] A1c goal of less than 7.0% ([facility]) Inject 10 units under the skin once daily- replaces levemir 15 mL 1 04/22/20 24 2023 Discontinued Hospital, Clinic, or Other [...] as of this encounter (statuses as of 09/24/2024) Active Problems Problem Noted Date Diagnosed Date [...] as of this encounter (statuses as of 09/24/2024) Resolved Problems Problem Noted Date Diagnosed Date Resolved Date Morbid obesity with BMI of 40.0-44.9, adult 10/10/2019 08/01/2024 Overview (08/01/2024): historical Body mass index (BMI) of 40. 0 to 44.9 in adult 08/07/2017 10/17/2019 Overview: Per Obesity protocol #1 Nocturnal hypoxemia 11/14/2012 02/06/20 Overview (11/14/2012): 11/14/12 -- will consider oxygen [...] as of this encounter (statuses as of 09/24/2024) Immunizations Name Administration Dates Next Due COVID-19 [...] encounter Miscellaneous Notes * Telephone Encounter - Vielka Longo OSA - 09/19/2024 11:18 AM EST Pt returning call to schedule appt- nothing avail we can schedule during req timeframe- tried transferring an no answer- please call pt back with an appt * Telephone Encounter - Maryellen Kim OSA - 09/18/2024 12:26 PM EST Return for 4-6wks. No appointments available. Please call patient with phone number on file to schedule. Thank you! documented in this encounter Plan of Treatment Upcoming Encounters Date Type Department Care Team (Late st Contact Info) Description 10/01/2024 10:00 AM EST Office Visit Gastroenterology, [facility] 132 [facility] [place] [address] [place] CRNP [address] [place] [address] 10/15/2024 1:00 PM EST [facility] [address] [place] [address] [facility] [address] [place] [address] 10/16/2024 1:15 PM EST Office Visit Ophthalmology, [facility] [address] [place] [address] Roscoe Jiménez DO [address] [place] [address] 11/05/2024 1:00 PM EST Office Visit General Internal Medicine [facility] [address] [place] [address] Alicia Woodruff MD [address] [place] [address] 01/06/2025 1:00 PM EST Office Visit Allergy/Immunology [facility] 200 [facility] [place] [address] Mariana Webb PA-C 200 [facility] [place] [address] Health Maintenance Due Date Last Done Comments [...] filedocumented as of this encounter Care Teams Planner Chief Relationship Specialty Start Date End Date Alicia Woodruff MD 200 [facility] [place] [address] PCP - General 09/21/09 documented as of this encounter
--- OUTSIDE RECORDS SUMMARY | 2024-12-10 00:52 | External Medical Summary | Summary of Care ---
Author Name Unknown Organization [facility] Address [address] [place] [address] Phone [phone] Care Team Providers Care Practice Specialist Name Role Phone Alicia Woodruff MD Primary Care Provider + Reason for Visit * Reason Onset Date Comments Medical Records Request 09/17/2024 Encounter Details Date Type Department Care Team (Late st Contact Info) Description 09/17/2024 Telephone General Internal Medicine [facility] 200 [facility] [place] [address] Alicia Woodruff MD 200 [place] [address] Medical Records Request Allergies Active Allergy Reactions Criticality Noted Date Comments Nicola Inhibitors 07/22/2009 cough Azithromycin 07/22/2009 Clarithromycin 07/22/2009 Propoxyphene N-Acetaminophen Nausea/vomiting 07/22/2009 Erythromycin Other (Please comment) 10/12/2010 colitis Nitrofurantoin Monohydrate Macrocrystals 08/05/2010 rash Penicillins 02/23/2004 RASH, SOB Statins 10/16/2018 High liver functions, myalgias Sulfa Antibiotics 02/23/2004 RASH, SOB documented as of this encounter (statuses as of 10/04/2024) Medications ASPIRIN EC 81 MG PO TBECIndications: [...] Instill into eye as needed. Active Tiotropium [place] Monohydrate 18 MCG Inhalation Capsule (Spiriva) INHALE [...] Discontinued(M edication List Clean Up) Litetouch Pen [place] 31G X 5 MM (Insulin Pen Needle) [...] as of this encounter (statuses as of 10/04/2024) Active Problems Problem Noted Date Diagnosed Date [...] as of this encounter (statuses as of 10/04/2024) Resolved Problems Problem Noted Date Diagnosed Date Resolved Date Morbid obesity with BMI of 40.0-44.9, adult 10/10/2019 08/01/2024 Overview (08/01/2024): historical Body mass index (BMI) of 40. 0 to 44.9 in adult 08/07/2017 10/17/2019 Overview: Per Obesity protocol #1 Nocturnal hypoxemia 11/14/2012 02/06/20 13 Overview (11/14/2012): 11/14/12 -- will consider oxygen therapy during sleep DME: [facility] 10/08/2009 02/09/2017 ADVANCE DIRECTIVE [...] as of this encounter (statuses as of 10/04/2024) Immunizations Name Administration Dates Next Due COVID-19 [...] encounter Miscellaneous Notes * Telephone Encounter - Carola Styles OSA - 10/04/2024 7:56 AM EST This is not a [facility] patient. * Telephone Encounter - Candice Patel OSA - 10/02/2024 4:40 PM EST Fauzia calling for an update on the request for medical records for the DME supplies. Please call Fauzia at [phone]. * Telephone Encounter - Jose Rueda OSA - 09/17/2024 12:40 PM EST Record Request received from [facility]. Request forwarded to [facility] ([phone]) via [employer]. documented in this encounter Plan of Treatment Upcoming Encounters Date Type Department Care Team (Late st Contact Info) Description 10/15/2024 1:00 PM EST Office Visit Pharmacy, [address] [place] [phone] [facility] [address] [facility] [place] [id number] 10/16/2024 1:15 PM EST Office Visit Ophthalmology, [facility] [place] [address] Roscoe Jiménez DO [address] [place] [address] 11/05/2024 1:00 PM EST Office Visit General Internal Medicine [facility] [address] [place] [address] Alicia Woodruff MD [address] [place] [address] 01/06/2025 1:00 PM EST Office Visit Allergy/Immunology [facility] [address] [place] [address] Mariana Webb PA-C 200 [facility] [place] [address] 02/11/2025 1:30 PM EDT Office Visit Gastroenterology, [facility] [address] [place] [address] [place] CRNP [address] [place] [address] Health Maintenance Due Date Last Done Comments [...] filedocumented as of this encounter Care Teams Practice Specialist Relationship Specialty Start Date End Date Alicia Woodruff MD [address] [place] [address] PCP - General 09/21/09 documented as of this encounter
--- OUTSIDE RECORDS SUMMARY | 2024-12-10 00:53 | External Medical Summary | Summary of Care ---
Author Name Unknown Organization [facility] Address [address] [place] [address] Phone [phone] Care Team Providers Care Refrigerator Repairman Name Role Phone Alicia Woodruff MD Primary Care Provider + Encounter Details Date Type Department Care Team (Late st Contact Info) Description 09/12/2024 Population Health External Data Unspecified Department Allergies Active Allergy Reactions Criticality Noted Date Comments Niocla Inhibitors 07/22/2009 cough Azithromycin 07/22/2009 Clarithromycin 07/22/2009 Propoxyphene N-Acetaminophen Nausea/vomiting 07/22/2009 Erythromycin Other (Please comment) 10/12/2010 colitis Nitrofurantoin Monohydrate Macrocrystals 08/05/2010 rash Penicillins 02/23/2004 RASH, SOB Statins 10/16/2018 High liver functions, myalgias Sulfa Antibiotics 02/23/2004 RASH, SOB documented as of this encounter (statuses as of 09/19/2024) Medications ASPIRIN EC 81 MG PO TBECIndications:H TN, goal below 140/90 Take one pill daily 30 3 9 Active Additional Information Patient taking differently:Oral,Indications: blood [...] PO TABS 1 tablet daily Activ e MAXALT 5 MG PO TABSIndications:M igraine One pill by mouth at onset of headache, may repeat every 2 hours up to 2 times. Up to 3 pills in 24 hours 20 Tab 3 5 Active albuterol sulfate (PROVENTIL) (2.5 MG/3ML) 0.083% nebulizer solutionIndicatio ns:Viral URI with cough Inhale 1 Vial via nebulizer every 4 hours as needed for Wheezing. 1 Box Dosing Unit 0 6 Active Additional Information Patient taking differently:2.5 mg [...] Instill into eye as needed. Active Tiotropium [place] Monohydrate 18 MCG Inhalation Capsule (Spiriva) INHALE CONTENTS OF 1 CAPSULE DAILY IN THE MORNING 90 Capsule 1 4 Active Losartan Potassium 25 MG Oral Tablet (Cozaar)Indicatio ns:HTN, goal below 140/90 TAKE ONE TABLET BY MOUTH TWICE a DAY FOR BLOOD PRESSURE- GENERIC COZAAR 180 Tablet 3 4 Active Benzonatate 100 MG Oral Capsule (Tessalon Perles) TAKE 1 CAPSULE BY MOUTH 3 TIMES A DAY NEEDED COUGH 30 Capsule 1 4 Active Ezetimibe 10 MG Oral Tablet (Zetia)Indication s:Hyperlipidemia with target LDL less than 100 TAKE 1 TABLET BY MOUTH IN THE MORNING. FOR CHOLESTEROL. 90 Tablet 2 4 Active Litetouch Pen [place] 31G X 5 MM (Insulin Pen Needle) USE FOUR TIMES A DAY. 400 Each 1 4 Active Insulin Glargine Solostar 100 UNIT/ML Subcutaneous Solution Pen-injector (Lantus SoloStar)Indicati ons:Type 2 diabetes mellitus with hemoglobin A1c goal of less than 7.0% (HCC) Inject 10 units under the skin once daily- replaces levemir 15 mL 1 4 Active Loratadine 10 MG Oral Tablet (Claritin) Take 1 Tablet by mouth in the morning. 90 Tablet 3 4 Active WheelTek of MemphisTouch Ultra In Vitro Strip (Glucose Blood) TEST [...] EVERY DAY 90 Tablet 1 4 Active Diphenoxylate-Atr opine 2.5-0.025 MG Oral Tablet (Lomotil)Indicati ons:Celiac disease TAKE ONE TABLET BY MOUTH EVERY MORNING AND AT BEDTIME 60 Tablet 1 4 Active Propranolol HCl ER 160 MG Oral Capsule Extended Release 24 HourIndications:M igraine TAKE 1 CAPSULE DAILY -INDERAL- FOR BLOOD PRESSURE/ HEADACHE. 90 Capsule 1 4 Active amLODIPine Besylate 10 MG Oral Tablet (Norvasc)Indicati ons:HTN, goal below 140/90 TAKE 1 TABLET BY MOUTH EVERY DAY -BLOOD PRESSURE 90 Tablet 1 4 Active Hospital, Clinic, or [...] as of this encounter (statuses as of 09/19/2024) Active Problems Problem Noted Date Diagnosed Date [...] as of this encounter (statuses as of 09/19/2024) Resolved Problems Problem Noted Date Diagnosed Date [...] as of this encounter (statuses as of 09/19/2024) Immunizations Name Administration Dates Next Due COVID-19 [...] 10/01/2024 10:00 AM EST Office Visit Gastroenterology, [facility] [address] [place] [address] [place] CRNP [address] [place] [address] 10/15/2024 1:00 PM EST [facility] [place] [address] [facility] [address] [facility] [address] [facility] [address] 11/05/2024 1:00 PM EST Office Visit General Internal Medicine [facility] [address] [facility] [place], [place] [address] Alicia Woodruff MD [address] [facility] [place] [address] 01/06/2025 1:00 PM EST Office Visit Allergy/Immunology [facility] [address] [facility] [address] Mariana Webb PA-C [address] [facility] [address] Health Maintenance Due Date Last Done Comments [...] filedocumented as of this encounter Care Teams Refrigerator Repairman Relationship Specialty Start Date End Date Alicia Woodruff MD [address] [place] [address] PCP - General 09/21/09 documented as of this encounter
--- OUTSIDE RECORDS SUMMARY | 2024-12-10 00:53 | External Medical Summary | Summary of Care ---
Author Name Unknown Organization [facility] Address [address] [place] [address] Phone [phone] Care Team Providers Care Sensor Technician Name Role Phone Alicia Woodruff MD Primary Care Provider + Reason for Visit * Reason Comments Follow Up * Precert (Within 10 days (routine)) - Authorized Specialty Diagnoses / Procedures Referred By Brian garcia Referred To Contact Ophthalmology Diagnoses Exudative age-related macular degeneration, right eye, with active choroidal neovascularization (HCC) Procedures AK INJECTION, FARICIMAB-SVOA, 0.1 MG AK INTRAVITREAL NJX PHARMACOLOGIC AGT SPX Roscoe Jiménez DO [facility] [place] [address] Phone: tel: fax: [facility], [facility] [address] Phone: tel: fax: Referral ID Status Reason Start Date Expiration Date V isits Requested Visits Authorized [id number] Authorized Precert 02/20/2024 11/05/2099 [id number] Encounter Details Date Type Department Care Team (Late st Contact Info) Description 09/18/2024 11:45 AM EST Office Visit Ophthal[facility], [facility] [address] Roscoe Jiménez DO [address] [place] [address] Exudative age-related macular degeneration of right eye with active choroidal neovascularization (HCC)*; Intermediate stage nonexudative age-related macular degeneration of left eye Allergies Active Allergy Reactions Criticality Noted Date Comments Nicola Inhibitors 07/22/2009 cough Azithromycin 07/22/2009 Clarithromycin 07/22/2009 Propoxyphene N-Acetaminophen Nausea/vomiting 07/22/2009 Erythromycin Other (Please comment) 10/12/2010 colitis Nitrofurantoin Monohydrate Macrocrystals 08/05/2010 rash Penicillins 02/23/2004 RASH, SOB Statins 10/16/2018 High liver functions, myalgias Sulfa Antibiotics 02/23/2004 RASH, SOB documented as of this encounter (statuses as of 09/18/2024) Medications ASPIRIN EC 81 MG PO TBECIndications:H [...] Instill into eye as needed. Active Tiotropium [place] Monohydrate 18 MCG Inhalation Capsule (Spiriva) INHALE [...] Tablet 2 03/20/20 24 Active Litetouch Pen [place] 31G X 5 MM (Insulin Pen Needle) USE FOUR TIMES A DAY. 400 Each 1 03/27/20 24 Active Insulin Glargine Solostar 100 UNIT/ML Subcutaneous Solution Pen-injector (Lantus SoloStar)Indicati ons:Type 2 diabetes mellitus with hemoglobin A1c goal of less than 7.0% ([facility]) Inject 10 units under the skin once daily- replaces levemir 15 mL 1 04/22/20 24 Active Loratadine 10 MG Oral Tablet [...] DAY 90 Tablet 1 07/11/20 24 Active Diphenoxylate-Atr opine 2.5-0.025 MG Oral [...] PRESSURE 90 Tablet 1 08/29/20 24 Active CETIRIZINE HCL 10 MG PO TABS 1 tablet daily Discontin ued(Medic ation List Clean Up) Refresh 1.4-0.6 % Ophthalmic Solution (polyvinyl alcohol-povidone PF) Instill 1 Drop into both eyes as needed. Discontin ued(Medic ation List Clean Up) Losartan Potassium 25 MG Oral Tablet (Cozaar)Indicatio ns:HTN, goal below 140/90 TAKE ONE TABLET BY MOUTH EVERY DAY FOR BLOOD PRESSURE- GENERIC COZAAR 90 Tablet 1 12/12/19 24 024 Discontin ued(Medic ation List Clean Up) Cetirizine HCl 10 MG Oral Tablet Chewable Take 1 Tablet by mouth in the morning. 90 Tablet 3 03/29/20 24 Discontin ued(Medic ation List Clean Up) Fexofenadine HCl 180 MG Oral Tablet (Linda) TAKE 1 TABLET BY MOUTH EVERY DAY IN THE MORNING 90 Tablet 3 05/20/20 24 024 Discontin ued(Medic ation List Clean Up) Hospital, Clinic, or Other Facility Administered Medication [...] as of this encounter (statuses as of 09/18/2024) Active Problems Problem Noted Date Diagnosed Date [...] as of this encounter (statuses as of 09/18/2024) Resolved Problems Problem Noted Date Diagnosed Date [...] as of this encounter (statuses as of 09/18/2024) Immunizations Name Administration Dates Next Due COVID-19 [...] of this encounter Progress Notes * Roscoe Jiménez DO - 09/18/2024 11:45 AM EST [facility] [place] [place] Nursing Notes: Henny Fields RN 09/18/24 1146 Signed Halima Nicholson is a 79 year old year old female who presents for AMD. Last Office Visit: 07/23/2024 (in office), Visit date not found (telemedicine) Patient currently states "can not see too well right eye -black blob/mass and left is blurry" Are you diabetic? Yes. Do you check [...] - Linear) Right Left Dist cc 20/800 20/200 Dist ph cc NI 20/100 -1 Correction: Glasses Tonometry (Tonopen, 11:44 AM) Right Left Pressure 19 15 Pupils Pupils APD Right PERRL None Left PERRL None Visual Ramirez (Counting fingers) Right Left Restrictions Total superior temporal, inferior temporal, superior nasal, inferior nasal deficiencies Partial outer superior nasal, inferior nasal deficiencies Extraocular Movement Right Left Full, Ortho Full, Ortho Neuro/Psych Oriented x3: Yes Mood/Affect: Normal Dilation Both eyes: 0.5% Proparacaine @ 11:44 AM Dilation #2 Both eyes: 1.0% Mydriacyl, 2.5% Phenylephrine @ 11:44 AM Dilation #3 Both eyes: 1.0% Mydriacyl, 2.5% Phenylephrine @ 11:46 AM Dilation Comments Patient cautioned that effects of [...] drusen; large SRheme vessels: wnl periphery: trace nanotechnology engineering technician, no RT/RD Dilated fundus exam OS: vitreous: clear optic nerve: 0.55, no edema/pallor/NVD macula: drusen, trace nanotechnology engineering technician vessels: wnl periphery: trace nanotechnology engineering technician, no RT/RD OCT Interpretation: OD: large recurrent PED w/ srfluid/heme--worse, prior improved 54um prior worse 20um prior worse 19um prior improved, prior improved, prior STABLE, prior no sig change, prior STABLE, prior improved 95um OS: drusen, no irf/srf A/P: 1. Age-Related Macular Degeneration OD: wet -Avastin 10/17/24.......08/07/23, 07/05/23, 05/22/23, 04/06/23 -worse at 6 weeks (had to go back to Avastin due to no Good Days) -Eylea 01/03/24, 11/27/23, 09/15/2023 -mild improved -still w/ fluid at 8 weeks -Vabysmo 07/23/24, 05/29/24, 04/16/2024 --sig improvement -8 weeks -09/18/2024: new srheme at 8 weeks [...] does not drive F/u 4-6 weeks, OCT OU Roscoe Jiménez, DO CC: Dudley Arambula, OD CC: PCP: [...] Nursing Notes * Henny Fields RN - 09/18/2024 12:06 PM EST Halima Nicholson to receive fourth Vabysmo 6mg Injection of the Right eye. Correct eye confirmed with patient and marked by Roscoe Jiménez DO Vabysmo 6mg lot # [id number] Exp. Date: 02/02/2026 * Henny Fields RN - 09/18/2024 11:36 AM EST Halima Nicholson is a 79 year old year old female who presents for AMD. Last Office Visit: 07/23/2024 (in office), Visit date not found (telemedicine) Patient currently states "can not see too well right eye -black blob/mass and left is blurry" Are you diabetic? Yes. Do you check [...] 10/01/2024 10:00 AM EST Office Visit Gastroenterology, [facility] [address] [facility] [place] [address] [place] CRNP [address] [facility] [place] [address] 10/15/2024 1:00 PM EST Office Visit Pharmacy, [place] [address] [place] [address] [facility] [address] [place] [address] 11/05/2024 1:00 PM EST Office Visit General Internal Medicine [facility] [address] [place] [address] [place] [address] Alicia Woodruff MD [address] [place] [address] 01/06/2025 1:00 PM EST [facility] [place] [address] [place] [address] [address] Mariana Webb PA-C [address] [place] [address] Scheduled Orders Name Type Priority Associated Diagnoses Orde r Schedule RETINA SCAN DIAGNOSTIC IMAGE, POSTERIOR Procedures Routine Exudative age-related macular degeneration of right eye with active choroidal neovascularization (HCC) Intermediate stage nonexudative age-related macular degeneration of left eye Ordered: 09/18/2024 Health Maintenance Due Date Last Done Comments [...] nonexudative age-related macular degeneration of left eye documented in this encounter Administered Medications Active Administered Medications - up to 3 most recent administrations Medication Order MAR Action Action Date Dose Rate Site Faricimab-svoa (Vabysmo) prefilled syringe inj 6 mg 6 mg, Intravitreal, PRN Other, Starting on Mon09/18/24 at 1218, Until Mon09/18/25 at 1217, For 365 days, Each syringe should only [...] eye with active choroidal neovascularization (HCC) Given 09/18/2024 12:34 PM EST 6 mg Eye Right ROPivacaine (Naropin) inj 1.5 mg 1.5 mg, Injection, PRN Other, Starting on Mon04/16/24 at 1432, Until Mon04/16/25 at 1431, For 365 daysIndications:Exudative age-related macular degeneration of right eye with active choroidal neovascularization (HCC) Given 09/18/2024 12:34 PM EST 1.5 mg Eye Right Given 07/23/2024 2:20 PM EDT 1.5 mg Ey e Right Given 05/29/2024 2:01 PM EDT 1.5 mg Ey e Right documented in this encounter Care Teams Sensor Technician Relationship Specialty Start Date End Date Alicia Woodruff MD [address] [place] [address] PCP - General 09/21/09 documented as of this encounter
--- OUTSIDE RECORDS SUMMARY | 2024-12-10 00:53 | External Medical Summary | Summary of Care ---
Author Name Unknown Organization [facility] Address [address] [place] [address] Phone [phone] Care Team Providers Care Software Educator Name Role Phone Alicia Woodruff MD Primary Care Provider + Reason for Visit * Reason Onset Date Comments Medical Records Request 09/17/2024 Encounter Details Date Type Department Care Team (Late st Contact Info) Description 09/17/2024 Telephone General Internal Medicine [facility] [address] [facility] [place] [address] Alicia Woodruff MD 200 [place] [address] Medical Records Request Allergies Active Allergy Reactions Criticality Noted Date Comments Nicola Inhibitors 07/22/2009 cough Azithromycin 07/22/2009 Clarithromycin 07/22/2009 Propoxyphene N-Acetaminophen Nausea/vomiting 07/22/2009 Erythromycin Other (Please comment) 10/12/2010 colitis Nitrofurantoin Monohydrate Macrocrystals 08/05/2010 rash Penicillins 02/23/2004 RASH, SOB Statins 10/16/2018 High liver functions, myalgias Sulfa Antibiotics 02/23/2004 RASH, SOB documented as of this encounter (statuses as of 09/17/2024) Medications ASPIRIN EC 81 MG PO TBECIndications:H TN, goal below 140/90 Take one pill daily 30 3 9 Active Additional Information Patient taking differently:Oral,Indications: blood thinner / heart health, Reported on 03/07/2023 VITAMIN C 500 MG PO CAPS one pill each day Active NEBULIZER COMPRESSOR MISCIndications:A sthma, moderate persistent Use as directed 1 Each 1 2 Active CETIRIZINE HCL 10 MG PO TABS 1 tablet daily Acti ve ONETOUCH ULTRASOFT LANCETS MISCIndications:D M type 2 [...] Solution Instill into eye as needed. Active Refresh 1.4-0.6 % Ophthalmic Solution (polyvinyl alcohol-povidone PF) Instill 1 Drop into both eyes as needed. Active Losartan Potassium 25 MG Oral Tablet (Cozaar)Indicatio ns:HTN, goal below 140/90 TAKE ONE TABLET BY MOUTH EVERY DAY FOR BLOOD PRESSURE- GENERIC COZAAR 90 Tablet 1 4 Active Additional Information Patient taking differently: BID (.AM/PM), Reported on 01/03/2024 Tiotropium [place] Monohydrate 18 MCG Inhalation Capsule (Spiriva) INHALE CONTENTS OF 1 CAPSULE DAILY IN THE MORNING 90 Capsule 1 4 Active Losartan Potassium 25 MG Oral Tablet (Cozaar)Maria Alejandrao ns:HTN, goal below 140/90 TAKE ONE TABLET [...] 90 Tablet 2 4 Active Litetouch Pen [place] 31G X 5 MM (Insulin Pen Needle) USE FOUR TIMES A DAY. 400 Each 1 4 Active Cetirizine HCl 10 MG Oral Tablet Chewable Take 1 Tablet by mouth in the morning. 90 Tablet 3 4 Active Insulin Glargine Solostar 100 UNIT/ML Subcutaneous Solution Pen-injector (Lantus SoloStar)Indicati ons:Type 2 diabetes mellitus with hemoglobin A1c goal of less than 7.0% ([facility]) Inject 10 units under the skin once daily- replaces levemir 15 mL 1 4 Active Fexofenadine HCl 180 MG Oral Tablet (Linda) TAKE 1 TABLET BY MOUTH EVERY DAY IN THE MORNING 90 Tablet 3 4 Active Loratadine 10 MG Oral Tablet (Claritin) Take 1 Tablet by mouth in the morning. 90 Tablet 3 4 Active FlagTapTouch Ultra In Vitro Strip (Glucose Blood) TEST [...] as of this encounter (statuses as of 09/17/2024) Active Problems Problem Noted Date Diagnosed Date [...] as of this encounter (statuses as of 09/17/2024) Resolved Problems Problem Noted Date Diagnosed Date Resolved Date Morbid obesity with BMI of 40.0-44.9, adult 10/10/2019 08/01/2024 Overview (08/01/2024): historical Body mass index (BMI) of 40. 0 to 44.9 in adult 08/07/2017 10/17/2019 Overview: Per Obesity protocol #1 Nocturnal hypoxemia 11/14/2012 02/06/20 Overview (11/14/2012): 11/14/12 -- will consider oxygen therapy during sleep DME: [facility] 10/08/2009 02/09/2017 ADVANCE DIRECTIVE INFORMATION [...] as of this encounter (statuses as of 09/17/2024) Immunizations Name Administration Dates Next Due COVID-19 [...] in the Last Year Never true 06/25/2019 Utilities Answer Date Recorded Do you have trouble paying y our heating, water, or electric bill? (Adult - for ages 18 years and over) Not on file 04/23/2024 Is your family able to pay t he heat, water, or electric bill? (Household - for ages 0-17 years) Not on file 04/23/2024 Does your family have access to good internet? (Household - for ages 0-17 years) Not on file 04/23/2024 Social Connections Answer Date Recorded How often do you feel lonely or isolated from those around you? (Adult - for ages 18 years and over) Not on file 04/23/2024 Comments No Sex and Gender Information Value [...] Miscellaneous Notes * Telephone Encounter - Jose Rueda OSA - 09/17/2024 12:40 PM EST Record Request received from [facility]. Request forwarded to [facility] ([phone]) via [employer]. documented in this encounter Plan of Treatment Upcoming Encounters Date Type Department Care Team (Late st Contact Info) Description 09/18/2024 11:45 AM EST Office Visit Ophthalmology, [facility] [address] [address] Roscoe Jiménez, [address] [place] [address] 10/01/2024 10:00 AM EST Office Visit Gastroenterology, [facility] [address] [address] [place] CRNP [address] [place] [address] 10/15/2024 1:00 PM EST Office Visit Pharmacy, [place] [address] [place] [address] [place], [facility] [address] [place] [facility] [place] [place] [address] 11/05/2024 1:00 PM EST Office Visit General Internal Medicine [facility] [address] [facility] [place] [address] Alicia Woodruff MD 200 [facility] [place] [address] 01/06/2025 1:00 PM EST Office Visit Allergy/Immunology [facility] [address] [facility] [place] [address] Mariana Webb PA-C 200 [facility] [place], [place] [address] Health Maintenance Due Date Last Done Comments [...] filedocumented as of this encounter Care Teams Software Educator Relationship Specialty Start Date End Date Alicia Woodruff MD [address] [facility] [place] [address] PCP - General 09/21/09 documented as of this encounter
--- OUTSIDE RECORDS SUMMARY | 2024-12-10 00:53 | External Medical Summary | Summary of Care ---
Author Name Unknown Organization [facility] Address [address] [place] [address] Phone [phone] Care Team Providers Care Site Leasing Agent Name Role Phone Kehinde Woodruff MD Primary Care Provider + Reason for Visit * Reason Comments eRx-Medication Refill Encounter Details Date Type Department Care Team (Late st Contact Info) Description 09/24/2024 Refill Pharmacy, [address] [phone] Kehinde Woodruff MD [address] [place] [id number] Type 2 diabetes mellitus with hemoglobin A1c goal of less than 7.0% ([facility]) Allergies Active Allergy Reactions Criticality Noted Date [...] Instill into eye as needed. Active Tiotropium [place] Monohydrate 18 MCG Inhalation Capsule (Spiriva) INHALE [...] Tablet 2 03/20/20 24 Active Litetouch Pen [place] 31G X 5 MM (Insulin Pen Needle) USE FOUR TIMES A DAY. 400 Each 1 03/27/20 24 Active Loratadine 10 MG Oral [...] USE 15 mL 1 09/24/20 24 Active Insulin Glargine Solostar 100 UNIT/ML [...] will consider oxygen therapy during sleep DME: [facility] 10/08/2009 02/09/2017 ADVANCE [...] Notes * Telephone Encounter - Noreen Snyder [facility] - 09/24/2024 12:08 PM EST Signed Prescriptions: Disp Refills Insulin Glargine Solostar 100 UNIT/ML Subc*15 mL 1 Sig: INJECT 10 UNITS UNDER SKIN ONCE DAILY.REPLACES LEVEMIR *EACH PEN GOOD FOR 28 DAYS AFTER FIRST USEAuthorizingProvider: KEHINDE WOODRUFF User: NOREEN SNYDER documented in this encounter Plan of Treatment Upcoming Encounters Date Type Department Care Team (Late st Contact Info) Description 10/01/2024 10:00 AM EST Office Visit [facility]enterology, [facility] [address] [place] [facility] [address] 10/15/2024 1:00 PM EST Office Visit Pharmacy, [place] [address] [facility] [place] [address] [place], [facility] [address] [facility] [place] [address] 10/16/2024 1:15 PM EST Office Visit Ophthalmology, [facility] [address] [facility] [address] Roscoe Jiménez, DO [address] [place] [address] 11/05/2024 1:00 PM EST Office Visit General Internal Medicine [facility] [address] [facility] [address] [place], [place] [address] Kehinde Woodruff MD [address] [facility] [place] [address] 01/06/2025 1:00 PM EST Office Visit Allergy/Immunology [facility] [address] [facility] [place] [address] Mariana Webb PA-C [address] [facility] [place] [address] Health Maintenance Due Date Last Done Comments [...] A1c goal of less than 7.0% (HCC) documented in this encounter Care Teams Site Leasing Agent Relationship Specialty Start Date End Date Kehinde Woodruff MD [address] [facility] [place] [address] PCP - General 09/21/09 documented as of this encounter
--- OUTSIDE RECORDS SUMMARY | 2024-12-10 00:53 | External Medical Summary | Summary of Care ---
Author Name Unknown Organization [facility] Address [address] [place] [address] Phone [phone] Care Team Providers Care Want Ad Supervisor Name Role Phone Alicia Woodruff MD Primary Care Provider + Reason for Visit * Reason Comments Follow Up * Precert (Within 10 days (routine)) - Authorized Specialty Diagnoses / Procedures Referred By Brian garcia Referred To Contact Ophthalmology Diagnoses Exudative age-related macular degeneration, right eye, with active choroidal neovascularization (HCC) Procedures ID INJECTION, FARICIMAB-SVOA, 0.1 MG ID INTRAVITREAL NJX PHARMACOLOGIC AGT SPX Roscoe Jiménez DO [facility] [place] [address] Phone: tel: fax: Ophthalmology, [facility] [address] Phone: tel: fax: Referral ID Status Reason Start Date Expiration Date V isits Requested Visits Authorized [id number] Authorized Precert 02/20/2024 11/05/2099 [id number] Encounter Details Date Type Department Care Team (Late st Contact Info) Description 09/18/2024 11:45 AM EST Office Visit Ophthalmology, [facility] [address] [facility] [address] Roscoe Jiménez DO [address] [place] [address] Exudative age-related macular degeneration of right eye [...] Instill into eye as needed. Active Tiotropium [place] Monohydrate 18 MCG Inhalation Capsule (Spiriva) INHALE [...] Tablet 2 03/20/20 24 Active Litetouch Pen [place] 31G X 5 MM (Insulin Pen Needle) [...] - 09/18/2024 11:45 AM EST [facility] [place] [place] Nursing Notes: [...] drusen; large SRheme vessels: wnl periphery: trace cut tobacco bulker, no RT/RD Dilated fundus exam OS: vitreous: clear optic nerve: 0.55, no edema/pallor/NVD macula: drusen, trace cut tobacco bulker vessels: wnl periphery: trace cut tobacco bulker, no RT/RD OCT Interpretation: OD: large recurrent [...] instructedto use ophthalmic ointment 3x/day as needed. oRscoe Jiménez DO, performed the procedure in its entirety. documented in this encounter Nursing Notes * Henny Fields RN - 09/18/2024 12:06 PM EST Halima Nicholson to receive fourth Vabysmo 6mg Injection of the Right eye. Correct eye confirmed with patient and marked by Roscoe Jiménez DO Vabysmo 6mg lot # [id number] Exp. Date: 02/02/2026 * Henny Fields RN [...] 10/01/2024 10:00 AM EST Office Visit Gastroenterology, [facility] 132 [facility] [place] [address] [place] CRNP 132 [facility] [place] [address] 10/15/2024 1:00 PM EST Office Visit Pharmacy, [place] [address] [place] [address] [facility] [address] [place] [address] 11/05/2024 1:00 PM EST Office Visit General Internal Medicine [facility] [address] [place] [address] Alicia Woodruff MD [address] [place] [address] 01/06/2025 1:00 PM EST [facility] [place] [address] [place] [address] [address] Mariana Webb PA-C [address] [place] [address] Scheduled Orders Name Type Priority Associated Diagnoses [...] MAR Action Action Date Dose Rate Site ROPivacaine (Naropin) inj 1.5 mg 1.5 mg, [...] Right documented in this encounter Care Teams Want Ad Supervisor Relationship Specialty Start Date End Date Alicia Woodruff MD [address] [place] [address] PCP - General 09/21/09 documented as of this encounter
--- OUTSIDE RECORDS SUMMARY | 2024-12-10 00:54 | External Medical Summary | Summary of Care ---
Author Name Unknown Organization [facility] Address [address] [place] [address] Phone [phone] Care Team Providers Care Human Geography Instructor Name Role Phone Alicia Woodruff MD Primary Care Provider + Reason for Visit * Reason Onset Date Comments Order Request 06/13/2024 Encounter Details Date Type Department Care Team (Late st Contact Info) Description 06/13/2024 Telephone General Internal Medicine [facility] [address] [place] [address] Alicia Woodruff MD 200 [place] [address] Order Request (/) Allergies Active Allergy Reactions Criticality Noted Date Comments Nicola Inhibitors 07/22/2009 cough Azithromycin 07/22/2009 Clarithromycin 07/22/2009 Propoxyphene N-Acetaminophen Nausea/vomiting 07/22/2009 Erythromycin Other (Please comment) 10/12/2010 colitis Nitrofurantoin Monohydrate Macrocrystals 08/05/2010 rash Penicillins 02/23/2004 RASH, SOB Statins 10/16/2018 High liver functions, myalgias Sulfa Antibiotics 02/23/2004 RASH, SOB documented as of this encounter (statuses as of 07/23/2024) Medications Medication Sig Dispensed Refills Start Date End Date Status ASPIRIN EC 81 MG PO TBECIndications:H TN, [...] 10 MG PO TABS 1 tablet daily Active ONETOUCH ULTRASOFT LANCETS MISCIndications:D M type 2 nursing care encounter (HCC) one touch delica lancets/testing four times daily/250.00 1 Box 5 3 Active CALCIUM-VITAMIN D 600-400 MG-UNIT PO TABS 1 tablet daily Active MAXALT 5 MG PO TABSIndications:M igraine [...] differently: BID (.AM/PM), Reported on 01/03/2024 Tiotropium [place] Monohydrate 18 MCG Inhalation Capsule (Spiriva) INHALE [...] NEEDED COUGH 30 Capsule 1 4 Active amLODIPine Besylate 10 MG Oral Tablet (Norvasc)Indicati ons:HTN, goal below 140/90 TAKE 1 TABLET BY MOUTH EVERY DAY -BLOOD PRESSURE 90 Tablet 1 4 Active Propranolol HCl ER 160 MG Oral Capsule Extended Release 24 HourIndications:M kayleen TAKE 1 CAPSULE DAILY -INDERAL- FOR BLOOD PRESSURE/ HEADACHE. 90 Capsule 1 4 Active Ezetimibe 10 MG Oral Tablet (Zetia)Indication s:Hyperlipidemia with target LDL less than 100 TAKE 1 TABLET BY MOUTH IN THE MORNING. FOR CHOLESTEROL. 90 Tablet 2 4 Active Litetouch Pen [place] 31G X 5 MM (Insulin Pen Needle) USE FOUR TIMES A DAY. 400 Each 1 4 Active Cetirizine HCl 10 MG Oral Tablet Chewable Take 1 Tablet by mouth in the morning. 90 Tablet 3 4 Active Insulin Glargine Solostar 100 UNIT/ML Subcutaneous Solution Pen-injector (Lantus SoloStar)Indicati ons:Type 2 diabetes mellitus with hemoglobin A1c goal of less than 7.0% ([facility]) Inject 10 units under the skin once daily- replaces levemir 15 mL 1 4 Active Fexofenadine HCl 180 MG Oral Tablet (Linda) TAKE 1 TABLET BY MOUTH EVERY DAY IN THE MORNING 90 Tablet 3 4 Active Diphenoxylate-Atr opine 2.5-0.025 MG Oral Tablet (Lomotil) TAKE ONE TABLET BY MOUTH EVERY MORNING AND AT BEDTIME 60 Tablet 1 4 Active Loratadine 10 MG Oral Tablet (Claritin) Take 1 Tablet by mouth in the morning. 90 Tablet 3 4 Active [employer] Ultra In Vitro Strip (Glucose Blood) TEST [...] FOR WHEEZE 54 g 1 4 Active Furosemide 40 MG Oral Tablet (Lasix)Indication s:HTN, goal below 140/90 TAKE ONE TABLET BY MOUTH EVERY DAY FOR FLUID 90 Tablet 3 3 07/02/20 24 Discontinued Omeprazole 40 MG Oral Capsule Delayed Release (PriLOSEC) TAKE 1 CAPSULE BY MOUTH EVERY DAY IN THE MORNING 90 Capsule 1 4 07/01/20 24 Discontinued Klor-Con M20 20 MEQ Oral Tablet Extended Release (Potassium Chloride ER)Indications:HT N, goal below 140/90 TAKE 1 TABLET BY MOUTH EVERY DAY 90 Tablet 1 4 07/11/20 24 Discontinued Fluticasone Propionate 50 MCG/ACT Nasal Suspension (Flonase)Indicati ons:Acute sinusitis USE 1 SPRAY IN EACH NOSTRIL ONCE A DAY 16 mL 3 4 07/03/20 24 Discontinued(Re fill) Atrovent HFA 17 MCG/ACT Inhalation Aerosol Solution (ipratropium) Inhale 2 Puffs by mouth in the morning and 2 Puffs at noon and 2 Puffs in the evening and 2 Puffs before bedtime. 12.9 g 3 4 07/02/20 24 Discontinued Hospital, Clinic, or Other Facility Administered Medication Ordered Dose Route Frequency Start Date End Date Status Aflibercept (Eylea) intraviteal prefilled syringe 2 mgIndications:Exudative age-related macular degeneration of right eye with active choroidal neovascularization (HCC) 2 mg IZ PRN 09/15/2023 09/14/2024 Active Faricimab-svoa (Vabysmo) intravitreal inj 6 mgIndications:Exudative age-related macular degeneration of right eye with active choroidal neovascularization (HCC) 6 mg IZ PRN 04/16/2024 04/16/2025 Active ROPivacaine (Naropin) inj 1.5 mgIndications:Exudative age-related macular degeneration of right eye with active choroidal neovascularization (HCC) 1.5 mg IJ PRN 04/16/2024 04/16/2025 Active documented as of this encounter (statuses as of 07/23/2024) Active Problems Problem Noted Date Diagnosed Date [...] Unspecified open-angle glaucoma, stage unspecifi ed 08/18/2020 Morbid obesity with BMI of 40.0-44.9, adult 1203/2019 Essential tremor 11/10/2015 Type 2 diabetes mellitus wit h hemoglobin A1c goal of less than 7.0% 09/27/2013 Overview: ICD-10 update of inactive term Asthma, moderate persistent 10/12/2010 Celiac disease 09/02/2009 Mitral valve prolapse 02/14/2005 Migraine 02/14/2005 Allergic rhinitis 02/14/2005 Osteoporosis Hyperlipidemia with target LDL less than 100 Overview: ICD-10 update of inactive term HTN, goal below 140/90 documented as of this encounter (statuses as of 07/23/2024) Resolved Problems Problem Noted Date Diagnosed Date Resolved Date Body mass index (BMI) of 40. 0 to 44.9 in adult 08/07/2017 10/17/2019 Overview: Per Obesity protocol #1 Nocturnal hypoxemia 11/14/2012 02/06/20 13 Overview: 11/14/12 -- will consider oxygen therapy during sleep DME: C UVEITIS 10/08/2009 02/09/2017 ADVANCE DIRECTIVE INFORMATION 01/30/2006 02/09/2017 Overview: No, Advance Directive brochure given to patient. Contact dermatitis and other eczema due to other specified agent 05/16/2005 02/09/2017 Other adverse food reactions , not elsewhere classified 05/16/2005 02/09/2017 Overview: Oral allergy syndome - shrimp Asthma with severity to be determined 02/14/2005 10/12/2010 Overview: ICD-10 update of inactive term HTN, goal to be determined 02/14/2005 0 11/19/2013 Other specified disease of pancreas 02/09/2017 Overview: gall stone Chronic renal insufficiency 10/08/2012 Acute renal insufficiency Obstructive sleep apnea 12/2012 Overview: 11/04/09 PSG -- AHI 13.3, desat 54%, <90% 125 mins Convulsions 02/05/2013 Overview: remote Hx of Dyslipidemia, goal to be determined 02/05/2013 ACEI/ARB contraindicated 04/2017 HTN, goal below 140/80 12/06 documented as of this encounter (statuses as of 07/23/2024) Immunizations Name Administration Dates Next Due COVID-19 mRNA, LNP-s, No Pre serve, 2-Dose Series (Moderna) 01/04/2021,11/30/2020 COVID-19, mRNA, LNP-s, PF, B ooster, 100mcg/0.5mg (Moderna) 03/21/2022 Pneumococcal Conjugate Vacc, 13 Valent (Prevnar) 07/02/2015 Pneumococcal Polysaccharide PPV23 (Pneumovax) 09/24/2013,10/19/2009 Seasonal Influenza, PF, 6 M & above, IM , (FluLaval or Fluzone) 08/24/2020,08/07/2018 Seasonal Influenza, Quadriva lent Hd (Fluzone Hd) 09/22/2023,08/20/2021 Seasonal Influenza, Quadriva lent, No Preserve, IM 10/27/2015 Seasonal Influenza, Trivalen t, (IIV3), with Preserv, (Fluzone) 08/22/2014,09/12/2013,12/05/2012,10/18,08/24/2010,08/03/2009 Seasonal Influenza, Trivalen t, Adjuvanted, 65+ YRS, [...] years and over) Not on file 04/23/2024 Sex and Gender Information Value Date Recorded Sex Assigned at Female 06/25/2019 2:15 PM EDT Gender Identity Female 06/25/2019 2:15 PM EDT Sexual Orientation Straight 06/25/2019 2: 15 PM EDT Job Start Date Occupation Industry Not on file Not on file Not on file documented as of this encounter Miscellaneous Notes * Telephone Encounter - Alicia Woodruff MD - 07/23/2024 4:44 PM EDT Signed the form, back in orange folder. * Telephone Encounter - Vira Thomas MED ASSIST - 07/23/2024 2:10 PM EDT Signed form along with associated notes and documentation successfully faxed to [facility]. Confirmation received. * Telephone Encounter - Chavo Wagner RN - 07/15/2024 3:48 PM EDT Please see previous message. Office visit note from 12/12/2023 along with CMP and hemoglobin A1c results from 12/12/2023 printed and attached to form. Form placed in Dr. Woodruff's orange folder for completion and signature. * Telephone Encounter - Theresa Chahal OSA - 07/12/2024 8:31 AM EDT Natasha from [facility] calling back to check the status of the physician order that was faxed over to be filled out for pt's diabetic supplies. Please advise * Telephone Encounter - Fatemeh Nelson OSA - 06/28/2024 8:42 AM EDT Received a call asking if fax was received by office. Name/Company sending fax: [facility] Checking on the status of request faxed on 06/24/24; Please provide return call of status. * Telephone Encounter - Wally Philippe OSA - 06/13/2024 11:36 AM EDT An order was requested for this patient. Name of Requesting Provider: Natasha at [facility] Order Requested: Diabetic Supplies Diagnosis/Reason for Request: N/A If order request is for Mammogram: Is the patient having any breast symptoms? N/A Is there a chance of ? N/A Has the patient had any breast problems in the past? NA What location AND department does the patient wish to have their order completed at? [facility] Fax Number, if applicable: [phone] Natasha from [facility] calling to have the Authorization for patient's diabetic testing supplies refaxed. If the caller is not a current patient, please advise the patient to call their current PCP to havethe order's prior to being seen in our office. The patient was informed that our providers would not order anything (medication, labs, etc.) prior to being seen. documented in this encounter Plan of Treatment Upcoming Encounters Date Type Department Care Team (Late st Contact Info) Description 07/29/2024 1:00 PM EDT Office Visit Pharmacy, [address] [address] [facility] [address] [place] [address] 08/13/2024 1:00 PM EDT Office Visit General Internal Medicine [facility] [place] [address] [place] [address] Alicia Woodruff MD [address] [place] [address] 09/18/2024 11:45 AM EST Office Visit Ophthalmology, [facility] [address] [place] [address] Roscoe Jiménez DO [address] [place] [address] 12/17/2024 2:00 PM EST Office Visit Gastroenterology, [facility] [address] [place] [address] Yamila Mills CRNP [address] [place] [address] 01/06/2025 1:00 PM EST Office Visit Allergy/Immunology [facility] [address] [place], [place] [address] Mariana Webb PA-C [address] [facility] [place] [address] Health Maintenance Due Date Last Done Comments [...] filedocumented as of this encounter Care Teams Human Geography Instructor Relationship Specialty Start Date End Date Alicia Woodruff MD [address] [place] [address] PCP - General 09/21/09 documented as of this encounter
--- OUTSIDE RECORDS SUMMARY | 2024-12-10 00:54 | External Medical Summary | Summary of Care ---
Author Name Unknown Organization [facility] Address [address] [place] [address] Phone [phone] Care Team Providers Care Photo Specialist Name Role Phone Alicia Woodruff MD Primary Care Provider + Encounter Details Date Type Department Care Team (Late st Contact Info) Description 07/25/2024 Population Health External Data Unspecified Department Allergies Active Allergy Reactions Criticality Noted Date Comments Nicola Inhibitors 07/22/2009 cough Azithromycin 07/22/2009 Clarithromycin 07/22/2009 Propoxyphene N-Acetaminophen Nausea/vomiting 07/22/2009 Erythromycin Other (Please comment) 10/12/2010 colitis Nitrofurantoin Monohydrate Macrocrystals 08/05/2010 rash Penicillins 02/23/2004 RASH, SOB Statins 10/16/2018 High liver functions, myalgias Sulfa Antibiotics 02/23/2004 RASH, SOB documented as of this encounter (statuses as of 07/29/2024) Medications Medication Sig Dispensed Refills Start Date End Date Status ASPIRIN EC 81 MG PO TBECIndications:HTN , goal below 140/90 Take one pill daily 30 3 10/19/2009 Active Additional Information Patient taking differently:Oral,Indications: blood thinner / heart health, Reported on 03/07/2023 VITAMIN C 500 MG PO CAPS one pill each day Active NEBULIZER COMPRESSOR MISCIndications:Ast hma, moderate persistent Use as directed 1 Each 1 09/19/2012 Active CETIRIZINE HCL 10 MG PO TABS 1 tablet daily Active ONETOUCH ULTRASOFT LANCETS MISCIndications:DM type 2 nursing care encounter (HCC) one touch delica lancets/testing four times daily/250.00 1 Box 5 09/24/2013 Active CALCIUM-VITAMIN D 600-400 MG-UNIT PO TABS 1 tablet daily Active MAXALT 5 MG PO TABSIndications:Shyam mane One pill by mouth at onset of headache, may repeat every 2 hours up to 2 times. Up to 3 pills in 24 hours 20 Tab 3 12/16/2014 Active albuterol sulfate (PROVENTIL) (2.5 MG/3ML) 0.083% nebulizer solutionIndications :Viral URI with cough Inhale 1 Vial via nebulizer every 4 hours as needed for Wheezing. 1 Box Dosing Unit 0 02/02/2016 Active Additional Information Patient taking differently:2.5 mg Nebulizer Q4H PRN, Wheezing,Indications: shortness of breath, Reported on 03/07/2023 nitroglycerin (NITROSTAT) 0.4 MG SUBLIndications:HTN , goal to be determined 1 TABLET UNDER TONGUE NEEDED CHEST PAIN --MAY REPEAT 3 TIMES - IF NO RELIEF CALL 911 25 Tab 1 08/02/2018 Active Zoster Vac Recomb Adjuvanted 50 MCG/0.5ML Intramuscular Suspension Reconstituted (Shingrix)Indicatio ns:Need for vaccination for zoster Inject 0.5 mL into a large muscle now and repeat dose in 60 to 180 days 1 Each 1 09/08/2020 Active Multivitamin Women 50+ Oral Tablet Take by mouth . Acti ve Acetaminophen 500 MG Oral CapsuleIndications: pain Take 1 Capsule by mouth every 4 [...] Active Losartan Potassium 25 MG Oral Tablet (Cozaar)Indications :HTN, goal below 140/90 TAKE ONE TABLET BY MOUTH EVERY DAY FOR BLOOD PRESSURE- GENERIC COZAAR 90 Tablet 1 12/12/2023 Active Additional Information Patient taking differently: BID (.AM/PM), Reported on 01/03/2024 Tiotropium [place] Monohydrate 18 MCG Inhalation Capsule (Spiriva) INHALE CONTENTS OF 1 CAPSULE DAILY IN THE MORNING 90 Capsule 1 12/12/2023 Active Losartan Potassium 25 MG Oral Tablet (Cozaar)Indications :HTN, goal below 140/90 TAKE ONE TABLET BY MOUTH TWICE a DAY FOR BLOOD PRESSURE- GENERIC COZAAR 180 Tablet 3 12/12/2023 Active Benzonatate 100 MG Oral Capsule (Tessalon Perles) TAKE 1 CAPSULE BY MOUTH 3 TIMES A DAY NEEDED COUGH 30 Capsule 1 12/28/2023 Active amLODIPine Besylate 10 MG Oral Tablet (Norvasc)Indication s:HTN, goal below 140/90 TAKE 1 TABLET BY MOUTH EVERY DAY -BLOOD PRESSURE 90 Tablet 1 03/06/2024 Active Propranolol HCl ER 160 MG Oral Capsule Extended Release 24 HourIndications:Shyam gilliam TAKE 1 CAPSULE DAILY -INDERAL- FOR BLOOD PRESSURE/ HEADACHE. 90 Capsule 1 03/06/2024 Active Ezetimibe 10 MG Oral Tablet (Zetia)Indications: Hyperlipidemia with target LDL less than 100 TAKE 1 TABLET BY MOUTH IN THE MORNING. FOR CHOLESTEROL. 90 Tablet 2 03/20/2024 Active Litetouch Pen [place] 31G X 5 MM (Insulin Pen Needle) USE FOUR TIMES A DAY. 400 Each 1 03/27/2024 Active Cetirizine HCl 10 MG Oral Tablet Chewable Take 1 Tablet by mouth in the morning. 90 Tablet 3 03/29/2024 Active Insulin Glargine Solostar 100 UNIT/ML Subcutaneous Solution Pen-injector (Lantus SoloStar)Indication s:Type 2 diabetes mellitus with hemoglobin A1c goal of less than 7.0% ([facility]) Inject 10 units under the skin once daily- replaces levemir 15 mL 1 04/22/2024 Active Fexofenadine HCl 180 MG Oral Tablet (Linda) TAKE 1 TABLET BY MOUTH EVERY DAY IN THE MORNING 90 Tablet 3 05/20/2024 Active Loratadine 10 MG Oral Tablet (Claritin) Take 1 Tablet by mouth in the morning. 90 Tablet 3 05/31/2024 Active OneTouch Ultra In Vitro Strip (Glucose Blood) TEST BLOOD SUGAR 6 TIMES DAILY. 600 Strip 3 05/31/2024 Active NovoLOG FlexPen 100 UNIT/ML Subcutaneous Solution Pen-injector (insulin aspart) INJECT 5 UNITS WITH BREAKFAST , 3 UNITS LUNCH, 3 UNITS WITH DINNER , PLUS CF 1:80 over 150. MAX 20 UNITS A DAY 15 mL 4 06/07/2024 Active Albuterol Sulfate HFA 108 (90 Base) MCG/ACT Inhalation Aerosol SolutionIndications :Wheezing INHALE 2 PUFFS BY MOUTH EVERY 4 HOURS NEEDED FOR WHEEZE 54 g 1 2024 Active Fluticasone-[place] rol 250-50 MCG/ACT Inhalation Aerosol Powder Breath Activated (Advair Diskus)Indications: Asthma, moderate persistent INHALE 1 PUFF EVERY 12 HOURS. RINSE MOUTH AFTER EACH USE. 180 Each 1 06/26/2024 Active Omeprazole 40 MG Oral Capsule Delayed Release (PriLOSEC) TAKE 1 CAPSULE BY MOUTH EVERY DAY IN THE MORNING 90 Capsule 1 07/01/2024 Active Atrovent HFA 17 MCG/ACT Inhalation Aerosol Solution (ipratropium) INHALE 2 PUFFS BY MOUTH IN THE MORNING AT AT NOON IN THE EVENING AND BEFORE BEDTIME 38.7 g 1 07/02/2024 Active Furosemide 40 MG Oral Tablet (Lasix)Indications: HTN, goal below 140/90 TAKE ONE TABLET BY MOUTH EVERY DAY FOR FLUID 90 Tablet 1 07/02/2024 Active Fluticasone Propionate 50 MCG/ACT Nasal Suspension (Flonase)Indication s:Acute sinusitis USE 1 SPRAY IN EACH NOSTRIL ONCE A DAY 48 mL 3 07/04/2024 Active Azelastine HCl 0.1 % Nasal Solution (Astelin) Administer 2 Sprays into nostril in the morning and 2 Sprays before bedtime. 90 mL 3 07/09/2024 Active Klor-Con M20 20 MEQ Oral Tablet Extended Release (Potassium Chloride ER)Indications:HTN, goal below 140/90 TAKE 1 TABLET BY MOUTH EVERY DAY 90 Tablet 1 07/11/2024 Active Diphenoxylate-Atrop ine 2.5-0.025 MG Oral Tablet (Lomotil)Indication s:Celiac disease TAKE ONE TABLET BY MOUTH EVERY MORNING AND AT BEDTIME 60 Tablet 1 07/25/2024 Active Hospital, Clinic, or Other Facility Administered [...] as of this encounter (statuses as of 07/29/2024) Active Problems Problem Noted Date Diagnosed Date [...] Morbid obesity with BMI of 40.0-44.9, adult 03/2019 Essential tremor 11/10/2015 Type 2 diabetes mellitus [...] as of this encounter (statuses as of 07/29/2024) Resolved Problems Problem Noted Date Diagnosed Date [...] as of this encounter (statuses as of 07/29/2024) Immunizations Name Administration Dates Next Due COVID-19 [...] Care Team (Late st Contact Info) Description 08/13/2024 1:00 PM EDT Office Visit General Internal Medicine [facility] [address] [place] [address] Alicia Woodruff MD [address] [facility] [place] [address] 08/28/2024 1:00 PM EDT Office Visit Pharmacy, [place] [address] [place] [address] [facility] [address] [place] [address] 09/18/2024 11:45 AM EST Office Visit Ophthalmology, [facility] [address] [facility] [place] [address] Roscoe Jiménez DO [address] [place] [address] 12/17/2024 2:00 PM EST Office Visit Gastroenterology, [facility] [address] [place] [address] Yamila Mills CRNP [address] [place] [address] 01/06/2025 1:00 PM EST Office Visit Allergy/Immunology [facility] [address] [place] [address] Mariana Webb PA-C 200 [facility] [place] [address] Health Maintenance Due Date Last Done Comments [...] filedocumented as of this encounter Care Teams Photo Specialist Relationship Specialty Start Date End Date Alicia Woodruff MD [address] [place] [address] PCP - General 09/21/09 documented as of this encounter
--- OUTSIDE RECORDS SUMMARY | 2024-12-10 00:54 | External Medical Summary | Summary of Care ---
Author Name Unknown Organization [facility] Address [address] [place] [address] Phone [phone] Care Team Providers Care Manager Sales And Marketing Name Role Phone Alicia Woodruff MD Primary Care Provider + Reason for Visit * Reason Onset Date Comments Medical Records Request 07/30/2024 Encounter Details Date Type Department Care Team (Late st Contact Info) Description 07/30/2024 Telephone General Internal Medicine [facility] [address] [facility] [place] [address] Alicia Woodruff MD 200 [place] [address] Medical Records Request Allergies Active Allergy Reactions Criticality Noted Date Comments Nicola Inhibitors 07/22/2009 cough Azithromycin 07/22/2009 Clarithromycin 07/22/2009 Propoxyphene N-Acetaminophen Nausea/vomiting 07/22/2009 Erythromycin Other (Please comment) 10/12/2010 colitis Nitrofurantoin Monohydrate Macrocrystals 08/05/2010 rash Penicillins 02/23/2004 RASH, SOB Statins 10/16/2018 High liver functions, myalgias Sulfa Antibiotics 02/23/2004 RASH, SOB documented as of this encounter (statuses as of 07/30/2024) Medications Medication Sig Dispensed Refills Start Date [...] differently: BID (.AM/PM), Reported on 01/03/2024 Tiotropium [place] Monohydrate 18 MCG Inhalation Capsule (Spiriva) INHALE [...] 90 Tablet 2 03/20/2024 Active Litetouch Pen [place] 31G X 5 MM (Insulin Pen Needle) [...] as of this encounter (statuses as of 07/30/2024) Active Problems Problem Noted Date Diagnosed Date [...] Morbid obesity with BMI of 40.0-44.9, adult 12/0 03/2019 Essential tremor 11/10/2015 Type 2 diabetes [...] as of this encounter (statuses as of 07/30/2024) Resolved Problems Problem Noted Date Diagnosed Date [...] as of this encounter (statuses as of 07/30/2024) Immunizations Name Administration Dates Next Due COVID-19 [...] Telephone Encounter - Jose Rueda OSA - 07/30/2024 12:15 PM EDT Record Request received from [employer] [facility]. Sent to [facility] ([id number]) via [employer]. documented in this encounter Plan of Treatment Upcoming Encounters Date Type Department Care Team (Late st Contact Info) Description 08/13/2024 1:00 PM EDT Office Visit General Internal Medicine [facility] [address] [facility] [place] [address] Alicia Woodruff MD 200 [facility] [place] [address] 08/28/2024 1:00 PM EDT Office Visit Pharmacy, [place] [address] [place] [address] [facility] [address] [place] [address] 09/18/2024 11:45 AM EST Office Visit Ophthalmology, [facility] [address] [place] [address] Roscoe Jiménez, [address] [place] [address] 12/17/2024 2:00 PM EST Office Visit Gastroenterology, [facility] [address] [place] [address] Yamila Mills CRNP [address] [place] [address] 01/06/2025 1:00 PM EST Office Visit Allergy/Immunology [place] [address] [facility] [place] [address] Mariana Webb PA-C [address] [facility] [place] [address] Health Maintenance Due Date Last Done Comments [...] filedocumented as of this encounter Care Teams Manager Sales And Marketing Relationship Specialty Start Date End Date Alicia Woodruff MD [address] [facility] [place] [address] PCP - General 09/21/09 documented as of this encounter
--- OUTSIDE RECORDS SUMMARY | 2024-12-10 00:54 | External Medical Summary | Summary of Care ---
Author Name Unknown Organization [facility] Address [address] [place] [address] Phone [phone] Care Team Providers Care Block Greaser Name Role Phone Alicia Woodruff MD Primary Care Provider + Reason for Visit * Reason Onset Date Comments Order Request 06/13/2024 Encounter Details Date Type Department Care Team (Late st Contact Info) Description 06/13/2024 Telephone General Internal Medicine [facility] 200 [facility] [place] [place] [address] Alicia Woodruff MD 200 [place] [address] Order Request (/) Allergies Active Allergy Reactions Criticality Noted Date Comments Nicola Inhibitors 07/22/2009 cough Azithromycin 07/22/2009 Clarithromycin 07/22/2009 Propoxyphene N-Acetaminophen Nausea/vomiting 07/22/2009 Erythromycin Other (Please comment) 10/12/2010 colitis Nitrofurantoin Monohydrate Macrocrystals 08/05/2010 rash Penicillins 02/23/2004 RASH, SOB Statins 10/16/2018 High liver functions, myalgias Sulfa Antibiotics 02/23/2004 RASH, SOB documented as of this encounter (statuses as of 07/27/2024) Medications Medication Sig Dispensed Refills Start Date [...] differently: BID (.AM/PM), Reported on 01/03/2024 Tiotropium [place] Monohydrate 18 MCG Inhalation Capsule (Spiriva) INHALE [...] 90 Tablet 2 4 Active Litetouch Pen [place] 31G X 5 MM (Insulin Pen Needle) USE FOUR TIMES A DAY. 400 Each 1 4 Active Cetirizine HCl 10 MG Oral Tablet Chewable Take 1 Tablet by mouth in the morning. 90 Tablet 3 4 Active Insulin Glargine Solostar 100 UNIT/ML Subcutaneous Solution Pen-injector (Lantus SoloStar)Indicati ons:Type 2 diabetes mellitus with hemoglobin A1c goal of less than 7.0% ([facility]) Inject 10 units under the [...] 12.9 g 3 4 07/02/20 24 Discontinued Diphenoxylate-Atr opine 2.5-0.025 MG Oral Tablet (Lomotil) TAKE ONE TABLET BY MOUTH EVERY MORNING AND AT BEDTIME 60 Tablet 1 4 07/25/20 24 Discontinued Hospital, Clinic, or Other Facility [...] as of this encounter (statuses as of 07/27/2024) Active Problems Problem Noted Date Diagnosed Date [...] as of this encounter (statuses as of 07/27/2024) Resolved Problems Problem Noted Date Diagnosed Date [...] as of this encounter (statuses as of 07/27/2024) Immunizations Name Administration Dates Next Due COVID-19 [...] orange folder. * Telephone Encounter - Vira Thomas, MED ASSIST - 07/23/2024 2:10 PM EDT [...] Home Care Delivered Fax Number, if applicable: [phone] Natasha from Home Care Delivered calling to [...] 07/29/2024 1:00 PM EDT Office Visit Pharmacy, [address] [address] [facility] [address] [place] [address] 08/13/2024 1:00 PM EDT Office Visit General Internal Medicine [facility] [place] [address] [place] [address] Alicia Woorduff MD [address] [facility] [place] [address] 09/18/2024 11:45 AM EST Office Visit Ophthalmology, [facility] [address] [place] [address] Roscoe Jiménez DO [address] [place] [address] 12/17/2024 2:00 PM EST Office Visit Gastroenterology, [facility] [address] [place] [address] Yamila Mills CRNP [address] [place] [address] 01/06/2025 1:00 PM EST Office Visit Allergy/Immunology [facility] [address] [place] [address] Mariana Webb PA-C 200 [facility] [place] [address] Health Maintenance Due Date Last Done Comments [...] filedocumented as of this encounter Care Teams Block Greaser Relationship Specialty Start Date End Date Alicia Woodruff MD [address] [place] [address] PCP - General 09/21/09 documented as of this encounter
--- OUTSIDE RECORDS SUMMARY | 2024-12-10 00:54 | External Medical Summary | Summary of Care ---
Author Name Unknown Organization [facility] Address [address] [place] [address] Phone [phone] Care Team Providers Care Pharmacovigilance Specialist Name Role Phone Alicia Woodruff MD Primary Care Provider + Reason for Visit * Reason Comments eRx-Medication Refill Encounter Details Date Type Department Care Team (Late st Contact Info) Description 07/27/2024 Refill General Internal Medicine [facility] 200 [facility] [place] [address] Alicia Woodruff MD 200 [place] [address] Allergies Active Allergy Reactions Criticality Noted Date Comments Nicola Inhibitors 07/22/2009 cough Azithromycin 07/22/2009 Clarithromycin 07/22/2009 Propoxyphene N-Acetaminophen Nausea/vomiting 07/22/2009 Erythromycin Other (Please comment) 10/12/2010 colitis Nitrofurantoin Monohydrate Macrocrystals 08/05/2010 rash Penicillins 02/23/2004 RASH, SOB Statins 10/16/2018 High liver functions, myalgias Sulfa Antibiotics 02/23/2004 RASH, SOB documented as of this encounter (statuses as of 09/05/2024) Medications Medication Sig Dispensed Refills Start Date End Date Status ASPIRIN EC 81 MG PO TBECIndications:HT N, goal below 140/90 Take one pill daily 30 3 12/14/200 9 Active Additional Information Patient taking differently:Oral,Indications: blood thinner / heart health, Reported on 03/07/2023 VITAMIN C 500 MG PO CAPS one pill each day Active NEBULIZER COMPRESSOR MISCIndications:As thma, moderate persistent Use as directed 1 Each 1 2 Active CETIRIZINE HCL 10 MG PO TABS 1 tablet daily Active ONETOUCH ULTRASOFT LANCETS MISCIndications:DM type 2 nursing care encounter (HCC) one touch delica lancets/testing four times daily/250.00 1 Box 5 3 Active CALCIUM-VITAMIN D 600-400 MG-UNIT PO TABS 1 tablet daily Active MAXALT 5 MG PO TABSIndications:Mi graine One pill by mouth at onset of headache, may repeat every 2 hours up to 2 times. Up to 3 pills in 24 hours 20 Tab 3 5 Active albuterol sulfate (PROVENTIL) (2.5 MG/3ML) 0.083% nebulizer solutionIndication s:Viral URI with cough Inhale 1 Vial via nebulizer every 4 hours as needed for Wheezing. 1 Box Dosing Unit 0 6 Active Additional Information Patient taking differently:2.5 mg Nebulizer Q4H PRN, Wheezing,Indications: shortness of breath, Reported on 03/07/2023 nitroglycerin (NITROSTAT) 0.4 MG SUBLIndications:HT N, goal to be determined 1 TABLET UNDER TONGUE NEEDED CHEST PAIN --MAY REPEAT 3 TIMES - IF NO RELIEF CALL 911 25 Tab 1 8 Active Zoster Vac Recomb Adjuvanted 50 MCG/0.5ML Intramuscular Suspension Reconstituted (Shingrix)Indicati ons:Need for vaccination for zoster Inject 0.5 mL into a large muscle now and repeat dose in 60 to 180 days 1 Each 1 0 Active Multivitamin Women 50+ Oral Tablet Take by mouth . Acti ve Acetaminophen 500 MG Oral CapsuleIndications :pain Take 1 Capsule by mouth every 4 [...] Active Losartan Potassium 25 MG Oral Tablet (Cozaar)Indication s:HTN, goal below 140/90 TAKE ONE TABLET BY MOUTH EVERY DAY FOR BLOOD PRESSURE- GENERIC COZAAR 90 Tablet 1 4 Active Additional Information Patient taking differently: BID (.AM/PM), Reported on 01/03/2024 Tiotropium [place] Monohydrate 18 MCG Inhalation Capsule (Spiriva) INHALE CONTENTS OF 1 CAPSULE DAILY IN THE MORNING 90 Capsule 1 4 Active Losartan Potassium 25 MG Oral Tablet (Cozaar)Indication s:HTN, goal below 140/90 TAKE ONE TABLET BY MOUTH TWICE a DAY FOR BLOOD PRESSURE- GENERIC COZAAR 180 Tablet 3 4 Active Benzonatate 100 MG Oral Capsule (Tessalon Perles) TAKE 1 CAPSULE BY MOUTH 3 TIMES A DAY NEEDED COUGH 30 Capsule 1 4 Active Ezetimibe 10 MG Oral Tablet (Zetia)Indications :Hyperlipidemia with target LDL less than 100 TAKE 1 TABLET BY MOUTH IN THE MORNING. FOR CHOLESTEROL. 90 Tablet 2 4 Active Litetouch Pen [place] 31G X 5 MM (Insulin Pen Needle) USE FOUR TIMES A DAY. 400 Each 1 4 Active Cetirizine HCl 10 MG Oral Tablet Chewable Take 1 Tablet by mouth in the morning. 90 Tablet 3 4 Active Insulin Glargine Solostar 100 UNIT/ML Subcutaneous Solution Pen-injector (Lantus SoloStar)Indicatio ns:Type 2 diabetes mellitus with hemoglobin A1c goal [...] HFA 108 (90 Base) MCG/ACT Inhalation Aerosol SolutionIndication s:Wheezing INHALE 2 PUFFS BY MOUTH EVERY 4 HOURS NEEDED FOR WHEEZE 54 g 1 4 Active Fluticasone-Salmet ifrah 250-50 MCG/ACT Inhalation Aerosol Powder Breath Activated (Advair Diskus)Indications :Asthma, moderate persistent INHALE 1 PUFF EVERY 12 [...] 4 Active Furosemide 40 MG Oral Tablet (Lasix)Indications :HTN, goal below 140/90 TAKE ONE TABLET BY MOUTH EVERY DAY FOR FLUID 90 Tablet 1 4 Active Fluticasone Propionate 50 MCG/ACT Nasal Suspension (Flonase)Indicatio ns:Acute sinusitis USE 1 SPRAY IN EACH NOSTRIL ONCE A DAY 48 mL 3 4 Active Azelastine HCl 0.1 % Nasal Solution (Astelin) Administer 2 Sprays into nostril in the morning and 2 Sprays before bedtime. 90 mL 3 4 Active Klor-Con M20 20 MEQ Oral Tablet Extended Release (Potassium Chloride ER)Indications:HTN , goal below 140/90 TAKE 1 TABLET BY MOUTH EVERY DAY 90 Tablet 1 4 Active Diphenoxylate-Atro pine 2.5-0.025 MG Oral Tablet (Lomotil)Indicatio ns:Celiac disease TAKE ONE TABLET BY MOUTH EVERY MORNING AND AT BEDTIME 60 Tablet 1 4 Active amLODIPine Besylate 10 MG Oral Tablet (Norvasc)Indicatio ns:HTN, goal below 140/90 TAKE 1 TABLET BY MOUTH EVERY DAY -BLOOD PRESSURE 90 Tablet 1 4 08/29/20 24 Discontinued Propranolol HCl ER 160 MG Oral Capsule Extended Release 24 HourIndications:Mari lofton TAKE 1 CAPSULE DAILY -INDERAL- FOR BLOOD PRESSURE/ HEADACHE. 90 Capsule 1 4 08/29/20 24 Discontinued Hospital, Clinic, or Other Facility [...] as of this encounter (statuses as of 09/05/2024) Active Problems Problem Noted Date Diagnosed Date [...] as of this encounter (statuses as of 09/05/2024) Resolved Problems Problem Noted Date Diagnosed Date Resolved Date Morbid obesity with BMI of 40.0-44.9, adult 10/10/2019 08/01/2024 Overview: historical Body mass index (BMI) of 40. 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 02/09/2017 Overview: gall stone Chronic renal insufficiency 10/08/2012 Acute renal insufficiency Obstructive sleep apnea 12/2012 Overview: 11/04/09 PSG -- AHI 13.3, desat 54%, <90% 125 mins Convulsions 02/05/2013 Overview: remote Hx of Dyslipidemia, goal to be determined 02/05/2013 ACEI/ARB contraindicated 04/2017 Osteoporosis 08/01/2024 Overview: Duplicated on pl HTN, goal below 140/80 12/06 documented as of this encounter (statuses as of 09/05/2024) Immunizations Name Administration Dates Next Due COVID-19 [...] encounter Miscellaneous Notes * Telephone Encounter - Gita North LPN - 09/05/2024 2:58 PM EDTRefused Prescriptions: Disp Refills Benzonatate 100 MG Oral Capsule (Tessalon *30 Cap*1 Sig: TAKE 1CAPSULE BY MOUTH 3 TIMES A DAY NEEDED COUGHRefused By: GITA NORTH LReason for Refusal: Refill Not AppropriateReason for Refusal Comment: Patient still has medication left * Telephone Encounter - Gita North LPN - 09/05/2024 2:56 PM EDT Patient calling back. She takes the medication intermittently when her cough flares up from her allergies, she still has 15 tabs left from the refill. Disregarded refill. * Telephone Encounter - Pasha Avendano, CERTIFICATION OFFICER - 09/05/2024 1:31 PM EDT Attempted to call patient, there was no answer, left voicemail. When patient returns call, ok for SELINA to relay message, please refer to below documentation. If needed, can transfer to dedicated nurse line. * Telephone Encounter - Alba Ruiz LPN - 08/20/2024 2:32 PM EDT Called and LM with need of reason for refill on the Tessalon pearls as it is only a short term medication and not one to use daily. * Telephone Encounter - Interface, [facility] - 07/31/2024 11:13 AM EDT Pending Prescriptions: Disp Refills Benzonatate 100 MG Oral Capsule [Pharmacy *30 Cap*1 Sig: TAKE 1 CAPSULE BY MOUTH 3 TIMES A DAY NEEDED COUGH * Telephone Encounter - Alicia Woodruff MD - 07/27/2024 5:08 PM EDT Pending Prescriptions: Disp Refills Benzonatate 100 MG Oral Capsule [Pharmacy *30 Cap*1 Sig: TAKE 1 CAPSULE BY MOUTH 3 TIMES A DAY NEEDED COUGH * Telephone Encounter - Alicia Woodruff MD - 07/27/2024 5:08 PM EDT Patient should not be taking this medication long-term. Please call and find out why she needs to take it every day senior living. How does she feel clinically. Thanks * Telephone Encounter - Ellen Redmond LPN - 07/27/2024 2:18 PM EDTPending Prescriptions: Disp Refills Benzonatate 100 MG Oral Capsule [Pharmacy *30 Cap*1 Sig: TAKE 1 CAPSULE BY MOUTH 3 TIMES A DAY NEEDED COUGH * Telephone Encounter - Ellen Redmond LPN - 07/27/2024 2:17 PM EDT Did you pend patient's preferred pharmacy and medication before forwarding?yes Pharmacy: [facility][id number] [address] [facility] Pending Prescriptions: Disp Refills Benzonatate 100 MG Oral Capsule (Tessalon*30 Cap*1 Sig: TAKE 1 CAPSULE BY MOUTH 3 TIMES A DAY NEEDED COUGH Last Visit: 12/12/2023 (in office), Visit date not found (telemedicine) Next Visit: 08/13/2024 If no future appointments scheduled, and last appointment is greater than a year ago, please schedule patient for a follow-up appointment Last date the medication was ordered: Is this request for a controlled substance?No Urine Drug Screen:No results found. However, due [...] 09/08/2020 01:19 PM * Telephone Encounter - Demetria Nix - 07/27/2024 1:19 PM EDTPending Prescriptions: Disp Refills Benzonatate 100 MG Oral Capsule [Pharmacy *30 Cap*1 Sig: TAKE 1CAPSULE BY MOUTH 3 TIMES A DAY NEEDED COUGH documented in this encounter Plan of Treatment Upcoming Encounters Date Type Department Care Team (Late st Contact Info) Description 09/18/2024 11:45 AM EST Office Visit Ophthalmology, [facility] [address] [place] [address] Roscoe Jiménez DO [address] [place] [address] 09/25/2024 2:30 PM EST [facility] Pharmacy, [place] [address] [facility] [address] [place] [address] 11/05/2024 1:00 PM EST Office Visit General Internal Medicine [facility] 200 [facility] [place] [address] Alicia Woodruff MD 200 [facility] [place], [place] [address] 01/06/2025 1:00 PM EST Office Visit Allergy/Immunology [facility] 200 [facility] [place], [place] [address] Mariana Webb PA-C 200 [facility] [place], [place] [address] 01/07/2025 2:00 PM EST Office Visit Gastroenterology, [facility] [address] [place] [address] Yamila [place] CRNP [address] [place] [address] Health Maintenance Due Date Last Done Comments [...] filedocumented as of this encounter Care Teams Pharmacovigilance Specialist Relationship Specialty Start Date End Date Alicia Woodruff MD 200 [facility] [place] [address] PCP - General 09/21/09 documented as of this encounter
--- OUTSIDE RECORDS SUMMARY | 2024-12-10 00:54 | External Medical Summary | Summary of Care ---
Author Name Unknown Organization [facility] Address [address] [place] [address] Phone [phone] Care Team Providers Care Policy Analyst Name Role Phone Alicia Woodruff MD Primary Care Provider + Reason for Visit * Reason Comments eRx-Medication Refill Encounter Details Date Type Department Care Team (Late st Contact Info) Description 07/24/2024 Refill Gastroenterology, [facility] 132 [facility] [place] [address] Kirti Albert MD 132 [facility] [place] [address] Celiac disease* Allergies Active Allergy Reactions Criticality Noted Date Comments Nicola Inhibitors 07/22/2009 cough Azithromycin 07/22/2009 Clarithromycin 07/22/2009 Propoxyphene N-Acetaminophen Nausea/vomiting 07/22/2009 Erythromycin Other (Please comment) 10/12/2010 colitis Nitrofurantoin Monohydrate Macrocrystals 08/05/2010 rash Penicillins 02/23/2004 RASH, SOB Statins 10/16/2018 High liver functions, myalgias Sulfa Antibiotics 02/23/2004 RASH, SOB documented as of this encounter (statuses as of 07/25/2024) Medications Medication Sig Dispensed Refills Start Date [...] differently: BID (.AM/PM), Reported on 01/03/2024 Tiotropium [place] Monohydrate 18 MCG Inhalation Capsule (Spiriva) INHALE [...] 160 MG Oral Capsule Extended Release 24 HourIndications:Mi graine TAKE 1 CAPSULE DAILY -INDERAL- FOR BLOOD PRESSURE/ HEADACHE. 90 Capsule 1 4 Active Ezetimibe 10 MG Oral Tablet (Zetia)Indications :Hyperlipidemia with target LDL less than 100 TAKE 1 TABLET BY MOUTH IN THE MORNING. FOR CHOLESTEROL. 90 Tablet 2 4 Active Litetouch Pen [place] 31G X 5 MM (Insulin Pen Needle) USE FOUR TIMES A DAY. 400 Each 1 4 Active Cetirizine HCl 10 MG Oral Tablet Chewable Take 1 Tablet by mouth in the morning. 90 Tablet 3 4 Active Insulin Glargine Solostar 100 UNIT/ML Subcutaneous Solution Pen-injector (Lantus SoloStar)Indicatio ns:Type 2 diabetes mellitus with hemoglobin A1c goal of less than 7.0% ([facility]) Inject 10 units under the [...] AT BEDTIME 60 Tablet 1 4 Active Diphenoxylate-Atro pine 2.5-0.025 MG Oral Tablet (Lomotil) TAKE ONE [...] as of this encounter (statuses as of 07/25/2024) Active Problems Problem Noted Date Diagnosed Date [...] as of this encounter (statuses as of 07/25/2024) Resolved Problems Problem Noted Date Diagnosed Date Resolved Date Body mass index (BMI) of 40. 0 to 44.9 in adult 08/07/2017 10/17/2019 Overview: Per Obesity protocol #1 Nocturnal hypoxemia 11/14/2012 02/06/20 13 Overview: 11/14/12 -- will consider oxygen therapy during sleep DME: [facility] 10/08/2009 02/09/2017 ADVANCE DIRECTIVE INFORMATION [...] as of this encounter (statuses as of 07/25/2024) Immunizations Name Administration Dates Next Due COVID-19 [...] Telephone Encounter - Kirti Albert MD - 07/25/2024 3:44 PM EDT Signed Prescriptions: Disp Refills Diphenoxylate-Atropine 2.5-0.025 MG Oral T*60 Tab*1 Sig: TAKE ONE TABLET BY MOUTH EVERY MORNING AND AT BEDTIME Authorizing Provider: KIRTI ALBERT * Telephone Encounter - Lashaun Guthrie LPN - 07/25/2024 8:24 AM EDTPending Prescriptions: Disp Refills Diphenoxylate-Atropine 2.5-0.025 MG Oral T*60 Tab*1 Sig: TAKE ONE TABLET BY MOUTH EVERY MORNING AND AT BEDTIME * Telephone Encounter - Karley Mace [facility] - 07/25/2024 6:51 AM EDTPending Prescriptions: Disp Refills Diphenoxylate-Atropine 2.5-0.025 MG Oral T*60 Tab*1 Sig: TAKE ONE TABLET BY MOUTH EVERY MORNING AND AT BEDTIME * Telephone Encounter - Karley Mace RP - 07/25/2024 6:47 AM EDT I have reviewed the patients controlled substance dispensing history in the Prescription Drug Monitoring Program in compliance with the [facility] regulations before prescribing a controlled substance. PDMP checked on 07/25/2024. Pending Prescriptions: Disp Refills Diphenoxylate-Atropine 2.5-0.025 MG Oral *60 Tab*1 Sig: TAKE ONE TABLET BY MOUTH EVERY MORNING AND AT BEDTIME Last Visit: 03/07/2023 (in office), 01/31/2022 (telemedicine) Next Visit: 12/17/2024 Date medication was last filled: 06/24/24 Date medication is due for refill: 07/23/24 Pharmacy: [facility][id number][facility] [place] [address] [facility] Is this request for a controlled substance? Yes and Urine Drug Screen Not completed Toxicology results: No results found. However, due to the size of the patient record, not all encounters were searched.Please check Results Review for a complete set of results. Please approve if appropriate. Thank you, Karley Mace, PharmD Clinical Pharmacist [facility] ([facility]) [phone] 07/25/2024, 6:47 AM * Telephone Encounter - Demetria Nxi - 07/24/2024 4:29 AM EDTPending Prescriptions: Disp Refills Diphenoxylate-Atropine 2.5-0.025 MG Oral T*60 Tab*1 Sig: TAKE ONE TABLET BY MOUTH EVERY MORNING AND AT BEDTIME * Telephone Encounter - Demetria Nix - 07/24/2024 4:26 AM EDT Did you pend patient's preferred pharmacy and medication before forwarding?yes Pharmacy: [id number] [address] [facility] Pending Prescriptions: Disp Refills Diphenoxylate-Atropine 2.5-0.025 MG Oral *60 Tab*1 Sig: TAKE ONE TABLET BY MOUTH EVERY MORNING AND AT BEDTIME Last Visit: 03/07/2023 (in office), 01/31/2022 (telemedicine) Next Visit: 12/17/2024 If no future appointments scheduled, and last appointment is greater than a year ago, please schedule patient for a follow-up appointment Last date the medication was ordered: 05/24/2024 Is this request for a controlled substance?Yes [...] 07/29/2024 1:00 PM EDT Office Visit Pharmacy, [place] [address] [place] [address] [facility] [address] [place] [address] 08/13/2024 1:00 PM EDT Office Visit General Internal Medicine [facility] [address] [place] [address] Alicia Woodruff MD [address] [place] [address] 09/18/2024 11:45 AM EST Office Visit Ophthalmology, [facility] [address] [place] [address] Roscoe Jiménez DO [address] [place] [address] 12/17/2024 2:00 PM EST Office Visit Gastroenterology, [facility] [address] [place] [address] [place]ila [place] CRNP [address] [place] [address] 01/06/2025 1:00 PM EST Office Visit Allergy/Immunology [facility] [address] [place] [address] Mariana Webb PA-C [address] [place], [place] [address] Health Maintenance Due Date Last Done Comments [...] encounter Visit Diagnoses Diagnosis Celiac disease- Primary documented in this encounter Care Teams Policy Analyst Relationship Specialty Start Date End Date Alicia Woodruff MD 200 [facility] [place] [address] PCP - General 09/21/09 documented as of this encounter
--- OUTSIDE RECORDS SUMMARY | 2024-12-10 00:54 | External Medical Summary | Summary of Care ---
Author Name Unknown Organization [facility] Address [address] [place] [address] Phone [phone] Care Team Providers Care Boil Off Machine Operator Cloth Name Role Phone Alicia Woodruff MD Primary Care Provider + Reason for Visit * Reason Onset Date Comments Encounter Created in Error 08/08/2024 Encounter Details Date Type Department Care Team (Late st Contact Info) Description 08/08/2024 Refill General Internal Medicine [facility] 200 [facility] [place] [address] Alicia Woodruff MD 200 [place] [address] Allergies Active Allergy Reactions Criticality Noted Date Comments Nicola Inhibitors 07/22/2009 cough Azithromycin 07/22/2009 Clarithromycin 07/22/2009 Propoxyphene N-Acetaminophen Nausea/vomiting 07/22/2009 Erythromycin Other (Please comment) 10/12/2010 colitis Nitrofurantoin Monohydrate Macrocrystals 08/05/2010 rash Penicillins 02/23/2004 RASH, SOB Statins 10/16/2018 High liver functions, myalgias Sulfa Antibiotics 02/23/2004 RASH, SOB documented as of this encounter (statuses as of 08/08/2024) Medications Medication Sig Dispensed Refills Start Date [...] differently: BID (.AM/PM), Reported on 01/03/2024 Tiotropium [place] Monohydrate 18 MCG Inhalation Capsule (Spiriva) INHALE [...] 90 Tablet 2 03/20/2024 Active Litetouch Pen [place] 31G X 5 MM (Insulin Pen Needle) [...] as of this encounter (statuses as of 08/08/2024) Active Problems Problem Noted Date Diagnosed Date [...] as of this encounter (statuses as of 08/08/2024) Resolved Problems Problem Noted Date Diagnosed Date Resolved Date Morbid obesity with BMI of 40.0-44.9, adult 10/10/2019 08/01/2024 Overview: historical Body mass index (BMI) of 40. 0 to 44.9 in adult 08/07/2017 10/17/2019 Overview: Per Obesity protocol #1 Nocturnal hypoxemia 11/14/2012 02/06/20 Overview: 11/14/12 -- will consider oxygen therapy during sleep DME: [facility] UVEITIS 10/08/2009 02/09/2017 ADVANCE DIRECTIVE [...] as of this encounter (statuses as of 08/08/2024) Immunizations Name Administration Dates Next Due COVID-19 [...] PM EDT Office Visit General Internal Medicine [facility] [address] [place] [address] Alicia Woodruff MD [address] [place] [address] 08/28/2024 1:00 PM EDT Office Visit Pharmacy, [place] [address] [place] [address] [facility] [address] [place] [address] 09/18/2024 11:45 AM EST Office Visit Ophthalmology, [facility] [address] [place] [address] Roscoe Jiménez DO [address] [place] [address] 12/17/2024 2:00 PM EST Office Visit Gastroenterology, [facility] [address] [place] [address] Yamila Mills CRNP [address] [address] 01/06/2025 1:00 PM EST Office Visit Allergy/Immunology [place] [address] [place] [address] [address] Mariana Webb PA-C [address] [place] [address] Health Maintenance Due Date Last Done Comments [...] filedocumented as of this encounter Care Teams Boil Off Machine Operator Cloth Relationship Specialty Start Date End Date Alicia Woodruff MD [address] [place] [address] PCP - General 09/21/09 documented as of this encounter
--- OUTSIDE RECORDS SUMMARY | 2024-12-10 00:54 | External Medical Summary | Summary of Care ---
Author Name Unknown Organization [facility] Address [address] [place] [address] Phone [phone] Care Team Providers Care Vacation Guide Name Role Phone Alicia Woodruff MD Primary Care Provider + Encounter Details Date Type Department Care Team (Late st Contact Info) Description 08/20/2024 Population Health External Data Unspecified Department Allergies Active Allergy Reactions Criticality Noted Date Comments Nicola Inhibitors 07/22/2009 cough Azithromycin 07/22/2009 Clarithromycin 07/22/2009 Propoxyphene N-Acetaminophen Nausea/vomiting 07/22/2009 Erythromycin Other (Please comment) 10/12/2010 colitis Nitrofurantoin Monohydrate Macrocrystals 08/05/2010 rash Penicillins 02/23/2004 RASH, SOB Statins 10/16/2018 High liver functions, myalgias Sulfa Antibiotics 02/23/2004 RASH, SOB documented as of this encounter (statuses as of 08/21/2024) Medications Medication Sig Dispensed Refills Start Date [...] differently: BID (.AM/PM), Reported on 01/03/2024 Tiotropium [place] Monohydrate 18 MCG Inhalation Capsule (Spiriva) INHALE [...] 90 Tablet 2 03/20/2024 Active Litetouch Pen [place] 31G X 5 MM (Insulin Pen Needle) [...] as of this encounter (statuses as of 08/21/2024) Active Problems Problem Noted Date Diagnosed Date [...] as of this encounter (statuses as of 08/21/2024) Resolved Problems Problem Noted Date Diagnosed Date Resolved Date Morbid obesity with BMI of 40.0-44.9, adult 10/10/2019 08/01/2024 Overview: historical Body mass index (BMI) of 40. 0 to 44.9 in adult 08/07/2017 10/17/2019 Overview: Per Obesity protocol #1 Nocturnal hypoxemia 11/14/2012 02/06/20 13 Overview: 11/14/12 -- will consider oxygen therapy during sleep DME: [facility] 10/08/2009 02/09/2017 ADVANCE DIRECTIVE INFORMATION [...] as of this encounter (statuses as of 08/21/2024) Immunizations Name Administration Dates Next Due COVID-19 [...] Care Team (Late st Contact Info) Description 09/03/2024 10:30 AM EDT Office Visit Gastroenterology, [facility] [address] [place] [address] Yamila Mills CRNP [address] [place] [address] 09/18/2024 11:45 AM EST Office Visit Ophthalmology, [facility] [address] [place] [address] Roscoe Jiménez DO [address] [place] [address] 09/25/2024 2:30 PM EST Office Visit Pharmacy, [place] [address] [place] [address] [place] [facility] [address] [place] [address] 11/05/2024 1:00 PM EST Office Visit General Internal Medicine [place] [address] [place] [address] [place] [address] Alicia Woodruff MD [address] [place] [address] 01/06/2025 1:00 PM EST Office Visit Allergy/Immunology [place] [address] [place] [address] Mariana Webb PA-C [address] [place] [address] [address] [address] Health Maintenance Due Date Last Done Comments [...] filedocumented as of this encounter Care Teams Vacation Guide Relationship Specialty Start Date End Date Alicia Woodruff MD [address] [place], [place] [address] PCP - General 09/21/09 documented as of this encounter
--- OUTSIDE RECORDS SUMMARY | 2024-12-10 00:54 | External Medical Summary | Summary of Care ---
Author Name Unknown Organization [facility] Address [address] [place] [address] Phone [phone] Care Team Providers Care Hospital Nurse Liaison Name Role Phone Alicia Woodruff MD Primary Care Provider + Reason for Visit * Reason Comments eRx-Medication Refill Encounter Details Date Type Department Care Team (Late st Contact Info) Description 08/27/2024 Refill General Internal Medicine [facility] 200 [place] [address] Alicia Woodruff MD 200 [place] [address] MIGRAINE NOS, NOT INTRACTABLE; HTN, goal below 140/90 Allergies Active Allergy Reactions Criticality Noted Date Comments Nicola Inhibitors 07/22/2009 cough Azithromycin 07/22/2009 Clarithromycin 07/22/2009 Propoxyphene N-Acetaminophen Nausea/vomiting 07/22/2009 Erythromycin Other (Please comment) 10/12/2010 colitis Nitrofurantoin Monohydrate Macrocrystals 08/05/2010 rash Penicillins 02/23/2004 RASH, SOB Statins 10/16/2018 High liver functions, myalgias Sulfa Antibiotics 02/23/2004 RASH, SOB documented as of this encounter (statuses as of 08/29/2024) Medications Medication Sig Dispensed Refills Start Date [...] differently: BID (.AM/PM), Reported on 01/03/2024 Tiotropium [place] Monohydrate 18 MCG Inhalation Capsule (Spiriva) INHALE [...] 90 Tablet 2 4 Active Litetouch Pen [place] 31G X 5 MM (Insulin Pen Needle) USE FOUR TIMES A DAY. 400 Each 1 4 Active Cetirizine HCl 10 MG Oral Tablet Chewable Take 1 Tablet by mouth in the morning. 90 Tablet 3 4 Active Insulin Glargine Solostar 100 UNIT/ML Subcutaneous Solution Pen-injector (Lantus SoloStar)Indicatio ns:Type 2 diabetes mellitus with hemoglobin A1c goal of less than 7.0% ([facility]) Inject 10 units under the skin once [...] -BLOOD PRESSURE 90 Tablet 1 4 Active amLODIPine Besylate 10 [...] as of this encounter (statuses as of 08/29/2024) Active Problems Problem Noted Date Diagnosed Date [...] as of this encounter (statuses as of 08/29/2024) Resolved Problems Problem Noted Date Diagnosed Date Resolved Date Morbid obesity with BMI of 40.0-44.9, adult 10/10/2019 08/01/2024 Overview: historical Body mass index (BMI) of 40. 0 to 44.9 in adult 08/07/2017 10/17/2019 Overview: Per Obesity protocol #1 Nocturnal hypoxemia 11/14/2012 02/06/20 13 Overview: 11/14/12 -- will consider oxygen therapy during sleep DME: [facility] 10/08/2009 02/09/2017 ADVANCE DIRECTIVE INFORMATION 01/30/2006 [...] as of this encounter (statuses as of 08/29/2024) Immunizations Name Administration Dates Next Due COVID-19 [...] Notes * Telephone Encounter - Jose Francisco Peres RPh - 08/29/2024 10:56 AM EDTSigned Prescriptions: Disp Refills Propranolol HCl ER 160 MG Oral Capsule Ext*90 Cap*1 Sig: TAKE 1 CAPSULE DAILY -INDERAL- FOR BLOOD PRESSURE/ HEADACHE.Authorizing Provider: ALICIA WOODRUFF User: JOSE FRANCISCO PERES amLODIPine Besylate 10 MG Oral Tablet (Nor*90 Tab*1 Sig: TAKE 1 TABLET BY MOUTH EVERY DAY -BLOOD PRESSUREAuthorizing Provider: ALICIA WOODRUFF User: ROLANDA PERES documented in this encounter Plan of Treatment Upcoming Encounters Date Type Department Care Team (Late st Contact Info) Description 09/03/2024 10:30 AM EDT Office Visit Gastroenterology, [facility] [address] [facility] [place] [address] Yamila Mills CRNP [address] [place] [address] 09/18/2024 11:45 AM EST Office Visit Ophthalmology, [facility] [address] [place] [address] Roscoe Jiménez DO [address] [place] [address] 09/25/2024 2:30 PM EST Office Visit Pharmacy, [place] [address] [place] [address] [facility] [address] [place] [address] 11/05/2024 1:00 PM EST Office Visit General Internal Medicine [facility] [place] [address] [place] [address] Alicia Woodruff MD 200 [facility] [place] [address] 01/06/2025 1:00 PM EST Office Visit Allergy/Immunology [facility] [place] [address] [place] [address] Mariana Webb PA-C [address] [place], [place] [address] Health Maintenance Due Date Last Done Comments [...] as of this encounter Visit Diagnoses Diagnosis MIGRAINE NOS, NOT INTRACTABLE Migraine, unspecified, without mention of intractable migraine without mention of status migrainosus HTN, goal below 140/90 Unspecified essential hypertension documented in this encounter Care Teams Hospital Nurse Liaison Relationship Specialty Start Date End Date Alicia Woodruff MD [address] [place] [address] PCP - General 09/21/09 documented as of this encounter
--- OUTSIDE RECORDS SUMMARY | 2024-12-10 00:55 | External Medical Summary | Summary of Care ---
Author Name Unknown Organization [facility] Address [address] [place] [address] Phone [phone] Care Team Providers Care Oracle Applications Analyst Name Role Phone Alicia Woodruff MD Primary Care Provider + Reason for Visit * Reason Comments Follow Up 6-8 week follow up * Precert (Within 10 days (routine)) - Authorized Specialty Diagnoses / Procedures Referred By Brian garcia Referred To Contact Ophthalmology Diagnoses Exudative age-related macular degeneration, right eye, with active choroidal neovascularization (HCC) Procedures TN INJECTION, FARICIMAB-SVOA, 0.1 MG [place] INTRAVITREAL NJX PHARMACOLOGIC AGT SPX Roscoe Jiménez, DO [address] [place] [address] Ophthalmology [facility] 132 [facility] [place] [address] Referral ID Status Reason Start Date Expiration Date V isits Requested Visits Authorized [id number] Authorized Precert 02/20/2024 11/05/2099 [id number] Encounter Details Date Type Department Care Team (Late st Contact Info) Description 07/23/2024 2:00 PM EDT Office Visit Ophthalmology, [facility] [address] [place] [address] Roscoe Jiménez DO [address] [place] [address] Exudative age-related macular degeneration of right eye [...] differently: BID (.AM/PM), Reported on 01/03/2024 Tiotropium [place] Monohydrate 18 MCG Inhalation Capsule (Spiriva) INHALE [...] MG Oral Capsule Extended Release 24 HourIndications:Shyam mane TAKE 1 CAPSULE DAILY -INDERAL- FOR BLOOD PRESSURE/ HEADACHE. 90 Capsule 1 03/06/2024 Active Ezetimibe 10 MG Oral Tablet (Zetia)Indications: Hyperlipidemia with target LDL less than 100 TAKE 1 TABLET BY MOUTH IN THE MORNING. FOR CHOLESTEROL. 90 Tablet 2 03/20/2024 Active Litetouch Pen [place] 31G X 5 MM (Insulin Pen Needle) USE FOUR TIMES A DAY. 400 Each 1 03/27/2024 Active Cetirizine HCl 10 MG Oral Tablet Chewable Take 1 Tablet by mouth in the morning. 90 Tablet 3 03/29/2024 Active Insulin Glargine Solostar 100 UNIT/ML Subcutaneous Solution Pen-injector (Lantus SoloStar)Indication s:Type 2 diabetes mellitus with hemoglobin A1c goal of less than 7.0% ([facility]) Inject 10 units under the skin once daily- replaces levemir 15 mL 1 04/22/2024 Active Fexofenadine HCl 180 MG Oral Tablet (Linda) TAKE 1 TABLET BY MOUTH EVERY DAY IN THE MORNING 90 Tablet 3 05/20/2024 Active Diphenoxylate-Atrop ine 2.5-0.025 MG Oral Tablet (Lomotil) TAKE ONE TABLET BY MOUTH EVERY MORNING AND AT BEDTIME 60 Tablet 1 05/24/2024 Active Loratadine 10 MG Oral Tablet (Claritin) [...] EVERY DAY 90 Tablet 1 07/11/2024 Active Hospital, Clinic, or Other Facility Administered [...] Morbid obesity with BMI of 40.0-44.9, adult 12/03/2019 Essential tremor 11/10/2015 Type 2 diabetes mellitus [...] this encounter Progress Notes * Roscoe Jiménez, - 07/23/2024 2:00 PM EDT [facility] [place] Nursing Notes: Maame Solis TECH 07/23/24 1353 Addendum Halima Nicholson is a 79 year old year old female who presents for AMD OU. Last Office Visit: 05/29/2024 (in office), Visit date not found (telemedicine) Patient currently states had an episode last Monday where she lost vision for several minutes but it did come back. Are you diabetic? Yes. Do you check [...] (H) 11/30/2018 01:[address]? No OCT image(s) of both eyes acquired and filed/scanned into chart. Base Eye Exam Visual Acuity (Snellen - Linear) Right Left Dist cc 20/150 -1 20/150 -1 Dist ph cc 20/100 -2 20/150 +1 Correction: Glasses Tonometry (Tonopen, 1:40 PM) Right Left Pressure 19 18 Pupils Dark Light Shape React APD Right 4 4 Round Minimal None Left 4 3.5 Round Brisk None Visual Ramirez (Counting fingers) Right Left Restrictions Partial outer inferior temporal, superior nasal, inferior nasal deficiencies Partial outer superior temporal, inferior temporal, superior nasal, inferior nasal deficiencies Extraocular Movement Right Left Full, Ortho Full, Ortho Neuro/Psych Oriented x3: Yes Mood/Affect: Normal Dilation Both eyes: 0.5% Proparacaine @ 1:37 PM Dilation #2 Both eyes: 1.0% Mydriacyl, 2.5% Phenylephrine @ 1:39 PM Dilation #3 Both eyes: 1.0% Mydriacyl @ 1:41 PM Dilation Comments Patient cautioned that effects [...] optic nerve: 0.43, no edema/pallor/NVD macula: PED, drusen vessels: wnl periphery: trace tea leaf reader, no RT/RD Dilated fundus exam OS: vitreous: clear optic nerve: 0.55, no edema/pallor/NVD macula: drusen, trace tea leaf reader vessels: wnl periphery: trace tea leaf reader, no RT/RD OCT Interpretation: OD: flattened large PED w/ srfluid--improved 54um prior worse 20um prior worse 19um prior improved,prior improved, prior STABLE, prior no sig change, prior STABLE, prior improved 95um OS: drusen, no irf/srf A/P: 1. Age-Related Macular Degeneration OD: wet -Avastin 10/17/24.......08/07/23, 07/05/23, 05/22/23, 04/06/23 -worse at 6 weeks(had to go back to Avastin due to no Good Days) -Eylea 01/03/24, 11/27/23, 09/15/2023 -mild improved -still w/ fluid at 8 weeks -Vabysmo 05/29/24, 04/16/2024 --sig improvement -8 weeks OS: dry -monitor -recommend AREDS2 MVI [...] Pseudophakia OU -stable does not drive F/u 8-10 weeks, OCT OU Roscoe Jiménez DO CC: Dudley Arambula, [...] use ophthalmic ointment 3x/day as needed. Roscoe Jiméenz DO, performed the procedure in its entirety. documented in this encounter Nursing Notes * Iris Castillo LPN - 07/23/2024 2:18 PM EDT Halima Nicholson to receive third Vabysmo 6mg Injection of the Right eye. Correct eye confirmed with patient and marked by Roscoe Jiménez DO Vabysmo 6mg lot # [id number] Exp. Date: 06/2026 * Maame Solis TECH - 07/23/2024 1:29 PM EDT Halima Nicholson is a 79 year old year old female who presents for AMD OU. Last Office Visit: 05/29/2024 (in office), Visit date not found (telemedicine) Patient currently states had an episode last Monday where she lost vision for several minutes but it did come back. Are you diabetic? Yes. Do you check [...] (H) 11/30/2018 01:[address]? No OCT image(s) of both eyes acquired and filed/scanned into chart. documented in this encounter Plan of Treatment Upcoming Encounters Date Type Department Care Team (Late st Contact Info) Description 07/29/2024 1:00 PM EDT [facility] [place] [address] [facility] [facility] [address] [facility] [address] [facility] [address] 08/13/2024 1:00 PM EDT Office Visit General Internal Medicine [facility] 200 [facility] [place] [address] Alicia Woodruff MD 200 [facility] [place] [address] 12/17/2024 2:00 PM EST Office Visit Gastroenterology, [facility] [address] [facility] [place] [address] Yamila Mills CRNP [address] [facility] [place] [address] 01/06/2025 1:00 PM EST Office Visit Allergy/Immunology [facility] [address] [facility] [place] [address] Mariana Webb PA-C [address] [facility] [place] [address] Scheduled Orders Name Type Priority Associated Diagnoses Orde r Schedule RETINA SCAN DIAGNOSTIC IMAGE, POSTERIOR Procedures Routine Exudative age-related macular degeneration of right eye with active choroidal neovascularization (HCC) Intermediate stage nonexudative age-related macular degeneration of left eye Ordered: 07/23/2024 Health Maintenance Due Date Last Done Comments [...] Action Date Dose Rate Site Faricimab-svoa (Vabysmo) intravitreal inj 6 mg 6 mg, Intravitreal, PRN Other, Starting on Mon04/16/24 at 1432, Until Mon04/16/25 at 1431, For 365 days, Each single dose vial and transfer filter needle should only be used for the treatment of a single eye. Given 07/23/2024 2:20 PM EDT 6 mg Eye Right Given 05/29/2024 2:01 PM EDT 6 mg Ey e Right Given 04/16/2024 2:40 PM EDT 6 mg Ey e Right ROPivacaine (Naropin) inj 1.5 mg 1.5 mg, Injection, PRN Other, Starting on Mon04/16/24 at 1432, Until Mon04/16/25 at 1431, For 365 days Given 07/23/2024 2:20 PM EDT 1.5 mg Eye R ight Given 05/29/2024 2:01 PM EDT 1.5 mg Ey e Right Given 04/16/2024 2:40 PM EDT 1.5 mg Ey e Right documented in this encounter Care Teams Oracle Applications Analyst Relationship Specialty Start Date End Date Alicia Woodruff MD 200 [place] [address] PCP - General 09/21/09 documented as of this encounter
--- OUTSIDE RECORDS SUMMARY | 2024-12-10 00:55 | External Medical Summary | Summary of Care ---
Author Name Unknown Organization [facility] Address [address] [place] [address] Phone [phone] Care Team Providers Care Video Game Developer Name Role Phone Alicia Woodruff MD Primary Care Provider + Reason for Visit * Reason Comments Follow Up 6-8 week follow up * Precert (Within 10 days (routine)) - Authorized Specialty Diagnoses / Procedures Referred By Brian garcia Referred To Contact Ophthalmology Diagnoses Exudative age-related macular degeneration, right eye, with active choroidal neovascularization (HCC) Procedures [place] INJECTION, FARICIMAB-SVOA, 0.1 MG [place] INTRAVITREAL NJX PHARMACOLOGIC AGT SPX Roscoe Jiménez, DO [address] [place] [address] Ophthalmology [facility] 132 [facility] [place] [address] Referral ID Status Reason Start Date Expiration Date V isits Requested Visits Authorized [id number] Authorized Precert 02/20/2024 11/05/[phone] Encounter Details Date Type Department Care Team (Late st Contact Info) Description 07/23/2024 2:00 PM EDT Office Visit Ophthalmology, [facility] [address] [place] [address] Roscoe Jiménez DO [address] [place] [address] Exudative age-related macular degeneration of right eye [...] differently: BID (.AM/PM), Reported on 01/03/2024 Tiotropium [place] Monohydrate 18 MCG Inhalation Capsule (Spiriva) INHALE [...] 90 Tablet 2 03/20/2024 Active Litetouch Pen [place] 31G X 5 MM (Insulin Pen Needle) USE FOUR TIMES A DAY. 400 Each 1 03/27/2024 Active Cetirizine HCl 10 MG Oral Tablet Chewable Take 1 Tablet by mouth in the morning. 90 Tablet 3 03/29/2024 Active Insulin Glargine Solostar 100 UNIT/ML Subcutaneous Solution Pen-injector (Lantus SoloStar)Indication s:Type 2 diabetes mellitus with hemoglobin A1c goal of less than 7.0% ([facility]) Inject 10 units under the [...] - 07/23/2024 2:00 PM EDT [facility] [place] Nursing Notes: Maame [...] macula: PED, drusen vessels: wnl periphery: trace practicing dermatologist, no RT/RD Dilated fundus exam OS: vitreous: clear optic nerve: 0.55, no edema/pallor/NVD macula: drusen, trace practicing dermatologist vessels: wnl periphery: trace practicing dermatologist, no RT/RD OCT Interpretation: OD: flattened large [...] Roscoe Jiménez DO Vabysmo 6mg lot # [id number] Exp. Date: 06/2026 * Maame Solis TECH [...] 07/29/2024 1:00 PM EDT [facility] [place] [address] [facility] [address] [facility] [address] [facility] [address] 08/13/2024 1:00 PM EDT Office Visit General Internal Medicine [facility] 200 [facility] [place] [address] Alicia Woodruff MD 200 [facility] [place] [address] 12/17/2024 2:00 PM EST Office Visit Gastroenterology, [facility] [address] [facility] [place] [address] Yamila Mills CRNP [address] [facility] [address] 01/06/2025 1:00 PM EST Office Visit Allergy/Immunology [facility] 200 [facility] [place] [address] Mariana Webb PA-C 200 [facility] [place] [address] Scheduled Orders Name Type Priority Associated Diagnoses [...] Right documented in this encounter Care Teams Video Game Developer Relationship Specialty Start Date End Date Alicia Woodruff MD [address] [place] [address] PCP - General 09/21/09 documented as of this encounter
--- OUTSIDE RECORDS SUMMARY | 2024-12-10 00:55 | External Medical Summary | Summary of Care ---
Author Name Unknown Organization [facility] Address [address] [place] [address] Phone [phone] Care Team Providers Care Flooring Helper Name Role Phone Alicia Woodruff MD Primary Care Provider + Reason for Visit * Reason Comments Follow Up 6-8 week follow up * Precert (Within 10 days (routine)) - Authorized Specialty Diagnoses / Procedures Referred By Brian garcia Referred To Contact Ophthalmology Diagnoses Exudative age-related macular degeneration, right eye, with active choroidal neovascularization (HCC) Procedures MT INJECTION, FARICIMAB-SVOA, 0.1 MG MT INTRAVITREAL NJX PHARMACOLOGIC AGT SPX Roscoe Jiménez, DO [address] [place] [address] Ophthalmology [facility] 132 [facility] [place] [address] Referral ID Status Reason Start Date Expiration Date V isits Requested Visits Authorized [id number] Authorized Precert 02/20/2024 11/05/2099 [id number] Encounter Details Date Type Department Care Team (Late st Contact Info) Description 07/23/2024 2:00 PM EDT Office Visit Ophthalmology, [facility] [address] [place] [address] Roscoe Jiménez DO [address] [place] [address] Exudative age-related macular degeneration of right eye [...] differently: BID (.AM/PM), Reported on 01/03/2024 Tiotropium [place] Monohydrate 18 MCG Inhalation Capsule (Spiriva) INHALE [...] 90 Tablet 2 03/20/2024 Active Litetouch Pen [place] 31G X 5 MM (Insulin Pen Needle) USE FOUR TIMES A DAY. 400 Each 1 03/27/2024 Active Cetirizine HCl 10 MG Oral Tablet Chewable Take 1 Tablet by mouth in the morning. 90 Tablet 3 03/29/2024 Active Insulin Glargine Solostar 100 UNIT/ML Subcutaneous Solution Pen-injector (Lantus SoloStar)Indication s:Type 2 diabetes mellitus with hemoglobin A1c goal of less than 7.0% ([facility]) Inject 10 units under the skin once [...] - 07/23/2024 2:00 PM EDT [facility] [place] Nursing Notes: Maame [...] macula: PED, drusen vessels: wnl periphery: trace associate, no RT/RD Dilated fundus exam OS: vitreous: clear optic nerve: 0.55, no edema/pallor/NVD macula: drusen, trace associate vessels: wnl periphery: trace associate, no RT/RD OCT Interpretation: OD: flattened large [...] Roscoe Jiménez DO Vabysmo 6mg lot # [id number] Exp. Date: 06/2026 * Maame Solis TECH [...] 07/29/2024 1:00 PM EDT Office Visit Pharm[facility], [place] [address] [address] [facility] [address] [address] 08/13/2024 1:00 PM EDT Office Visit General Internal Medicine [facility] [address] [place] [address] Alicia Woodruff MD [address] [facility] [place] [address] 12/17/2024 2:00 PM EST Office Visit Gastroenterology, [facility] [address] [facility] [place] [address] Yamila Mills CRNP [address] [facility] [place] [address] 01/06/2025 1:00 PM EST Office Visit Allergy/Immunology [facility] [address] [facility] [place] [address] Mariana Webb PA-C [address] [facility] [place] [address] Scheduled Orders Name Type Priority Associated Diagnoses [...] Right documented in this encounter Care Teams Flooring Helper Relationship Specialty Start Date End Date Alicia Woodruff MD [address] [place] [address] PCP - General 09/21/09 documented as of this encounter
--- OUTSIDE RECORDS SUMMARY | 2024-12-10 00:55 | External Medical Summary | Summary of Care ---
Author Name Unknown Organization [facility] Address [address] [place] [address] Phone [phone] Care Team Providers Care Industrial Sewer Name Role Phone Alicia Woodruff MD Primary Care Provider + Reason for Visit * Reason Onset Date Comments Order Request 06/13/2024 Encounter Details Date Type Department Care Team (Late st Contact Info) Description 06/13/2024 Telephone General Internal Medicine [facility] [address] [place] [address] Alicia Woodruff MD [address] [facility] [address] Order Request (/) Allergies Active Allergy Reactions Criticality Noted Date Comments Nicola Inhibitors 07/22/2009 cough Azithromycin 07/22/2009 Clarithromycin 07/22/2009 Propoxyphene N-Acetaminophen Nausea/vomiting 07/22/2009 Erythromycin Other (Please comment) 10/12/2010 colitis Nitrofurantoin Monohydrate Macrocrystals 08/05/2010 rash Penicillins 02/23/2004 RASH, SOB Statins 10/16/2018 High liver functions, myalgias Sulfa Antibiotics 02/23/2004 RASH, SOB documented as of this encounter (statuses as of 07/15/2024) Medications Medication Sig Dispensed Refills Start Date [...] differently: BID (.AM/PM), Reported on 01/03/2024 Tiotropium [place] Monohydrate 18 MCG Inhalation Capsule (Spiriva) INHALE [...] 90 Tablet 2 4 Active Litetouch Pen [place] 31G X 5 MM (Insulin Pen Needle) USE FOUR TIMES A DAY. 400 Each 1 4 Active Cetirizine HCl 10 MG Oral Tablet Chewable Take 1 Tablet by mouth in the morning. 90 Tablet 3 4 Active Insulin Glargine Solostar 100 UNIT/ML Subcutaneous Solution Pen-injector (Lantus SoloStar)Indicati ons:Type 2 diabetes mellitus with hemoglobin A1c goal of less than 7.0% ([facility]) Inject 10 units under the skin [...] the morning. 90 Tablet 3 4 Active ITao Ultra In Vitro Strip (Glucose Blood) TEST [...] as of this encounter (statuses as of 07/15/2024) Active Problems Problem Noted Date Diagnosed Date [...] as of this encounter (statuses as of 07/15/2024) Resolved Problems Problem Noted Date Diagnosed Date [...] as of this encounter (statuses as of 07/15/2024) Immunizations Name Administration Dates Next Due COVID-19 [...] encounter Miscellaneous Notes * Telephone Encounter - Chavo Wagner RN [...] [facility] Fax Number, if applicable: [phone] Natasha from [facility] calling to [...] 07/23/2024 2:00 PM EDT Office Visit Ophthalmology, [facility] [address] [place] [address] Roscoe Jiménez DO [address] [place] [address] 07/29/2024 1:00 PM EDT Office Visit Pharmacy, [place] [address] [place] [address] [facility] [place] [address] 08/13/2024 1:00 PM EDT Office Visit General Internal Medicine [facility] [address] [place] [address] Alicia Woodruff MD [address] [place] [address] 12/17/2024 2:00 PM EST Office Visit Gastroenterology, [facility] [address] [place] [address] Yamila Mills CRNP [address] [place] [address] 01/06/2025 1:00 PM EST Office Visit Allergy/Immunology [facility] [address] [place] [address] Mariana Webb PA-C [address] [place] [address] Health Maintenance Due Date Last Done Comments [...] filedocumented as of this encounter Care Teams Industrial Sewer Relationship Specialty Start Date End Date Alicia Woodruff MD [address] [facility], [place] [id number] PCP - General 09/21/09 documented as of this encounter
--- OUTSIDE RECORDS SUMMARY | 2024-12-10 00:55 | External Medical Summary | Summary of Care ---
Author Name Unknown Organization [facility] Address [address] [place] [address] Phone [phone] Care Team Providers Care Property Consultant Name Role Phone Alicia Woodruff MD Primary Care Provider + Reason for Visit * Reason Onset Date Comments Order Request 06/13/2024 Encounter Details Date Type Department Care Team (Late st Contact Info) Description 06/13/2024 Telephone General Internal Medicine [facility] [address] [place] [address] Alicia Woodruff MD 200 [place] [address] Order Request (/) Allergies Active Allergy Reactions [...] differently: BID (.AM/PM), Reported on 01/03/2024 Tiotropium [place] Monohydrate 18 MCG Inhalation Capsule (Spiriva) INHALE [...] 90 Tablet 2 4 Active Litetouch Pen [place] 31G X 5 MM (Insulin Pen Needle) USE FOUR TIMES A DAY. 400 Each 1 4 Active Cetirizine HCl 10 MG Oral Tablet Chewable Take 1 Tablet by mouth in the morning. 90 Tablet 3 4 Active Insulin Glargine Solostar 100 UNIT/ML Subcutaneous Solution Pen-injector (Lantus SoloStar)Indicati ons:Type 2 diabetes mellitus with hemoglobin A1c goal of less than 7.0% ([facility]) Inject 10 units under the skin [...] the morning. 90 Tablet 3 4 Active [employer] Ultra In Vitro Strip (Glucose Blood) TEST [...] encounter Miscellaneous Notes * Telephone Encounter - Vira Thomas MED [...] was received by office. Name/Company sending fax: [employer] Checking on the status [...] Home Care Delivered Fax Number, if applicable: [phone] Natasha from [facility] calling to [...] 07/29/2024 1:00 PM EDT Office Visit Pharmacy, [address] [address] [facility] [address] [place] [address] 08/13/2024 1:00 PM EDT Office Visit General Internal Medicine [facility] [address] [place] [address] Alicia Woodruff MD 200 [facility] [place] [address] 12/17/2024 2:00 PM EST Office Visit Gastroenterology, [facility] [address] [place] [address] Yamila Mills CRNP [address] [place] [address] 01/06/2025 1:00 PM EST Office Visit Allergy/Immunology [facility] [address] [place] [address] Mariana Webb PA-C [address] [place] [address] Health Maintenance Due Date Last Done Comments [...] filedocumented as of this encounter Care Teams Property Consultant Relationship Specialty Start Date End Date Woodruff, Alicia Zackery, MD 200 [place] [address] PCP - General 09/21/09 documented as of this encounter
--- OUTSIDE RECORDS SUMMARY | 2024-12-10 00:56 | External Medical Summary | Summary of Care ---
Author Name Unknown Organization [facility] Address [address] [place] [address] Phone [phone] Care Team Providers Care Health It Specialist Name Role Phone Alicia Woodruff MD Primary Care Provider + Reason for Visit * Reason Comments eRx-Medication Refill Encounter Details Date Type Department Care Team (Late st Contact Info) Description 06/30/2024 Refill Gastroenterology, [facility] [address] [facility] [place] [address] Kirti Albert MD 132 [facility] [place] [address] Allergies Active Allergy Reactions Criticality Noted Date Comments Nicola Inhibitors 07/22/2009 cough Azithromycin 07/22/2009 Clarithromycin 07/22/2009 Propoxyphene N-Acetaminophen Nausea/vomiting 07/22/2009 Erythromycin Other (Please comment) 10/12/2010 colitis Nitrofurantoin Monohydrate Macrocrystals 08/05/2010 rash Penicillins 02/23/2004 RASH, SOB Statins 10/16/2018 High liver functions, myalgias Sulfa Antibiotics 02/23/2004 RASH, SOB documented as of this encounter (statuses as of 07/01/2024) Medications Medication Sig Dispensed Refills Start Date [...] and 1 Capsule in the evening. Active Furosemide 40 MG Oral Tablet (Lasix)Indications :HTN, goal below 140/90 TAKE ONE TABLET BY MOUTH EVERY DAY FOR FLUID 90 Tablet 3 3 Active GenTeal Tears 0.1-0.2-0.3 % Ophthalmic Solution [...] differently: BID (.AM/PM), Reported on 01/03/2024 Tiotropium [place] Monohydrate 18 MCG Inhalation Capsule (Spiriva) INHALE [...] NEEDED COUGH 30 Capsule 1 4 Active Klor-Con M20 20 MEQ Oral Tablet Extended Release (Potassium Chloride ER)Indications:HTN , goal below 140/90 TAKE 1 TABLET BY MOUTH EVERY DAY 90 Tablet 1 4 Active Fluticasone Propionate 50 MCG/ACT Nasal Suspension (Flonase)Indicatio ns:Acute sinusitis USE 1 SPRAY IN EACH NOSTRIL ONCE A DAY 16 mL 3 4 Active amLODIPine Besylate 10 MG Oral [...] 90 Tablet 2 4 Active Litetouch Pen [place] 31G X 5 MM (Insulin Pen Needle) USE FOUR TIMES A DAY. 400 Each 1 4 Active Atrovent HFA 17 MCG/ACT Inhalation Aerosol Solution (ipratropium) Inhale 2 Puffs by mouth in the morning and 2 Puffs at noon and 2 Puffs in the evening and 2 Puffs before bedtime. 12.9 g 3 4 Active Cetirizine HCl 10 MG Oral Tablet Chewable Take 1 Tablet by mouth in the morning. 90 Tablet 3 4 Active Insulin Glargine Solostar 100 UNIT/ML Subcutaneous Solution Pen-injector (Lantus SoloStar)Indicatio ns:Type 2 diabetes mellitus with hemoglobin A1c goal of less than 7.0% ([facility]) Inject 10 units under the skin once daily- replaces levemir 15 mL 1 4 Active Fexofenadine HCl 180 MG Oral Tablet (Linda) TAKE 1 TABLET BY MOUTH EVERY DAY IN THE MORNING 90 Tablet 3 4 Active Diphenoxylate-Atro pine 2.5-0.025 MG Oral [...] THE MORNING 90 Capsule 1 4 Active Omeprazole 40 MG Oral Capsule Delayed Release (PriLOSEC) TAKE 1 CAPSULE BY MOUTH EVERY DAY IN THE MORNING 90 Capsule 1 4 07/01/20 24 Discontinued Hospital, Clinic, or Other Facility [...] as of this encounter (statuses as of 07/01/2024) Active Problems Problem Noted Date Diagnosed Date [...] as of this encounter (statuses as of 07/01/2024) Resolved Problems Problem Noted Date Diagnosed Date Resolved Date Body mass index (BMI) of 40. 0 to 44.9 in adult 08/07/2017 10/17/2019 Overview: Per Obesity protocol #1 Nocturnal hypoxemia 11/14/2012 02/06/20 13 Overview: 11/14/12 -- will consider oxygen therapy during sleep DME: [facility] 10/08/2009 02/09/2017 ADVANCE DIRECTIVE [...] as of this encounter (statuses as of 07/01/2024) Immunizations Name Administration Dates Next Due COVID-19 [...] lent, No Preserve, IM 10/27/2015 Seasonal Influenza, Split, I IV3, With Preserve, Inj 08/22/2014,09/12/2013,12/05/2012,10/18,08/24/2010,08/03/2009 Seasonal Influenza, Trivalen t, Adjuvanted, 65+ yrs 10/10/2019 TD, Preservative Free 09/08/2020 TDAP, Age [...] encounter Miscellaneous Notes * Telephone Encounter - Addi Pretty RPh - 07/01/2024 5:08 PM EDTSigned Prescriptions: Disp Refills Omeprazole 40 MG Oral Capsule Delayed Rele*90 Cap*1 Sig: TAKE 1 CAPSULE BY MOUTH EVERY DAY IN THE MORNINGAuthorizing Provider: KIRTI ALBERT User: ADDI PRETTY * Telephone Encounter - Demetria Nix - 06/30/2024 1:28 PM EDTPending Prescriptions: Disp Refills Omeprazole 40 MG Oral Capsule Delayed Rele*90 Cap*1 Sig: TAKE 1 CAPSULE BY MOUTH EVERY DAY IN THE MORNING * Telephone Encounter - Demetria Nix - 06/30/2024 1:26 PM EDT Did you pend patient's preferred pharmacy and medication before forwarding?yes Pharmacy: [id number] [address] [facility] Pending Prescriptions: Disp Refills Omeprazole 40 MG Oral Capsule Delayed Rel*90 Cap*1 Sig: TAKE 1 CAPSULE BY MOUTH EVERY DAY IN THE MORNING Last Visit: 03/07/2023 (in office), 01/31/2022 (telemedicine) Next Visit: 07/24/2024 If no future appointments scheduled, and last appointment is greater than a year ago, please schedule patient for a follow-up appointment Last date the medication was ordered: 01/11/2024 Is this request for a controlled substance?No [...] 10:40 AM TSH 3.77 12/19/2018 02:18 PM LDLCALC 92 07/03/2023 09:03 AM LDLCALC UNINTERPRETABLE RESULT 06/21/2019 09:50 AM LDLDIRECT 85 12/12/2023 12:25 PM LDLDIRECT 77 08/24/2020 10:40 AM LDLDIRECT 109 03/29/2018 09:37 AM ALT 26 12/12/2023 12:25 PM ALT 37 (H) 09/08/2020 01:19 PM HGBA1C 7.4 (H) 12/12/2023 12:25 PM HGBA1C 7.4 (H) 09/08/2020 01:19 PM documented in this encounter Plan of Treatment Upcoming Encounters Date Type Department Care Team (Late st Contact Info) Description 07/09/2024 11:00 AM EDT Office Visit Allergy/Immunology [facility] [place] [address] [place] [address] Logan Kaur MD [address] [place] [address] 07/23/2024 2:00 PM EDT Office Visit Ophthalmology, [facility] [address] [facility] [place] [address] Roscoe Jiménez DO [address] [place], [place] [address] 07/24/2024 2:00 PM EDT Office Visit Gastroenterology, [facility] [address] [facility] [place] [address] Yamila Mills CRNP [address] [place] [address] 07/29/2024 1:00 PM EDT Office Visit Pharmacy, [place] [address] [place] [address] [place] [facility] [address] [place] [address] 08/13/2024 1:00 PM EDT Office Visit General Internal Medicine [facility] [address] [place] [address] Alicia Woodruff MD [address] [facility] [place] [address] Health Maintenance Due Date Last Done Comments Zoster Vaccines (2 of 3) 05/22/2012 03/27/2012 Depression Screening 09/08/2021 09/08/2020 COVID-19 Vaccine ( season) 2023 03/21/2022, 01/04/2021, 11/30/2020 Diabetic Eye Exam 03/24/2024 03/24/2023, , 06/25/2019, Additional history exists HbA1c 06/11/2024 12/12/2023, 06/07, 06/24/2022, Additional history exists Adult Wellness Visit 06/13/2024 06/13/2023 Diabetic Foot Exam 06/13/2024 06/13/2023, 1 11/08/2019, 06/25/2019, Additional history exists Albumin/Creatinine Ratio 07/03/202407/03/2 023, 09/08/2020, 11/30/2018, Additional history exists Influenza Vaccine (FLU shot) (#1) 2024 09/22/2023, 08/20/2021, 08/24/2020, Additional history exists GFR 12/12/2024 12/12/2023, 10/06, 03/16/2023, Additional history exists DTaP,Tdap,and Td Vaccines (3 - Td or Tdap) 09/08/2030 [...] filedocumented as of this encounter Care Teams Health It Specialist Relationship Specialty Start Date End Date Alicia Woodruff MD [address] [facility] [place] [address] PCP - General 09/21/09 documented as of this encounter
--- OUTSIDE RECORDS SUMMARY | 2024-12-10 00:56 | External Medical Summary | Summary of Care ---
Author Name Unknown Organization [facility] Address [address] [place] [address] Phone [phone] Care Team Providers Care Nurse Staff Name Role Phone Alicia Woodruff MD Primary Care Provider + Reason for Visit * Reason Comments Allergy New Pt * Evaluate & Treat - Unlimited Visits (Within 30 days (routine)) - Authorized Specialty Diagnoses / Procedures Referred By Contac t Referred To Contact Allergy & Immunology / Allergy and Immunology Diagnoses Non-seasonal allergic rhinitis due to pollen Alicia Woodruff MD [address] [place] [address] Referral ID Status Reason Start Date Expiration Date Visits Requested Visits Authorized [id number] Authorized Specialty Services Required 12/12/[phone] Encounter Details Date Type Department Care Team (Late st Contact Info) Description 07/09/2024 11:00 AM EDT Office Visit Allergy/Immunology [facility] [place] [address] [place] [address] Logan Kaur MD [address] [place] [address] Moderate persistent asthma without complication*; Rhinitis, nonallergic Allergies Active Allergy Reactions Criticality Noted Date Comments Nicola Inhibitors 07/22/2009 cough Azithromycin 07/22/2009 Clarithromycin 07/22/2009 Propoxyphene N-Acetaminophen Nausea/vomiting 07/22/2009 Erythromycin Other (Please comment) 10/12/2010 colitis Nitrofurantoin Monohydrate Macrocrystals 08/05/2010 rash Penicillins 02/23/2004 RASH, SOB Statins 10/16/2018 High liver functions, myalgias Sulfa Antibiotics 02/23/2004 RASH, SOB documented as of this encounter (statuses as of 07/09/2024) Medications Medication Sig Dispensed Refills Start Date [...] differently: BID (.AM/PM), Reported on 01/03/2024 Tiotropium Linden Monohydrate 18 MCG Inhalation Capsule (Spiriva) INHALE [...] NEEDED COUGH 30 Capsule 1 12/28/2023 Active Klor-Con M20 20 MEQ Oral Tablet Extended Release (Potassium Chloride ER)Indications:HTN, goal below 140/90 TAKE 1 TABLET BY MOUTH EVERY DAY 90 Tablet 1 01/17/2024 Active amLODIPine Besylate 10 MG Oral Tablet [...] 90 Tablet 2 03/20/2024 Active Litetouch Pen [employer] 31G X 5 MM (Insulin Pen Needle) USE FOUR TIMES A DAY. 400 Each 1 03/27/2024 Active Cetirizine HCl 10 MG Oral Tablet Chewable Take 1 Tablet by mouth in the morning. 90 Tablet 3 03/29/2024 Active Insulin Glargine Solostar 100 UNIT/ML Subcutaneous Solution Pen-injector (Lantus SoloStar)Indication s:Type 2 diabetes mellitus with hemoglobin A1c goal of less than 7.0% ([facility]) Inject 10 units under the [...] the morning. 90 Tablet 3 05/31/2024 Active SnabboteketTouch Ultra In Vitro Strip (Glucose Blood) TEST [...] RINSE MOUTH AFTER EACH USE. 180 Each 06/26/2024 Active Omeprazole 40 MG Oral Capsule [...] before bedtime. 90 mL 3 07/09/2024 Active Hospital, Clinic, or Other Facility Administered [...] as of this encounter (statuses as of 07/09/2024) Active Problems Problem Noted Date Diagnosed Date [...] as of this encounter (statuses as of 07/09/2024) Resolved Problems Problem Noted Date Diagnosed Date Resolved Date Body mass index (BMI) of 40. 0 to 44.9 in adult 08/07/2017 10/17/2019 Overview: Per Obesity protocol #1 Nocturnal hypoxemia 11/14/2012 02/06/20 13 Overview: 11/14/12 -- will consider oxygen therapy during sleep DME: [facility] UVEITIS 10/08/2009 02/09/2017 ADVANCE DIRECTIVE [...] as of this encounter (statuses as of 07/09/2024) Immunizations Name Administration Dates Next Due COVID-19 [...] Date Smoking Tobacco: Never Smokeless Tobacco: Never Tobacco Cessation:Counseling Given: Not Answered Comments:no passive smoke exposures Alcohol Use Standard Drinks/Week Comments No 0 [...] Sign Reading Time Taken Comments Blood Pressure 120/82 07/09/2024 10:03 AM EDT Pulse 70 07/09/2024 10:03 AM EDT Temperature 36.2 C (97.2 F) 07/09/2024 10:03 AM E DT Respiratory Rate 16 07/09/2024 10:03 AM EDT Oxygen Saturation - - Inhaled Oxygen Concentration - - Weight 85.3 kg (188 lb) 07/09/2024 10:03 AM EDT Height 149.9 cm (4' 11") 07/09/2024 10:03 AM EDT Body Mass Index 37.97 07/09/2024 10:03 AM EDT documented in this encounter Patient Instructions * Patient Instructions* Logan Kaur MD - 07/09/2024 11:42 AM EDT Nonallergic Trigger Avoidance Measures: Do not smoke, no smoking allowed in house or vehicles; avoid wood, coal burning stoves , and kerosene heaters; avoid strong smelling perfumes and perfumed cosmetics; do not use incense, potpourri, or scented candles, air fresheners in the home; avoid chemicalodors and weather changes (abrupt changes in temperature and humidity). If unavoidable, use a HEPA air-cleaning device. documented in this encounter Progress Notes * Logan Kaur MD - 07/09/2024 10:38 AM EDT REASON FOR VISIT: Chief Complaint Patient presents with Allergy New Pt HPI: Halima is a pleasant 79-year-old female who presents to our office as a new patient after being referred by Alicia Woodruff MD for initial consultation of chronic rhinitis, asthma, and recurrent sinusitis/bronchitis. She was last seen in our office in 2009. Previously. skin testing did reveal allergic sensitizations to dust mites only. The patient reports that starting in January, she will start to experience excessive sneezing, postnasal drip, cough secondary to the postnasal drip, nasal congestion, rhinorrhea, and itchy eyes. She states that this will continue throughout the summer and then finally in the fall, she will experience either acute sinusitis or bronchitis in general. She states that this has been going on for several years now. Possible triggers do include barometric pressure changes, strong odors/perfumes, heat/humidity, dust mites, and possibly cats. She does not have any pets within her home but she does house it a home that does have a cat. This typically occurs or August. From a treatment standpoint, she does use Flonase 2 sprays each nostril but only every other day. She also has Afrin at home but she rarely uses this. She was also on loratadine 10 mg daily and she feels that this does provide benefit. In the past she has tried cetirizine in addition to fexofenadine but believes that loratadine is the most effective overall. From an asthma standpoint, the patient is also on Advair 250/51 puff twice daily on a regular basis. She also takes Spiriva 1 puff once a day regularly. She does have albuterol via the HFA inhaler and via the nebulizer but she only needs this when she is sick. REVIEW OF SYSTEMS Skin: No history of hives or atopic dermatitis. Eyes: itching Bilateral Ears/Nose/Throat: sneezing, nasal congestion, runny nose, post nasal drip, throat clearing Respiratory: asthma and frequent bronchitis Cardiovascular: hypertension Gastrointestinal: Positive history of acid reflux disease., celiac disease Genitourinary: negative Musculoskeletal: pt denies significant joint pain or stiffness Neurologic: negative Psychiatric: negative Hematologic/Lymphatic/Immunologic: negative Endocrine: negative Constitutional: none Past Medical History: Diagnosis Date ACEI/ARB contraindicated Asthma, moderate persistent 10/12/2010 Celiac disease 09/02/2009 Chronic rhinitis Convulsions (HCC) remote Hx of Dermatitis Diabetes (HCC) HTN, goal below 140/90 Hyperlipidemia LDL goal < 100 INFORMATION increased eye pressure bilaterally Migraine Mitral valve prolapse Osteoporosis Other specified disease of pancreas gall stone Sleep apnea UVEITIS 10/08/2009 Past Surgical History: Procedure Laterality Date BREAST BIOPSY Left 2002 benign CATARACT SURGERY,COMPLEX Bilateral 2009 Dr. Bunch COLONOSCOPY THRU STOMA, W/BIOPSY 06/29/2009 COLONOSCOPY, DIAGNOSTIC (RECTUM) 08/02/2011 await BX COLONOSCOPY, DIAGNOSTIC (RECTUM) 07/31/2012 COLONOSCOPY FLEXIBLE PROXIMAL DIAGNOSTIC performed by Kirti Mota MD at [facility]: normal COLONOSCOPY, DIAGNOSTIC (RECTUM) 07/16/2018 mild inflammation on bx, diverticulosis/COLONOSCOPY FLEXIBLE PROXIMAL DIAGNOSTIC performed by Kirti Mota MD at ENDOSCOPY [facility] EGD, FLEXIBLE, DIAGNOSTIC 07/31/2012 UPPER GI ENDOSCOPY DIAGNOSTIC performed by Kirti Mota MD at [facility]: normal EGD, FLEXIBLE, DIAGNOSTIC 07/16/2018 normal bx, hiatal hernia/ESOPHAGOGASTRODUODENOSCOPY (EGD), FLEXIBLE, TRANSORAL, DIAGNOSTIC performed by Kirti Mota MD at ENDOSCOPY [facility] EGD, FLEXIBLE, DIAGNOSTIC 02/25/2019 tortuous esophagus/mild antral gastritis/mild villous flattening duodenal bulb/biopsies normal/ESOPHAGOGASTRODUODENOSCOPY (EGD), FLEXIBLE, TRANSORAL, DIAGNOSTIC performed by Tulio Freeman [facility] EGD, FLEXIBLE, W/BIOPSY 06/29/2009 EGD, FLEXIBLE, [...] 05/29/2024 # [address] Jiménez MISCELLANEOUS ORDER ([facility] ONLY) 07/09/2009 Laparoscopic cholecystectomy, cholangiogram.True cut liver biopsy right lobe Dr. Quach [facility] 07/09/09 OPHTHALMOLOGY CONSULT IP 09/2009 Iritis Uveitis OTHER (INFORMATION) ACT [address] Jiménez (04-06-23) OTHER (INFORMATION) Right AVASTIN OD CONSENT SIGNED Dr. Jiménez/Kavita (exp 04-06-24) OTHER (INFORMATION) CONSENT EYLEA OU EXP 09/15/24; DR JIMÉNEZ/KAVITA OTHER (INFORMATION) Bilateral VABYSMO OU CONSENT DR. JIMÉNEZ/KAVITA EXP. 04/16/25 REMOVAL OF TONSILS, UNDER AGE 12 Tonsillectomy,<12 Y/O REMOVE CATARACT, INSERT LENS PROSTH 09/2010 bilateral done 2 weeks apart REMOVE GALLBLADDER 07/10/2009 lap SIGMOIDOSCOPY/BIOPSY 02/24/2010 TOTAL ABD HYSTERECTOMY W/WO REMOVAL OF TUBE(S) 1980 endometriosis US ENDOSCOPIC 10/07/09 done egd normal/ eus normal VIDEO CAPSULE ENDOSCOPY 12/15/2009 no evidence of inflammation, swelling, or damage to small intestine Current Outpatient Medications Medication Sig Dispense Refill ASPIRIN EC 81 MG PO TBEC Take one pill daily (Patient taking differently: Take by mouth.) 30 3 CETIRIZINE HCL 10 MG PO TABS 1 tablet daily CALCIUM-VITAMIN D 600-400 MG-UNIT PO TABS 1 tablet daily MAXALT 5 MG PO TABS One pill by mouth at onset of headache, may repeat every 2 hours up to 2 times.Up to 3 pills in 24 hours 20 Tab 3 albuterol sulfate (PROVENTIL) (2.5 MG/3ML) 0.083% nebulizer solution Inhale 1 Vial via nebulizer every 4 hours as needed for Wheezing. (Patient taking differently: Inhale 1 Vial via nebulizer every 4hours as needed for Wheezing.) 1 Box Dosing Unit 0 Multivitamin Women 50+ Oral Tablet Take by mouth . Acetaminophen 500 MG Oral Capsule Take 1 Capsule by mouth every 4 hours as needed. PreserVision AREDS 2 Oral Capsule Take 1 Capsule by mouth in the morning and 1 Capsule in the evening. GenTeal Tears 0.1-0.2-0.3 % Ophthalmic Solution Instill into eye as needed. Refresh 1.4-0.6 % Ophthalmic Solution (polyvinyl alcohol-povidone PF) Instill 1 Drop into both eyesas needed. Tiotropium Linden Monohydrate 18 MCG Inhalation Capsule (Spiriva) INHALE CONTENTS OF 1 CAPSULE DAILY IN THE MORNING 90 Capsule 1 Losartan Potassium 25 MG Oral Tablet (Cozaar) TAKE ONE TABLET BY MOUTH TWICE a DAY FOR BLOOD PRESSURE- GENERIC COZAAR 180 Tablet 3 Klor-Con M20 20 MEQ Oral Tablet Extended Release (Potassium Chloride ER) TAKE 1 TABLET BY MOUTH EVERY DAY 90 Tablet 1 amLODIPine Besylate 10 MG Oral Tablet (Norvasc) TAKE 1 TABLET BY MOUTH EVERY DAY -BLOOD PRESSURE 90Tablet 1 Propranolol HCl ER 160 MG Oral Capsule Extended Release 24 Hour TAKE 1 CAPSULE DAILY -INDERAL- FOR BLOOD PRESSURE/ HEADACHE. 90 Capsule 1 Ezetimibe 10 MG Oral Tablet (Zetia) TAKE 1 TABLET BY MOUTH IN THE MORNING. FOR CHOLESTEROL. 90 Tablet 2 Cetirizine HCl 10 MG Oral Tablet Chewable Take 1 Tablet by mouth in the morning. 90 Tablet 3 Insulin Glargine Solostar 100 UNIT/ML Subcutaneous Solution Pen-injector (Lantus SoloStar) Inject 10 units under the skin once daily- replaces levemir 15 mL 1 Fexofenadine HCl 180 MG Oral Tablet (Linda) TAKE 1 TABLET BY MOUTH EVERY DAY IN THE MORNING 90 Tablet 3 Diphenoxylate-Atropine 2.5-0.025 MG Oral Tablet (Lomotil) TAKE ONE TABLET BY MOUTH EVERY MORNING AND AT BEDTIME 60 Tablet 1 Loratadine 10 MG Oral Tablet (Claritin) Take 1 Tablet by mouth in the morning. 90 Tablet 3 NovoLOG FlexPen 100 UNIT/ML Subcutaneous Solution Pen-injector (insulin aspart) INJECT 5 UNITS WITHBREAKFAST , 3 UNITS LUNCH, 3 UNITS WITH DINNER , PLUS CF 1:80 over 150. MAX 20 UNITS A DAY 15 mL 4 Albuterol Sulfate HFA 108 (90 Base) MCG/ACT Inhalation Aerosol Solution INHALE 2 PUFFS BY MOUTH EVERY 4 HOURS NEEDED FOR WHEEZE 54 g 1 Fluticasone-Salmeterol 250-50 MCG/ACT Inhalation Aerosol Powder [...] EVERY DAY FOR FLUID 90 Tablet 1 Fluticasone Propionate 50 MCG/ACT Nasal Suspension (Flonase) USE 1 SPRAY IN EACH NOSTRIL ONCE A DAY48 mL 3 VITAMIN C 500 MG PO CAPS one pill each day NEBULIZER COMPRESSOR MIS Use as directed 1 Each 1 ONETOUCH ULTRASOFT LANCETS MIS one touch delica lancets/testing four times daily/250.00 1 Box 5 nitroglycerin (NITROSTAT) 0.4 MG SUBL 1 TABLET UNDER TONGUE NEEDED CHEST PAIN --MAY REPEAT 3 TIMES - IF NO RELIEF CALL 721 84 Tab 1 Zoster Vac Recomb Adjuvanted 50 MCG/0.5ML Intramuscular Suspension Reconstituted (Shingrix) Inject 0.5 mL into a large muscle now and repeat dose in 60 to 180 days 1 Each 1 Losartan Potassium 25 MG Oral Tablet (Cozaar) TAKE ONE TABLET BY MOUTH EVERY DAY FOR BLOOD PRESSURE- GENERIC COZAAR (Patient taking differently: 2 times a day.) 90 Tablet 1 Benzonatate 100 MG Oral Capsule (Tessalon Perles) TAKE 1 CAPSULE BY MOUTH 3 TIMES A DAY NEEDED COUGH 30 Capsule 1 Litetouch Pen [employer] 31G X 5 MM (Insulin Pen Needle) USE FOUR TIMES A DAY. 400 Each 1 OneTouch Ultra In Vitro Strip (Glucose Blood) TEST BLOOD SUGAR 6 TIMES DAILY. 600 Strip 3 Current Facility-Administered Medications Medication Dose Route Frequency Provider Last Rate Last Admin Aflibercept (Eylea) intraviteal prefilled syringe 2 mg 2 mg Intravitreal PRN Roscoe Jiménez T,DO 2 mg at 02/19/24 1317 Faricimab-svoa (Vabysmo) intravitreal inj 6 mg 6 mg Intravitreal PRN 6 mg at 05/29/24 1401 ROPivacaine (Naropin) inj 1.5 mg 1.5 mg Injection PRN 1.5 mg at 05/29/24 1401 Allergies as of 07/09/2024 - Reviewed 07/09/2024 Allergen Reaction Noted Nicola inhibitors 07/22/2009 Azithromycin 07/22/2009 Clarithromycin 07/22/2009 Darvocet [propoxyphene n-acetaminophen] Nausea/vomiting 07/22/2009 Erythromycin Other (Please comment) 10/12/2010 Macrobid [nitrofurantoin monohydrate macrocrystals] 08/05/2010 Penicillins 02/23/2004 Statins 10/16/2018 Sulfa antibiotics 02/23/2004 Family History Problem Relation Name Age of Onset Hypertension Mother Cancer Mother renal cell cancer Eye Problems Mother Glaucoma Asthma Father Heart Disorder Father Eye Problems Father AMD/Blind Asthma Sister Hypertension Sister Asthma Grandmother (Maternal) Eye Problems Aunt (Unspecified) Retinal Detachment Eye Problems Uncle (Unspecified) AMD Breast Cancer Aunt (Maternal) Social History Socioeconomic History Marital status: Single Spouse name: Not on file Number of children: 0 Years of education: Not on file Highest education level: Not on file Occupational History 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: [employer] Tobacco Use Smoking status: Never Smokeless tobacco: Never Tobacco comments: no passive smoke exposures Substance and Sexual Activity Alcohol use: No Drug use: No Sexual activity: Not on file Other Topics Concern Service Not Asked Blood Transfusions No Caffeine Concern Not Asked Occupational Exposure Not Asked Hobby Hazards Not Asked Sleep Concern Not Asked Stress Concern Not Asked Weight Concern Not Asked Special Diet Yes Comment: low Na and low fat/ lactose free milk Back Care Not Asked Exercise Not Asked Bike Helmet Not Asked Seat Belt Yes Self-Exams Not Asked Social History Narrative [facility] INFORMATION [...] Pets: none Lives on a 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 Entered By: Anthony Corley MD 10/12/2010 Social Determinants of Health Financial Resource Strain: Not on file Food Insecurity: No Food Insecurity (06/25/2019) Hunger Vital Sign Worried About Running Out of Food in the Last Year: Never true Ran Out of Food in the Last Year: Never true Transportation Needs: Not on file Social Connections: Unknown (04/23/2024) Social Connections How often do you feel lonely or isolated from those around you? (Adult - for ages 18 years and over): Not on file Housing Stability: Not on file Social history: The patient currently lives in an apartment with electric and baseboard heating system. The apartment is primarily carpeted. There is air conditioning in the apartment. There was no associated basement. The home has no issues with cockroaches. She does not use any scented products in the home. She does not have any pets within the home. She does house it a home that has a cat for 2-4 weeks at a time, usually twice per year. She currently is retired. 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 BP 120/82 | Pulse 70 | Temp 36.2 C (97.2 F) | Resp 16 | Ht 1.499 m (4' 11") | Wt 85.3 kg (188 lb) | BMI 37.97 kg/m | BSA 1.88 m PHYSICAL EXAM: GENERAL: No acute distress. HEAD AND FACE: No sinus tenderness noted EYES: EOMI, PERRLA; Conjunctiva- normal; Eyelids - normal EARS: TM's - clear NOSE:Pale mucosa; mild turbinate edema; no nasal polyps or mucopus; Septum - normal OROPHARYNX: Teeth and gums - normal; Mild erythema, no cobblestoning; No lesions, exudates NECK: Supple; No thyroid enlargment or cervical adenopathy RESPIRATORY: Clear to A and P; No wheezes; Good air movement bilaterally; No intercostal retractions or accessory muscle use CARDIOVASCULAR: RRR; No gallops, rubs, clicks, or murmurs. GASTROINTESTINAL: Abdomen is soft and non-tender; BS - normal; No palpable masses or organomegaly LYMPHATIC: No significant adenopathy noted MUSCULOSKELETAL: No significant joint swelling, tenderness EXTREMITIES: No cyanosis, clubbing or peripheral edema SKIN: No evidence atopic dermatitis; no urticaria or angioedema; Normal skin quality NEUROLOGIC/PSYCHIATRIC: Mental status - Oriented x's 3; Mood and affect - normal OBJECTIVE DATA: 07/09/24: Prick skin testing to common environmental aeroallergens was performed in our office today and this revealed no evidence of sensitizations in the setting of a negative saline control and positive histamine control. 07/09/24: Spirometry was performed in our office today; however, poor technique lead to unreliable results today. Allergy skin testing 10-12-10 significant positive reactions noted to dust mites. All other skin tests including foods wheat, shrimp and crab were negative. Pulmonary function test 10-12-10 revealed restrictive ventilatory defect. There was evidence of small airways obstructive disease with FEF 25-75 being 63% of predicted. No significant improvement postbeta 2 agonist bronchodilator. FEV1 was 1.44 liters, 75% of predicted. FEV1/FVC ratio was 98% of predicted. Peak flow rate was 231 liters/minute, 72% of predicted. ASSESSMENT AND PLAN: ICD-10-CM 1. Moderate persistent asthma without complication J45.40 2. Rhinitis, nonallergic J31.0 In summary, Halima carries a diagnosis of chronic nonallergic rhinitis in addition to moderate persistent asthma. We did review the various triggers of nonallergic rhinitis and this includes drastic changes in the barometric pressure, drastic changes in the temperature, and respiratory irritants such as strong odors, perfumes, colognes, scented products, potpourri, incense, exhaust fumes, cleaning agents, smoke, and poor air quality. From a treatment standpoint, we do recommend that she continue with Flonase 2 sprays each nostril daily as opposed to every other day. She previously was using Afrin but on a rare basis and we asked her to discontinue her Afrin completely. Finally we will add in Astelin 2 sprays each nostril twice daily. The nasal sprays are to be preceded by use of a normal saline sinus rinse proper technique ofa sinus rinse which shown to her today. She also may benefit from use of an air purifier with a HEPA filter. Is unclear exactly how much her loratadine is helping her given her lack of allergic sensitizations so she may try to discontinue this but has an ability restart it if she feels worse overall . For the patient's asthma, she will continue on Advair 250/51 puff twice daily and she was instructed to rinse out her mouth after each use. She may also continue on Spiriva 1 puff once a day. For anycough, wheezing, or shortness of breath, she will then add in albuterol via the HFA or via the nebulizer on an as needed basis. Should there be increased frequency of albuterol use, she will contact our office or her primary care practitioner for further measures. Thank you very much for allowing myself to participate in the care of your patient. Please do not hesitate to contact our office should you have any questions or concerns. Logan Kaur MD Allergy/Immunology I spent a total of Greater than 55 mins (exact time 64 mins) on the date of service in preparation,delivery, and documentation of the care provided to Halima Nicholson excluding any time spent in the performance of separately billed services or time spent by another provider/QHP. (This note was completed using the dictation program Fluency Direct. As such, there may be misspellings, word substitutions, or other variations that should not change the essence of the clinical content of this encounter note.If there is need for further clarification, please direct questions to the provider listed above.) PCP: ALICIA WOODRUFF[address] [address] [phone] documented in this encounter Nursing Notes * Roxane Meeks LPN - 07/09/2024 10:02 AM EDT The pt has been properly identified by confirmation of name and date of . Pt presents as a new pt referred by Dr Woodruff for sinus issues, runny nose, cough. She states it leads to bronchitis and lung infection that it just hangs on. documented in this encounter Plan of Treatment Upcoming Encounters Date Type Department Care Team (Late st Contact Info) Description 07/23/2024 2:00 PM EDT Office Visit Ophthalmology, [facility] [address] [place] [address] Roscoe Jiménez DO [address] [place] [address] 07/24/2024 2:00 PM EDT Office Visit Gastroenterology, [facility] [address] [place] [address] Yamila Mills CRNP [address] [place] [address] 07/29/2024 1:00 PM EDT Office Visit Pharmacy, [facility] [address] [place] [address] [facility] [address] [place] [address] 08/13/2024 1:00 PM EDT [facility] [place] [address] [place] [address] Alicia Woodruff MD [address] [place] [id number] 01/06/2025 1:00 PM EST Office Visit Allergy/Immunology [facility] [place] [address] [place] [address] Mariana Webb PA-C [address] [place], [place] [address] Health Maintenance Due Date Last Done Comments [...] Not on filedocumented as of this encounter Procedures Procedure Name Priority Date/Time Associated Diagnosis Comments BASIC SPIROMETRY Routine 07/09/2024 11:0 4 AM EDT Moderate persistent asthma without complication ALLERGY SKIN TESTS, PERC W/PHYSICIAN INTERP Routine 07/09/2024 Moderate persistent asthma without complication Rhinitis, nonallergic documented in this encounter Results * BASIC SPIROMETRY (07/09/2024 11:04 AM EDT) FVC Actual Pre 1.29 L [facility] FVC Actual Pre %Predict 61 % [facility] FEV1 Actual Pre 1.07 L [facility] FEV1 Actual Pre %Predict 65 % [facility] FEV1/FVC Actual Pre 83 % [facility] FEF 25-75% Actual Pre 0.95 L/sec [facility] FEF 25-75% Actual Pre %Predict 65 % [facility] 07/09/2024 11:0 4 AM EDT Narrative [facility] - 07/09/2024 11:04 AM EDT Although the FEV1 and JRF54-69% are reduced, the FEV1/FVC ratio is increased. Patient effort was erratic which makes it impossible to adequately evaluate the flow volume loops.Conclusions:Patient effort was erratic which makes it impossible to adequately evaluate the flow volume loops. Logan Kaur MD MEDICINE [facility] * ALLERGY SKIN TESTS, PERC W/PHYSICIAN INTERP (07/09/2024) mite mix skin test dog skin test 0/0 0 - 0 mm cat skin test 0/0 0 - 0 mm Alternaria SKin Test 0/0 0 - 0 mm Common [place] Mix Skin Test aspergillus Skin Test 0/0 0 - 0 mm AUREOB (PULLARIA) cladosporium Skin Test penicillium skin test 0/0 0 - 0 mm helminthosporium skin test 0/0 0 - 0 mm pigweed SKin Test dolan's quarter Skin Test cocklebur skin test belarusian plantain skin test 0/0 0 - 0 mm jaycee skin test ragweed skin test 0/0 0 - 0 mm Comment:ragweed short tree mix skin test 0/0 0 - 0 mm Comment:tree mix #11 grass mix skin test negative control skin test 0/0 0 - 0 mm histamine skin test 5/8 0 - 0 mm maple skin test oak Skin test elm Skin Test birch SKin Test 0/0 0 - 0 mm hickory skin test OTHER 0/0 mm Comment:mountain cedar OTHER 0/0 mm Comment:mulberry mix OTHER 0/0 mm Comment:lito grass OTHER 0/0 mm Comment:nina grass OTHER 0/0 mm Comment:weed mix OTHER 0/0 mm Comment:hormodendrum cladios porioides OTHER 0/0 mm Comment:DF OTHER 0/0 mm Comment:DP Logan Kaur MD MEDICINE documented in this encounter Visit Diagnoses Diagnosis Moderate persistent asthma without complication- Primary Unspecified asthma Rhinitis, nonallergic Chronic rhinitis documented in this encounter Care Teams Nurse Staff Relationship Specialty Start Date End Date Alicia Woodruff MD [address] [facility] [place] [address] PCP - General 09/21/09 documented as of this encounter
--- OUTSIDE RECORDS SUMMARY | 2024-12-10 00:56 | External Medical Summary | Summary of Care ---
Author Name Unknown Organization [facility] Address [address] [place] [facility] [place] [address] Phone [phone] Care Team Providers Care Sorting Machine Operator Name Role Phone Alicia Woodruff MD Primary Care Provider + Encounter Details Date Type Department Care Team (Late st Contact Info) Description 07/05/2024 Orders Only PATIENT PORTAL DO NOT DELETE THIS DEPT USED BY [place] [id number] Allergies Active Allergy Reactions Criticality Noted Date Comments Nicola Inhibitors 07/22/2009 cough Azithromycin 07/22/2009 Clarithromycin 07/22/2009 Propoxyphene N-Acetaminophen Nausea/vomiting 07/22/2009 Erythromycin Other (Please comment) 10/12/2010 colitis Nitrofurantoin Monohydrate Macrocrystals 08/05/2010 rash Penicillins 02/23/2004 RASH, SOB Statins 10/16/2018 High liver functions, myalgias Sulfa Antibiotics 02/23/2004 RASH, SOB documented as of this encounter (statuses as of 07/05/2024) Medications Medication Sig Dispensed Refills Start Date [...] differently: BID (.AM/PM), Reported on 01/03/2024 Tiotropium [place] Monohydrate 18 MCG Inhalation Capsule (Spiriva) INHALE [...] 90 Tablet 2 03/20/2024 Active Litetouch Pen [place] 31G X 5 MM (Insulin Pen Needle) [...] than 7.0% ([facility]) Inject 10 units under the skin [...] A DAY 48 mL 3 07/04/2024 Active Hospital, Clinic, or Other Facility Administered [...] as of this encounter (statuses as of 07/05/2024) Active Problems Problem Noted Date Diagnosed Date [...] as of this encounter (statuses as of 07/05/2024) Resolved Problems Problem Noted Date Diagnosed Date [...] as of this encounter (statuses as of 07/05/2024) Immunizations Name Administration Dates Next Due COVID-19 [...] 07/09/2024 11:00 AM EDT Office Visit Allergy/Immunology [address] [place], [place] [address] Logan Kaur MD [address] [place], [place] [address] 07/23/2024 2:00 PM EDT Office Visit Ophthalmology, [facility] [address] [facility] [place] [address] Roscoe Jiménez DO [address] [place] [address] 07/24/2024 2:00 PM EDT Office Visit Gastroenterology, [facility] [address] [facility] [place], [place] [address] Yamila Mills CRNP [address] [place] [address] 07/29/2024 1:00 PM EDT Office Visit Pharmacy, [place] [address] [place] [address] [place] [address] [place] [address] 08/13/2024 1:00 PM EDT Office Visit General Internal Medicine [facility] [address] [place], [place] [address] Alicia Woodruff MD [address] [place], [place] [address] Health Maintenance Due Date Last Done Comments Zoster Vaccines (2 of 3) 05/22/2012 03/27/2012 Depression Screening 09/08/2021 09/08/2020 COVID-19 Vaccine (2022- season) 2023 03/21/2022, 01/04/2021, 11/30/2020 Diabetic Eye Exam 03/24/2024 03/24/2023, , 06/25/2019, Additional history exists HbA1c 06/11/2024 12/12/2023, 06/07, 06/24/2022, Additional history exists Adult Wellness Visit 06/13/2024 06/13/2023 Diabetic Foot Exam 06/13/2024 06/13/2023, 1 11/08/2019, 06/25/2019, Additional history exists Albumin/Creatinine Ratio 07/03/2024 023, 09/08/2020, 11/30/2018, Additional history exists Influenza [...] filedocumented as of this encounter Care Teams Sorting Machine Operator Relationship Specialty Start Date End Date Alicia Woodruff MD [address] [place] [address] PCP - General 09/21/09 documented as of this encounter
--- OUTSIDE RECORDS SUMMARY | 2024-12-10 00:56 | External Medical Summary | Summary of Care ---
Author Name Unknown Organization [facility] Address [address] [place] [address] Phone [phone] Care Team Providers Care Airline Captain Name Role Phone Alicia Woodruff MD Primary Care Provider + Reason for Visit * Reason Onset Date Comments Medication Refill 07/03/2024 Encounter Details Date Type Department Care Team (Late st Contact Info) Description 07/03/2024 Refill General Internal Medicine [facility] [address] [facility] [place] [address] Alicia Woodruff DO [address] [facility] [address] Acute sinusitis Allergies Active Allergy Reactions Criticality Noted Date Comments Nicola Inhibitors 07/22/2009 cough Azithromycin 07/22/2009 Clarithromycin 07/22/2009 Propoxyphene N-Acetaminophen Nausea/vomiting 07/22/2009 Erythromycin Other (Please comment) 10/12/2010 colitis Nitrofurantoin Monohydrate Macrocrystals 08/05/2010 rash Penicillins 02/23/2004 RASH, SOB Statins 10/16/2018 High liver functions, myalgias Sulfa Antibiotics 02/23/2004 RASH, SOB documented as of this encounter (statuses as of 07/04/2024) Medications Medication Sig Dispensed Refills Start Date [...] differently: BID (.AM/PM), Reported on 01/03/2024 Tiotropium [place] Monohydrate 18 MCG Inhalation Capsule (Spiriva) INHALE [...] 03/06/2024 Active Ezetimibe 10 MG Oral Tablet (Zetia)Indications :Hyperlipidemia with target LDL less than 100 TAKE 1 TABLET BY MOUTH IN THE MORNING. FOR CHOLESTEROL. 90 Tablet 2 03/20/2024 Active Litetouch Pen [place] 31G X 5 MM (Insulin Pen Needle) [...] THE MORNING 90 Tablet 3 05/20/2024 Active Diphenoxylate-Atro pine 2.5-0.025 MG Oral Tablet (Lomotil) TAKE ONE TABLET BY MOUTH EVERY MORNING AND AT BEDTIME 60 Tablet 1 05/24/2024 Active Loratadine 10 MG Oral Tablet (Claritin) Take 1 Tablet by mouth in the morning. 90 Tablet 3 05/31/2024 Active OneTouch Ultra In Vitro Strip (Glucose Blood) TEST BLOOD SUGAR 6 TIMES DAILY. 600 Strip 05/31/2024 Active NovoLOG FlexPen 100 UNIT/ML Subcutaneous [...] FOR WHEEZE 54 g 1 2024 Active Fluticasone-Salmet ifrah 250-50 MCG/ACT Inhalation Aerosol Powder Breath Activated (Advair Diskus)Indications :Asthma, moderate persistent INHALE 1 PUFF EVERY 12 HOURS. RINSE MOUTH AFTER EACH USE. 180 Each 1 06/26/2024 Active Omeprazole 40 MG Oral Capsule Delayed Release (PriLOSEC) TAKE 1 CAPSULE BY MOUTH EVERY DAY IN THE MORNING 90 Capsule 07/01/2024 Active Atrovent HFA 17 MCG/ACT Inhalation Aerosol Solution (ipratropium) INHALE 2 PUFFS BY MOUTH IN THE MORNING AT AT NOON IN THE EVENING AND BEFORE BEDTIME 38.7 g 07/02/2024 Active Furosemide 40 MG Oral Tablet (Lasix)Indications :HTN, goal below 140/90 TAKE ONE TABLET BY MOUTH EVERY DAY FOR FLUID 90 Tablet 07/02/2024 Active Fluticasone Propionate 50 MCG/ACT Nasal Suspension (Flonase)Indicatio ns:Acute sinusitis USE 1 SPRAY IN EACH NOSTRIL ONCE A DAY 48 mL 3 07/04/2024 Active Fluticasone Propionate 50 MCG/ACT Nasal Suspension (Flonase)Indicatio ns:Acute sinusitis USE 1 SPRAY IN EACH NOSTRIL ONCE A DAY 16 mL 3 03/04/2024 4 Discontinu ed(Refill) Hospital, Clinic, or Other Facility Administered Medication [...] as of this encounter (statuses as of 07/04/2024) Active Problems Problem Noted Date Diagnosed Date [...] as of this encounter (statuses as of 07/04/2024) Resolved Problems Problem Noted Date Diagnosed Date Resolved Date Body mass index (BMI) of 40. 0 to 44.9 in adult 08/07/2017 10/17/2019 Overview: Per Obesity protocol #1 Nocturnal hypoxemia 11/14/2012 02/06/20 13 Overview: 11/14/12 -- will consider oxygen therapy during sleep DME: [facility] 10/08/2009 02/09/2017 ADVANCE DIRECTIVE [...] as of this encounter (statuses as of 07/04/2024) Immunizations Name Administration Dates Next Due COVID-19 [...] Telephone Encounter - Alicia Woodruff MD - 07/04/2024 1:43 PM EDTSigned Prescriptions: Disp Refills Fluticasone Propionate 50 MCG/ACT Nasal [place]*48 mL 3 Sig: USE 1 SPRAY IN EACH NOSTRIL ONCE A DAY Authorizing Provider: ALICIA WOODRUFF * Telephone Encounter - Willow Barger LPN - 07/04/2024 8:28 AM EDTPending Prescriptions: Disp Refills Fluticasone Propionate 50 MCG/ACT Nasal [place]*48 mL 3 Sig: USE 1 SPRAY IN EACH NOSTRIL ONCE A DAY * Telephone Encounter - Willow Barger LPN - 07/04/2024 8:28 AM EDT 90 day pended * Telephone Encounter - Fartun Yancey OSA - 07/03/2024 7:48 AM EDT 90 day refill request Did you pend patient's preferred pharmacy and medication before forwarding?yes Pharmacy: [id number] [address] [facility] Pending Prescriptions: Disp Refills Fluticasone Propionate 50 MCG/ACT Nasal S*16 mL 3 Sig: USE 1 SPRAY IN EACH NOSTRIL ONCE A DAY Last Visit: 12/12/2023 (in office), Visit date not found (telemedicine) Next Visit: 08/13/2024 If no future appointments scheduled, and last appointment is greater than a year ago, please schedule patient for a follow-up appointment Last date the medication was ordered: [id number] Is this request for a controlled substance?No [...] 07/09/2024 11:00 AM EDT Office Visit Allergy/Immunology [facility] [address] [place], [place] [address] Logan Kaur MD [address] [place], [place] [address] 07/23/2024 2:00 PM EDT Office Visit Ophthalmology, [facility] [address] [place] [address] Roscoe Jiménez DO [address] [place] [address] 07/24/2024 2:00 PM EDT Office Visit Gastroenterology, [facility] [address] [facility] [place] [address] Yamila Mills CRNP [address] [place] [address] 07/29/2024 1:00 PM EDT Office Visit Pharmacy, [address] [address] [facility] [address] [place] [address] 08/13/2024 1:00 PM EDT Office Visit General Internal Medicine [facility] [address] [place], [place] [address] Alicia Woodruff MD [address] [place], [place] [address] Health Maintenance Due Date Last Done Comments [...] as of this encounter Visit Diagnoses Diagnosis Acute sinusitis Acute sinusitis, unspecified documented in this encounter Care Teams Airline Captain Relationship Specialty Start Date End Date Alicia Woodruff MD [address] [place] [address] PCP - General 09/21/09 documented as of this encounter
--- OUTSIDE RECORDS SUMMARY | 2024-12-10 00:56 | External Medical Summary | Summary of Care ---
Author Name Unknown Organization [facility] Address [address] [place] [address] Phone [phone] Care Team Providers Care Dry Cell Tester Name Role Phone Alicia Woodruff MD Primary Care Provider + Reason for Visit * Reason Comments Allergy New Pt * Evaluate & Treat - Unlimited Visits (Within 30 days (routine)) - Authorized Specialty Diagnoses / Procedures Referred By Contac t Referred To Contact Allergy & Immunology / Allergy and Immunology Diagnoses Non-seasonal allergic rhinitis due to pollen Alicia Woodruff MD [address] [place] [address] Referral ID Status Reason Start Date Expiration Date Visits Requested Visits Authorized [id number] Authorized Specialty Services Required 12/12/[phone] Encounter Details Date Type Department Care Team (Late st Contact Info) Description 07/09/2024 11:00 AM EDT Office Visit Allergy/Immunology [place] [address] [place] [address] Logan Kaur MD [address] [place] [address] Moderate persistent asthma without complication*; Rhinitis, nonallergic [...] differently: BID (.AM/PM), Reported on 01/03/2024 Tiotropium [place] Monohydrate 18 MCG Inhalation Capsule (Spiriva) INHALE [...] 90 Tablet 2 03/20/2024 Active Litetouch Pen [place] 31G X 5 MM (Insulin Pen Needle) [...] the morning. 90 Tablet 3 05/31/2024 Active GnodalTouch Ultra In Vitro Strip (Glucose Blood) TEST [...] by Kirti Mota MD at [facility]: normal COLONOSCOPY, DIAGNOSTIC (RECTUM) 07/16/2018 mild inflammation on bx, diverticulosis/COLONOSCOPY FLEXIBLE PROXIMAL DIAGNOSTIC performed by Kirti Mota MD at [facility] EGD, FLEXIBLE, DIAGNOSTIC 07/31/2012 UPPER GI ENDOSCOPY DIAGNOSTIC performed by Kirti Mota MD at [facility]: normal EGD, FLEXIBLE, DIAGNOSTIC 07/16/2018 normal bx, hiatal hernia/ESOPHAGOGASTRODUODENOSCOPY (EGD), FLEXIBLE, TRANSORAL, DIAGNOSTIC performed by Kirti Mota MD at [facility] EGD, FLEXIBLE, DIAGNOSTIC 02/25/2019 tortuous esophagus/mild antral gastritis/mild villous flattening duodenal bulb/biopsies normal/ESOPHAGOGASTRODUODENOSCOPY (EGD), FLEXIBLE, TRANSORAL, DIAGNOSTIC performed by Tulio Freeman [facility] EGD, FLEXIBLE, W/BIOPSY 06/29/2009 EGD, FLEXIBLE, W/BIOPSY [...] [address] Jiménez MISCELLANEOUS ORDER ([facility] ONLY) 07/09/2009 Laparoscopic cholecystectomy, cholangiogram.True cut liver biopsy right lobe Dr. Quach [facility] 07/09/09 OPHTHALMOLOGY CONSULT IP 09/2009 Iritis Uveitis [...] 1 Drop into both eyesas needed. 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 BP 120/82 | Pulse 70 | Temp [...] to the provider listed above.) PCP: ALICIA WOODRUFF[address] [address] [phone] documented in this encounter Nursing Notes * [...] PM EDT Office Visit Ophthalmology, [facility] [address] [place] [address] Roscoe Jiménez DO [address] [place] [address] 07/24/2024 2:00 PM EDT Office Visit Gastroenterology, [facility] [address] [place] [address] Yamila Mills CRNP [address] [place] [address] 07/29/2024 1:00 PM EDT Office Visit Pharmacy, [place] [address] [place] [address] [facility] [address] [place] [address] 08/13/2024 1:00 PM EDT Office [facility] [place] [address] [place] [address] Alicia oWodruff MD [address] [place] [address] 01/06/2025 1:00 PM EST Office Visit Allergy/Immunology [facility] [place] [address] [place] [address] [address] Mariana Webb PA-C 200 [facility] [place], [place] [address] Scheduled Orders Name Type Priority Associated Diagnoses Orde r Schedule ALLERGY SKIN TESTS, PERC W/PHYSICIAN INTERP Procedures Routine Moderate persistent asthma without complication Rhinitis, nonallergic Ordered: 07/09/2024 Health Maintenance Due Date Last Done Comments [...] AM EDT Moderate persistent asthma without complication documented in this encounter Results * BASIC [...] 11:04 AM EDT Although the FEV1 and OJW80-94% are reduced, the FEV1/FVC ratio is increased. Patient effort was erratic which makes it impossible to adequately evaluate the flow volume loops.Conclusions:Patient effort was erratic which makes it impossible to adequately evaluate the flow volume loops. Logan Kaur MD MEDICINE [place]IL[place] PRIEST documented in this encounter Visit Diagnoses Diagnosis Moderate persistent asthma without complication- Primary Unspecified asthma Rhinitis, nonallergic Chronic rhinitis documented in this encounter Care Teams Dry Cell Tester Relationship Specialty Start Date End Date Alicia Woodruff MD 200 [facility] [place] [address] PCP - General 09/21/09 documented as of this encounter
--- OUTSIDE RECORDS SUMMARY | 2024-12-10 00:56 | External Medical Summary | Summary of Care ---
Author Name Unknown Organization [facility] Address [address] [place] [address] Phone [phone] Care Team Providers Care Non Destructive Testing Specialist Name Role Phone Alicia Woodruff MD Primary Care Provider + Reason for Visit * Reason Comments eRx-Medication Refill Encounter Details Date Type Department Care Team (Late st Contact Info) Description 07/09/2024 Refill General Internal Medicine [facility] [address] [facility] [place] [address] Alicia Woodruff MD 200 [place] [address] HTN, goal below 140/90 Allergies Active Allergy Reactions Criticality Noted Date Comments Nicola Inhibitors 07/22/2009 cough Azithromycin 07/22/2009 Clarithromycin 07/22/2009 Propoxyphene N-Acetaminophen Nausea/vomiting 07/22/2009 Erythromycin Other (Please comment) 10/12/2010 colitis Nitrofurantoin Monohydrate Macrocrystals 08/05/2010 rash Penicillins 02/23/2004 RASH, SOB Statins 10/16/2018 High liver functions, myalgias Sulfa Antibiotics 02/23/2004 RASH, SOB documented as of this encounter (statuses as of 07/11/2024) Medications Medication Sig Dispensed Refills Start Date [...] differently: BID (.AM/PM), Reported on 01/03/2024 Tiotropium [place] Monohydrate 18 MCG Inhalation Capsule (Spiriva) INHALE [...] 90 Tablet 2 4 Active Litetouch Pen [place] 31G X 5 MM (Insulin Pen Needle) [...] ([facility]) Inject 10 units under the skin once [...] EVERY DAY 90 Tablet 1 4 Active Klor-Con M20 20 MEQ Oral Tablet Extended Release (Potassium Chloride ER)Indications:HTN , goal below 140/90 TAKE 1 TABLET BY MOUTH EVERY DAY 90 Tablet 1 4 07/11/20 24 Discontinued Hospital, Clinic, or Other Facility [...] as of this encounter (statuses as of 07/11/2024) Active Problems Problem Noted Date Diagnosed Date [...] as of this encounter (statuses as of 07/11/2024) Resolved Problems Problem Noted Date Diagnosed Date [...] as of this encounter (statuses as of 07/11/2024) Immunizations Name Administration Dates Next Due COVID-19 [...] encounter Miscellaneous Notes * Telephone Encounter - Roni Francis [facility] - 07/11/2024 1:42 PM EDTSigned Prescriptions: Disp Refills Klor-Con M20 20 MEQ Oral Tablet Extended R*90 Tab*1 Sig: TAKE 1 TABLET BY MOUTH EVERY DAYAuthorizing Provider: ALICIA WOODRUFF User: RONI FRANCIS-- documented in this encounter Plan of Treatment Upcoming Encounters Date Type Department Care Team (Late st Contact Info) Description 07/23/2024 2:00 PM EDT Office Visit Ophthalmology, [facility] [address] [place] [address] Roscoe Jiménez DO [address] [place] [address] 07/29/2024 1:00 PM EDT Office Visit Pharmacy, [place] [address] [facility] [address] [place] [address] [facility] [place] [address] 08/13/2024 1:00 PM EDT Office Visit General Internal Medicine [facility] [address] [place] [address] Alicia Woodurff MD [address] [facility] [place] [address] 12/17/2024 2:00 PM EST Office Visit Gastroenterology, [facility] [address] [place] [address] Yamila Mills CRNP [address] [place] [address] 01/06/2025 1:00 PM EST Office Visit Allergy/Immunology [facility] [address] [place] [address] Mariana Webb PA-C [address] [place] [address] Health Maintenance Due Date Last Done Comments [...] as of this encounter Visit Diagnoses Diagnosis HTN, goal below 140/90 Unspecified essential hypertension documented in this encounter Care Teams Non Destructive Testing Specialist Relationship Specialty Start Date End Date Alicia Woodruff MD [address] [place] [address] PCP - General 09/21/09 documented as of this encounter
--- OUTSIDE RECORDS SUMMARY | 2024-12-10 00:56 | External Medical Summary | Summary of Care ---
Author Name Unknown Organization [facility] Address [address] [place] [address] Phone [phone] Care Team Providers Care Supervisor Laundry Name Role Phone Alicia Woodruff MD Primary Care Provider + Reason for Visit * Reason Onset Date Comments Order Request 06/13/2024 Encounter Details Date Type Department Care Team (Late st Contact Info) Description 06/13/2024 Telephone General Internal Medicine [facility] 200 [place] [address] Alicia Woodruff MD 200 [place] [address] Order Request (/) Allergies Active Allergy Reactions Criticality Noted Date Comments Nicola Inhibitors 07/22/2009 cough Azithromycin 07/22/2009 Clarithromycin 07/22/2009 Propoxyphene N-Acetaminophen Nausea/vomiting 07/22/2009 Erythromycin Other (Please comment) 10/12/2010 colitis Nitrofurantoin Monohydrate Macrocrystals 08/05/2010 rash Penicillins 02/23/2004 RASH, SOB Statins 10/16/2018 High liver functions, myalgias Sulfa Antibiotics 02/23/2004 RASH, SOB documented as of this encounter (statuses as of 07/12/2024) Medications Medication Sig Dispensed Refills Start Date [...] differently: BID (.AM/PM), Reported on 01/03/2024 Tiotropium [place] Monohydrate 18 MCG Inhalation Capsule (Spiriva) INHALE [...] 90 Tablet 2 4 Active Litetouch Pen [place] 31G X 5 MM (Insulin Pen Needle) USE FOUR TIMES A DAY. 400 Each 1 4 Active Cetirizine HCl 10 MG Oral Tablet Chewable Take 1 Tablet by mouth in the morning. 90 Tablet 3 4 Active Insulin Glargine Solostar 100 UNIT/ML Subcutaneous Solution Pen-injector (Lantus SoloStar)Indicati ons:Type 2 diabetes mellitus with hemoglobin A1c goal of less than 7.0% ([facility]) Inject 10 units under the [...] the morning. 90 Tablet 3 4 Active Everpay Ultra In Vitro Strip (Glucose Blood) TEST [...] as of this encounter (statuses as of 07/12/2024) Active Problems Problem Noted Date Diagnosed Date [...] as of this encounter (statuses as of 07/12/2024) Resolved Problems Problem Noted Date Diagnosed Date [...] as of this encounter (statuses as of 07/12/2024) Immunizations Name Administration Dates Next Due COVID-19 [...] encounter Miscellaneous Notes * Telephone Encounter - Theresa Chahal OSA [...] Home Care Delivered Fax Number, if applicable: [phone] Natasha from Home Care Delivered calling to [...] 07/23/2024 2:00 PM EDT Office Visit Ophthalmology, [facility] [address] [facility] [place] [address] Roscoe Jiménez DO [address] [place] [address] 07/29/2024 1:00 PM EDT Office Visit Pharmacy, [place] [address] [facility] [place] [address] [facility] [address] [place] [address] 08/13/2024 1:00 PM EDT Office Visit General Internal Medicine [facility] [address] [place] [address] Alicia Woodruff MD 200 [facility] [place] [address] 12/17/2024 2:00 PM EST Office Visit Gastroenterology, [facility] [address] [place] [address] Yamila Mills CRNP [address] [place] [address] 01/06/2025 1:00 PM EST Office Visit Allergy/Immunology [facility] [address] [place] [address] Mariana Webb PA-C [address] [place] [address] Health Maintenance Due Date Last Done Comments [...] as of this encounter Care Teams Supervisor Laundry Relationship Specialty Start Date End Date Alicia Woodruff MD [address] [place] [address] PCP - General 09/21/09 documented as of this encounter
--- OUTSIDE RECORDS SUMMARY | 2024-12-10 00:56 | External Medical Summary | Summary of Care ---
Author Name Unknown Organization [facility] Address [address] [place] [address] Phone [phone] Care Team Providers Care Grader Operator Name Role Phone Alicia Woodruff MD Primary Care Provider + Reason for Visit * Reason Comments eRx-Medication Refill Encounter Details Date Type Department Care Team (Late st Contact Info) Description 06/30/2024 Refill General Internal Medicine [facility] 200 [facility] [place] [address] Alicia Woodruff MD 200 [place] [address] Type 2 diabetes mellitus with hemoglobin A1c goal of less than 7.0% ([facility])*; HTN, goal below 140/90 Allergies Active Allergy Reactions Criticality Noted Date Comments Nicola Inhibitors 07/22/2009 cough Azithromycin 07/22/2009 Clarithromycin 07/22/2009 Propoxyphene N-Acetaminophen Nausea/vomiting 07/22/2009 Erythromycin Other (Please comment) 10/12/2010 colitis Nitrofurantoin Monohydrate Macrocrystals 08/05/2010 rash Penicillins 02/23/2004 RASH, SOB Statins 10/16/2018 High liver functions, myalgias Sulfa Antibiotics 02/23/2004 RASH, SOB documented as of this encounter (statuses as of 07/02/2024) Medications Medication Sig Dispensed Refills Start Date [...] differently: BID (.AM/PM), Reported on 01/03/2024 Tiotropium [place] Monohydrate 18 MCG Inhalation Capsule (Spiriva) INHALE [...] 90 Tablet 2 4 Active Litetouch Pen O[place] 31G X 5 MM (Insulin Pen Needle) USE FOUR TIMES A DAY. 400 Each 1 4 Active Cetirizine HCl 10 MG Oral Tablet Chewable Take 1 Tablet by mouth in the morning. 90 Tablet 3 4 Active Insulin Glargine Solostar 100 UNIT/ML Subcutaneous Solution Pen-injector (Lantus SoloStar)Indicatio ns:Type 2 diabetes mellitus with hemoglobin A1c goal of less than 7.0% ([facility]) Inject 10 units under the [...] the morning. 90 Tablet 3 4 Active GenomedTouch Ultra In Vitro Strip (Glucose Blood) TEST [...] FOR FLUID 90 Tablet 1 4 Active Furosemide 40 MG Oral Tablet (Lasix)Indications :HTN, goal below 140/90 TAKE ONE TABLET BY MOUTH EVERY DAY FOR FLUID 90 Tablet 3 3 07/02/20 24 Discontinued Atrovent HFA 17 MCG/ACT Inhalation Aerosol Solution [...] as of this encounter (statuses as of 07/02/2024) Active Problems Problem Noted Date Diagnosed Date [...] as of this encounter (statuses as of 07/02/2024) Resolved Problems Problem Noted Date Diagnosed Date Resolved Date Body mass index (BMI) of 40. 0 to 44.9 in adult 08/07/2017 10/17/2019 Overview: Per Obesity protocol #1 Nocturnal hypoxemia 11/14/2012 02/06/20 13 Overview: 11/14/12 -- will consider oxygen therapy during sleep DME: [facility] 10/08/2009 02/09/2017 ADVANCE DIRECTIVE [...] as of this encounter (statuses as of 07/02/2024) Immunizations Name Administration Dates Next Due COVID-19 [...] Encounter - Jose Francisco Peres RPh - 07/02/2024 9:40 AM EDTSigned Prescriptions: Disp Refills Atrovent HFA 17 MCG/ACT Inhalation Aerosol*38.7 g 1 Sig: INHALE 2 PUFFS BY MOUTH IN THE MORNING AT AT NOON IN THE EVENING AND BEFORE BEDTIMEAuthorizing Provider: ALICIA WOODRUFF User: JOSE FRANCISCO PERES Furosemide 40 MG Oral Tablet (Lasix) 90 Tab*1 Sig: TAKE ONE TABLET BY MOUTH EVERY DAY FOR FLUIDAuthorizing Provider: ALICIA WOODRUFF User: JOSE FRANCISCO PERES documented in this encounter Plan of Treatment Upcoming Encounters Date Type Department Care Team (Late st Contact Info) Description 07/09/2024 11:00 AM EDT Office Visit Allergy/Immunology [facility] [address] [place] [address] Logan Kaur MD [address] [place] [address] 07/23/2024 2:00 PM EDT Office Visit Ophthalmology, [facility] [address] [facility] [place], [place] [address] Roscoe Jiménez DO [address] [place], [place] [address] 07/24/2024 2:00 PM EDT Office Visit Gastroenterology, [facility] [address] [facility] [place] [address] Yamila Mills CRNP [address] [place] [address] 07/29/2024 1:00 PM EDT Office Visit Pharmacy, [place] [address] [place] [address] [facility] [address] [place] [address] 08/13/2024 1:00 PM EDT Office Visit General Internal Medicine [facility] 200 [facility] [place] [address] Alicia Woodruff MD [address] [facility] [place] [address] Scheduled Orders Name Type Priority Associated Diagnoses Orde r Schedule HEMOGLOBIN A1C Lab Routine Type 2 diabetes mellitus with hemoglobin A1c goal of less than 7.0% (HCC) Expected: 07/09/2024 (Approximate), Expires: 07/02/2025 ALBUMIN / CREATININE RATIO, URINE Lab Routine Type 2 diabetes mellitus with hemoglobin A1c goal of less than 7.0% (HCC) Expected: 07/02/2024, Expires: 07/02/2025 Health Maintenance Due Date Last Done Comments [...] goal of less than 7.0% (HCC)- Primary HTN, goal below 140/90 Unspecified essential hypertension documented in this encounter Care Teams Grader Operator Relationship Specialty Start Date End Date Alicia Woodruff MD 200 [facility] [place] [address] PCP - General 09/21/09 documented as of this encounter
--- OUTSIDE RECORDS SUMMARY | 2024-12-10 00:57 | External Medical Summary | Summary of Care ---
Author Name Unknown Organization [facility] Address [address] [place] [address] Phone [phone] Care Team Providers Care Bevel Polisher Name Role Phone Alicia Woodruff MD Primary Care Provider + Reason for Visit * Reason Onset Date Comments Order Request 06/13/2024 Encounter Details Date Type Department Care Team (Late st Contact Info) Description 06/13/2024 Telephone General Internal Medicine [facility] 200 [place] [address] Alicia Woodruff MD 200 [facility] [address] Order Request (/) Allergies Active Allergy Reactions Criticality Noted Date Comments Nicola Inhibitors 07/22/2009 cough Azithromycin 07/22/2009 Clarithromycin 07/22/2009 Propoxyphene N-Acetaminophen Nausea/vomiting 07/22/2009 Erythromycin Other (Please comment) 10/12/2010 colitis Nitrofurantoin Monohydrate Macrocrystals 08/05/2010 rash Penicillins 02/23/2004 RASH, SOB Statins 10/16/2018 High liver functions, myalgias Sulfa Antibiotics 02/23/2004 RASH, SOB documented as of this encounter (statuses as of 06/28/2024) Medications Medication Sig Dispensed Refills Start Date [...] evening. Active Furosemide 40 MG Oral Tablet (Lasix)Indications: HTN, goal below 140/90 TAKE ONE TABLET BY MOUTH EVERY DAY FOR FLUID 90 Tablet 3 07/12/2023 Active GenTeal Tears 0.1-0.2-0.3 % Ophthalmic Solution [...] differently: BID (.AM/PM), Reported on 01/03/2024 Tiotropium [place] Monohydrate 18 MCG Inhalation Capsule (Spiriva) INHALE [...] NEEDED COUGH 30 Capsule 1 12/28/2023 Active Omeprazole 40 MG Oral Capsule Delayed Release (PriLOSEC) TAKE 1 CAPSULE BY MOUTH EVERY DAY IN THE MORNING 90 Capsule 1 01/11/2024 Active Klor-Con M20 20 MEQ Oral Tablet Extended Release (Potassium Chloride ER)Indications:HTN, goal below 140/90 TAKE 1 TABLET BY MOUTH EVERY DAY 90 Tablet 1 01/17/2024 Active Fluticasone Propionate 50 MCG/ACT Nasal Suspension (Flonase)Indication s:Acute sinusitis USE 1 SPRAY IN EACH NOSTRIL ONCE A DAY 16 mL 3 03/04/2024 Active amLODIPine Besylate 10 MG Oral Tablet [...] 90 Tablet 2 03/20/2024 Active Litetouch Pen [place] 31G X 5 MM (Insulin Pen Needle) USE FOUR TIMES A DAY. 400 Each 1 03/27/2024 Active Atrovent HFA 17 MCG/ACT Inhalation Aerosol Solution (ipratropium) Inhale 2 Puffs by mouth in the morning and 2 Puffs at noon and 2 Puffs in the evening and 2 Puffs before bedtime. 12.9 g 3 03/29/2024 Active Cetirizine HCl 10 MG Oral Tablet [...] FOR WHEEZE 54 g 1 2024 Active Hospital, Clinic, or Other Facility Administered [...] as of this encounter (statuses as of 06/28/2024) Active Problems Problem Noted Date Diagnosed Date [...] as of this encounter (statuses as of 06/28/2024) Resolved Problems Problem Noted Date Diagnosed Date [...] as of this encounter (statuses as of 06/28/2024) Immunizations Name Administration Dates Next Due COVID-19 [...] encounter Miscellaneous Notes * Telephone Encounter - Fatemeh Nelson OSA [...] Home Care Delivered Fax Number, if applicable: [phone] Natasha from Home Care Delivered calling to [...] 07/23/2024 2:00 PM EDT Office Visit Ophthalmology, [facility] [address] [place] [address] Roscoe Jiménez DO [address] [place] [address] 07/24/2024 2:00 PM EDT Office Visit Gastroenterology, [facility] [address] [place] [address] Yamila Mills CRNP [address] [place] [address] 07/29/2024 1:00 PM EDT Office Visit Pharmacy, [place] [address] [place] [address] [place], [facility] [address] [place] [address] 08/13/2024 1:00 PM EDT Office Visit General Internal Medicine [facility] 200 [facility] [place] [address] Alicia Woodruff MD [address] [place] [address] 09/09/2024 10:00 AM EST Office Visit Allergy/Immunology [facility] 200 [place] [address] Logan Kaur MD [address] [place] [address] Health Maintenance Due Date Last Done Comments [...] filedocumented as of this encounter Care Teams Bevel Polisher Relationship Specialty Start Date End Date Alicia Woodruff MD [address] [place] [address] PCP - General 09/21/09 documented as of this encounter
--- OUTSIDE RECORDS SUMMARY | 2024-12-10 00:57 | External Medical Summary | Summary of Care ---
Author Name Unknown Organization [facility] Address [address] [place] [address] Phone [phone] Care Team Providers Care Triage Licensed Practical Nurse Name Role Phone Alicia Woodruff MD Primary Care Provider + Reason for Visit * Reason Onset Date Comments Order Request 06/13/2024 Encounter Details Date Type Department Care Team (Late st Contact Info) Description 06/13/2024 Telephone General Internal Medicine [facility] 200 [facility] [place] [address] Alicia Woodruff MD 200 [facility] [place] [address] Order Request (/) Allergies Active Allergy Reactions [...] differently: BID (.AM/PM), Reported on 01/03/2024 Tiotropium [place] Monohydrate 18 MCG Inhalation Capsule (Spiriva) INHALE [...] 90 Tablet 2 03/20/2024 Active Litetouch Pen [place] 31G X 5 MM (Insulin Pen Needle) [...] Home Care Delivered Fax Number, if applicable: [phone] Natasha from Home Care Delivered calling to [...] 07/23/2024 2:00 PM EDT Office Visit Ophthalmology, [facility] [address] [place] [address] Roscoe Jiménez DO [address] [place] [address] 07/24/2024 2:00 PM EDT Office Visit Gastroenterology, [facility] [address] [place] [address] Yamila Mills CRNP [address] [place] [address] 07/29/2024 1:00 PM EDT Office Visit Pharmacy, [place] [address] [place] [address] [place], [facility] [address] [place] [address] 08/13/2024 1:00 PM EDT Office Visit General Internal Medicine [facility] 200 [facility] [place] [address] Alicia Woodruff MD 200 [facility] [place] [address] 09/09/2024 10:00 AM EST Office Visit Allergy/Immunology [facility] 200 [facility] [place] [address] Logan Kaur MD 200 [facility] [place] [address] Health Maintenance Due Date Last Done Comments [...] filedocumented as of this encounter Care Teams Triage Licensed Practical Nurse Relationship Specialty Start Date End Date Alicia Woodruff MD [address] [place] [address] PCP - General 09/21/09 documented as of this encounter
--- OUTSIDE RECORDS SUMMARY | 2024-12-10 00:57 | External Medical Summary | Summary of Care ---
Author Name Unknown Organization [facility] Address [address] [place] [address] Phone [phone] Care Team Providers Care Etl Application Developer Name Role Phone Alicia Woodruff MD Primary Care Provider + Reason for Visit * Reason Onset Date Comments Order Request 06/13/2024 Encounter Details Date Type Department Care Team (Late st Contact Info) Description 06/13/2024 Telephone General Internal Medicine [facility] 200 [facility] [place] [address] Alicia Woodruff MD 200 [place] [address] Order Request (/) Allergies Active Allergy Reactions [...] differently: BID (.AM/PM), Reported on 01/03/2024 Tiotropium [place] Monohydrate 18 MCG Inhalation Capsule (Spiriva) INHALE [...] 90 Tablet 2 03/20/2024 Active Litetouch Pen [place] 31G X 5 MM (Insulin Pen Needle) [...] Home Care Delivered Fax Number, if applicable: [phone] Natasha from Home Care Delivered calling to [...] [facility] [address] [place] [address] Roscoe Jiménez DO [address] [place] [address] 07/24/2024 2:00 PM EDT Office Visit Gastroenterology, [facility] [address] [place] [address] Yamila Mills CRNP [address] [place] [address] 07/29/2024 1:00 PM EDT Office Visit Pharmacy, [place] [address] [place] [address] [place], [facility] [address] [place] [address] 08/13/2024 1:00 PM EDT Office Visit General Internal Medicine [facility] 200 [facility] [place] [address] Alicia Woodruff MD 200 [facility] [place] [address] 09/09/2024 10:00 AM EST Office Visit Allergy/Immunology [facility] 200 [facility] [place] [address] Logan Kaur MD 200 [facility] [place] [address] Health Maintenance Due Date Last Done Comments [...] filedocumented as of this encounter Care Teams Etl Application Developer Relationship Specialty Start Date End Date Alicia Woodruff MD [address] [place] [address] PCP - General 09/21/09 documented as of this encounter
--- OUTSIDE RECORDS SUMMARY | 2024-12-10 00:57 | External Medical Summary | Summary of Care ---
Author Name Unknown Organization [facility] Address [address] [place] [address] Phone [phone] Care Team Providers Care Opal Polisher Name Role Phone Alicia Woodruff MD Primary Care Provider + Reason for Visit * Reason Comments eRx-Medication Refill Encounter Details Date Type Department Care Team (Late st Contact Info) Description 06/24/2024 Refill General Internal Medicine [facility] 200 [facility] [place] [address] Alicia Woodruff MD 200 [place] [address] Asthma, moderate persistent Allergies Active Allergy Reactions Criticality Noted Date Comments Nicola Inhibitors 07/22/2009 cough Azithromycin 07/22/2009 Clarithromycin 07/22/2009 Propoxyphene N-Acetaminophen Nausea/vomiting 07/22/2009 Erythromycin Other (Please comment) 10/12/2010 colitis Nitrofurantoin Monohydrate Macrocrystals 08/05/2010 rash Penicillins 02/23/2004 RASH, SOB Statins 10/16/2018 High liver functions, myalgias Sulfa Antibiotics 02/23/2004 RASH, SOB documented as of this encounter (statuses as of 06/26/2024) Medications Medication Sig Dispensed Refills Start Date [...] differently: BID (.AM/PM), Reported on 01/03/2024 Tiotropium [place] Monohydrate 18 MCG Inhalation Capsule (Spiriva) INHALE [...] NEEDED COUGH 30 Capsule 1 4 Active Omeprazole 40 MG Oral Capsule Delayed Release (PriLOSEC) TAKE 1 CAPSULE BY MOUTH EVERY DAY IN THE MORNING 90 Capsule 1 4 Active Klor-Con M20 20 [...] 90 Tablet 2 4 Active Litetouch Pen [place] 31G X 5 MM (Insulin Pen Needle) [...] hemoglobin A1c goal of less than 7.0% ([facility]) Inject 10 units under the skin [...] the morning. 90 Tablet 3 4 Active needmadeTouch Ultra In Vitro Strip (Glucose Blood) TEST [...] EACH USE. 180 Each 1 4 Active Fluticasone-Salmet ifrah 250-50 MCG/ACT Inhalation Aerosol Powder Breath Activated (Wixela Inhub)Indications: Asthma, moderate persistent INHALE 1 PUFF EVERY 12 HOURS. RINSE MOUTH AFTER EACH USE. 180 Each 1 4 06/26/20 24 Discontinued Hospital, Clinic, or Other Facility [...] as of this encounter (statuses as of 06/26/2024) Active Problems Problem Noted Date Diagnosed Date [...] as of this encounter (statuses as of 06/26/2024) Resolved Problems Problem Noted Date Diagnosed Date Resolved Date Body mass index (BMI) of 40. 0 to 44.9 in adult 08/07/2017 10/17/2019 Overview: Per Obesity protocol #1 Nocturnal hypoxemia 11/14/2012 02/06/20 13 Overview: 11/14/12 -- will consider oxygen therapy during sleep DME: [facility] 10/08/2009 02/09/2017 ADVANCE DIRECTIVE INFORMATION [...] as of this encounter (statuses as of 06/26/2024) Immunizations Name Administration Dates Next Due COVID-19 [...] encounter Miscellaneous Notes * Telephone Encounter - Nuha Siddiqi RPh - 06/26/2024 9:52 AM EDTSigned Prescriptions: Disp Refills Fluticasone-Salmeterol 250-50 MCG/ACT Inha*180 Ea*1 Sig: INHALE 1 PUFF EVERY 12 HOURS. RINSE MOUTH AFTER EACH USE.Authorizing Provider: ALICIA WOODRUFF User: NUHA SIDDIQI documented in this encounter Plan of Treatment Upcoming Encounters Date Type Department Care Team (Late st Contact Info) Description 07/23/2024 2:00 PM EDT Office Visit Ophthalmology, [facility] [address] [place] [address] Roscoe Jiménez DO [address] [place] [address] 07/24/2024 2:00 PM EDT Office Visit Gastroenterology, [facility] [address] [address] Yamila Mills CRNP [address] [place] [address] 07/29/2024 1:00 PM EDT Office Visit Pharmacy, [place] [address] [place] [address] [place], [facility] [address] [place] [address] 08/13/2024 1:00 PM EDT Office Visit General Internal Medicine [facility] 200 [facility] [place] [address] Alicia Woodruff MD 200 [facility] [place] [address] 09/09/2024 10:00 AM EST Office Visit Allergy/Immunology [facility] 200 [facility] [place] [address] Logan Kaur MD 200 [facility] [place] [address] Health Maintenance Due Date Last Done Comments Zoster Vaccines (2 of 3) 05/22/2012 03/27/2012 Depression Screening 09/08/2021 09/08/2020 COVID-19 Vaccine ( season) 2023 03/21/2022, 01/04/2021, 11/30/2020 Diabetic Eye Exam 03/24/2024 03/24/2023, , 06/25/2019, Additional history exists HbA1c 06/11/2024 12/12/2023, 0806/2023, 06/24/2022, Additional history exists Adult Wellness Visit [...] as of this encounter Visit Diagnoses Diagnosis Asthma, moderate persistent Unspecified asthma documented in this encounter Care Teams Opal Polisher Relationship Specialty Start Date End Date Alicia Woodruff MD [address] [place] [address] PCP - General 09/21/09 documented as of this encounter
[2024-12-10 05:55] LABS: Basophils # (auto) 0.04 K/uL (0.00-0.20); Basophils % (auto) 0.6 %; Eosinophils # (auto) 0.02 K/uL (0.00-0.50); Eosinophils % (auto) 0.3 %; Hematocrit (blood only) 35.7 % (37.0-47.0); Hemoglobin 11.8 g/dl (12.0-16.0); Immature Granulocytes # (auto) 0.02 K/uL (0.01-0.20); Immature Granulocytes % (auto) 0.3 %; Lymphocytes # (auto) 1.58 K/uL (1.20-3.40); Lymphocytes % (auto) 22.2 %; Mean Corpuscular Hemoglobin 29.9 pg (25.0-34.0); Mean Corpuscular Hgb Conc 33.1 g/dL (32.0-36.0); Mean Corpuscular Volume 90.6 fL (80.0-100.0); Mean Platelet Volume 11.3 fL (9.4-12.4); Monocytes # (auto) 0.83 K/uL (0.11-0.59); Monocytes % (auto) 11.7 %; Neutrophils # (auto) 4.63 K/uL (1.40-6.50); Neutrophils % (auto) 64.9 %; Platelet Count 190 K/uL (130-400); RDW Coefficient of Variation 14.3 % (11.5-14.5); RDW Standard Deviation 47.7 fL (36.4-46.3); Red Blood Count 3.94 M/uL (4.20-5.40); White Blood Count 7.12 K/ul (4.8-10.8)
[2024-12-10 06:02] LABS: BUN Creatinine Ratio 14.1 (10-20); Calcium 8.5 mg/dl (8.6-10.3); Creatinine Clr Calc Pharmacy 54.8 ml/min; Magnesium 1.9 mg/dl (1.7-2.4); Potassium 3.7 mmol/L (3.5-5.1)
[2024-12-10 06:08] LABS: ANTI-Xa, UFH(UnfractionatedHep 0.12 IU/ml (0.3-0.7)
[2024-12-10 06:09] LABS: Troponin I High Sensitivity 6.7 pg/ml (0-14)
[2024-12-10] MEDS: HEPARIN SOD (PORCINE) 1000 UNIT/ML IV ONE (06:28)
--- NOTE | 2024-12-10 08:25 | Cardiology Consultation ---
Date of Consultation December 10, 2024 Assessment & Plan (1) Atrial fibrillation with controlled ventricular rate: (2) Acute heart failure with preserved ejection fraction: (3) Hypertension: Plan Patient admitted with SOB/hypoxia/orthopnea/edema with findings of pulm vascular congestion and small b/l pleural effusions on chest xray consistent with acute on chronic HFpEF. Start IV furosemide 40 mg BID. Monitor I+O's Daily weight with standing scale Add spironolactone 12.5 mg daily Echo demonstrating preserved LVEF, mild LVH, mild MR, mild/mod TR, no pulm hypertension. Atrial fibrillation with controlled rates also diagnosed on admission. EKG 1 month ago as outpatient was Sinus bradycardia. At that time, patient reported intermittent "fluttering". Possible PAF. Stop home propranolol (used for Headaches and HTN) Carvedilol 3.125 mg BID started this morning. HR's currently well controlled in the 60-80's. She was mildly bradycardic when in NSR as outpatient. Monitor. 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 Transitioned from IV heparin to Apixaban 5 mg BID this morning. Stop IV heparin with first dose Apixaban. HTN -continue losartan, amlodipine for now. As BP improves, would reduce amlodipine dose if able to aid with LE edema -continue diuresis with IV furosemide -carvedilol added 3.125 mg BID. Propranolol discontinued -spironolactone 12.5 mg daily added. Case discussed with Dr. Negrito Vogel spent a total of 60 minutes on the date of service in preparation, delivery, and documentation of the care provided to this patient, excluding any time spent in the performance of separately billed services. Flori Worrell PA-C Department of Cardiology, [facility] This chart was completed in part utilizing Speech Voice Recognition Software. Grammatical errors, random word insertions, pronoun errors, and incomplete sentences are an occasional consequence of this system due to software limitations, ambient noise, and hardware issues. Any formal questions or concerns about the content, text, or information contained within the body of this dictation should be directly addressed to the provider for clarification. Supervising Physician Co-Signing Physician Notes Patient was seen and personally examined. Care and management as well outlined by advanced provider as above. Recommendations reviewed and personally endorsed. 79-year-old female with chronic asthmatic lung disease with recent symptoms of dyspnea and chest fullness. Ultimately urged to seek ER evaluation by close friend after observed worsening respiratory status. Findings consistent with decompensated diastolic heart failure with newly observed atrial fibrillation. Patient improving in hospital with diuresis ongoing Beta-jared transition from propranolol to carvedilol. Change metoprolol to succinate given interactions with bronchodilators. May need upward titration of dosing as propranolol weans. Did not receive propranolol this morning Discussed atrial fibrillation and its management in detail with patient Anticoagulation being transitioned to Eliquis Cardiology will continue to follow History of Present Illness Reason for Consultation: SOB; Atrial fibrillation Requesting Physician: Dr. Guadarrama Attending Physician: Dr. Mahan History of Present Illness Patient is a 79 year old female who presented to [facility] with complaints of worsening SOB, orthopnea, chest tightness over the last several days. She also has been experiencing intermittent palpitations/fluttering sensation in her chest intermittently for the last 1-2 months. Comes and goes. She saw PCP the end of October for similar complaints. EKG demonstrated sinus bradycardia at the time. she was scheduled for an echo, but this was not yet completed. Upon arrival to ER with SOB/dyspnea, she was diagnosed with new onset atrial fibrillation by EKG, with controlled rates. Mild pulm vascular congestion with small b/l pleural effusions noted on chest xray and chest CT. HS troponin negative x3. BNP slightly elevated at 629 Started on IV furosemide this morning at 40 mg BID. She was started on carvedilol this morning for HTN and HR. She remains in persistent afib with controlled rates ranging 65-85 at rest. She had been on propranolol 160 mg as an outpatient for HTN and Headaches. This will be discontinued. She was started on IV heparin for stroke prophylaxis on admission and this is being transitioned to oral apixaban. History includes: 1. HTN 2. Dyslipidemia with statin intolerances 3. DM 4. Asthma 5. Obesity 6. 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 She was told she had mitral valve prolapse after this episode. She denies cardiac surgical interventions. 7. Chronic HFpEF At time of consult, patient resting in bed. Reports her SOB has improved from admission, but still requiring supplemental O2 and still SOB with minimal activity. No chest pain or tightness. She denies symptoms of palpitations or tachypalpitations. Mild edema noted. SCD's in place. Allergies Allergy/AdvReac Type Severity Reaction Status Date / Time Penicillins Allergy Severe SOB, RASH Verified 11/29/17 12:28 acetaminophen Allergy Unknown UNKNOWN. Verified 11/29/17 12:28 erythromycin base Allergy Unknown UNKNOWN. Verified 11/29/17 12:28 gluten Allergy Unknown CELIAC Verified 11/29/17 12:28 DISEASE lisinopril Allergy Unknown UNKNOWN. Verified 11/29/17 12:28 pollen extracts Allergy Unknown ? Verified 11/29/17 12:28 propoxyphene Allergy Unknown UNKNOWN. Verified 11/29/17 12:28 Sulfa (Sulfonamide Allergy Unknown UNKNOWN. Verified 11/29/17 12:28 Antibiotics) Home Medications Medication Instructions Recorded Confirmed Type diphenoxylate-atropine 2.5 1 tab PO BID ##0 06/26/09 12/09/24 History mg-0.025 mg tablet (Lomotil) amlodipine 10 mg tablet 10 mg PO DAILY #0 tabs 09/10/13 12/09/24 History ezetimibe 10 mg tablet 10 mg PO QAM #0 tabs 09/10/13 12/09/24 History furosemide 40 mg tablet 40 mg PO DAILY #0 tabs 09/10/13 12/09/24 History omeprazole 40 mg capsule,delayed 40 mg PO QAM #0 caps 09/10/13 12/09/24 History release INSULIN PEN NEEDLE (EXEL INSULIN unit ##120 09/18/13 Rx PEN NEEDLES) aspirin 81 mg tablet,delayed 81 mg PO DAILY ##0 11/29/17 12/09/24 History release calcium 600 mg (as 1 tab PO DAILY ##0 11/29/17 12/09/24 History carbonate)-vitamin D3 10 mcg (400 unit) tablet (Calcium 600 + D(3)) fluticasone 250 mcg-salmeterol 50 1 inh inhalation Q12H #0 Inhalers 11/29/17 12/09/24 History mcg/dose blistr powdr for inhalation (Advair Diskus) insulin aspart U-100 100 unit/mL 1 sliding scale dose SUBCUT 11/29/17 12/09/24 History (3 mL) subcutaneous pen (Novolog USEASDIRECTD ##0 FlexPen U-100 Insulin aspart) potassium chloride 20 mEq 20 meq PO DAILY #0 tabs 11/29/17 12/09/24 History tablet,extended release(part/cryst) (Klor-Con M) propranolol 160 mg capsule,24 160 mg PO DAILY ##0 11/29/17 12/09/24 History hr,extended release tiotropium bromide 18 mcg capsule 1 cap inhalation DAILY ##0 11/29/17 12/09/24 History with inhalation device (Spiriva with HandiHaler) acetaminophen 500 mg capsule 500 mg PO Q4H PRN Pain 12/09/24 12/09/24 History albuterol sulfate 90 mcg/actuation 2 puff inhalation Q4H PRN WHEEZE 12/09/24 12/09/24 History aerosol inhaler artificial 1 drp OPB . NEEDED 12/09/24 12/09/24 History tears(umzqrfh-sfihsauo-ubelcfe) 0.1 %-0.3 %-0.2 % eye drops (GenTeal Tears Moderate) ascorbic acid (vitamin C) 500 mg 500 mg PO DAILY 12/09/24 12/09/24 History capsule,extended release azelastine 137 mcg (0.1 %) nasal 2 spray intranasal BID 12/09/24 12/09/24 History spray fluticasone propionate 50 1 spray intranasal DAILY 12/09/24 12/09/24 History mcg/actuation nasal spray,suspension insulin glargine 100 unit/mL (3 10 unit subcut DAILY 12/09/24 12/09/24 History mL) subcutaneous pen (Lantus Solostar U-100 Insulin) ipratropium bromide 17 2 puff inhalation QID 12/09/24 12/09/24 History mcg/actuation HFA aerosol inhaler (Atrovent HFA) loratadine 10 mg tablet 10 mg PO QAM 12/09/24 12/09/24 History losartan 25 mg tablet 25 mg PO BID 12/09/24 12/09/24 History pzhemjwe-nfhb-njdd 8 mg-folic 400 1 tab PO DAILY 12/09/24 12/09/24 History mcg-K 50 mcg-lutein 300 mcg tablet (Multivitamin Women 50 Plus) nitroglycerin 0.4 mg sublingual 0.4 mg sublingual Q5M PRN Chest 12/09/24 12/09/24 History tablet Pain polyvinyl alcohol-povidone (PF) 1 drp OPB . 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 Beliefs That Will Affect Care: None Current Living Situation: Alone Feels Safe at Home: Yes Safety Concerns: Feels Safe At This Time Assistive Devices: Cane, Denture - Upper, Glasses and Hearing Aid - Bilateral Review of Systems Review of Systems: All systems reviewed & are unremarkable except as noted in HPI & below Physical Exam Constitutional: WD/WN, vitals as above + obese; no acute distress Neck: + thick neck Respiratory: + tachypneic; + not able to speak in com plete sentence (Mild conversational dyspnea) Auscultation: + diminished lung sounds and + crackles Cardiovascular: Rate/Rhythm: + irregularly irregular Heart Sounds: no murmur Vessels: + JVD (Noted in the upright position) Extremities: + edema (1+ ankle edema; SCD's in place) Gastrointestinal (Abdomen): normal bowel sounds, soft, nontender, no hepatosplenomegaly Neurologic: PERRL, EOMI, accommodation nl, no face palsy, no dysarthria Psychiatric: A+Ox3, euthymic affect Results & Data Vital Signs (Past 12 Hours) Vital Signs Temp Pulse Pulse Resp BP BP BP 12/10/24 08:15 12/10/24 07:54 36.7 C 12/10/24 07:51 72 17 12/10/24 07:51 147/65 H 12/10/24 07:42 71 20 12/10/24 07:33 88 30 H 12/10/24 07:21 73 21 12/10/24 07:15 73 18 12/10/24 07:00 77 19 12/10/24 03:00 36.7 C 83 20 147/95 H 12/09/24 23:41 36.5 C 75 20 183/81 H 12/09/24 23:10 74 12/09/24 23:10 12/09/24 22:38 79 12/09/24 22:00 75 23 188/77 H Pulse Ox O2 Del Method O2 Flow Rate 12/10/24 08:15 Nasal Cannula 2 12/10/24 07:54 12/10/24 07:51 93 Nasal Cannula 2 12/10/24 07:51 12/10/24 07:42 95 12/10/24 07:33 95 12/10/24 07:21 94 12/10/24 07:15 94 12/10/24 07:00 94 12/10/24 03:00 94 Nasal Cannula 2 12/09/24 23:41 93 Nasal Cannula 2 12/09/24 23:10 12/09/24 23:10 Nasal Cannula 2 12/09/24 22:38 12/09/24 22:00 95 Nasal Cannula 2 Laboratory Results Cardiac Enzymes 12/09/24 12/09/24 12/10/24 Range/Units 17:00 19:49 05:15 AST 62 H (13-39) U/L Troponin I High Sens 5.9 5.1 6.7 (0-14) pg/ml B-Natriuretic Peptide 629 H (0-100) pg/ml Coagulation 12/09/24 12/10/24 Range/Units 17:00 05:15 PT 10.6 (9.0-12.0) Seconds APTT 27 (21-31) Seconds B-Natriuretic Peptide 629 H (0-100) pg/ml CBC 12/09/24 12/10/24 Range/Units 17:00 05:15 WBC 9.28 7.12 (4.8-10.8) K/ul RBC 4.52 3.94 L (4.20-5.40) M/uL Hgb 13.2 11.8 L (12.0-16.0) g/dl Hct 41.2 35.7 L (37.0-47.0) % Plt Count 258 190 (130-400) K/uL Neut # (Auto) 5.47 4.63 (1.40-6.50) K/uL Lymph # (Auto) 2.53 1.58 (1.20-3.40) K/uL Moore # (Auto) 1.03 H 0.83 H (0.11-0.59) K/uL Eos # (Auto) 0.18 0.02 (0.00-0.50) K/uL Baso # (Auto) 0.04 0.04 (0.00-0.20) K/uL Comprehensive Metabolic Panel 12/09/24 12/10/24 Range/Units 17:00 05:15 Sodium 140 139 (136-145) mmol/L Potassium 4.6 3.7 (3.5-5.1) mmol/L Chloride 102 102 (98-107) mmol/L Carbon Dioxide 29 26 (21-32) mmol/L BUN 12 11 (6-23) mg/dl Creatinine 0.80 0.78 (0.6-1.2) mg/dl Glucose 175 H 220 H (70-99(Fasting)) mg/dl Calcium 9.3 8.5 L (8.6-10.3) mg/dl AST 62 H (13-39) U/L ALT 60 H (7-52) U/L Alkaline Phosphatase 291 H (34-104) U/L Total Protein 7.2 (6.0-8.3) gm/dl Albumin 4.0 (3.4-5.0) gm/dl Intake and Output 12/09/24 12/10/24 12/10/24 22:59 06:59 14:59 Intake Total 99.75 / 99.75 Balance 99.75 / 99.75 Intake: IV 99.75 / 99.75 Heparin 41341 Unit/500 ml 25, 99.75 / 99.75 000 units In 500 ml @ 850 UNITS /HR 17 mls/hr IV .Q24H [facility] Rx#: [id number] Other: # Unmeasured Voids 2 Weight 85 kg 81.3 kg Weight Measurement Method Chair Scale Built in [facility] Diagnostic Findings Telemetry reviewed: Afib with controlled rates 65-85 bmp EKG reviewed from admission 12/09/24: Atrial fibrillation with controlled rate Voltage criteria for LVH with T wave abnormality in inferior and lateral leads. Echo report reviewed dated Dec 10, 2024: LV is normal in size Mild concentric LVH LV wall motion is normal EF 60-65% Mild aortic valve sclerosis without significant valvular stenosis Trace AI Mild MR Mild to mod TR No pulm hypertension noted Medications Administered Current Inpatient Medications Acetaminophen (Acetaminophen 325 Mg Tab) 650 mg PO Q4H PRN PRN Reason: Pain or Fever Stop: 01/08/25 23:02 Albuterol (Albuterol Hfa 8 Gm Inhaler) 2 puffs INH Q4H PRN PRN Reason: WHEEZE Stop: 01/08/25 23:02 Amlodipine Besylate (Amlodipine Besylate 5 Mg Tab) 10 mg PO DAILY ALISHA Stop: 01/09/25 08:59 Last Admin: 12/10/24 09:05 Dose: 10 mg Apixaban (Apixaban 5 Mg Tablet) 5 mg PO BID ALISHA Stop: 01/09/25 09:14 Last Admin: 12/10/24 09:30 Dose: 5 mg Artificial Tears (Artificial Tears) 1 drops OP QID PRN PRN Reason: Dryness Stop: 01/08/25 23:27 Ascorbic Acid (Ascorbic Acid 500 Mg Tab) 500 mg PO DAILY ALISHA Stop: 01/09/25 08:59 Last Admin: 12/10/24 09:04 Dose: 500 mg Aspirin (Aspirin 81 Mg Ectab) 81 mg PO DAILY ALSIHA Stop: 01/09/25 08:59 Last Admin: 12/10/24 09:05 Dose: 81 mg Azelastine HCl (Azelastine Hcl 0.1% Nasal 200 Sprays/27,400 Mcg Btl) 2 sprays NA BID ALISHA Stop: 01/09/25 08:59 Last Admin: 12/10/24 09:06 Dose: 2 sprays Calcium/Vitamin D (Calcium 600mg + Vit D 400 Iu Tab) 1 tab PO DAILY ALISHA Stop: 01/09/25 08:59 Last Admin: 12/10/24 09:05 Dose: 1 tab Carvedilol (Carvedilol 3.125 Mg Tab) 3.125 mg PO BIDM LAISHA Stop: 01/09/25 07:59 Last Admin: 12/10/24 09:01 Dose: 3.125 mg Dextrose (Dextrose 50% 50 Ml Syringe) 25 - 50 ml IV UD PRN; Protocol PRN Reason: Hypoglycemia Protocol Stop: 01/08/25 23:02 Ezetimibe (Ezetimibe 10 Mg Tab) 10 mg PO QAM [facility] Stop: 01/09/25 08:59 Last Admin: 12/10/24 09:05 Dose: 10 mg Fluticasone Propionate (Fluticasone Propionate Na Spr 16 Gm Btl) 1 sprays NA DAILY ALISHA Stop: 01/09/25 08:59 Last Admin: 12/10/24 09:09 Dose: 1 sprays Fluticasone/Vilanterol (Fluticasone/Vilanterol 100/25mcg 14 Puffs/Inhaler) 1 puffs INH DAILY ALISHA Stop: 01/09/25 08:59 Last Admin: 12/10/24 09:09 Dose: 1 puffs Furosemide (Furosemide 40 Mg/4 Ml Vial) 40 mg IV BID [facility] Stop: 01/09/25 08:59 Last Admin: 12/10/24 09:08 Dose: 40 mg Glucagon (Glucagon For Inj 1 Mg Vial) 1 mg SQ UD PRN; Protocol PRN Reason: Hypoglycemia Protocol Stop: 01/08/25 23:02 Glucose (Glucose 40% Gel 15 Gm Tube) 15 - 30 gm PO UD PRN; Protocol PRN Reason: Hypoglycemia Protocol Stop: 01/08/25 23:02 Glucose (Glucose 10 Tab/Tube) 4 - 8 tab PO UD PRN; Protocol PRN Reason: Hypoglycemia Protocol Stop: 01/08/25 23:02 Insulin Aspart (Insulin Aspart Per Unit Charge) 0 units SC ACHS [facility] Stop: 01/09/25 11:29 Insulin Glargine (Lantus Per Unit Charge) 10 units SQ DAILY [facility] Stop: 01/09/25 08:59 Last Admin: 12/10/24 09:16 Dose: 10 units Levalbuterol HCl (Levalbuterol Hcl 0.63 Mg/3 Ml Neb) 0.63 mg NEB Q4H PRN; Protocol PRN Reason: Shortness Of Breath Or Wheezing Stop: 01/08/25 23:02 Loratadine (Loratadine 10 Mg Tab) 10 mg PO QAM [facility] Stop: 01/09/25 08:59 Last Admin: 12/10/24 09:04 Dose: 10 mg Losartan Potassium (Losartan Potassium 25 Mg Tab) 25 mg PO BID [facility] Stop: 01/09/25 08:59 Last Admin: 12/10/24 09:05 Dose: 25 mg Miscellaneous (Carbohydrates For Hypoglycemia ) 15 - 30 gm PO UD PRN PRN Reason: Hypoglycemia Protocol Stop: 01/08/25 23:02 Multivitamins/Minerals (Cerovite Adv Formula Tab) 1 tab PO DAILY ALISHA Stop: 01/09/25 08:59 Last Admin: 12/10/24 09:05 Dose: 1 tab Nitroglycerin (Nitroglycerin Sl 0.4 Mg/Tab Tab) 0.4 mg SL Q5M PRN PRN Reason: Chest Pain Stop: 01/08/25 23:02 Pantoprazole Sodium (Pantoprazole 40 Mg Tab) 40 mg PO QAM ALISHA Stop: 01/09/25 08:59 Last Admin: 12/10/24 09:04 Dose: 40 mg Polyethylene Glycol (Polyethylene (Miralax) 17 Gm Pack) 17 gm PO DAILY PRN PRN Reason: Constipation Stop: 01/08/25 23:02 Potassium Chloride (Potassium Chloride Crtab 20 Meq Tabcr) 20 meq PO DAILY ALISHA Stop: 01/09/25 08:59 Last Admin: 12/10/24 09:16 Dose: 20 meq Umeclidinium Cowp[place] (Umeclidinium [place] 62.5mcg/Blister 7 Puffs/Inhaler) 1 puffs INH DAILY ALISHA Stop: 01/09/25 08:59 Last Admin: 12/10/24 09:08 Dose: 1 puffs
[2024-12-10] MEDS ORDERED: Nursing to Pharmacy Communication SCH (08:30)
[2024-12-10] MEDS ORDERED: NON-FORMULARY MEDICATION (Vit C,E-Zn-Coppr-Lutein-Zeaxan [Preservision Areds-2] 250-90-40- PO SCH (09:00)
[2024-12-10] MEDS ORDERED: CETIRIZINE 10 MG PO SCH (09:00)
[2024-12-10] MEDS ORDERED: FUROSEMIDE 40 MG TAB PO SCH (09:00)
[2024-12-10] MEDS ORDERED: FEXOFENADINE HCL 180 MG TAB PO SCH (09:00)
[2024-12-10] MEDS ORDERED: LANTUS PER UNIT CHARGE SQ SCH (09:00)
[2024-12-10] MEDS: carvediloL 3.125 MG TAB PO SCH (09:01)
[2024-12-10] MEDS: PANTOprazole 40 MG TAB PO SCH (09:04)
[2024-12-10] MEDS: PROPRANOLOL HCL LA 80 MG CAPCR PO SCH (09:04)
[2024-12-10] MEDS: LORATADINE 10 MG TAB PO SCH (09:04)
[2024-12-10] MEDS: ASCORBIC ACID 500 MG TAB PO SCH (09:04)
[2024-12-10] MEDS: EZETIMIBE 10 MG TAB PO SCH (09:05)
[2024-12-10] MEDS: LOSARTAN POTASSIUM 25 MG TAB PO SCH (09:05)
[2024-12-10] MEDS: ASPIRIN 81 MG ECTAB PO SCH (09:05)
[2024-12-10] MEDS: amLODIPine BESYLATE 5 MG TAB PO SCH (09:05)
[2024-12-10] MEDS: CALCIUM 600MG + VIT D 400 IU TAB PO SCH (09:05)
[2024-12-10] MEDS: CEROVITE ADV FORMULA TAB PO SCH (09:05)
[2024-12-10] MEDS: AZELASTINE HCL 0.1% NASAL 200 SPRAYS/27,400 MCG BTL SCH (09:06)
[2024-12-10] MEDS: UMECLIDINIUM BROMIDE 62.5MCG/BLISTER 7 PUFFS/INHALER INH SCH (09:08)
[2024-12-10] MEDS: FUROSEMIDE 40 MG/4 ML VIAL IV SCH (09:08)
[2024-12-10] MEDS: FLUTICASONE/VILANTEROL 100/25MCG 14 PUFFS/INHALER INH SCH (09:09)
[2024-12-10] MEDS: FLUTICASONE PROPIONATE NA SPR 16 GM BTL SCH (09:09)
[2024-12-10] MEDS: LANTUS PER UNIT CHARGE SQ SCH (09:16)
[2024-12-10] MEDS: POTASSIUM CHLORIDE CRTAB 20 MEQ TABCR PO SCH (09:16)
--- NOTE | 2024-12-10 09:21 | Electrocardiogram Report ---
Test Reason : Blood Pressure : */* mmHG Vent. Rate : 77 BPM Atrial Rate : * BPM P-R Int : * ms QRS Dur : 90 ms QT Int : 344 ms P-R-T Axes : * -3 203 degrees QTcB Int : 389 ms Atrial fibrillation Left ventricular hypertrophy with repolarization abnormality Abnormal ECG When compared with ECG of 29-Nov-2017 11:41, Atrial fibrillation has replaced Sinus rhythm Confirmed by Dave Couch ([id number]) on 12/10/2024 9:21:15 AM Referred By: Alicia Woodruff Confirmed By: Dave Couch
[2024-12-10] MEDS: APIXABAN 5 MG TABLET PO SCH (09:30)
--- NOTE | 2024-12-10 11:37 | Hospitalist Progress Note ---
Date of Service December 10, 2024 Assessment & Plan (1) Atrial fibrillation with controlled ventricular rate: Plan: New onset (2) Acute heart failure with preserved ejection fraction: (3) Diabetes mellitus type 2, insulin dependent: (4) Hypertension, uncontrolled: (5) Asthma: (6) Acute passive congestion of liver: Plan Patient presents to the emergency room with new onset atrial fibrillation with controlled ventricular response evidence of decompensated heart failure with preserved ejection fraction most likely due to atrial fibrillation as well as hepatic congestion Communication with cardiology team, adjust beta-blockers to Coreg, continue losartan and Norvasc for blood pressure IV diuresis with Lasix Monitor electrolytes, renal function and liver functions Therapies Transition to Eliquis for secondary stroke prevention Coordination with case management, Eliquis is affordable at $9 Continue monitor glucose managed with insulin long-acting and short acting Anticipate discharge in 1 to 2 days Admission and Anticipated Discharge Date Admission Date: December 09, 2024 Subjective Patient states that she feels somewhat improved compared to admission. She gives a very consistent history of paroxysms of atrial fibrillation over the last few weeks. Outpatient EKG at her PCP was sinus however when she had office visit. Physical Exam Physical Exam: Constitutional: Alert, nontoxic HEENT: Mucous membranes moist. Lungs: Decreased breath sounds, Rales at bases CV: S1-S2, irregular irregular, slight systolic murmur Abdomen: Soft, nontender, nondistended Extremities: 1+ lower extremity edema Neuro: No focal deficits Psych: Cooperative, normal mood Results & Data Results & Data Vital Signs (Past 12 Hours) Vital Signs Temp Pulse Pulse Resp BP BP BP 12/10/24 08:15 12/10/24 07:54 36.7 C 12/10/24 07:51 72 17 12/10/24 07:51 147/65 H 12/10/24 07:42 71 20 12/10/24 07:33 88 30 H 12/10/24 07:21 73 21 12/10/24 07:15 73 18 12/10/24 07:00 77 19 12/10/24 03:00 36.7 C 83 20 147/95 H 12/09/24 23:41 36.5 C 75 20 183/81 H Pulse Ox O2 Del Method O2 Flow Rate 12/10/24 08:15 Nasal Cannula 2 12/10/24 07:54 12/10/24 07:51 93 Nasal Cannula 2 12/10/24 07:51 12/10/24 07:42 95 12/10/24 07:33 95 12/10/24 07:21 94 12/10/24 07:15 94 12/10/24 07:00 94 12/10/24 03:00 94 Nasal Cannula 2 12/09/24 23:41 93 Nasal Cannula 2 Diagnostic Findings Reviewed imaging, laboratory and diagnostic studies. Pertinent findings as below. CBC stable Electrolytes stable Creatinine 0.78 Glucoses reviewed Echocardiogram ejection fraction 60 to 65%, no evidence of pulmonary hypertension
[2024-12-10] MEDS: SPIRONOLACTONE 12.5 MG TAB PO SCH (11:40)
[2024-12-10] MEDS: METOPROLOL SUCC 25MG EXT REL TAB PO SCH (20:55)
[2024-12-10] MEDS: INFLUENZA VACC TS2024-25(65y+)/PF (IIV3) 0.5mL Syr IM ONE (21:03)
[2024-12-11 05:08] LABS: Albumin Level 3.3 gm/dl (3.4-5.0); BUN Creatinine Ratio 15.7 (10-20); Bilirubin Direct 0.1 mg/dl (0-0.2); Bilirubin,Total 0.6 mg/dl (0.2-1.0); Calcium 8.6 mg/dl (8.6-10.3); Creatinine Clr Calc Pharmacy 35.4 ml/min; Magnesium 1.9 mg/dl (1.7-2.4); Potassium 3.8 mmol/L (3.5-5.1)
--- NOTE | 2024-12-11 07:38 | Hospitalist Progress Note ---
Date of Service December 11, 2024 Assessment & Plan (1) Atrial fibrillation with controlled ventricular rate: Plan: New onset (2) Acute heart failure with preserved ejection fraction: (3) Diabetes mellitus type 2, insulin dependent: (4) Hypertension, uncontrolled: (5) Asthma: (6) Acute passive congestion of liver: Plan Ms. Doran is a 79-year-old female with past medical history significant for type 2 diabetes, hyperlipidemia, asthma, allergic rhinitis, mitral valve prolapse, hypertension, celiac disease, GERD, obesity, osteoporosis, pain in right shoulder, essential tremor, migraine, unspecified open-angle glaucoma who lives alone admitted for acute hypoxic resp failure iso heart failure exacerbation, as well as likely component of asthma #New onset A fib RVR *rate controlled history of sinus bbradycardia noted started on coreg and transitioned to metoprolol succinate continued on eliquis #Acute hypoxic resp failure, multifactorial iso hfpef and asthma Wean O2 as able 2 step prior to dispo #Acute on chronic heart failure sp IV diuersis Held after am dose 2/2 renal function monitor IOs daily weights spironolactone started metoprolol XL BID #Asthma exacerbation start steroids given persistent wheezing continue home nebs symptomatic mgmt #HTN continue losartan, increased to 50mg bid 2/2 continued elevations continue amlodipine and spironolactone #ERIC on CKDIII hold diuresis for now BP control Trend Bmp DVT ppx apixaban Dispo 1-2 days PT/OT ordered Admission and Anticipated Discharge Date Admission Date: December 09, 2024 Subjective ERIC to 1.21 Patient reports some subjective improvement, but still with wheezing Denies any other symptoms overall--no chest pain, cough, active sob though admittedly not ambulating much since admission Physical Exam Constitutional: WD/WN, vitals as above Respiratory: scattered expiratory wheezes Cardiovascular: irregularly irregular Gastrointestinal (Abdomen): normal bowel sounds, soft, nontender, no hepatosplenomegaly Results & Data Results & Data Vital Signs (Past 12 Hours) Vital Signs Temp Pulse Pulse Resp BP BP Pulse Ox 12/11/24 03:00 36.4 C L 55 L 17 154/86 H 95 12/11/24 00:00 67 12/10/24 23:03 36.6 C 61 14 151/88 H 96 12/10/24 20:00 12/10/24 20:00 36.4 C L 58 L 18 178/90 H 94 O2 Del Method O2 Flow Rate 12/11/24 03:00 Nasal Cannula 2 12/11/24 00:00 12/10/24 23:03 12/10/24 20:00 Nasal Cannula 2 12/10/24 20:00 Nasal Cannula 2 Laboratory Results [facility] 12/11/24 04:35 Sodium 141 Potassium 3.8 Chloride 102 Carbon Dioxide 32 BUN 19 Creatinine 1.21 H D Glucose 176 H Calcium 8.6 Liver Function 12/11/24 Range/Units 04:35 Total Bilirubin 0.6 (0.2-1.0) mg/dl Direct Bilirubin 0.1 (0-0.2) mg/dl AST 22 (13-39) U/L ALT 35 (7-52) U/L Alkaline Phosphatase 209 H (34-104) U/L Albumin 3.3 L (3.4-5.0) gm/dl Medications Administered Home Medications Medication Instructions Recorded Confirmed Last Taken diphenoxylate-atropine 2.5 1 tab PO BID ##0 06/26/09 12/09/24 Unknown mg-0.025 mg tablet (Lomotil) amlodipine 10 mg tablet 10 mg PO DAILY #0 tabs 09/10/13 12/09/24 Unknown ezetimibe 10 mg tablet 10 mg PO QAM #0 tabs 09/10/13 12/09/24 Unknown furosemide 40 mg tablet 40 mg PO DAILY #0 tabs 09/10/13 12/09/24 Unknown omeprazole 40 mg capsule,delayed 40 mg PO QAM #0 caps 09/10/13 12/09/24 Unknown release INSULIN PEN NEEDLE (EXEL INSULIN unit ##120 09/18/13 Unknown PEN NEEDLES) aspirin 81 mg tablet,delayed 81 mg PO DAILY ##0 11/29/17 12/09/24 Unknown release calcium 600 mg (as 1 tab PO DAILY ##0 11/29/17 12/09/24 Unknown carbonate)-vitamin D3 10 mcg (400 unit) tablet (Calcium 600 + D(3)) fluticasone 250 mcg-salmeterol 50 1 inh inhalation Q12H #0 Inhalers 11/29/17 12/09/24 Unknown mcg/dose blistr powdr for inhalation (Advair Diskus) insulin aspart U-100 100 unit/mL 1 sliding scale dose SUBCUT 11/29/17 12/09/24 Unknown (3 mL) subcutaneous pen (Novolog USEASDIRECTD ##0 FlexPen U-100 Insulin aspart) potassium chloride 20 mEq 20 meq PO DAILY #0 tabs 11/29/17 12/09/24 Unknown tablet,extended release(part/cryst) (Klor-Con M) propranolol 160 mg capsule,24 160 mg PO DAILY ##0 11/29/17 12/09/24 Unknown hr,extended release tiotropium bromide 18 mcg capsule 1 cap inhalation DAILY ##0 11/29/17 12/09/24 Unknown with inhalation device (Spiriva with HandiHaler) acetaminophen 500 mg capsule 500 mg PO Q4H PRN Pain 12/09/24 12/09/24 Unknown albuterol sulfate 90 mcg/actuation 2 puff inhalation Q4H PRN WHEEZE 12/09/24 12/09/24 Unknown aerosol inhaler artificial 1 drp OPB . NEEDED 12/09/24 12/09/24 Unknown tears(txpbxcm-apslzggl-uzxvxbt) 0.1 %-0.3 %-0.2 % eye drops (GenTeal Tears Moderate) ascorbic acid (vitamin C) 500 mg 500 mg PO DAILY 12/09/24 12/09/24 Unknown capsule,extended release azelastine 137 mcg (0.1 %) nasal 2 spray intranasal BID 12/09/24 12/09/24 Unknown spray fluticasone propionate 50 1 spray intranasal DAILY 12/09/24 12/09/24 Unknown mcg/actuation nasal spray,suspension insulin glargine 100 unit/mL (3 10 unit subcut DAILY 12/09/24 12/09/24 Unknown mL) subcutaneous pen (Lantus Solostar U-100 Insulin) ipratropium bromide 17 2 puff inhalation QID 12/09/24 12/09/24 Unknown mcg/actuation HFA aerosol inhaler (Atrovent HFA) loratadine 10 mg tablet 10 mg PO QAM 12/09/24 12/09/24 Unknown losartan 25 mg tablet 25 mg PO BID 12/09/24 12/09/24 Unknown wavegvsc-uoxy-scon 8 mg-folic 400 1 tab PO DAILY 12/09/24 12/09/24 Unknown mcg-K 50 mcg-lutein 300 mcg tablet (Multivitamin Women 50 Plus) nitroglycerin 0.4 mg sublingual 0.4 mg sublingual Q5M PRN Chest 12/09/24 12/09/24 Unknown tablet Pain polyvinyl alcohol-povidone (PF) 1 drp OPB . NEEDED 12/09/24 12/09/24 Unknown 1.4 %-0.6 % eye drops in a dropperette (Refresh Classic (PF)) vit C 250 mg-vit E 90 mg-zinc 40 1 tab PO AMHS 12/09/24 12/09/24 Unknown mg-copper 1 [id number]-cyrvaa-wdfqlq capsule (PreserVision AREDS-2) apixaban 5 mg tablet (Eliquis) 5 mg PO BID #60 tabs 12/10/24 Unknown Active Medications Generic Name Dose Route Start Last Admin Trade Name Freq PRN Reason Stop Dose Admin Acetaminophen 650 mg 12/09/24 23:03 12/11/24 09:30 Acetaminophen 325 Mg Tab PO 01/08/25 23:02 650 mg Q4H PRN Administration Pain or Fever Amlodipine Besylate 10 mg 12/10/24 09:00 12/11/24 08:14 Amlodipine Besylate 5 Mg Tab PO 01/09/25 08:59 10 mg DAILY ALISHA Administration Apixaban 5 mg 12/10/24 09:15 12/11/24 08:15 Apixaban 5 Mg Tablet PO 01/09/25 09:14 5 mg BID ALISHA Administration Ascorbic Acid 500 mg 12/10/24 09:00 12/11/24 08:14 Ascorbic Acid 500 Mg Tab PO 01/09/25 08:59 500 mg DAILY ALISHA Administration Aspirin 81 mg 12/10/24 09:00 12/11/24 08:14 Aspirin 81 Mg Ectab PO 01/09/25 08:59 81 mg DAILY ALISHA Administration Azelastine HCl 2 sprays 12/10/24 09:00 12/11/24 08:15 Azelastine Hcl 0.1% Nasal 200 Sprays/27,400 Mcg Btl NA 01/09/25 08:59 2 sprays BID ALISHA Administration Calcium/Vitamin D 1 tab 12/10/24 09:00 12/11/24 08:14 Calcium 600mg + Vit D 400 Iu Tab PO 01/09/25 08:59 1 tab DAILY ALISHA Administration Ezetimibe 10 mg 12/10/24 09:00 12/11/24 08:14 Ezetimibe 10 Mg Tab PO 01/09/25 08:59 10 mg QAM ALISHA Administration Fluticasone Propionate 1 sprays 12/10/24 09:00 12/11/24 08:16 Fluticasone Propionate Na Spr 16 Gm Btl NA 01/09/25 08:59 1 sprays DAILY ALISHA Administration Fluticasone/Vilanterol 1 puffs 12/10/24 09:00 12/11/24 08:16 Fluticasone/Vilanterol 100/25mcg 14 Puffs/Inhaler INH 01/09/25 08:59 1 puffs DAILY ALISHA Administration Insulin Aspart 0 units 12/10/24 11:30 12/11/24 12:35 Insulin Aspart Per Unit Charge SC 01/09/25 11:29 10 units ACHS ALISHA Administration Insulin Glargine 10 units 12/10/24 09:00 12/11/24 08:12 Lantus Per Unit Charge SQ 01/09/25 08:59 10 units DAILY ALISHA Administration Loratadine 10 mg 12/10/24 09:00 12/11/24 08:13 Loratadine 10 Mg Tab PO 01/09/25 08:59 10 mg QAM ALISHA Administration Metoprolol Succinate 25 mg 12/10/24 21:00 12/11/24 09:25 Metoprolol Succ 25mg Ext Rel Tab PO 01/09/25 20:59 25 mg BID ALISHA Administration Multivitamins/Minerals 1 tab 12/10/24 09:00 12/11/24 08:14 Cerovite Adv Formula Tab PO 01/09/25 08:59 1 tab DAILY ALISHA Administration Pantoprazole Sodium 40 mg 12/10/24 09:00 12/11/24 08:14 Pantoprazole 40 Mg Tab PO 01/09/25 08:59 40 mg QAM ALISHA Administration Potassium Chloride 20 meq 12/10/24 09:00 12/11/24 08:18 Potassium Chloride Crtab 20 Meq Tabcr PO 01/09/25 08:59 20 meq DAILY ALISHA Administration Spironolactone 12.5 mg 12/10/24 10:45 12/11/24 08:17 Spironolactone 12.5 Mg Tab PO 01/09/25 10:44 12.5 mg DAILY ALISHA Administration Umeclidinium [place] 1 puffs 12/10/24 09:00 12/11/24 08:16 Umeclidinium [place] 62.5mcg/Blister 7 Puffs/Inhaler INH 01/09/25 08:59 1 puffs DAILY ALISHA Administration
--- NOTE | 2024-12-11 08:41 | Electrocardiogram Report ---
Test Reason : Blood Pressure : */* mmHG Vent. Rate : 75 BPM Atrial Rate : * BPM P-R Int : * ms QRS Dur : 100 ms QT Int : 398 ms P-R-T Axes : * -2 215 degrees QTcB Int : 444 ms Atrial fibrillation Left ventricular hypertrophy with repolarization abnormality Abnormal ECG When compared with ECG of 09-Dec-2024 17:02, QT has lengthened Confirmed by Dave Couch ([id number]) on 12/11/2024 8:40:48 AM Referred By: Alicia Woodruff Confirmed By: Dave Couch
--- NOTE | 2024-12-11 09:13 | Cardiology Progress Note ---
Date of Service December 11, 2024 Assessment & Plan (1) Atrial fibrillation with controlled ventricular rate: (2) Acute heart failure with preserved ejection fraction: (3) Hypertension: Plan 79-year-old female with shortness of breath with hypoxia, orthopnea and edema. Admitted for acute on chronic heart failure with preserved ejection fraction and new onset atrial fibrillation with controlled rates. Found to have new onset atrial fibrillation with rates controlled in 60s to 80s upon admission. CXR and Chest CT revealed mild pulmonary vascular congestion with small bilateral pleural effusions. BNP slightly elevated at 629. ECHO (12/10/24) showed LVEF 60- 65%, mild LVH, mild aortic sclerosis without valvular stenosis, mild mitral regurgitation and mild-moderate tricuspid regurgitation. 1. New onset atrial fibrillation (on Eliquis and toPROl XL), [id number] score of 6 (sex, age, HF, HTN, DM) -Overall doing well and asymptomatic with palpitations -Heart rates well controlled in 70s to 80s with no significant pauses overnight -Continue Eliquis 5 mg twice daily for stroke prophylaxis -Continue toPROL XL 25 mg twice daily for rate control -Continue to monitor on telemetry 2. Acute on chronic HFpEF, NYHA Class III -Patient is improving clinically from a cardiac standpoint -Remains on 2 L supplemental oxygen nasal cannula -Cumulative total output 450 mL with IV diuresis -Kidney function mildly elevated on AM labs -Administer one time dose of furosemide 60 mg this morning -Continue spironolactone 12.5 mg daily -Wean off supplemental oxygen as tolerated -Monitor strict I&Os -Daily weights with standing scale -Monitor electrolytes with goal K >4.0 and Mg >2.0 -Ongoing shortness of breath likely multifactorial secondary to asthma exacerbation and acute CHF exacerbation. Could consider initiating steroids given expiratory wheezes but will defer to primary team. 3. Hypertension -Blood pressure elevated this morning -Continue losartan 25 mg twice daily -Continue amlodipine 10 mg daily -Continue diuresis as stated above Case discussed and coordinated with Dr. Mahan. Please see Dr. Mahan notes for further recommendations. I spent a total of 40 minutes coordinating, documenting, and providing care for this patient excluding time spent in the performance of separately billed services or time spent by another provider/QHP. ADITI Melendez Department of Cardiology Admission and Anticipated Discharge Date Admission Date: December 09, 2024 Supervising Physician Co-Signing Physician Notes Patient was seen and personally examined. Care and management as well outlined by advanced provider as above. Recommendations reviewed and personally endorsed. 79-year-old female with chronic asthmatic lung disease with recent symptoms of dyspnea and chest fullness. Ultimately urged to seek ER evaluation by close friend after observed worsening respiratory status. Findings consistent with decompensated diastolic heart failure with newly observed atrial fibrillation. Patient with persistent cough overnight. Atrial fibrillation rates controlled and patient tolerating metoprolol succinate. Suspect component of underlying asthmatic lung disease contributing. Would consider repeat imaging, intensification of pulmonary treatment. Plan as outlined above I spent a total of 25 minutes coordinating, documenting, and providing care for this patient excluding time spent in the performance of separately billed services or time spent by another provider/QHP. Cardiology will continue to follow Subjective 79-year-old female with PMHx significant for type 2 diabetes mellitus, HTN, HLD (statin intolerance), asthma, celiac disease GERD, obesity, osteoporosis, mitral valve prolapse, and thyroid nodule who presented for evaluation of chest heaviness and worsening shortness of breath over past few days. She also noted i ntermittent palpitations and heart fluttering in chest over the past 1-2 months. Found to have new onset atrial fibrillation with rates controlled upon admission. CXR and Chest CT revealed mild pulmonary vascular congestion with small bilateral pleural effusions. BNP slightly elevated at 629. Seen today for examination and follow-up. Sitting comfortably on edge of bed and remains on 2L supplemental oxygen via NC. She is feeling better today, but notes ongoing cough with difficulty bringing up mucus. Doing well on diuretic therapy but has noticed less output over past 24 hours. Lower leg swelling and shortness of breath has improving. Denies chest discomfort, palpitations, orthopnea, PND, dizziness, lightheadedness, or worsening edema. Chart, medications, and telemetry over past 24 hours reviewed. Review of Systems Review of Systems: See HPI for pertinent positives. All others negative other than those noted in the HPI. CONSTITUTIONAL: No change in weight, No weakness, No fatigue, No fevers, No sweats or chills. HEENT: No visual changes, No epistaxis, No bleeding gums, No dysphagia, PULMONARY: +cough, shortness of breath. No sputum or hemoptysis, No wheezing, and No recent change in breathing. CARDIOVASCULAR: No chest pain, No dyspnea on exertion, No edema, No palpitations, No syncope, No claudication, No calf pain. GASTROINTESTINAL: No change in appetite, No abdominal pain, No change in bowel habits, No significant heartburn, No nausea, No vomiting, No diarrhea, No constipation, No blood in stools or black tarry stools, No dysphagia. HEMATOLOGIC: No abnormal bleeding and No bruising. NEUROLOGICAL: No falls, No dizziness, No lightheadedness, Normal balance, No headaches, and No weakness. PSYCH: No sleep disturbances, No mood changes. Physical Exam Physical Exam: Vital signs within normal limits as above. General: Well developed and nourished. No acute distress. A+Ox3. HEENT: Normocephalic. Atraumatic. EOMI. Conjunctiva and sclera clear. NECK: Trachea midline. No thyromegaly. No carotid bruits. No JVD. Carotid upstrokes are brisk. Heart: Irregularly irregular rhythm. Normal rates. S1 and S2 noted. No murmur. No rubs or gallops. PMI non displaced. Lungs: Expiratory wheezes and diminished breath sounds throughout. No rhonchi. No rales. Abdomen: Normal bowel sounds. Soft. Nontender. No abdominal bruits. Extremities: Normal capillary refill. No edema. No clubbing or cyanosis. Skin: Warm and dry. NEURO: No focal deficits. PSYCH: Appropriate affect and insight. Results & Data Vital Signs (Past 12 Hours) Vital Signs Temp Pulse Pulse Resp BP BP Pulse Ox 12/11/24 08:57 12/11/24 08:00 77 12/11/24 08:00 36.3 C L 66 18 168/78 H 95 12/11/24 03:00 36.4 C L 55 L 17 154/86 H 95 12/11/24 00:00 67 12/10/24 23:03 36.6 C 61 14 151/88 H 96 O2 Del Method O2 Flow Rate 12/11/24 08:57 Nasal Cannula 1 12/11/24 08:00 12/11/24 08:00 Nasal Cannula 1 12/11/24 03:00 Nasal Cannula 2 12/11/24 00:00 12/10/24 23:03 Laboratory Results Cardiac Enzymes 12/11/24 Range/Units 04:35 AST 22 (13-39) U/L Comprehensive Metabolic Panel 12/11/24 Range/Units 04:35 Sodium 141 (136-145) mmol/L Potassium 3.8 (3.5-5.1) mmol/L Chloride 102 (98-107) mmol/L Carbon Dioxide 32 (21-32) mmol/L BUN 19 (6-23) mg/dl Creatinine 1.21 H D (0.6-1.2) mg/dl Glucose 176 H (70-99(Fasting)) mg/dl Calcium 8.6 (8.6-10.3) mg/dl Direct Bilirubin 0.1 (0-0.2) mg/dl AST 22 (13-39) U/L ALT 35 (7-52) U/L Alkaline Phosphatase 209 H (34-104) U/L Total Protein 6.0 (6.0-8.3) gm/dl Albumin 3.3 L (3.4-5.0) gm/dl Intake and Output 12/10/24 12/11/24 12/11/24 22:59 06:59 14:59 Intake Total 100 / 151.567 Output Total 150 / 450 300 / 450 Balance -150 / -298.433 -200 / -298.433 Intake: Oral 100 / 100 Output: Urine 150 / 450 300 / 450 Other: Weight 82.7 kg Weight Measurement Method Built in [facility]
[2024-12-11] MEDS: FUROSEMIDE 40 MG/4 ML VIAL IV ONE (09:25)
[2024-12-11] MEDS: ACETAMINOPHEN 325 MG TAB PO PRN (09:30)
[2024-12-11] MEDS ORDERED: Nursing to Pharmacy Communication SCH (12:30)
[2024-12-11] MEDS: methylPREDNISolone 125 MG/2 ML VIAL IV STA (13:21)
[2024-12-11] MEDS: INSULIN ASPART PER UNIT CHARGE SC STA (13:22)
[2024-12-11] MEDS ORDERED: PHARMACY GLYCEMIC MGMT CONSULT PRN (15:37)
--- NOTE | 2024-12-11 15:39 | Pharmacy Report ---
Pharmacy Glycemic Short Note 2 - Date of Service December 11, 2024 - Glycemic Short BSG Results (Last 24 hours): 12/10/24 12/10/24 12/10/24 16:11 16:12 20:21 Glucose POC Glucose 326 H* 356 H* 283 H 12/11/24 12/11/24 12/11/24 04:35 07:35 11:34 Glucose 176 H POC Glucose 250 H 319 H* 12/11/24 11:37 Glucose POC Glucose 312 H* OUTPATIENT ANTIDIABETIC REGIMEN: * Lantus 10 units daily, Aspart 5 units with breakfast, 3 units with lunch and dinner * A1c pending ASSESSMENT: * Patient's BSGs elevated since admission, starting on steroids today * Will increase lantus 50% today and start 10 BID, patient with ERIC today- will monitor for further increase * Consider addition of NPH with steroid in AM * Tighten carb ratio to weight based stress of 3 PLAN FOR INPATIENT GLYCEMIC CONTROL: * Hold outpatient oral diabetes medications * Basal insulin * Lantus 10 units SQ BID * Bolus insulin * NovoLog per scale ACHS or Q6hrs while NPO * Goal Range: Low 110 mg/dL - High 140 mg/dL * Correction Factor: 20 mg/dL/unit * Nutritional / Prandial insulin per carb ratio of 1 unit per 6 grams CHO consumed
[2024-12-11] MEDS: LEVALBUTEROL HCL 0.63 MG/3 ML NEB NEB STA (15:42)
[2024-12-11] MEDS: DEXTROSE 50% 50 ML SYRINGE IV PRN (16:15)
[2024-12-11] MEDS: LANTUS PER UNIT CHARGE SQ SCH (21:49)
[2024-12-11] MEDS: LOSARTAN POTASSIUM 50 MG TAB PO SCH (21:52)
[2024-12-12] MEDS: INSULIN ASPART PER UNIT CHARGE SC SCH (00:07)
[2024-12-12 04:48] LABS: Hemoglobin 12.7 g/dl (12.0-16.0); Mean Corpuscular Hemoglobin 29.6 pg (25.0-34.0); Mean Corpuscular Hgb Conc 33.4 g/dL (32.0-36.0); Mean Corpuscular Volume 88.6 fL (80.0-100.0); Mean Platelet Volume 11.2 fL (9.4-12.4); Platelet Count 241 K/uL (130-400); RDW Coefficient of Variation 14.1 % (11.5-14.5); RDW Standard Deviation 45.1 fL (36.4-46.3); Red Blood Count 4.29 M/uL (4.20-5.40); White Blood Count 10.27 K/ul (4.8-10.8)
[2024-12-12 05:00] LABS: BUN Creatinine Ratio 25.9 (10-20); Calcium 9.4 mg/dl (8.6-10.3); Phosphorus 3.3 mg/dl (2.5-4.9); Potassium 3.7 mmol/L (3.5-5.1)
[2024-12-12 06:47] LABS: Estimated Average Glucose 171 mg/dl; Hemoglobin A1C 7.6 % (4.5-5.6)
[2024-12-12] MEDS: LANTUS PER UNIT CHARGE SC ONE ×2 (08:24→21:01)
[2024-12-12] MEDS: predniSONE 20 MG TAB PO SCH (08:29)
--- NOTE | 2024-12-12 09:06 | Pharmacy Report ---
Pharmacy Glycemic Short Note 2 - Date of Service December 12, 2024 - Glycemic Short BSG Results (Last 24 hours): 12/11/24 12/11/24 12/11/24 11:34 11:37 16:10 Glucose POC Glucose 319 H* 312 H* 43 L* 12/11/24 12/11/24 12/11/24 16:35 21:34 23:48 Glucose POC Glucose 144 H 330 H* 314 H* 12/12/24 12/12/24 12/12/24 03:01 04:10 07:22 Glucose 223 H POC Glucose 206 H 228 H OUTPATIENT ANTIDIABETIC REGIMEN: * Lantus 10 units daily, Aspart 5 units with breakfast, 3 units with lunch and dinner * A1c pending ASSESSMENT: 12/12 * Methylprednisolone x1 yesterday afternoon. Starting prednisone 40 mg PO QAM today. * Severe hyperglycemia noted yesterday - likely steroid induced. Severe hypoglycemia yesterday - likely 2nd supplemental 8 units of Novolog administered at lunch. Tightening of Novolog CHO ratio at dinner noted - unable to assess adequacy at this time. Correctional insulin administered at HS and overnight. * Will keep Lantus for now as AM hypoglycemia not noted to be an issue at this time and correctional insulin used overnight. Will increase Lantus this AM and scale this PM if BSG > 180 * Will tighten correction factor as correctional insulin administered has not yet brought BSG's back down to goal range 2/5 * Patient's BSGs elevated since admission, starting on steroids today * Will increase lantus 50% today and start 10 BID, patient with ERIC today- will monitor for further increase * Consider addition of NPH with steroid in AM * Tighten carb ratio to weight based stress of 3 PLAN FOR INPATIENT GLYCEMIC CONTROL: * Basal insulin * Lantus 18 units SQ x1 this AM, then 0-10 units tonight based on BSG * Bolus insulin * NovoLog per scale ACHS or Q6hrs while NPO * Goal Range: Low 110 mg/dL - High 140 mg/dL * Correction Factor: 18 mg/dL/unit * Nutritional / Prandial insulin per carb ratio of 1 unit per 6 grams CHO consumed
[2024-12-12] MEDS: FUROSEMIDE 40 MG/4 ML VIAL IV ONE (10:02)
[2024-12-12] MEDS: POTASSIUM CHLORIDE CRTAB 20 MEQ TABCR PO STA (10:02)
--- NOTE | 2024-12-12 10:59 | Cardiology Progress Note ---
Date of Service December 12, 2024 Assessment & Plan (1) Atrial fibrillation with controlled ventricular rate: (2) Acute heart failure with preserved ejection fraction: (3) Hypertension: Plan 79-year-old female with shortness of breath with hypoxia, orthopnea and edema. Admitted for acute on chronic heart failure with preserved ejection fraction and new onset atrial fibrillation with controlled rates. Found to have new onset atrial fibrillation with rates controlled in 60s to 80s upon admission. CXR and Chest CT revealed mild pulmonary vascular congestion with small bilateral pleural effusions. BNP slightly elevated at 629. ECHO (12/10/24) showed LVEF 60- 65%, mild LVH, mild aortic sclerosis without valvular stenosis, mild mitral regurgitation and mild-moderate tricuspid regurgitation. 1. New onset atrial fibrillation (on Eliquis and toPROl XL), [id number] score of 6 (sex, age, HF, HTN, DM) -Overall doing well and asymptomatic with palpitations -Heart rates well controlled in 70s to 80s with no significant pauses overnight -Continue Eliquis 5 mg twice daily for stroke prophylaxis -Continue toPROL XL 25 mg twice daily for rate control -Continue to monitor on telemetry 2. Acute on chronic HFpEF, NYHA Class III -Patient is improving clinically from a cardiac standpoint -Remains on 2 L supplemental oxygen nasal cannula -Cumulative total output 450 mL with IV diuresis -Kidney function mildly elevated on AM labs -Administer one time dose of furosemide 60 mg this morning -Continue spironolactone 12.5 mg daily -Wean off supplemental oxygen as tolerated -Monitor strict I&Os -Daily weights with standing scale -Monitor electrolytes with goal K >4.0 and Mg >2.0 -Ongoing shortness of breath likely multifactorial secondary to asthma exacerbation and acute CHF exacerbation. Could consider initiating steroids given expiratory wheezes but will defer to primary team. 3. Hypertension -Blood pressure elevated this morning -Continue losartan 25 mg twice daily -Continue amlodipine 10 mg daily -Continue diuresis as stated above 12/12/2024 Problem list as above. Patient clinically improving but heart rate still running relatively fast. No bradycardia arrhythmias. Blood pressure still mildly elevated though with losartan already increased this morning. Recommendations: Increase metoprolol succinate to 50 mg twice per day Agree with increasing losartan to 50 twice per day for further hypertension control Will change furosemide to oral in a.m. likely dosing being 20 mg/day with spironolactone 12.5 mg/day. Renal function stable to improved I spent a total of 40 minutes on the date of service in preparation, delivery, and documentation of the care provided to this patient, excluding any time spent in the performance of separately billed services. Admission and Anticipated Discharge Date Admission Date: December 09, 2024 Subjective Patient seen and examined, chart, medications, telemetry reviewed. Slowly improving. Off oxygen supplement with good ambulation. Heart rate still running higher. Blood pressure elevated but medications increased today. No chest pains. Still with cough Review of Systems Review of Systems: All systems reviewed & are unremarkable except as noted in Subjective Physical Exam Constitutional: WD/WN, vitals as above + obese; no acute distress Neck: + thick neck Respiratory: able to speak in complete sentences (Mild conversational dyspneaa) Auscultation: + diminished lung sounds and + crackles Cardiovascular: Rate/Rhythm: + irregularly irregular Heart Sounds: no murmur Vessels: + JVD Extremities: + edema (1+ ankle edema; SCD's in place) Gastrointestinal (Abdomen): normal bowel sounds, soft, nontender, no hepatosplenomegaly Neurologic: PERRL, EOMI, accommodation nl, no face palsy, no dysarthria Psychiatric: A+Ox3, euthymic affect Results & Data Vital Signs (Past 12 Hours) Vital Signs Temp Pulse Pulse Pulse Pulse Resp Resp 12/12/24 08:18 88 83 20 12/12/24 08:00 92 H 12/12/24 07:30 12/12/24 07:20 36.4 C L 72 18 12/12/24 04:47 18 12/12/24 04:00 83 18 12/12/24 00:00 80 Resp BP BP Pulse Ox Pulse Ox Pulse Ox O2 Del Method 12/12/24 08:18 16 90 94 12/12/24 08:00 12/12/24 07:30 Room Air 12/12/24 07:20 158/83 H 95 Room Air 12/12/24 04:47 94 Room Air 12/12/24 04:00 156/82 H 94 Room Air 12/12/24 00:00
--- NOTE | 2024-12-12 11:31 | Hospitalist Progress Note ---
Date of Service December 12, 2024 Assessment & Plan (1) Atrial fibrillation with controlled ventricular rate: Plan: New onset (2) Acute heart failure with preserved ejection fraction: (3) Diabetes mellitus type 2, insulin dependent: (4) Hypertension, uncontrolled: (5) Asthma: (6) Acute passive congestion of liver: Plan Ms. Doran is a 79-year-old female with past medical history significant for type 2 diabetes, hyperlipidemia, asthma, allergic rhinitis, mitral valve prolapse, hypertension, celiac disease, GERD, obesity, osteoporosis, pain in right shoulder, essential tremor, migraine, unspecified open-angle glaucoma who lives alone admitted for acute hypoxic resp failure iso heart failure exacerbation, as well as likely component of asthma #New onset A fib RVR *rate controlled history of sinus bbradycardia noted started on coreg and transitioned to metoprolol succinate increased toprol to 50mg bid continued on eliquis s/p IV lasix today, transition to PO in am #Acute hypoxic resp failure, multifactorial iso hfpef and asthma Wean O2 as able 2 step prior to dispo: no o2 required #Acute on chronic heart failure sp IV diuersis Held after am dose 2/2 renal function monitor IOs daily weights spironolactone started metoprolol XL BID #Asthma exacerbation start steroids given persistent wheezing continue home nebs symptomatic mgmt #HTN continue increased losartan continue amlodipine and spironolactone #ERIC on CKDIII hold diuresis for now BP control Trend Bmp DVT ppx apixaban Dispo tomorrow, no rehab Admission and Anticipated Discharge Date Admission Date: December 09, 2024 Subjective NAEO Reports feeling a bit better from a respiratory standpoint, she states she usually always has a cough with inhalation though improving at this time denies any new symptoms, reports ambulating without difficulty in her room Physical Exam Constitutional: WD/WN, vitals as above Respiratory: few wheezes, improving from day prior Cardiovascular: irregularly irregular Results & Data Results & Data Vital Signs (Past 12 Hours) Vital Signs Temp Pulse Pulse Pulse Pulse Resp Resp 12/12/24 08:18 88 83 20 12/12/24 08:00 92 H 12/12/24 07:30 12/12/24 07:20 36.4 C L 72 18 12/12/24 04:47 18 12/12/24 04:00 83 18 12/12/24 00:00 80 Resp BP BP Pulse Ox Pulse Ox Pulse Ox O2 Del Method 12/12/24 08:18 16 90 94 12/12/24 08:00 12/12/24 07:30 Room Air 12/12/24 07:20 158/83 H 95 Room Air 12/12/24 04:47 94 Room Air 12/12/24 04:00 156/82 H 94 Room Air 12/12/24 00:00 Laboratory Results Short CBC 12/12/24 Range/Units 04:10 WBC 10.27 (4.8-10.8) K/ul Hgb 12.7 (12.0-16.0) g/dl Hct 38.0 (37.0-47.0) % Plt Count 241 (130-400) K/uL BMP 12/12/24 04:10 Sodium 139 Potassium 3.7 Chloride 100 Carbon Dioxide 29 BUN 28 H Creatinine 1.08 Glucose 223 H Calcium 9.4 Medications Administered Home Medications Medication Instructions Recorded Confirmed Last Taken diphenoxylate-atropine 2.5 1 tab PO BID ##0 06/26/09 12/09/24 Unknown mg-0.025 mg tablet (Lomotil) amlodipine 10 mg tablet 10 mg PO DAILY #0 tabs 09/10/13 12/09/24 Unknown ezetimibe 10 mg tablet 10 mg PO QAM #0 tabs 09/10/13 12/09/24 Unknown furosemide 40 mg tablet 40 mg PO DAILY #0 tabs 09/10/13 12/09/24 Unknown omeprazole 40 mg capsule,delayed 40 mg PO QAM #0 caps 09/10/13 12/09/24 Unknown release INSULIN PEN NEEDLE (EXEL INSULIN unit ##120 09/18/13 Unknown PEN NEEDLES) aspirin 81 mg tablet,delayed 81 mg PO DAILY ##0 11/29/17 12/09/24 Unknown release calcium 600 mg (as 1 tab PO DAILY ##0 11/29/17 12/09/24 Unknown carbonate)-vitamin D3 10 mcg (400 unit) tablet (Calcium 600 + D(3)) fluticasone 250 mcg-salmeterol 50 1 inh inhalation Q12H #0 Inhalers 11/29/17 12/09/24 Unknown mcg/dose blistr powdr for inhalation (Advair Diskus) insulin aspart U-100 100 unit/mL 1 sliding scale dose SUBCUT 11/29/17 12/09/24 Unknown (3 mL) subcutaneous pen (Novolog USEASDIRECTD ##0 FlexPen U-100 Insulin aspart) potassium chloride 20 mEq 20 meq PO DAILY #0 tabs 11/29/17 12/09/24 Unknown tablet,extended release(part/cryst) (Klor-Con M) propranolol 160 mg capsule,24 160 mg PO DAILY ##0 11/29/17 12/09/24 Unknown hr,extended release tiotropium bromide 18 mcg capsule 1 cap inhalation DAILY ##0 11/29/17 12/09/24 Unknown with inhalation device (Spiriva with HandiHaler) acetaminophen 500 mg capsule 500 mg PO Q4H PRN Pain 12/09/24 12/09/24 Unknown albuterol sulfate 90 mcg/actuation 2 puff inhalation Q4H PRN WHEEZE 12/09/24 12/09/24 Unknown aerosol inhaler artificial 1 drp OPB . NEEDED 12/09/24 12/09/24 Unknown tears(umwjgoa-lnfmiomv-syjpksg) 0.1 %-0.3 %-0.2 % eye drops (GenTeal Tears Moderate) ascorbic acid (vitamin C) 500 mg 500 mg PO DAILY 12/09/24 12/09/24 Unknown capsule,extended release azelastine 137 mcg (0.1 %) nasal 2 spray intranasal BID 12/09/24 12/09/24 Unknown spray fluticasone propionate 50 1 spray intranasal DAILY 12/09/24 12/09/24 Unknown mcg/actuation nasal spray,suspension insulin glargine 100 unit/mL (3 10 unit subcut DAILY 12/09/24 12/09/24 Unknown mL) subcutaneous pen (Lantus Solostar U-100 Insulin) ipratropium bromide 17 2 puff inhalation QID 12/09/24 12/09/24 Unknown mcg/actuation HFA aerosol inhaler (Atrovent HFA) loratadine 10 mg tablet 10 mg PO QAM 12/09/24 12/09/24 Unknown losartan 25 mg tablet 25 mg PO BID 12/09/24 12/09/24 Unknown jvqyjynl-fiqr-tmkn 8 mg-folic 400 1 tab PO DAILY 12/09/24 12/09/24 Unknown mcg-K 50 mcg-lutein 300 mcg tablet (Multivitamin Women 50 Plus) nitroglycerin 0.4 mg sublingual 0.4 mg sublingual Q5M PRN Chest 12/09/24 12/09/24 Unknown tablet Pain polyvinyl alcohol-povidone (PF) 1 drp OPB . NEEDED 12/09/24 12/09/24 Unknown 1.4 %-0.6 % eye drops in a dropperette (Refresh Classic (PF)) vit C 250 mg-vit E 90 mg-zinc 40 1 tab PO AMHS 12/09/24 12/09/24 Unknown mg-copper 1 sj-eaxkyr-pvqkof capsule (PreserVision AREDS-2) apixaban 5 mg tablet (Eliquis) 5 mg PO BID #60 tabs 12/10/24 Unknown Active Medications Generic Name Dose Route Start Last Admin Trade Name Freq PRN Reason Stop Dose Admin Acetaminophen 650 mg 12/09/24 23:03 12/11/24 09:30 Acetaminophen 325 Mg Tab PO 01/08/25 23:02 650 mg Q4H PRN Administration Pain or Fever Amlodipine Besylate 10 mg 12/10/24 09:00 12/12/24 08:26 Amlodipine Besylate 5 Mg Tab PO 01/09/25 08:59 10 mg DAILY ALISHA Administration Apixaban 5 mg 12/10/24 09:15 12/12/24 08:26 Apixaban 5 Mg Tablet PO 01/09/25 09:14 5 mg BID ALISHA Administration Ascorbic Acid 500 mg 12/10/24 09:00 12/12/24 08:26 Ascorbic Acid 500 Mg Tab PO 01/09/25 08:59 500 mg DAILY ALISHA Administration Aspirin 81 mg 12/10/24 09:00 12/12/24 08:26 Aspirin 81 Mg Ectab PO 01/09/25 08:59 81 mg DAILY ALISHA Administration Azelastine HCl 2 sprays 12/10/24 09:00 12/12/24 08:30 Azelastine Hcl 0.1% Nasal 200 Sprays/27,400 Mcg Btl NA 01/09/25 08:59 2 sprays BID ALISHA Administration Calcium/Vitamin D 1 tab 12/10/24 09:00 12/12/24 08:27 Calcium 600mg + Vit D 400 Iu Tab PO 01/09/25 08:59 1 tab DAILY ALISHA Administration Dextrose 25 - 50 ml 12/09/24 23:03 12/11/24 16:15 Dextrose 50% 50 Ml Syringe IV 01/08/25 23:02 50 ml UD PRN Administration Hypoglycemia Protocol Protocol Ezetimibe 10 mg 12/10/24 09:00 12/12/24 08:26 Ezetimibe 10 Mg Tab PO 01/09/25 08:59 10 mg QAM ALISHA Administration Fluticasone Propionate 1 sprays 12/10/24 09:00 12/12/24 08:31 Fluticasone Propionate Na Spr 16 Gm Btl NA 01/09/25 08:59 1 sprays DAILY ALISHA Administration Fluticasone/Vilanterol 1 puffs 12/10/24 09:00 12/12/24 08:31 Fluticasone/Vilanterol 100/25mcg 14 Puffs/Inhaler INH 01/09/25 08:59 1 puffs DAILY ALISHA Administration Insulin Aspart 0 units 12/10/24 11:30 12/12/24 08:24 Insulin Aspart Per Unit Charge SC 01/09/25 11:29 15 units ACHS ALISHA Administration Loratadine 10 mg 12/10/24 09:00 12/12/24 08:26 Loratadine 10 Mg Tab PO 01/09/25 08:59 10 mg QAM ALISHA Administration Losartan Potassium 50 mg 12/11/24 21:00 12/12/24 08:29 Losartan Potassium 50 Mg Tab PO 01/10/25 20:59 50 mg BID ALISHA Administration Multivitamins/Minerals 1 tab 12/10/24 09:00 12/12/24 08:26 Cerovite Adv Formula Tab PO 01/09/25 08:59 1 tab DAILY ALISHA Administration Pantoprazole Sodium 40 mg 12/10/24 09:00 12/12/24 08:27 Pantoprazole 40 Mg Tab PO 01/09/25 08:59 40 mg QAM ALISHA Administration Potassium Chloride 20 meq 12/10/24 09:00 12/12/24 08:25 Potassium Chloride Crtab 20 Meq Tabcr PO 01/09/25 08:59 20 meq DAILY ALISHA Administration Prednisone 40 mg 12/12/24 09:00 12/12/24 08:29 Prednisone 20 Mg Tab PO 01/11/25 08:59 40 mg DAILY ALISHA Administration Spironolactone 12.5 mg 12/10/24 10:45 12/12/24 08:29 Spironolactone 12.5 Mg Tab PO 01/09/25 10:44 12.5 mg DAILY ALISHA Administration Umeclidinium Mondovi 1 puffs 12/10/24 09:00 12/12/24 08:31 Umeclidinium Mondovi 62.5mcg/Blister 7 Puffs/Inhaler INH 01/09/25 08:59 1 puffs DAILY ALISHA Administration
[2024-12-12] MEDS: METOPROLOL SUCC 25MG EXT REL TAB PO ONE (12:01)
[2024-12-12] MEDS: BENZONATATE 100 MG CAPSULE PO SCH (17:21)
[2024-12-12] MEDS: METOPROLOL SUCC 50MG EXT REL TAB PO SCH (20:19)
[2024-12-13] MEDS: INSULIN ASPART PER UNIT CHARGE SC ONE (01:32)
[2024-12-13] MEDS: LANTUS PER UNIT CHARGE SC SCH (08:32)
[2024-12-13] MEDS: FUROSEMIDE 20 MG TAB PO SCH (08:32)
[2024-12-13 09:27] LABS: BUN Creatinine Ratio 29.3 (10-20); Calcium 10.1 mg/dl (8.6-10.3); Creatinine Clr Calc Pharmacy 32.7 ml/min; Potassium 4.1 mmol/L (3.5-5.1)
--- NOTE | 2024-12-13 10:11 | Cardiology Progress Note ---
Date of Service December 13, 2024 Assessment & Plan (1) Atrial fibrillation with controlled ventricular rate: (2) Acute heart failure with preserved ejection fraction: (3) Hypertension: Plan 79-year-old female with shortness of breath with hypoxia, orthopnea and edema. Admitted for acute on chronic heart failure with preserved ejection fraction and new onset atrial fibrillation with controlled rates. Found to have new onset atrial fibrillation with rates controlled in 60s to 80s upon admission. CXR and Chest CT revealed mild pulmonary vascular congestion with small bilateral pleural effusions. BNP slightly elevated at 629. ECHO (12/10/24) showed LVEF 60- 65%, mild LVH, mild aortic sclerosis without valvular stenosis, mild mitral regurgitation and mild-moderate tricuspid regurgitation. 1. New onset atrial fibrillation (on Eliquis and toPROl XL), [id number] score of 6 (sex, age, HF, HTN, DM) -Overall doing well and asymptomatic with palpitations -Heart rates well controlled in 70s to 80s with no significant pauses overnight -Continue Eliquis 5 mg twice daily for stroke prophylaxis -Continue toPROL XL 25 mg twice daily for rate control -Continue to monitor on telemetry 2. Acute on chronic HFpEF, NYHA Class III -Patient is improving clinically from a cardiac standpoint -Remains on 2 L supplemental oxygen nasal cannula -Cumulative total output 450 mL with IV diuresis -Kidney function mildly elevated on AM labs -Administer one time dose of furosemide 60 mg this morning -Continue spironolactone 12.5 mg daily -Wean off supplemental oxygen as tolerated -Monitor strict I&Os -Daily weights with standing scale -Monitor electrolytes with goal K >4.0 and Mg >2.0 -Ongoing shortness of breath likely multifactorial secondary to asthma exacerbation and acute CHF exacerbation. Could consider initiating steroids given expiratory wheezes but will defer to primary team. 3. Hypertension -Blood pressure elevated this morning -Continue losartan 25 mg twice daily -Continue amlodipine 10 mg daily -Continue diuresis as stated above 12/12/2024 Problem list as above. Patient clinically improving but heart rate still running relatively fast. No bradycardia arrhythmias. Blood pressure still mildly elevated though with losartan already increased this morning. Recommendations: Increase metoprolol succinate to 50 mg twice per day Agree with increasing losartan to 50 twice per day for further hypertension control Will change furosemide to oral in a.m. likely dosing being 20 mg/day with spironolactone 12.5 mg/day. Renal function stable to improved 12/13/2024 New onset atrial fibrillation now with good rate control. Medication adjustments as planned above. Patient to see cardiology in 3 to 4 weeks as outpatient I spent a total of 40 minutes on the date of service in preparation, delivery, and documentation of the care provided to this patient, excluding any time spent in the performance of separately billed services. Admission and Anticipated Discharge Date Admission Date: December 09, 2024 Subjective Patient seen and examined, chart, medications, telemetry reviewed Atrial fibrillation rates better controlled. Blood pressure trending towards better control. Respiratory status improved with still mild cough but ambulatory in hallway without oxygen requirements. No bleeding issues. No worsening edema. Review of Systems Review of Systems: All systems reviewed & are unremarkable except as noted in Subjective Physical Exam Constitutional: WD/WN, vitals as above + obese; no acute distress Neck: + thick neck Respiratory: no labored breathing Auscultation: + diminished lung sounds Few wheezes with forced cough Cardiovascular: Rate/Rhythm: + irregularly irregular Heart Sounds: no murmur Vessels: no JVD Extremities: no edema Gastrointestinal (Abdomen): normal bowel sounds, soft, nontender, no hepatosplenomegaly Neurologic: PERRL, EOMI, accommodation nl, no face palsy, no dysarthria Psychiatric: A+Ox3, euthymic affect Results & Data Vital Signs (Past 12 Hours) Vital Signs Temp Pulse Pulse Resp BP BP Pulse Ox 12/13/24 09:06 72 18 12/13/24 08:51 88 20 12/13/24 08:48 80 19 12/13/24 08:30 76 16 12/13/24 08:27 77 24 12/13/24 08:15 71 19 12/13/24 08:09 75 19 12/13/24 08:00 77 12/13/24 07:51 73 21 12/13/24 07:48 69 17 12/13/24 07:39 81 18 12/13/24 07:26 166/72 H 97 12/13/24 07:21 66 21 12/13/24 07:00 75 19 12/13/24 04:50 36.3 C L 63 17 147/69 H 94 12/13/24 00:00 73 12/12/24 23:23 36.5 C 70 19 117/69 93 O2 Del Method 12/13/24 09:06 12/13/24 08:51 12/13/24 08:48 12/13/24 08:30 12/13/24 08:27 12/13/24 08:15 12/13/24 08:09 12/13/24 08:00 12/13/24 07:51 12/13/24 07:48 12/13/24 07:39 12/13/24 07:26 Room Air 12/13/24 07:21 12/13/24 07:00 12/13/24 04:50 Room Air 12/13/24 00:00 12/12/24 23:23 Room Air Laboratory Results Laboratory Results - last 24 hr 12/12/24 12/12/24 12/12/24 11:16 11:19 15:57 Sodium Potassium Chloride Carbon Dioxide Anion Gap BUN Creatinine Est Cr Clr Drug Dosing eGFR BUN/Creatinine Ratio Glucose POC Glucose 380 H* 370 H* 201 H Calcium 12/12/24 12/13/24 12/13/24 20:24 01:24 07:22 Sodium Potassium Chloride Carbon Dioxide Anion Gap BUN Creatinine Est Cr Clr Drug Dosing eGFR BUN/Creatinine Ratio Glucose POC Glucose 232 H 232 H 144 H Calcium 12/13/24 08:29 Sodium 141 Potassium 4.1 Chloride 102 Carbon Dioxide 32 Anion Gap 7 BUN 39 H Creatinine 1.33 H Est Cr Clr Drug Dosing 32.7 eGFR 40.95 BUN/Creatinine Ratio 29.3 H Glucose 220 H POC Glucose Calcium 10.1
--- NOTE | 2024-12-13 11:46 | Pharmacy Report ---
Pharmacy Glycemic Short Note 2 - Date of Service December 13, 2024 - Glycemic Short BSG Results (Last 24 hours): 12/12/24 12/12/24 12/13/24 15:57 20:24 01:24 Glucose POC Glucose 201 H 232 H 232 H 12/13/24 12/13/24 12/13/24 07:22 08:29 11:22 Glucose 220 H POC Glucose 144 H 180 H OUTPATIENT ANTIDIABETIC REGIMEN: * Lantus 10 units daily, Aspart 5 units with breakfast, 3 units with lunch and dinner * A1c pending ASSESSMENT: 12/13: * BSGs largely elevated yesterday: [phone]/dL. Fasting BSG within goal this AM, 144mg/dL. Received 23 units of basal and 55 units of bolus insulin yesterday. * Continues on prednisone 40mg PO daily, tolerating diet. * Lantus 20 units SQ daily starting this AM (will likely need adjusted upon steroid discontinuation). Novolog tightened to 15/5 given BSGs consistently elevated throughout the day yesterday. 12/12 * Methylprednisolone x1 yesterday afternoon. Starting prednisone 40 mg PO QAM today. * Severe hyperglycemia noted yesterday - likely steroid induced. Severe hypoglycemia yesterday - likely 2nd supplemental 8 units of Novolog administered at lunch. Tightening of Novolog CHO ratio at dinner noted - unable to assess adequacy at this time. Correctional insulin administered at HS and overnight. * Will keep Lantus for now as AM hypoglycemia not noted to be an issue at this time and correctional insulin used overnight. Will increase Lantus this AM and scale this PM if BSG > 180 * Will tighten correction factor as correctional insulin administered has not yet brought BSG's back down to goal range 2/5 * Patient's BSGs elevated since admission, starting on steroids today * Will increase lantus 50% today and start 10 BID, patient with ERIC today- will monitor for further increase * Consider addition of NPH with steroid in AM * Tighten carb ratio to weight based stress of 3 PLAN FOR INPATIENT GLYCEMIC CONTROL: * Basal insulin * Lantus 20 units SQ daily * Bolus insulin * NovoLog per scale ACHS or Q6hrs while NPO * Goal Range: Low 110 mg/dL - High 140 mg/dL * Correction Factor: 15 mg/dL/unit * Nutritional / Prandial insulin per carb ratio of 1 unit per 5 grams CHO consumed
[2024-12-13 11:57] VITALS: BP 149/79; PULSE 78; RESP 17; TEMP 97.5
[2024-12-13 11:58] VITALS: O2SAT 97
--- NOTE | 2024-12-13 12:56 | Discharge Summary ---
Discharge Summary Date of Service December 13, 2024 Principal Dx & Hospital Course #1 = Principal Diagnosis (1) Atrial fibrillation with controlled ventricular rate: New onset (2) Acute heart failure with preserved ejection fraction: (3) Diabetes mellitus type 2, insulin dependent: (4) Hypertension, uncontrolled: (5) Asthma: (6) Acute passive congestion of liver: Plan Ms. Doran is a 79-year-old female with past medical history significant for type 2 diabetes, hyperlipidemia, asthma, allergic rhinitis, mitral valve prolapse, hypertension, celiac disease, GERD, obesity, osteoporosis, pain in rig ht shoulder, essential tremor, migraine, unspecified open-angle glaucoma who lives alone admitted for acute hypoxic resp failure iso heart failure exacerbation, as well as likely component of asthma. Patient ultimately with better rate control on increased metorprolol. Patient also with improved SOB with PO prednisone burst. Patient worked with pt and with resp and no oxygen or rehab needs noted. On day of discharge, patient eating well and ambulating on own. #New onset A fib RVR *rate controlled history of sinus bbradycardia noted started on coreg and transitioned to metoprolol succinate increased toprol to 50mg bid continued on eliquis s/p IV lasix today, transitioned to po furosemide #Acute hypoxic resp failure, multifactorial iso hfpef and asthma Wean O2 as able 2 step prior to dispo: no o2 required #Acute on chronic heart failure sp IV diuersis Held after am dose 2/2 renal function monitor IOs daily weights spironolactone started metoprolol XL BID #Asthma exacerbation start steroids given persistent wheezing continue home nebs symptomatic mgmt #HTN continue increased losartan continue amlodipine and spironolactone #ERIC on CKDIII resolved BP control Trend Bmp Notes For Next Care Provider Follow up CBC, BMP, Mag, phos in 1 week Follow up with Cards in 3-4 weeks Medication Changes From Visit Discontinue propranolol Start Metoprolol 50mg BID Increased losartan 50mg bid reduced furosmide to 30mg daily reduced potassium to 10meq daily start apixaban 5mg bid start spironolactone 12.5mg daily start prednisone 40mg bid for 3 more days Admission HPI Per Admitting Provider 79-year-old female with past medical history significant for type 2 diabetes, hyperlipidemia, asthma, allergic rhinitis, mitral valve prolapse, hypertension, celiac disease, GERD, obesity, osteoporosis, pain in right shoulder, essential tremor, migraine, unspecified open-angle glaucoma who lives alone comes because of chest pain and shortness of breath. Patient states she has asthma and since last 2 days feeling short of breath and was not improving. And today she felt like elephant sitting on her chest. Last couple of days she has to sleep on the chair. She gets on and off leg swelling and she thinks her legs are not that swollen today. Walking short distance making her short of breath. Has some headaches. Vision is not great. Hard of hearing. Has on and off runny nose. Appetite is okay. No difficulty swallowing. Denies any chest pain. No nausea. No abdominal pain. Normal bowel and bladder movements. Past medical history. As mentioned above Past surgical history. Left breast biopsy. Bilateral complex cataract surgery. Colonoscopy with biopsy. EGD. EGD with biopsy. EGD with endoscopic ultrasound. ERCP with stent placement. ERCP with stent removal. Laparoscopic cholecystectomy. Tonsillectomy. Sigmoidoscopy with biopsy. Total abdominal hysterectomy with removal of tubes. Video capsule endoscopy. Social history. No smoking. No alcohol use. No drug use. Family history. Father had asthma. AMD. Heart disorder. Mother had renal cell cancer. Hypertension. Sister had hypertension. Sister had asthma. Admission Exam Per Admitting Provider General- Not in distress Head- atraumatic Eyes- PERRL. ENT- oropharynx clear Neck- supple, no JVD. Lungs- clear to auscultation no wheezing or crackles Heart- irregular rhythm; no murmur, no gallop. Abdomen- normal bowel sounds, soft, nontender, no distension Extremities- lower extremity edema present, no erythema seen Neuro- alert, oriented PERRL, no facial palsy; no dysarthria; moves extremities Discharge Exam Constitutional WD/WN, vitals as above Respiratory no wheezes, crackles Cardiovascular irregularly irregular Gastrointestinal (Abdomen) normal bowel sounds, soft, nontender, no hepatosplenomegaly Updated Medication List Medication Instructions Recorded Confirmed Type diphenoxylate-atropine 2.5 1 tab PO BID ##0 06/26/09 12/09/24 History mg-0.025 mg tablet (Lomotil) amlodipine 10 mg tablet 10 mg PO DAILY #0 tabs 09/10/13 12/09/24 History ezetimibe 10 mg tablet 10 mg PO QAM #0 tabs 09/10/13 12/09/24 History omeprazole 40 mg capsule,delayed 40 mg PO QAM #0 caps 09/10/13 12/09/24 History release INSULIN PEN NEEDLE (EXEL INSULIN unit ##120 09/18/13 Rx PEN NEEDLES) aspirin 81 mg tablet,delayed 81 mg PO DAILY ##0 11/29/17 12/09/24 History release calcium 600 mg (as 1 tab PO DAILY ##0 11/29/17 12/09/24 History carbonate)-vitamin D3 10 mcg (400 unit) tablet (Calcium 600 + D(3)) fluticasone 250 mcg-salmeterol 50 1 inh inhalation Q12H #0 Inhalers 11/29/17 12/09/24 History mcg/dose blistr powdr for inhalation (Advair Diskus) insulin aspart U-100 100 unit/mL 1 sliding scale dose SUBCUT 11/29/17 12/09/24 History (3 mL) subcutaneous pen (Novolog USEASDIRECTD ##0 FlexPen U-100 Insulin aspart) tiotropium bromide 18 mcg capsule 1 cap inhalation DAILY ##0 11/29/17 12/09/24 History with inhalation device (Spiriva with HandiHaler) acetaminophen 500 mg capsule 500 mg PO Q4H PRN Pain 12/09/24 12/09/24 History albuterol sulfate 90 mcg/actuation 2 puff inhalation Q4H PRN WHEEZE 12/09/24 12/09/24 History aerosol inhaler artificial 1 drp OPB . NEEDED 12/09/24 12/09/24 History tears(quguday-vjlnswge-fvplppa) 0.1 %-0.3 %-0.2 % eye drops (GenTeal Tears Moderate) ascorbic acid (vitamin C) 500 mg 500 mg PO DAILY 12/09/24 12/09/24 History capsule,extended release azelastine 137 mcg (0.1 %) nasal 2 spray intranasal BID 12/09/24 12/09/24 History spray fluticasone propionate 50 1 spray intranasal DAILY 12/09/24 12/09/24 History mcg/actuation nasal spray,suspension ipratropium bromide 17 2 puff inhalation QID 12/09/24 12/09/24 History mcg/actuation HFA aerosol inhaler (Atrovent HFA) lfffqlqx-bhud-xhjw 8 mg-folic 400 1 tab PO DAILY 12/09/24 12/09/24 History mcg-K 50 mcg-lutein 300 mcg tablet (Multivitamin Women 50 Plus) nitroglycerin 0.4 mg sublingual 0.4 mg sublingual Q5M PRN Chest 12/09/24 12/09/24 History tablet Pain polyvinyl alcohol-povidone (PF) 1 drp OPB . NEEDED 12/09/24 12/09/24 History 1.4 %-0.6 % eye drops in a dropperette (Refresh Classic (PF)) vit C 250 mg-vit E 90 mg-zinc 40 1 tab PO AMHS 12/09/24 12/09/24 History mg-copper 1 gg-ndzpyx-sqroun capsule (PreserVision AREDS-2) apixaban 5 mg tablet (Eliquis) 5 mg PO BID #60 tabs 12/10/24 Rx benzonatate 100 mg capsule 100 mg PO TID 30 days #90 caps 12/13/24 Rx furosemide 20 mg tablet 20 mg PO QAM 30 days #30 tabs 12/13/24 Rx insulin glargine 100 unit/mL (3 10 unit (0.1 mL) subcut DAILY #0 mL 12/13/24 12/09/24 Rx mL) subcutaneous pen (Lantus Solostar U-100 Insulin) loratadine 10 mg tablet 10 mg PO QAM 30 days #30 tabs 12/13/24 Rx losartan 25 mg tablet 50 mg (2 x 25 mg) PO BID 30 days 12/13/24 Rx #120 tabs metoprolol succinate 50 mg 50 mg PO BID 30 days #60 tabs 12/13/24 Rx tablet,extended release 24 hr potassium chloride 20 mEq 10 meq (1/2 x 20 mEq) PO DAILY 30 12/13/24 Rx tablet,extended days #15 tabs release(part/cryst) (Klor-Con M) prednisone 20 mg tablet 40 mg (2 x 20 mg) PO DAILY 3 days 12/13/24 Rx #6 tabs spironolactone 25 mg tablet 12.5 mg (1/2 x 25 mg) PO DAILY 30 12/13/24 Rx days #15 tabs Hospital Stay Data Consultations 12/09/24 20:15 ED Decision to Admit Stat 12/10/24 08:01 Consult Cardiology Routine Diagnostic Imagining Performed 12/09/24 19:41 CT abd pelvis IV con only Stat Pending Results Patient Have Any Pending Studies at Discharge: No Discharge Instructions Given to Patient (Per Discharging Provider) You were admitted for an asthma exacerbation and for an abnormal rhythm called atrial fibrillation You were seen by cardiology and multiple medication adjustments were made Discontinue propranolol Start Metoprolol Succinate 50mg two times a day Increase your Losartan to 50mg two times a day Decrease your furosemide to 20mg a day Decrease your potassium to 10meq a day Start 12.5 mg of Spironolactone a day (0.5 tablet) Start Eliquis 5mg two times a day You will follow up with Dr Mhaan and Cardiology in 3-4 weeks You will continue 40mg of prednisone (starting tomorrow) for three more days You can continue to Tessalon pearles up to three times a day for cough Total Time Total Time Spent Total Time Spent (In Minutes): 45
== END 2024-12-13 14:50 | disposition home or self-care (01) | DRG 308 ==
LOC: ED 16:30 → SUATTDRO 21:37 → 1E 21:37